=== PATIENT | male | born 1955 | race Caucasian/White ===

== ENCOUNTER 2020-01-08 06:26 | Outpatient (REF) | payer OTHER, SELFPAY ==
[2020-01-08 07:40] LABS: MANUAL DIFF FLAG NO
[2020-01-08 07:46] LABS: Basophils Absolute Auto 0.1 X10*3/uL (0.0-0.2); Basophils Percent Auto 0.5 % (0-2); Eosinophils Absolute Auto 0.3 X10*3/uL (0.0-0.4); Eosinophils Percent Auto 3.1 % (0-4); Hematocrit 43.3 % (42-52); Hemoglobin 14.9 g/dl (14.0-18.0); Imm Gran Abs Auto 0.05 X10*3/uL (0.00-0.03); Imm Gran Pct Auto 0.5 % (0.0-0.4); Lymphocytes Absolute Auto 2.8 X10*3/uL (1.2-4.9); Lymphocytes Percent Auto 30.2 % (20-40); Mean Corpuscular HGB Conc 34.4 g/dl (31.0-36.0); Mean Corpuscular Hemoglobin 32.5 pg (27.0-33.0); Mean Corpuscular Volume 94.5 fL (80-98); Mean Platelet Volume 9.7 fL (9.4-12.4); Monocytes Absolute Auto 0.8 X10*3/uL (0.1-1.2); Monocytes Percent Auto 8.5 % (2-11); Neutrophils Absolute Auto 5.3 X10*3/uL (2.0-8.3); Neutrophils Percent Auto 57.2 % (45-73); Platelet Count 229 X10*3/uL (160-400); Red Blood Count 4.58 X10*6/uL (4.60-5.80); Red Cell Distribution Width 13.1 % (11.0-16.0); White Blood Count 9.3 X10*3/uL (4.8-10.8)
[2020-01-08 08:31] LABS: Albumin Level 4.1 g/dL (3.5-5.0); Anion Gap 14 (12-20); Blood Urea Nitrogen 22 mg/dL (9-16); Carbon Dioxide 27 mmol/L (22-29); Chloride 102 mmol/L (96-108); Creatinine Urine 222.91 mg/dL; Estimated Glomerular Filt Rate > 60; Magnesium 1.7 mg/dL (1.6-2.6); Phosphorus 3.3 mg/dL (2.7-4.5); Potassium 4.4 mmol/l (3.3-5.1); Protein/Creatinine Ratio, Ur 0.26 (<0.2); Sodium 139 mmol/L (135-145); Total Protein Urine Random 58 mg/dL (<12)
[2020-01-09 19:27] LABS: Calcium (PTHI) 9.3 mg/dL (8.6-10.3); PTHI 31 pg/mL (14-64)
== END 2020-01-08 06:27 | disposition home or self-care (01) ==
LOC: HO.LAB 06:26
PROVIDERS: PCP Internal Medicine; Visit Provider Internal Medicine Hypertension Specialist
DX: I12.9 Hypertensive chronic kidney disease with stage 1 through stage 4 chronic kidney disease, or unspecified chronic kidney disease (principal); E11.22 Type 2 diabetes mellitus with diabetic chronic kidney disease; N18.2 Chronic kidney disease, stage 2 (mild); R80.9 Proteinuria, unspecified
CPT/HCPCS: 36415; 80051; 82040; 82310; 82565; 83735; 83970; 84100; 84156; 84520; 85025

== ENCOUNTER → 2020-01-31 12:56 | Outpatient (BNVA) | payer OTHER, SELFPAY | PROVIDERS: PCP Internal Medicine; Visit Provider Orthopaedic Surgery | DX: Z76.89 Persons encountering health services in other specified circumstances (principal) ==

== ENCOUNTER → 2020-02-13 08:07 | Outpatient (BNVA) | payer OTHER, SELFPAY | PROVIDERS: PCP Internal Medicine; Referring Provider Internal Medicine; Visit Provider Nurse Practitioner Gerontology | DX: Z76.89 Persons encountering health services in other specified circumstances (principal) ==

== ENCOUNTER 2020-02-29 07:56 | Outpatient (REF) | payer OTHER, SELFPAY ==
[2020-02-29 10:17] LABS: MANUAL DIFF FLAG NO
[2020-02-29 10:23] LABS: Basophils Absolute Auto 0.1 X10*3/uL (0.0-0.2); Basophils Percent Auto 0.6 % (0-2); Eosinophils Absolute Auto 0.3 X10*3/uL (0.0-0.4); Eosinophils Percent Auto 3.4 % (0-4); Hematocrit 42.5 % (42-52); Hemoglobin 14.5 g/dl (14.0-18.0); Imm Gran Pct Auto 1.1 % (0.0-0.4); Lymphocytes Absolute Auto 3.2 X10*3/uL (1.2-4.9); Lymphocytes Percent Auto 34.4 % (20-40); Mean Corpuscular HGB Conc 34.1 g/dl (31.0-36.0); Mean Corpuscular Hemoglobin 31.9 pg (27.0-33.0); Mean Corpuscular Volume 93.6 fL (80-98); Mean Platelet Volume 9.6 fL (9.4-12.4); Monocytes Absolute Auto 0.8 X10*3/uL (0.1-1.2); Neutrophils Absolute Auto 4.9 X10*3/uL (2.0-8.3); Neutrophils Percent Auto 52.5 % (45-73); Platelet Count 235 X10*3/uL (160-400); Red Blood Count 4.54 X10*6/uL (4.60-5.80); Red Cell Distribution Width 13.1 % (11.0-16.0); White Blood Count 9.4 X10*3/uL (4.8-10.8)
[2020-02-29 10:47] LABS: Estimated Average Glucose 151 mg/dL; Hemoglobin A1c % 6.9 %
[2020-02-29 10:48] LABS: Alanine Aminotransferase 46 U/L (0-40); Albumin Level 4.3 g/dL (3.5-5.0); Alkaline Phosphatase 72 U/L (39-117); Anion Gap 14 (12-20); Aspartate Amino Transferase 35 U/L (5-37); Bilirubin Total 0.5 mg/dL (0.0-1.0); Blood Urea Nitrogen 17 mg/dL (9-16); Calcium 9.3 mg/dL (8.4-10.2); Carbon Dioxide 28 mmol/L (22-29); Chloride 103 mmol/L (96-108); Estimated Glomerular Filt Rate > 60; Glucose Random 64 mg/dL (60-115); Potassium 4.1 mmol/l (3.3-5.1); Sodium 141 mmol/L (135-145)
[2020-02-29 10:51] LABS: Glucose Urine UA 100 MG/DL (NEG); Leukocyte Esterase Urine NEG (NEG); Nitrite Urine NEG (NEG); Specific Gravity - Urine >= 1.030 (1.005-1.025); Urine Blood NEG (NEG); Urine Ketones NEG (NEG); Urine Protein 2+ MG/DL (NEG-TRACE)
[2020-02-29 10:57] LABS: Appearance Urine CLEAR; Color Urine YELLOW
[2020-02-29 11:08] LABS: Creatinine Urine 161.34 mg/dL
[2020-02-29 11:09] LABS: Prostate Specific Antigen Scr 0.25 ng/mL (<0.05-4.0)
[2020-02-29 11:22] LABS: Microalbum/Creatinine Ratio Ur 368.1 ug/mg cr
[2020-02-29 11:33] LABS: Mucus Urine 1+ /LPF; RBC Urine 0 /HPF (0); WBC Urine 0-2 /HPF (0-4)
== END 2020-02-29 07:57 | disposition home or self-care (01) ==
LOC: HO.10HDL 07:56
PROVIDERS: Absent Provider Internal Medicine; Visit Provider Nurse Practitioner Gerontology
DX: I25.10 Atherosclerotic heart disease of native coronary artery without angina pectoris (principal); I10 Essential (primary) hypertension; E11.9 Type 2 diabetes mellitus without complications; R35.1 Nocturia
CPT/HCPCS: 36415; 80053; 81001; 82043; 83036; 84153; 85025

== ENCOUNTER 2020-03-13 07:56 | Outpatient (REF) | payer OTHER, SELFPAY ==
--- NOTE | 2020-03-13 08:01 | EMG_ITS ---
Bilateral median and ulnar motor and sensory studies were performed. Bilateral radial sensory studies were performed and paraspinal muscles were tested. Limb muscles were also tested bilaterally. IMPRESSION: 1. [id number] bilateral median neuropathy across carpal tunnel. 2. Mild right ulnar neuropathy across elbow. 3. No evidence of cervical radiculopathy. MD SCOTT Strickland/STEVIE / [id number]
== END 2020-03-13 07:57 | disposition home or self-care (01) ==
LOC: HO.NEURO 07:56
PROVIDERS: Visit Provider Orthopaedic Surgery
DX: R20.0 Anesthesia of skin (principal); R20.2 Paresthesia of skin
CPT/HCPCS: 95860; 95886; 95911

== ENCOUNTER → 2020-03-27 10:54 | Outpatient (BNVA) | payer OTHER, MEDICARE, SELFPAY | PROVIDERS: PCP Internal Medicine; Visit Provider Orthopaedic Surgery | DX: R20.0 Anesthesia of skin (principal); R20.2 Paresthesia of skin | CPT/HCPCS: 99202 ==

== ENCOUNTER → 2020-05-08 08:50 | Outpatient (BNVA) | payer MEDICARE, OTHER, SELFPAY | PROVIDERS: Visit Provider Orthopaedic Surgery | DX: G56.03 Carpal tunnel syndrome, bilateral upper limbs (principal); G56.22 Lesion of ulnar nerve, left upper limb; G56.21 Lesion of ulnar nerve, right upper limb; M65.332 Trigger finger, left middle finger; Z87.891 Personal history of nicotine dependence | CPT/HCPCS: 99212 ==

== ENCOUNTER → 2020-05-09 07:22 | Outpatient (BNVA) | payer MEDICARE, OTHER, SELFPAY | PROVIDERS: PCP Internal Medicine; Visit Provider Nurse Practitioner Gerontology | DX: E11.65 Type 2 diabetes mellitus with hyperglycemia (principal); E11.42 Type 2 diabetes mellitus with diabetic polyneuropathy; E11.29 Type 2 diabetes mellitus with other diabetic kidney complication; Z79.4 Long term (current) use of insulin; R80.9 Proteinuria, unspecified; I10 Essential (primary) hypertension; E78.5 Hyperlipidemia, unspecified; E66.09 Other obesity due to excess calories | CPT/HCPCS: 82947; 99212 ==

== ENCOUNTER 2020-05-23 12:58 | Outpatient (REF) | payer MEDICARE, OTHER, SELFPAY ==
[2020-05-23 13:33] LABS: MANUAL DIFF FLAG NO
[2020-05-23 13:38] LABS: Basophils Absolute Auto 0.1 X10*3/uL (0.0-0.2); Basophils Percent Auto 0.5 % (0-2); Eosinophils Absolute Auto 0.3 X10*3/uL (0.0-0.4); Eosinophils Percent Auto 2.7 % (0-4); Hematocrit 42.3 % (42-52); Hemoglobin 14.7 g/dl (14.0-18.0); Imm Gran Abs Auto 0.06 X10*3/uL (0.00-0.03); Imm Gran Pct Auto 0.5 % (0.0-0.4); Lymphocytes Percent Auto 34.5 % (20-40); Mean Corpuscular HGB Conc 34.8 g/dl (31.0-36.0); Mean Corpuscular Volume 92.2 fL (80-98); Mean Platelet Volume 9.6 fL (9.4-12.4); Monocytes Absolute Auto 0.9 X10*3/uL (0.1-1.2); Monocytes Percent Auto 7.5 % (2-11); Neutrophils Absolute Auto 6.3 X10*3/uL (2.0-8.3); Neutrophils Percent Auto 54.3 % (45-73); Platelet Count 234 X10*3/uL (160-400); Red Blood Count 4.59 X10*6/uL (4.60-5.80); Red Cell Distribution Width 12.9 % (11.0-16.0); White Blood Count 11.6 X10*3/uL (4.8-10.8)
[2020-05-23 13:46] LABS: Estimated Average Glucose 157 mg/dL; Hemoglobin A1c % 7.1 %
[2020-05-23 14:05] LABS: Alanine Aminotransferase 39 U/L (0-40); Albumin Level 4.4 g/dL (3.5-5.0); Alkaline Phosphatase 68 U/L (39-117); Anion Gap 16 (12-20); Aspartate Amino Transferase 36 U/L (5-37); Bilirubin Total 0.6 mg/dL (0.0-1.0); Blood Urea Nitrogen 19 mg/dL (9-16); Calcium 9.5 mg/dL (8.4-10.2); Carbon Dioxide 26 mmol/L (22-29); Chloride 103 mmol/L (96-108); Estimated Glomerular Filt Rate > 60; Glucose Random 93 mg/dL (60-115); Potassium 4.6 mmol/L (3.3-5.1); Sodium 140 mmol/L (135-145); Total Protein 7.1 g/dL (6.5-8.0)
[2020-05-23 14:28] LABS: Free T4 (Free Thyroxine) 0.89 ng/dL (0.71-1.85); Thyroid Stimulating Hormone 1.66 uIU/mL (0.32-4.0)
== END 2020-05-23 12:59 | disposition home or self-care (01) ==
LOC: HO.10HDL 12:58
PROVIDERS: Visit Provider Internal Medicine
DX: I25.10 Atherosclerotic heart disease of native coronary artery without angina pectoris (principal); E11.9 Type 2 diabetes mellitus without complications; I10 Essential (primary) hypertension; E03.9 Hypothyroidism, unspecified
CPT/HCPCS: 36415; 80053; 83036; 84439; 84443; 85025

== ENCOUNTER → 2020-06-26 13:54 | Outpatient (BNVA) | payer MEDICARE, OTHER, SELFPAY | PROVIDERS: PCP Internal Medicine; Visit Provider Internal Medicine | DX: Z01.810 Encounter for preprocedural cardiovascular examination (principal); I25.10 Atherosclerotic heart disease of native coronary artery without angina pectoris; E11.8 Type 2 diabetes mellitus with unspecified complications; I10 Essential (primary) hypertension; E78.5 Hyperlipidemia, unspecified | CPT/HCPCS: 93005; 99202 ==

== ENCOUNTER → 2020-07-04 07:26 | Outpatient (REF) | payer MEDICARE, OTHER, SELFPAY ==
--- NOTE | 2020-07-04 07:29 | CA_ITS ---
Transthoracic Echocardiogram Patient (Last, First, Middle): Kristopher Adhikari E Gender: Male Date of : 1955 Age: 65 Procedure Date: 07/04/2020 Procedure Type: Transthoracic Echocardiogram Location: OP Height: 182.88 cm Weight: 142.88 kg BSA: 2.58 m2 Heart Rate: bpm BP: 138 / 80 mmHg Division Director: Referring MD: Yovani Louise MD Duty Manager: Adalid Braga MD Symptoms: Z01.810 - Encounter for preprocedural cardiovascular exam... Study Quality: Fair ECG Rhythm: Sinus Conclusions: - 1. Technically limited study 2. Normal LV systolic function with mild LVH with grade 1 diastolic dysfunction 3. Normal cardiac valvular Doppler 4. Normal RV systolic pressure Findings Left Ventricle Normal left ventricular size and systolic function. There is mildly increased left ventricular wall thickness. The visually estimated ejection fraction is between 60-65%. Spectral Doppler is indicative of an impaired relaxation filling pattern. E/E prime ratio is <8, consistent with normal filling pressures. Evidence suggests grade I (mild) diastolic dysfunction. Right Ventricle The right ventricle was not well visualized. Atria The left atrium is likely dilated. Interatrial shunt cannot be excluded. The right atrium was not well visualized. Aortic Valve The aortic valve was not well visualized. There is no aortic valve stenosis. There is no aortic valve regurgitation. Mitral Valve The mitral valve was not well visualized. There is no mitral valve regurgitation. There is no mitral valve stenosis. Pulmonic Valve The pulmonic valve was not well visualized. Tricuspid Valve Likely normal tricuspid valve structure and function. There is trace tricuspid valve regurgitation. The right ventricular systolic pressure is normal. The right ventricular systolic pressure is 13 mmHg. Normal right atrial pressure. There is no evidence of pulmonary hypertension. Great Vessels The aorta was not well visualized. The pulmonary artery was not well visualized. Venous The inferior vena cava is normal in size and collapses greater than 50% with inspiration. Pericardium/Pleural The pericardium was not well visualized. Prior Study Comparison No prior study available for comparison. Measurements 2D Linear Measurements IVSd: 1.20 0.6-0.9/0.6-1.0 cm LVIDd: 3.88 3.9-5.3/4.2-5.9 cm LVIDd Index: 1.50 2.4-3.2/2.2-3.1 cm/m2 LVIDs: 2.69 2.0-3.6 cm LVPWd: 1.20 0.7-1.1 cm Ao Root: 3.20 2.1-3.5 cm LA Diam: 4.10 2.7-3.8/3.0-4.0 cm LAIDs Index: 1.59 1.5-2.3 cm/m2 LV Mass: 261.95 67-162/88-224 g LV Mass Index: 101.53 43-95/49-115 g/m2 LVOT Diam: 2.10 3.0+(-)1.3 cm 2D Systolic Function EF 4C: 68.90 >55% EF 2C: 71.30 >55% EF BiP: 72.10 >55% Mitral Valve MV Pk E: 0.66 MV PK A: 0.89 MV Decel Time: 95.00 E/A: 0.70 E'Lateral: 8.12 E'Medial: 5.80 E/E' Med: 11.40 E/E' Lat: 8.10 PHT: 28.00 MVA PHT: 7.86 Decel [place]: 6.94 Aortic Valve AoV Pk Joseph: 1.24 AoV Mn Joseph: 0.78 AoV VTI: 0.27 AoV Pk Grad: 6.00 Aov Mn Grad: 3.00 JEREL Cont.VTI: 2.47 LVOT LVOT Pk Joseph: 0.87 LVOT Mn Joseph: 0.61 LVOT VTI: 0.20 LVOT Pk Grad: 3.00 LVOT Mn Grad: 2.00 LVOT Diam: 2.10 LVOT Area: 3.46 Diastolic Function MV Pk E: 0.66 MV Pk A: 0.89 E/A: 0.70 E'Medial: 5.80 E/E' Med: 11.40 E' Laterial: 8.12 E/E' Lat: 8.10 Tricuspid Valve TR Pk Joseph: 1.59 TR Pk Grad: 10.00 RA Press: 3.00 RVSP: 13.00 Great Vessels Aorta Ao Root-2D: 3.20 2.0-3.7 cm Pulmonary Valve PV Pk Joseph: 0.92 Peak PV Grad: 3.00 Updated in Other Vendor System with Status of Final Adalid Braga MD electronically signed on 07/05/2020 2:59:11 PM with status of Final
== END ==
LOC: HO.CARD 07:26
PROVIDERS: PCP Internal Medicine; Visit Provider Internal Medicine
DX: Z01.810 Encounter for preprocedural cardiovascular examination (principal)
CPT/HCPCS: 93306; Q9957

== ENCOUNTER → 2020-07-08 08:25 | Outpatient (REF) | payer MEDICARE, OTHER, SELFPAY ==
--- NOTE | ~2020-07-08 | NM_ITS ---
Lexiscan Myocardial perfusion study Indication: Preoperative cardiac evaluation, history of coronary disease Technique: The patient was brought in for a Lexiscan perfusion study on 07/08/2020 and was injected 0.4 mg of Lexiscan intravenously. Within a minute of this injection 45 mCi of sestamibi was given intravenously. Images were obtained using the SPECT gamma camera interlaced with the gating device. Images were obtained in supine position. Resting perfusion study was performed on 07/09/2020. Patient was administered 45 mCi of sestamibi intravenously at rest. Images were then obtained in supine position. Total DLP 156mGy-cm. Images were processed with the software and compared side to side in short axis, horizontal long axis and vertical long axis views. Findings: Raw acquisition was reviewed. The stress perfusion study showed minimally decreased tracer uptake in the basal part of the inferolateral wall. With CT attenuation correction, there seems to be improvement and hence could be from diaphragmatic attenuation artifact. The gated study shows normal LV systolic function with calculated LVEF of 59%. LV cavity is normal in size. The gated study shows normal wall thickening and contraction of segments. Resting study shows no significant perfusion abnormality. Gating at rest reveals normal wall motion with ejection fraction at 70%. The findings are consistent with no definite reversible or fixed perfusion defects. NM/NM gricel perf SPECT rest & str Impression: 1. Myocardial perfusion imaging study shows likely normal myocardial perfusion. No definitive evidence of any ischemia or infarction. 2. Gated LVEF is 59% during stress and 70% during rest. 3. Transient ischemic dilatation not present. EKG component of the test reported separately.
--- NOTE | 2020-07-08 08:27 | CA_ITS ---
Acquisition Time: 2020-07-08 08:34:08 Total Exercise Time: 00:02:00 Test Indications: Z01.810 Preprocedural Cardiovasc Medications: Protocol: LEXISCAN Max HR: 113 BPM 73% of Pred: 154 BPM Max BP: 130/068 mmHG Max Work Load: 1.0 METS Pharmacological stess test using Lexiscan while sitting and kicking his feet. Pt tolerated well, denies any anginal sx. EKG without arrhythmias, non-diagnostic for ischemia. Nuclear images to follow. Normotensive response to test. Test reviewed with Dr. Louise. Referred By: Yovani Louise Overread By: Veronica Estes NP
== END ==
LOC: HO.CARD 08:25
PROVIDERS: PCP Internal Medicine; Visit Provider Internal Medicine
DX: Z01.810 Encounter for preprocedural cardiovascular examination (principal); Z86.79 Personal history of other diseases of the circulatory system
CPT/HCPCS: 78452; 93017; A9500; J0280; J2785

== ENCOUNTER → 2020-07-10 07:31 | Outpatient (BNVA) | payer MEDICARE, OTHER, SELFPAY | PROVIDERS: PCP Internal Medicine; Visit Provider Nurse Practitioner Gerontology | DX: Z01.810 Encounter for preprocedural cardiovascular examination (principal); E11.42 Type 2 diabetes mellitus with diabetic polyneuropathy; E11.21 Type 2 diabetes mellitus with diabetic nephropathy; E11.65 Type 2 diabetes mellitus with hyperglycemia; E11.29 Type 2 diabetes mellitus with other diabetic kidney complication; E66.09 Other obesity due to excess calories; R80.9 Proteinuria, unspecified; I25.10 Atherosclerotic heart disease of native coronary artery without angina pectoris; E78.5 Hyperlipidemia, unspecified; I10 Essential (primary) hypertension; Z79.82 Long term (current) use of aspirin; Z87.891 Personal history of nicotine dependence; Z79.4 Long term (current) use of insulin | CPT/HCPCS: 82947; 99212; Q3014 ==

== ENCOUNTER → 2020-08-12 12:24 | Outpatient (BNVA) | payer MEDICARE, OTHER, SELFPAY | PROVIDERS: PCP Internal Medicine; Visit Provider Orthopaedic Surgery | DX: M65.332 Trigger finger, left middle finger (principal); G56.03 Carpal tunnel syndrome, bilateral upper limbs; G56.23 Lesion of ulnar nerve, bilateral upper limbs | CPT/HCPCS: 99212 ==

== ENCOUNTER 2020-08-14 10:03 | Day surgery (SDC) | payer MEDICARE, OTHER, SELFPAY ==
[2020-08-05 11:26] VITALS: BMI 42.7
--- NOTE | 2020-08-05 12:41 | HO.ANESPROP2 ---
Documented by User: Linda Lee 08/05/20 12:45 HPI - Anesthesia Eval Consult details Narrative: 65yo M for Left Middle Finger Transposition Cubital Tunnel Release, Carpal Tunnel Release and A1- Pully Release Cardiac cleared at low to intermediate risk PMFSH Active Problems Active Problems: All Active Problems (Updated 08/05/20 @ 11:41 by Rebeka Mancera) Numbness and tingling in both hands (Acute) Left hand pain (Acute) Carpal tunnel syndrome of left wrist (Acute) Cubital tunnel syndrome on left (Acute) Cubital tunnel syndrome on right (Acute) Carpal tunnel syndrome of right wrist (Acute) Trigger finger, left middle finger (Acute) Preoperative cardiovascular examination (Acute) Other and unspecified hyperlipidemia (Acute) Type 2 diabetes mellitus with unspecified complications (Acute) Atherosclerotic cardiovascular disease (Acute) Type 2 diabetes mellitus with hyperglycemia, with long-term current use of insulin (Acute) Type 2 diabetes mellitus with diabetic polyneuropathy (Acute) Proteinuria (Acute) Type 2 diabetes mellitus with other diabetic kidney complication (Acute) Essential hypertension (Acute) Hyperlipidemia LDL goal <70 (Acute) Obesity due to excess calories (Acute) Past Medical History Medical History Atherosclerotic cardiovascular disease CAD (coronary artery disease) Chronic kidney disease (CKD), stage II (mild) Diabetes Essential hypertension GERD (gastroesophageal reflux disease) Gout Graves disease History of skin cancer HTN (hypertension) Hyperlipidemia Hyperlipidemia LDL goal <70 Obesity due to excess calories Other and unspecified hyperlipidemia Peripheral neuropathy Proteinuria Renal stones Sleep apnea Tubular adenoma of colon Type 2 diabetes mellitus with diabetic polyneuropathy Type 2 diabetes mellitus with hyperglycemia, with long-term current use of insulin Type 2 diabetes mellitus with other diabetic kidney complication Type 2 diabetes mellitus with unspecified complications Family History Family History Father No problems noted. 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 [employer] Allergies Allergy/AdvReac Type Severity Reaction Status Date / Time No Known Allergies Allergy Verified 08/12/20 12:27 [No Known Allergies*] Home Medications Medication Instructions Recorded Confirmed Last Taken Type metoprolol tartrate 50 mg tablet 50 mg PO BID tab 01/31/20 08/05/20 Unknown History blood sugar diagnostic #10 ea 02/13/20 07/10/20 Unknown History levothyroxine 50 mcg tablet 50 mcg PO DAILY 02/13/20 08/05/20 Unknown History lisinopril 20 mg tablet 20 mg PO DAILY 02/13/20 08/05/20 Unknown History pen needle, diabetic 32 gauge x #50 ea 02/13/20 07/10/20 Unknown History aspirin 325 mg tablet 325 mg PO DAILY 05/09/20 08/05/20 Unknown History insulin glargine 100 unit/mL 50 unit SUBCUT BID ml 07/10/20 08/05/20 Unknown History subcutaneous solution allopurinol 1 tab PO DAILY 08/05/20 08/05/20 Unknown History atorvastatin 1 tab PO DAILY 08/05/20 08/05/20 Unknown History omeprazole 1 cap PO DAILY 08/05/20 08/14/20 08/14/20 06:00 History Exam Exam Date and Time: August 05, 2020 1241 Height,Weight and Vital Signs: Height 6 ft Weight 142.882 kg Pertinent Lab Results Pertinent Lab Results: Laboratory Tests 05/23/20 05/23/20 13:08 13:08 WBC 11.6 H Hgb 14.7 Hct 42.3 Plt Count 234 Sodium 140 Potassium 4.6 Chloride 103 Carbon Dioxide 26 BUN 19 H Creatinine 1.03 Narrative Narrative: EKG 06/2020: sinus rhythm with first-degree AV block, no acute ST or T-wave abnormalities, rate 80. Nuclear stress test done on 07/08/2020 shows normal myocardial perfusion imaging with no infarct or ischemia. Echocardiogram done on 07/04/2020 shows EF 60-65%, grade 1 diastolic dysfunction, no valve abnormalities. Assessment and Plan Assessment Anesthesia Assessment: Chart Reviewed Documented by User: Irma Cates 08/14/20 11:24 [facility] Past Medical History Medical History Atherosclerotic cardiovascular disease CAD (coronary artery disease) Chronic kidney disease (CKD), stage II (mild) Diabetes Essential hypertension GERD (gastroesophageal reflux disease) Gout Graves disease History of skin cancer HTN (hypertension) Hyperlipidemia Hyperlipidemia LDL goal <70 Obesity due to excess calories Other and unspecified hyperlipidemia Peripheral neuropathy Proteinuria Renal stones Sleep apnea Tubular adenoma of colon Type 2 diabetes mellitus with diabetic polyneuropathy Type 2 diabetes mellitus with hyperglycemia, with long-term current use of insulin Type 2 diabetes mellitus with other diabetic kidney complication Type 2 diabetes mellitus with unspecified complications Family History Family History Father No problems noted. 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 [place] Allergies Allergy/AdvReac Type Severity Reaction Status Date / Time No Known Allergies Allergy Verified 08/12/20 12:27 [No Known Allergies*] Home Medications Medication Instructions Recorded Confirmed Last Taken Type metoprolol tartrate 50 mg tablet 50 mg PO BID tab 01/31/20 08/05/20 Unknown History blood sugar diagnostic #10 ea 02/13/20 07/10/20 Unknown History levothyroxine 50 mcg tablet 50 mcg PO DAILY 02/13/20 08/05/20 Unknown History lisinopril 20 mg tablet 20 mg PO DAILY 02/13/20 08/05/20 Unknown History pen needle, diabetic 32 gauge x #50 ea 02/13/20 07/10/20 Unknown History aspirin 325 mg tablet 325 mg PO DAILY 05/09/20 08/05/20 Unknown History insulin glargine 100 unit/mL 50 unit SUBCUT BID ml 07/10/20 08/05/20 Unknown History subcutaneous solution allopurinol 1 tab PO DAILY 08/05/20 08/05/20 Unknown History atorvastatin 1 tab PO DAILY 08/05/20 08/05/20 Unknown History omeprazole 1 cap PO DAILY 08/05/20 08/14/20 08/14/20 06:00 History Exam Airway Mallampati Class: III TM Dist: >3cm Neck ROM: Full Assessment and Plan Assessment Anesthesia Assessment: Anesthesia Plan Discussed and Chart Reviewed Final Anesthetic Review ASA Class: III Final Preanesthetic Review: No Changes in Pt Med Stat, Meds/Allgs Chart Reviewed, Consent Obtained/Reviewed and Anes Risks/Benef Reviewed Patient Risk: Intermediate Procedure Risk: Low Assessment/Block/Sedation in SS: Assess/Block/Sedation-SS Anesthetic Plan Anesthetic Plan: GA Disposition: Standard PACU
[2020-08-14 10:15] VITALS: BP 142/62; PULSE 85; RESP 26; TEMP 36.3; O2SAT 96
[2020-08-14 10:34] LABS: Glucose, Whole Blood 166 mg/dL (60-115)
[2020-08-14] MEDS: Lactated Ringers 1,000 ML 100 ML IVCONT (10:39)
--- NOTE | 2020-08-14 13:22 | MHC.SHP ---
Pre-Procedural Eval Section B Chief Complaint: carpal tunnel syndrome Allergies: Allergies Allergy/AdvReac Type Severity Reaction Status Date / Time No Known Allergies Allergy Verified 08/12/20 12:27 [No Known Allergies*] Plan I have reviewed the history and physical and performed a pertinent physical examination on my patient. No changes have occurred unless specified.
--- NOTE | 2020-08-14 13:23 | P.OP_ITS ---
Operative Note Operative Note Date of Service: 08/14/20 Narrative: Operative Note Narrative: Preop diagnosis: 1. [ ] Cubital tunnel syndrome Postop diagnosis: Same Procedure: 1. [ ] Cubital Tunnel Release Surgeon: Kadi Wren MD Anesthesia: General Findings: [ ] Thickening and fibrosis about the ulnar nerve at the cubital tunnel Implants: none Tourniquet time: [ ] minutes EBL: 5.0 ml Specimen: none Drains: None Complications: None Disposition: Brought to the recovery room in stable condition Plan: Follow-up in 10-14 days for wound check, and suture removal [ ] Indications: The patient is [ ] years old [ ] with [ ] . The risks and benefits of operative treatment, including but not limited to risk of damage to blood vessels, nerves, tendons, infection, recurrence, persistent pain or numbness, incomplete resolution of preoperative symptoms, or need for further surgery were discussed with the patient and they wished to proceed with surgery. Procedure: Once consent was obtained patient was brought back to the operating suite and placed in the operating table in a supine position. Perioperative antibiotics and anesthesia was administered by the anesthesia team. The limb was prepped and draped in a standard surgical fashion, and a sterile tourniquet applied to the proximal aspect of the [ ] upper extremity. The limb was elevated exsanguinated with Esmarch bandage and the tourniquet inflated to 250 mm of mercury for a total tourniquet time of [ ] minutes. A 6 cm gently curved but longitudinally oriented incision was made centered over the cubital tunnel of the [ ] upper extremity. Incision was made through the skin to the subcutaneous tissues using a # 15 Blade. I then dissected down to the level of the medial epicondyle and the cubital tunnel using tenotomy scissors. Care was taken to protect the lateral antebrachial cutaneous nerve. The ulnar nerve was identified just posterior to the medial intermuscular septum. Small vessel loop was passed behind the ulnar nerve and used to apply g entle traction to facilitate our release. The ulnar nerve was released in a proximal to distal direction using tenotomy in iris scissors while directly visualizing and protecting the ulnar nerve. Thickening and fibrosis was appreciated about the ulnar nerve as it passed through the cubital tunnel. The ulnar nerve was assessed as I passed the elbow through full flexion and extension [and was found to remain stable within its groove]. Has the ulnar nerve appear to subluxate over the medial epicondyle, the decision was made to proceed with an anterior ulnar nerve transposition. The subcutane ous tissue was carefully freed from the fascia anterior to the medial epicondyle creating an appropriate bed for the ulnar nerve transposition. The ulnar nerve was then freed and carefully transposed anterior to the medial epicondyle. Some of the subcutaneous fat in the anterior flap of tissues was carefully secured to the fascia about the medial epicondyle using some 3-0 Vicryl suture material. This created a sling to prevent posterior subluxation of the ulnar nerve. The ulnar nerve was evaluated in its transposition site and found to have good ability to glide and to be free from undo pressure from the anterior sling. [ ] At this point the tourniquet was deflated and hemostasis obtained with a brief period of local pressure and bipolar electrocautery. The wound was copiously irrigated with normal saline. The subcutaneous layer was closed with 4-0 Vicryl suture, and the skin edges were reapproximated with 5-0 nylon suture. The wound was infiltrated with some 0.25% plain Marcaine for postop pain control and sterile dressings and a posterior splint was applied. The patient appears to have tolerated the procedure well and with no complications. All digits were well vascularized conclusion of the case.
--- NOTE | 2020-08-14 14:57 | HO.ANESPROP2 ---
FORMERLY [facility], [facility] Active Problems Active Problems: All Active Problems (Updated 08/05/20 @ 12:44 by Linda Lee) Numbness and tingling in both hands (Acute) Left hand pain (Acute) Carpal tunnel syndrome of left wrist (Acute) Cubital tunnel syndrome on left (Acute) Cubital tunnel syndrome on right (Acute) Carpal tunnel syndrome of right wrist (Acute) Trigger finger, left middle finger (Acute) Preoperative cardiovascular examination (Acute) Other and unspecified hyperlipidemia (Acute) Type 2 diabetes mellitus with unspecified complications (Acute) Atherosclerotic cardiovascular disease (Acute) Type 2 diabetes mellitus with hyperglycemia, with long-term current use of insulin (Acute) Type 2 diabetes mellitus with diabetic polyneuropathy (Acute) Proteinuria (Acute) Type 2 diabetes mellitus with other diabetic kidney complication (Acute) Essential hypertension (Acute) Hyperlipidemia LDL goal <70 (Acute) Obesity due to excess calories (Acute) Past Medical History Medical History Atherosclerotic cardiovascular disease CAD (coronary artery disease) Chronic kidney disease (CKD), stage II (mild) Diabetes Essential hypertension GERD (gastroesophageal reflux disease) Gout Graves disease History of skin cancer HTN (hypertension) Hyperlipidemia Hyperlipidemia LDL goal <70 Obesity due to excess calories Other and unspecified hyperlipidemia Peripheral neuropathy Proteinuria Renal stones Sleep apnea Tubular adenoma of colon Type 2 diabetes mellitus with diabetic polyneuropathy Type 2 diabetes mellitus with hyperglycemia, with long-term current use of insulin Type 2 diabetes mellitus with other diabetic kidney complication Type 2 diabetes mellitus with unspecified complications Family History Family History Father No problems noted. 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 Allergies Allergy/AdvReac Type Severity Reaction Status Date / Time No Known Allergies Allergy Verified 08/12/20 12:27 [No Known Allergies*] Active Medications: Current Medications Generic Name Dose Route Start Last Admin Trade Name Cici PRN Reason Stop Dose Admin Acetaminophen 650 mg 08/14/20 11:24 Acetaminophen 325 Mg Tablet PO ONCE PRN Pain, Mild (Pain Scale 1-3) Fentanyl 50 mcg 08/14/20 11:24 Fentanyl Citrate/Pf 100 Mcg/2 Ml Vial IVPUSH Q5M PRN Pain, Severe (Pain Scale 7-10) Lactated Ringer's 1,000 mls @ 100 mls/hr 08/14/20 09:45 08/14/20 10:39 Lr IVCONT 100 mls/hr .Q10H MILLICENT Administration Ondansetron HCl 4 mg 08/14/20 11:24 Ondansetron Hcl 4 Mg/2 Ml Vial IVPUSH ONCE PRN Nausea and Vomiting Oxycodone HCl 5 mg 08/14/20 11:24 Oxycodone Hcl Immed Release 5 Mg Tablet PO ONCE PRN Pain, Severe (Pain Scale 7-10) Home Medications Medication Instructions Recorded Confirmed Last Taken Type metoprolol tartrate 50 mg tablet 50 mg PO BID tab 01/31/20 08/05/20 Unknown History blood sugar diagnostic #10 ea 02/13/20 07/10/20 Unknown History levothyroxine 50 mcg tablet 50 mcg PO DAILY 02/13/20 08/05/20 Unknown History lisinopril 20 mg tablet 20 mg PO DAILY 02/13/20 08/05/20 Unknown History pen needle, diabetic 32 gauge x #50 ea 02/13/20 07/10/20 Unknown History aspirin 325 mg tablet 325 mg PO DAILY 05/09/20 08/05/20 Unknown History insulin glargine 100 unit/mL 50 unit SUBCUT BID ml 07/10/20 08/05/20 Unknown History subcutaneous solution allopurinol 1 tab PO DAILY 08/05/20 08/05/20 Unknown History atorvastatin 1 tab PO DAILY 08/05/20 08/05/20 Unknown History omeprazole 1 cap PO DAILY 08/05/20 08/14/20 08/14/20 06:00 History Exam Exam Date and Time: August 14, 2020 1457 Height,Weight and Vital Signs: Height 6 ft Weight 142.882 kg Last Vital Signs Temp 97.3 F 08/14/20 10:15 Pulse 85 08/14/20 10:15 Resp 26 H 08/14/20 10:15 BP 142/62 H 08/14/20 10:15 Pulse Ox 96 08/14/20 10:15 Pertinent Lab Results Pertinent Lab Results: Laboratory Tests 08/14/20 10:30 POC Glucose 166 H Airway Mallampati Class: II TM Dist: >3cm Neck ROM: Full Assessment and Plan Assessment Anesthesia Assessment: Anesthesia Plan Discussed and Chart Reviewed Final Anesthetic Review NPO: Yes ASA Class: III Final Preanesthetic Review: No Changes in Pt Med Stat, Meds/Allgs Chart Reviewed, Consent Obtained/Reviewed and Anes Risks/Benef Reviewed Patient Risk: Intermediate Procedure Risk: Low Assessment/Block/Sedation in SS: Assess/Block/Sedation-SS Anesthetic Plan Anesthetic Plan: GA Disposition: Standard PACU
--- NOTE | 2020-08-14 16:20 | P.OP_ITS ---
Operative Note Operative Note Date of Service: 08/14/20 Narrative: Operative Note Narrative: Preop diagnosis: 1. Left Cubital tunnel syndrome 2. Left carpal tunnel syndrome 3. Left middle finger trigger finger Postop diagnosis: Same Procedure: 1. Left Cubital Tunnel Release 2. Left carpal tunnel release 3. Left middle finger A1 genna release Surgeon: Kadi Wren MD Anesthesia: General Findings: Thickening and fibrosis about the ulnar nerve at the cubital tunnel. The ulnar nerve was stable in the groove with passive elbow flexion and extension. Implants: none Tourniquet time: 40 minutes EBL: 5.0 ml Specimen: none Drains: None Complications: None Disposition: Brought to the recovery room in stable condition Plan: Follow-up in 10-14 days for wound check, and suture removal Indications: The patient is 65 years old man with left cubital tunnel syndrome, left carpal tunnel syndrome, and a left middle finger trigger finger . The risks and benefits of operative treatment, including but not limited to risk of damage to blood vessels, nerves, tendons, infection, recurrence, persistent pain or numbness, incomplete resolution of preoperative symptoms, or need for further surgery were discussed with the patient and they wished to proceed with surgery. Procedure: Once consent was obtained patient was brought back to the operating suite and placed in the operating table in a supine position. Perioperative antibiotics and anesthesia was administered by the anesthesia team. The limb was prepped and draped in a standard surgical fashion, and a sterile tourniquet applied to the proximal aspect of the left upper extremity. The limb was elevated exsanguinated with Esmarch bandage and the tourniquet inflated to 250 mm of mercury for a total tourniquet time of 40 minutes. Release. Our attention was 1st turned toward the left middle finger trigger finger. A 1.5 cm oblique incision was made centered over the A1 genna of the left middle finger . The incision was made through the skin to the subcutaneous tissues using a #15 blade. Careful dissection was made down to the level of the A1 genna using tenotomy scissors, with care being taken to protect the nearby neurovascular structures. A longitudinal incision was made in the A1 genna 1st using a #15 blade, then using tenotomy scissors under direct visualization. The A1 genna was noted to be thickened. Following our A1 genna release, we pascual dietzger saw any locking or catching of the digit with passive flexion and extension. We then turned our attention to the left carpal tunnel release. A 1.5 cm longitudinal incision was made centered over the left carpal tunnel. The incision was made through the skin to the subcutaneous tissues using a #15 blade. Dissection was made down to the level of the transverse carpal ligament with care being taken to protect the palmar cutaneous nerve. Once the transverse carpal ligament was clearly visualized, a longitudinal incision was made in the transverse carpal ligament 1st using a #15 blade, then using tenotomy scissors under direct visualization. Care was taken to look for and protect the motor branch of the median nerve when seen in this area. Once satisfied with our carpal tunnel release the wound was irrigated with normal saline. This point my attention was turned to the cubital tunnel A 6 cm gently curved but longitudinally oriented incision was made centered over the cubital tunnel of the left upper extremity. Incision was made through the skin to the subcutaneous tissues using a # 15 Blade. I then dissected down to the level of the medial epicondyle and the cubital tunnel using tenotomy scissors. Care was taken to protect the lateral antebrachial cutaneous nerve. The ulnar nerve was identified just posterior to the medial intermuscular septum. Small vessel loop was passed behind the ulnar nerve and used to apply gentle traction to facilitate our release. The ulnar nerve was released in a proximal to distal direction using tenotomy in iris scissors while directly visualizing and protecting the ulnar nerve. Thickening and fibrosis was appreciated about the ulnar nerve as it passed through the cubital tunnel. The ulnar nerve was assessed as I passed the elbow through full flexion and extension [and was found to remain stable within its groove]. At this point the tourniquet was deflated and hemostasis obtained with a brief period of local pressure and bipolar electrocautery. The wounds for copiously irrigated with normal saline. The subcutaneous layer was closed with 4-0 Vicryl suture, and the skin edges were reapproximated with 5-0 nylon and 4-0 nylon suture. The wounds were infiltrated with some 1% lidocaine with epinephrine for postop pain control and sterile dressings and a posterior splint was applied. The patient appears to have tolerated the procedure well and with no complications. All digits were well vascularized conclusion of the case.
[2020-08-14 16:25] VITALS: BP 139/65; PULSE 90; RESP 14; TEMP 36.4; O2SAT 92
[2020-08-14 16:30] VITALS: BP 147/56; PULSE 85; RESP 14; O2SAT 92
[2020-08-14 16:35] VITALS: BP 126/52; PULSE 87; RESP 16; O2SAT 92
[2020-08-14 16:40] VITALS: BP 133/51; PULSE 86; RESP 16; O2SAT 93
[2020-08-14 16:55] VITALS: BP 127/55; PULSE 90; RESP 16; O2SAT 96
== END 2020-08-14 17:17 | disposition home or self-care (01) ==
PROVIDERS: PCP Internal Medicine; Visit Provider Orthopaedic Surgery
PROC: (CPT 64718; principal; 2020-08-14 11:30)
DX: G56.02 Carpal tunnel syndrome, left upper limb (principal); G56.22 Lesion of ulnar nerve, left upper limb; M65.332 Trigger finger, left middle finger; E11.22 Type 2 diabetes mellitus with diabetic chronic kidney disease; I12.9 Hypertensive chronic kidney disease with stage 1 through stage 4 chronic kidney disease, or unspecified chronic kidney disease; N18.2 Chronic kidney disease, stage 2 (mild); E11.65 Type 2 diabetes mellitus with hyperglycemia; E11.42 Type 2 diabetes mellitus with diabetic polyneuropathy; G47.30 Sleep apnea, unspecified; I25.10 Atherosclerotic heart disease of native coronary artery without angina pectoris; Z98.61 Coronary angioplasty status; Z79.4 Long term (current) use of insulin; Z87.891 Personal history of nicotine dependence; Z79.899 Other long term (current) drug therapy; Z79.82 Long term (current) use of aspirin
CPT/HCPCS: 64721; 64718; 26055; 82947; J0690; J1100; J2250; J2405; J3010

== ENCOUNTER → 2020-08-25 08:53 | Outpatient (BNVA) | payer MEDICARE, OTHER, SELFPAY | PROVIDERS: PCP Internal Medicine; Visit Provider Orthopaedic Surgery | DX: G56.23 Lesion of ulnar nerve, bilateral upper limbs (principal); G56.03 Carpal tunnel syndrome, bilateral upper limbs; M65.332 Trigger finger, left middle finger | CPT/HCPCS: 99212 ==

== ENCOUNTER → 2020-10-07 07:50 | Outpatient (BNVA) | payer MEDICARE, OTHER, SELFPAY | PROVIDERS: PCP Internal Medicine; Visit Provider Nurse Practitioner Gerontology | DX: E11.65 Type 2 diabetes mellitus with hyperglycemia (principal); E11.42 Type 2 diabetes mellitus with diabetic polyneuropathy; E11.29 Type 2 diabetes mellitus with other diabetic kidney complication; E78.5 Hyperlipidemia, unspecified; E66.01 Morbid (severe) obesity due to excess calories; R80.9 Proteinuria, unspecified; I10 Essential (primary) hypertension; Z79.4 Long term (current) use of insulin; Z68.42 Body mass index [BMI] 45.0-49.9, adult | CPT/HCPCS: 82947; 99212 ==

== ENCOUNTER 2020-11-20 09:24 | Outpatient (REF) | payer MEDICARE, OTHER, SELFPAY ==
--- NOTE | ~2020-11-20 | CT_ITS ---
EXAMINATION: CT CHEST SCREENING CLINICAL INFORMATION: Personal history of nicotine dependence. COMPARISON: None. TECHNIQUE: Multidetector volumetric CT imaging of the chest is performed without contrast using low dose technique. Additional 2D coronal and sagittal reformatted images and axial 3D maximum intensity projection (MIP) images are generated on the CT workstation. This CT examination was performed using dose optimization techniques as appropriate, variously including the following: *Automated exposure control *Adjustment of mA and/or kV according to patient size (this includes techniques or standardized protocols for targeted exams where dose is matched to indication/reason for exam; i.e. extremities or head) *Use of iterative reconstruction technique DLP: 449 mGy-cm FINDINGS: LUNGS: The lungs are well expanded and clear of acute pneumonic process. There is left basilar atelectasis. There is a 2 mm subpleural-based nodule in the lingula axial image 251/5, 2 mm nodule right middle lobe adjacent to the minor fissure axial image 248/5 and 2 mm nodule right upper lobe axial image 144/5. No additional nodule seen. MEDIASTINUM: The thyroid lobes are symmetrical and normal. The central trachea and the bronchi are widely patent. No abnormal-sized mediastinal or hilar lymph node seen. Heart size and the great vessels are normal caliber. There are coronary artery calcifications present. There is no pericardial effusion. PLEURA: There is no pleural effusion. No pleural mass or thickening. AXILLA: There are small bilateral benign-appearing lymph nodes. UPPER ABDOMEN: Visualized liver, spleen, pancreas and bilateral adrenal glands appear unremarkable. There is punctate nonobstructive radiopaque calculi upper pole left kidney. OSSEOUS STRUCTURES: No lytic or sclerotic process. CT/CT lung screening IMPRESSION: Several 2 mm small pulmonary nodules likely benign. No acute consolidation, mass or abnormal mediastinal adenopathy. Lung RADS: 2, benign. RECOMMENDATION: Low dose annual CT chest.
== END 2020-11-20 09:25 | disposition home or self-care (01) ==
LOC: HO.CT 09:24
PROVIDERS: PCP Internal Medicine; Visit Provider Physician Assistant Medical
DX: Z12.2 Encounter for screening for malignant neoplasm of respiratory organs (principal); Z87.891 Personal history of nicotine dependence
CPT/HCPCS: 71271

== ENCOUNTER → 2021-01-13 08:08 | Outpatient (BNVA) | payer MEDICARE, OTHER, SELFPAY | PROVIDERS: PCP Internal Medicine; Referring Provider Internal Medicine; Visit Provider Internal Medicine ==

== ENCOUNTER → 2021-01-26 08:10 | Outpatient (BNVA) | payer MEDICARE, OTHER, SELFPAY | PROVIDERS: PCP Internal Medicine; Referring Provider Internal Medicine; Visit Provider Internal Medicine | DX: I25.10 Atherosclerotic heart disease of native coronary artery without angina pectoris (principal); I10 Essential (primary) hypertension; E78.5 Hyperlipidemia, unspecified; E11.8 Type 2 diabetes mellitus with unspecified complications | CPT/HCPCS: 99212 ==

== ENCOUNTER 2021-01-29 10:48 | Outpatient (REF) | payer MEDICARE, OTHER, SELFPAY ==
[2021-01-29 13:45] LABS: MANUAL DIFF FLAG NO
[2021-01-29 13:59] LABS: Estimated Average Glucose 157 mg/dL; Hemoglobin A1c % 7.1 %
[2021-01-29 14:03] LABS: Appearance Urine CLEAR; Color Urine YELLOW; Glucose Urine UA NEG (NEG); Leukocyte Esterase Urine NEG (NEG); Nitrite Urine NEG (NEG); Specific Gravity - Urine 1.025 (1.005-1.025); Urine Blood NEG (NEG); Urine Ketones NEG (NEG); Urine Protein 2+ MG/DL (NEG-TRACE)
[2021-01-29 14:04] LABS: Basophils Absolute Auto 0.1 X10*3/uL (0.0-0.2); Basophils Percent Auto 0.9 % (0-2); Eosinophils Absolute Auto 0.4 X10*3/uL (0.0-0.4); Eosinophils Percent Auto 3.9 % (0-4); Hematocrit 43.1 % (42.0-52.0); Hemoglobin 14.7 g/dl (14.0-18.0); Imm Gran Abs Auto 0.06 X10*3/uL (0.00-0.03); Imm Gran Pct Auto 0.7 % (0.0-0.4); Lymphocytes Absolute Auto 3.4 X10*3/uL (1.2-4.9); Lymphocytes Percent Auto 36.9 % (20-40); Mean Corpuscular HGB Conc 34.1 g/dl (31.0-36.0); Mean Corpuscular Volume 93.7 fL (80.0-98.0); Mean Platelet Volume 9.6 fL (9.4-12.4); Monocytes Absolute Auto 0.7 X10*3/uL (0.1-1.2); Monocytes Percent Auto 7.5 % (2-11); Neutrophils Absolute Auto 4.6 x10*3/uL (2.0-8.3); Neutrophils Percent Auto 50.1 % (45-73); Platelet Count 228 X10*3/uL (160-400); Red Cell Distribution Width 13.2 % (11.0-16.0); White Blood Count 9.2 X10*3/uL (4.8-10.8)
[2021-01-29 14:20] LABS: RBC Urine 0 /HPF (0); Squamous Epithelial Cell Urine 1+ /LPF; WBC Urine 0-2 /HPF (0-4)
[2021-01-29 14:31] LABS: Alanine Aminotransferase 41 U/L (0-40); Albumin Level 4.3 g/dL (3.5-5.0); Alkaline Phosphatase 77 U/L (39-117); Anion Gap 14 (12-20); Aspartate Amino Transferase 39 U/L (5-37); Bilirubin Total 0.8 mg/dL (0.0-1.0); Blood Urea Nitrogen 19 mg/dL (9-16); Calcium 9.3 mg/dL (8.4-10.2); Carbon Dioxide 26 mmol/L (22-29); Chloride 102 mmol/L (96-108); Cholesterol 219 mg/dL; Estimated Glomerular Filt Rate > 60; Glucose Fasting 117 mg/dL (60-99); HDL Cholesterol 37 mg/dL; LDL Cholesterol Calculated 121 mg/dl; Potassium 4.4 mmol/L (3.3-5.1); Sodium 138 mmol/L (135-145); Total Protein 7.1 g/dL (6.5-8.0); Triglycerides 307 mg/dL
[2021-01-29 14:37] LABS: Creatinine Urine 136.49 mg/dL; Microalbum/Creatinine Ratio Ur 291.5 ug/mg cr
[2021-01-29 14:52] LABS: Free T4 (Free Thyroxine) 0.96 ng/dL (0.71-1.85); Prostate Specific Antigen Scr 0.23 ng/mL (<0.05-4.0); Thyroid Stimulating Hormone 1.35 uIU/mL (0.32-4.0)
== END 2021-01-29 10:49 | disposition home or self-care (01) ==
LOC: HO.10HDL 10:48
PROVIDERS: Absent Provider Internal Medicine; Visit Provider Nurse Practitioner Gerontology
DX: Z12.5 Encounter for screening for malignant neoplasm of prostate (principal); E03.9 Hypothyroidism, unspecified; N40.0 Benign prostatic hyperplasia without lower urinary tract symptoms; E78.00 Pure hypercholesterolemia, unspecified; E11.9 Type 2 diabetes mellitus without complications; I10 Essential (primary) hypertension; I25.10 Atherosclerotic heart disease of native coronary artery without angina pectoris
CPT/HCPCS: 36415; 80053; 80061; 81001; 81003; 82043; 83036; 84153; 84439; 84443; 85025

== ENCOUNTER → 2021-02-04 07:24 | Outpatient (BNVA) | payer MEDICARE, OTHER, SELFPAY | PROVIDERS: PCP Internal Medicine; Visit Provider Nurse Practitioner Gerontology | DX: E11.65 Type 2 diabetes mellitus with hyperglycemia (principal); E11.42 Type 2 diabetes mellitus with diabetic polyneuropathy; E11.29 Type 2 diabetes mellitus with other diabetic kidney complication; E78.5 Hyperlipidemia, unspecified; E66.01 Morbid (severe) obesity due to excess calories; R80.9 Proteinuria, unspecified; I10 Essential (primary) hypertension; Z79.4 Long term (current) use of insulin; Z68.42 Body mass index [BMI] 45.0-49.9, adult | CPT/HCPCS: 82947; 99212 ==

== ENCOUNTER 2021-05-13 11:01 | Outpatient (REF) | payer MEDICARE, OTHER, SELFPAY ==
[2021-05-13 13:48] LABS: Hematocrit 42.6 % (42.0-52.0); Hemoglobin 14.2 g/dl (14.0-18.0); Mean Corpuscular HGB Conc 33.3 g/dl (31.0-36.0); Mean Corpuscular Hemoglobin 31.3 pg (27.0-33.0); Mean Corpuscular Volume 93.8 fL (80.0-98.0); Mean Platelet Volume 9.8 fL (9.4-12.4); Platelet Count 229 X10*3/uL (160-400); Red Blood Count 4.54 X10*6/uL (4.60-5.80); Red Cell Distribution Width 13.2 % (11.0-16.0); White Blood Count 8.6 X10*3/uL (4.8-10.8)
[2021-05-13 13:59] LABS: Anion Gap 13 (12-20); Blood Urea Nitrogen 17 mg/dL (9-16); Calcium 9.7 mg/dL (8.4-10.2); Carbon Dioxide 28 mmol/L (22-29); Chloride 104 mmol/L (96-108); Estimated Glomerular Filt Rate > 60; Potassium 4.6 mmol/L (3.3-5.1); Sodium 140 mmol/L (135-145)
== END 2021-05-13 11:02 | disposition home or self-care (01) ==
LOC: HO.10HDL 11:01
PROVIDERS: Visit Provider Internal Medicine Hypertension Specialist
DX: R80.8 Other proteinuria (principal); I12.9 Hypertensive chronic kidney disease with stage 1 through stage 4 chronic kidney disease, or unspecified chronic kidney disease; N18.2 Chronic kidney disease, stage 2 (mild); E11.22 Type 2 diabetes mellitus with diabetic chronic kidney disease
CPT/HCPCS: 36415; 80051; 82310; 82565; 84520; 85027

== ENCOUNTER → 2021-07-30 07:49 | Outpatient (BNVA) | payer MEDICARE, OTHER, SELFPAY | PROVIDERS: PCP Internal Medicine; Visit Provider Nurse Practitioner Gerontology | DX: E11.65 Type 2 diabetes mellitus with hyperglycemia (principal); E11.42 Type 2 diabetes mellitus with diabetic polyneuropathy; E11.29 Type 2 diabetes mellitus with other diabetic kidney complication; E78.5 Hyperlipidemia, unspecified; I10 Essential (primary) hypertension; E66.01 Morbid (severe) obesity due to excess calories; R80.9 Proteinuria, unspecified; Z79.4 Long term (current) use of insulin; Z68.41 Body mass index [BMI] 40.0-44.9, adult | CPT/HCPCS: 82947; 83036; 99212 ==

== ENCOUNTER → 2021-08-04 08:13 | Outpatient (BNVA) | payer MEDICARE, OTHER, SELFPAY | PROVIDERS: PCP Internal Medicine; Referring Provider Internal Medicine; Visit Provider Internal Medicine | DX: I25.10 Atherosclerotic heart disease of native coronary artery without angina pectoris (principal); I44.0 Atrioventricular block, first degree; I10 Essential (primary) hypertension; E11.8 Type 2 diabetes mellitus with unspecified complications; G47.33 Obstructive sleep apnea (adult) (pediatric); E78.5 Hyperlipidemia, unspecified; Z79.4 Long term (current) use of insulin; Z79.84 Long term (current) use of oral hypoglycemic drugs | CPT/HCPCS: 93005; 99212 ==

== ENCOUNTER → 2021-11-10 09:03 | Outpatient (BNVA) | payer MEDICARE, OTHER, SELFPAY | PROVIDERS: PCP Internal Medicine; Visit Provider Orthopaedic Surgery | DX: M65.342 Trigger finger, left ring finger (principal); G56.02 Carpal tunnel syndrome, left upper limb; G56.22 Lesion of ulnar nerve, left upper limb; G56.21 Lesion of ulnar nerve, right upper limb; G56.01 Carpal tunnel syndrome, right upper limb | CPT/HCPCS: 99212 ==

== ENCOUNTER 2021-11-18 15:28 | Outpatient (REF) | payer MEDICARE, OTHER, SELFPAY ==
--- NOTE | ~2021-11-18 | XR_ITS ---
EXAMINATION: XR CHEST CLINICAL INFORMATION: Shortness of breath COMPARISON: None TECHNIQUE: 2 views of the chest were obtained. FINDINGS: The lungs are well-expanded and clear. Heart size and pulmonary vascularity is normal. There is moderate spondylosis of dorsal spine. No lytic process seen. XR/XR chest 2V IMPRESSION: Unremarkable chest examination.
[2021-11-18 15:52] LABS: MANUAL DIFF FLAG NO
[2021-11-18 16:48] LABS: Basophils Absolute Auto 0.1 X10*3/uL (0.0-0.2); Basophils Percent Auto 0.5 % (0-2); Eosinophils Absolute Auto 0.3 X10*3/uL (0.0-0.4); Eosinophils Percent Auto 3.5 % (0-4); Hematocrit 43.1 % (42.0-52.0); Hemoglobin 14.8 g/dl (14.0-18.0); Imm Gran Abs Auto 0.05 X10*3/uL (0.00-0.03); Imm Gran Pct Auto 0.5 % (0.0-0.4); Lymphocytes Absolute Auto 2.8 X10*3/uL (1.2-4.9); Lymphocytes Percent Auto 29.5 % (20-40); Mean Corpuscular HGB Conc 34.3 g/dl (31.0-36.0); Mean Corpuscular Volume 93.1 fL (80.0-98.0); Mean Platelet Volume 9.9 fL (9.4-12.4); Monocytes Absolute Auto 0.7 X10*3/uL (0.1-1.2); Monocytes Percent Auto 7.3 % (2-11); Neutrophils Absolute Auto 5.5 x10*3/uL (2.0-8.3); Neutrophils Percent Auto 58.7 % (45-73); Platelet Count 186 X10*3/uL (160-400); Red Blood Count 4.63 X10*6/uL (4.60-5.80); Red Cell Distribution Width 13.9 % (11.0-16.0); White Blood Count 9.4 X10*3/uL (4.8-10.8)
[2021-11-18 16:58] LABS: D Dimer High Sensitivity 1081 NG/ML
[2021-11-18 17:19] LABS: Estimated Average Glucose 160 mg/dL; Hemoglobin A1c % 7.2 %
[2021-11-18 17:22] LABS: Alanine Aminotransferase 17 U/L (0-40); Albumin Level 4.3 g/dL (3.5-5.0); Alkaline Phosphatase 73 U/L (39-117); Anion Gap 19 (12-20); Aspartate Amino Transferase 28 U/L (5-37); Bilirubin Total 0.8 mg/dL (0.0-1.0); Blood Urea Nitrogen 16 mg/dL (9-16); Calcium 9.3 mg/dL (8.4-10.2); Carbon Dioxide 23 mmol/L (22-29); Chloride 103 mmol/L (96-108); Estimated Glomerular Filt Rate > 60; Glucose Random 86 mg/dL (60-115); Potassium 4.5 mmol/L (3.3-5.1); Sodium 140 mmol/L (135-145); Total Protein 7.4 g/dL (6.5-8.0)
[2021-11-18 17:24] LABS: B Type Natriuretic Peptide 21 pg/mL (<100)
[2021-11-18 17:35] LABS: Free T4 (Free Thyroxine) 1.03 ng/dL (0.71-1.85); Thyroid Stimulating Hormone 1.43 uIU/mL (0.32-4.0)
== END 2021-11-18 15:29 | disposition home or self-care (01) ==
LOC: HO.XRAY 15:28
PROVIDERS: PCP Internal Medicine; Visit Provider Internal Medicine
DX: R06.02 Shortness of breath (principal); I10 Essential (primary) hypertension; E03.9 Hypothyroidism, unspecified; E11.9 Type 2 diabetes mellitus without complications; I25.10 Atherosclerotic heart disease of native coronary artery without angina pectoris
CPT/HCPCS: 36415; 71046; 80053; 83036; 83880; 84439; 84443; 85025; 85379

== ENCOUNTER 2021-11-20 09:41 | Inpatient (IN) | payer MEDICARE, OTHER, SELFPAY ==
--- NOTE | ~2021-11-20 | US_ITS ---
EXAMINATION: US VENOUS ULTRASOUND WITH DOPPLER LOWER EXTREMITY, BILATERAL CLINICAL INFORMATION: Positive chest CT for pulmonary embolus. Evaluate for DVT. COMPARISON: None TECHNIQUE: Ultrasound of the deep veins is performed from the hip to the calf with compression sonography and color and pulse Doppler assessment. Spectral analysis with color-flow imaging is performed. FINDINGS: RIGHT: There is normal venous compression and respiratory variation and augmented flow. The visualized common femoral vein, superficial femoral vein, and profunda femoral vein show no evidence of deep venous thrombosis. There is hypoechoic thrombus in the popliteal vein with some peripheral preserved flow. There is no significant popliteal fossa cyst. LEFT: There is normal venous compression and respiratory variation and augmented flow. The visualized common femoral vein, superficial femoral vein, profunda femoral vein, popliteal vein, and the trifurcation region shows no evidence of deep venous thrombosis. There is no significant popliteal fossa cyst. US/US venous duplex LE BI IMPRESSION: 1. Examination positive for deep venous thrombus in the right popliteal vein. 2. No evidence of deep venous thrombosis in the left lower extremity.
--- NOTE | ~2021-11-20 | CT_ITS ---
EXAMINATION: CT ANGIOGRAM OF THE CHEST WITH AND WITHOUT CONTRAST (CT PULMONARY ANGIOGRAM FOR PE) CLINICAL INFORMATION: Reason for Exam elevated d dimer, PAINTING COMPARISON: Chest CTs dating between November 20, 2020 and September 29, 2018. TECHNIQUE: Prior to contrast administration, noncontrast localization images were obtained. Subsequently, multidetector volumetric imaging was performed from the thoracic inlet to below the diaphragms following the administration of 65 mL Omnipaque 350 intravenous contrast. No contrast reaction reported Sagittal, coronal, and MIP oblique sagittal reformatted images were obtained on the CT workstation, uploaded to PACS, and reviewed. This CT examination was performed using dose optimization techniques as appropriate, variously including the following: *Automated exposure control *Adjustment of mA and/or kV according to patient size (this includes techniques or standardized protocols for targeted exams where dose is matched to indication/reason for exam; i.e. extremities or head) *Use of iterative reconstruction technique Total exam dose-length product 650 mGy-cm FINDINGS: QUALITY OF STUDY/CONTRAST BOLUS: Satisfactory. PULMONARY ARTERIES: Significant pulmonary emboli involving all lobes of both lungs. THORACIC AORTA: No aneurysm or dissection. LUNG: Multiple, 0.6 cm or less, bilateral lung nodules, unchanged over more than one year, therefore benign. No further dedicated follow up imaging of these nodules is indicated, per Fleischner Society guidelines. No new or suspicious lung nodule identified. No infiltrate. PLEURA: No pleural effusion or pneumothorax. MEDIASTINUM: Normal heart size. No pericardial effusion. No hilar or mediastinal lymphadenopathy by size criteria. No evidence of septal bowing or right heart strain. CHEST WALL/AXILLA: No axillary or internal mammary lymphadenopathy by size criteria. OSSEOUS STRUCTURES: Degenerative changes of the spine. Severe narrowing of the spinal canal at T9 (image 40, series 6). UPPER ABDOMEN: Unremarkable. No reflux of contrast into the hepatic veins to suggest elevated right heart pressures. CT/CT angio chest PE protocol IMPRESSION: Significant pulmonary emboli involving all lobes of both lungs. Degenerative changes of the spine. Severe narrowing of the spinal canal at T9. ELIS Barrientos was directly informed of the findings by telephone at approximately 2:25 PM on November 20, 2021. VTE: positive
[2021-11-20 09:55] VITALS: BP 134/86; PULSE 71; RESP 20; TEMP 36.5; O2SAT 93; BMI 42.8
--- NOTE | 2021-11-20 09:59 | ECG_ITS ---
Test Reason : sob Blood Pressure : / mmHG Vent. Rate : 069 BPM Atrial Rate : 069 BPM P-R Int : 292 ms QRS Dur : 084 ms QT Int : 404 ms P-R-T Axes : 005 -39 031 degrees QTc Int : 432 ms Sinus rhythm with 1st degree A-V block Left axis deviation Abnormal ECG No previous ECGs available Referred By: Generic ED Physician Electronically Signed By:TERE ROLAND
--- NOTE | 2021-11-20 10:40 | ED_ITS ---
HPI - SOB/Dyspnea General Chief Complaint: Dyspnea Stated Complaint: sent by dr montague/SOB Time Seen by Provider: 11/20/21 10:00 Source: patient Mode of arrival: ambulatory Limitations: no limitations History of Present Illness HPI Narrative: 66-year-old male with a history of coronary artery disease w/ PCI 2000, insulin- dependent diabetes, hyperlipidemia, hypertension, obesity, arthritis, former smoker who presents with 2 months of shortness of breath which is noted with exertion. Patient reports he can walk approximately 10-15 steps and then he starts to feel very short of breath and has to take a break. Has no orthopnea. He has no associated chest pain, fevers, chills, dizziness, palpitations. +dry cough which patient tells me is chronic. Patient does report that for the last few days he has noted that both of his lower legs expectantly and his feet become swollen at night time. No associated pain or calf tenderness or swelling. All the swelling is noted around his feet. Patient denies any recent travel or sick contact. He has no history of DVT or PE or family history of same. He is quite sedentary d/t underlying arthritis and various pain. He was seen by his primary care doctor several days ago and had labs and chest x-ray. He was called because his D-dimer was elevated and so he was referred into the emergency room for further evaluation. Patient tells me he tested positive for COVID 3 months ago. At that time he had several days of sore throat, malaise and body aches which resolved. His shortness of breath did not begin until 1 month later. He has received 2 Pfizer vaccinations as well as a booster. Related Data Home Medications Medication Instructions Recorded Confirmed blood sugar diagnostic #10 ea 02/13/20 08/04/21 levothyroxine 50 mcg tablet 50 mcg PO DAILY 02/13/20 11/20/21 (Synthroid) lisinopril 20 mg tablet 20 mg PO DAILY 02/13/20 11/20/21 pen needle, diabetic 32 gauge x #50 ea 02/13/20 08/04/21 omeprazole 20 mg capsule,delayed 1 cap PO DAILY 08/05/20 11/20/21 release allopurinol 300 mg tablet 300 mg PO DAILY 01/26/21 11/20/21 aspirin 81 mg tablet,delayed 81 mg PO DAILY 01/26/21 11/20/21 release (Adult Low Dose Aspirin) metoprolol tartrate 50 mg tablet 50 mg PO BID 11/10/21 11/20/21 Previous Rx's Medication Instructions Recorded flash glucose scanning reader #1 ea 10/07/20 (FreeStyle Flavio 2 [place]) rosuvastatin 20 mg tablet 20 mg PO DAILY #90 tabs 05/08/21 flash glucose sensor (FreeStyle #6 ea 07/30/21 Flavio 2 Sensor kit) insulin aspart U-100 100 unit/mL 24 - 34 unit (0.24 - 0.34 mL) 07/30/21 (3 mL) subcutaneous pen (Novolog subcut TID 90 days #45 mL Flexpen U-100 Insulin aspart) insulin degludec 200 unit/mL (3 110 unit (0.55 mL) subcut BEDTIME 07/30/21 mL) subcutaneous pen (Tresiba 90 days #54 mL FlexTouch U-200 insulin) pen needle, diabetic 32 gauge x #400 ea 07/30/21 5/32 (BD Ultra-Fine Shobha Pen Needle) pioglitazone 30 mg tablet 30 mg PO DAILY #90 tabs 07/30/21 Allergies Allergy/AdvReac Type Severity Reaction Status Date / Time No Known Allergies Allergy Verified 11/10/21 09:19 [No Known Allergies*] Review of Systems Review of Systems: Yes all other systems are reviewed and are negative Constitutional: Constitutional: Reports no additional constitutional complaints, Denies body ache(s), Denies chills, Denies fever(s), Denies headache(s) and Denies weakness Eyes: Eyes: Reports no additional eye complaints and Denies change in vision ENT: Reports system reviewed and no additional complaints, except as documented, Denies dizziness, Denies headache(s), Denies nasal congestion, Denies nasal discharge and Denies neck pain Cardiovascular: Cardiovascular: Reports no additional cardiovascular complaints, Denies chest pain, Reports leg edema, Denies dyspnea, Reports dyspnea on exertion and Denies orthopnea Respiratory: Respiratory: Reports no additional respiratory complaints, Reports cough, Denies dyspnea and Reports dyspnea on exertion Gastrointestinal: Gastrointestinal: Reports no additional gastrointestinal complaints, Denies abdominal pain, Denies diarrhea, Denies nausea and Denies vomiting Genitourinary: Genitourinary: Denies urinary incontinence Musculoskeletal: Musculoskeletal: Reports no additional musculoskeletal complaints, Denies back pain, Denies arthralgias, Denies joint swelling, Denies neck pain, Denies numbness and Denies tingling Integumentary/Breasts: Skin/Breast: Reports system reviewed and no additional complaints, except as docu and Denies rash Neurologic: Reports system reviewed and no additional complaints, except as documented, Denies Abnormal speech present, Denies dizziness, Denies headache(s), Denies numbness, Denies tingling and Denies weakness [facility] Past Medical History Attestation statement: The following information was validated with the patient. Source: old records reviewed and nursing notes reviewed Medical History Atherosclerotic cardiovascular disease CAD (coronary artery disease) Chronic kidney disease (CKD), stage II (mild) Diabetes Essential hypertension GERD (gastroesophageal reflux disease) Gout Graves disease History of skin cancer HTN (hypertension) Hyperlipidemia Hyperlipidemia LDL goal <70 Obesity due to excess calories SHAWN (obstructive sleep apnea) Other and unspecified hyperlipidemia Peripheral neuropathy Proteinuria Renal stones Sleep apnea Tubular adenoma of colon Type 2 diabetes mellitus with diabetic polyneuropathy Type 2 diabetes mellitus with hyperglycemia, with long-term current use of insulin Type 2 diabetes mellitus with other diabetic kidney complication Type 2 diabetes mellitus with unspecified complications Surgical History H/O cystoscopy History of coronary artery stent placement History of hemorrhoidectomy Hx of carpal tunnel repair Hx of colonoscopy Hx of elbow surgery Hx of hand surgery Family History Family History Father Colon cancer Mother Lung cancer Social History Social History Household Members: Spouse Alcohol intake: current Alcohol intake frequency: holidays/special occasions only Patient Tobacco Use Status: Former Tobacco user Quit Date: 2009 Years Smoked: 35 +/- Advance Directives: No Advance Directives Information Provided: Yes 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 Physical Exam Vital Signs: Vital Signs: Last Vital Signs Temp 97.8 F 11/20/21 11:14 Pulse 72 11/20/21 11:14 Resp 22 H 11/20/21 11:14 BP 147/66 H 11/20/21 11:14 Pulse Ox 92 11/20/21 11:14 O2 Del Method 11/20/21 11:14 BMI result Body Mass Index 44.1 Const: General: cooperative, healthy appearing, comfortable and no acute distress Nutritional Appearance: obese Orientation/consciousness: patient oriented x3 Limitations: no limitations HEENT: Head: Yes normal to inspection Ears: hearing grossly normal bilaterally General nose exam: Normal external nose present Face and sinus: Yes normal facial exam Mouth: Normal oral and palatal mucosa present Throat: Yes posterior oropharynx normal Eyes: General: appearance normal, both eyes and all related structures Pupils: Equal, round and reactive pupils present Neck: Neck: Yes normal visual inspection Chest: Chest palpation & inspection: normal inspection of the chest Resp: Effort & Inspection: normal respiratory effort Auscultation: clear to auscultation bilaterally Cardio: Rate: regular rate Rhythm: regular rhythm Peripheral pulses: Peripheral pulses 2+ throughout GI: Inspection: Yes normal to inspection Palpation (GI): Soft to palpation and nontender Auscultation: normal bowel sounds Back/Spine/Pelvis: Thoracic/Lumbar Spine: thoracic and lumbar spine normal to inspection Skin: General skin exam: no rashes or lesions noted Neuro: General: patient oriented x3, no focal motor deficits and normal sensation to monofilament Cranial nerves: Yes Equal, round and reactive pupils present Cognition (Neuro): normal cognition Speech: No Abnormal speech present Gait exam (Neuro): Normal gait present Motor exam (neuro): 5/5 motor strength present throughout Extrem: General: Yes normal to inspection, Yes no pedal edema and Yes no calf tenderness Course Course Course Narrative: CT a shows bilateral PE. No evidence of saddle or right heart strain seen on EKG. Patient is 143 kg. Spoke to pharmacy. Eliquis is okay to dose. Will check venous ultrasound. Give 1st dose of Eliquis. Call out to medicine to discuss for admission Reevaluation(s) Reevaluation #1: 1500-After discussing with the medicine team they would like me to initiate the patient on heparin today will accept admission. Standard dose heparin ordered in consult with pharmacy MDM - SOB/Dyspnea MDM Narrative Medical decision making narrative: 66 yo male with history of coronary artery disease with PCI in 2000, hypertension, hyperlipidemia, diabetes who presents with 2 months of dyspnea on exertion with some lower extremity edema noted over the last few days. Seen outpatient by his PCP and had labs and a chest x-ray. Sent in for elevated D- dimer for further workup. Patient is quite sedentary but no other risk factors for PE or DVT. Patient denies any fevers, increased cough from baseline. No calf pain or calf swelling. Patient also has several risk factors for acute coronary syndrome. He will need labs, EKG, COVID screen and CTA Consider CHF, PE, ACS Medical Records Attestation: I reviewed the patient's medical records. Lab Data Attestation: I reviewed the patient's lab results. Result diagrams: 11/20/21 10:33 11/20/21 10:33 Labs: Lab Results 11/20/21 11/20/21 11/20/21 Range/Units 10:33 10:33 10:33 WBC 7.5 (4.8-10.8) X10*3/uL RBC 4.71 (4.60-5.80) X10*6/uL Hgb 14.5 (14.0-18.0) g/dl Hct 43.7 (42.0-52.0) % MCV 92.8 (80.0-98.0) fL MCH 30.8 (27.0-33.0) pg MCHC 33.2 (31.0-36.0) g/dl RDW 13.9 (11.0-16.0) % Plt Count 188 (160-400) X10*3/uL MPV 9.2 L (9.4-12.4) fL Immature Gran % (Auto) 0.5 H (0.0-0.4) % Neut % (Auto) 54.4 (45-73) % Lymph % (Auto) 31.2 (20-40) % [place] % (Auto) 9.7 (2-11) % Eos % (Auto) 3.7 (0-4) % Baso % (Auto) 0.5 (0-2) % Lymph # (Auto) 2.3 (1.2-4.9) X10*3/uL [place] # (Auto) 0.7 (0.1-1.2) X10*3/uL Eos # (Auto) 0.3 (0.0-0.4) X10*3/uL Baso # (Auto) 0.0 (0.0-0.2) X10*3/uL Abs Immat Gran (auto) 0.04 H (0.00-0.03) X10*3/uL Absolute Neuts (auto) 4.1 (2.0-8.3) x10*3/uL Absolute Nucleated RBC 0.000 (0.0-0.012) X10*3/uL Nucleated RBC % (auto) 0.0 (0.0-0.2) /100WBC PT (10.0-13.1) SEC INR (0.9-1.1) APTT (26.0-36.4) SEC D-Dimer High Sensitivty NG/ML Sodium 142 (135-145) mmol/L Potassium 4.7 (3.3-5.1) mmol/L Chloride 104 (96-108) mmol/L Carbon Dioxide 25 (22-29) mmol/L Anion Gap 18 (12-20) BUN 18 H (9-16) mg/dL Creatinine 1.02 (0.5-1.4) mg/dL Estim Creat Clear Calc 103.2 Estimated GFR > 60 Random Glucose 135 H D (60-115) mg/dL Calcium 9.6 (8.4-10.2) mg/dL Total Bilirubin 0.7 (0.0-1.0) mg/dL Direct Bilirubin 0.2 (0.0-0.5) mg/dL AST 26 (5-37) U/L ALT 18 (0-40) U/L Alkaline Phosphatase 71 (39-117) U/L Troponin I High Sens < 3.5 (<3.5-35.0) ng/L B-Natriuretic Peptide 36 (<100) pg/mL Total Protein 7.2 (6.5-8.0) g/dL Albumin 4.2 (3.5-5.0) g/dL COVID-19 ([facility]NA) (Negative) COVID-19 Clin Com 11/20/21 11/20/21 11/20/21 Range/Units 10:33 10:33 11:08 WBC (4.8-10.8) X10*3/uL RBC (4.60-5.80) X10*6/uL Hgb (14.0-18.0) g/dl Hct (42.0-52.0) % MCV (80.0-98.0) fL MCH (27.0-33.0) pg MCHC (31.0-36.0) g/dl RDW (11.0-16.0) % Plt Count (160-400) X10*3/uL MPV (9.4-12.4) fL Immature Gran % (Auto) (0.0-0.4) % Neut % (Auto) (45-73) % Lymph % (Auto) (20-40) % [place] % (Auto) (2-11) % Eos % (Auto) (0-4) % Baso % (Auto) (0-2) % Lymph # (Auto) (1.2-4.9) X10*3/uL [place] # (Auto) (0.1-1.2) X10*3/uL Eos # (Auto) (0.0-0.4) X10*3/uL Baso # (Auto) (0.0-0.2) X10*3/uL Abs Immat Gran (auto) (0.00-0.03) X10*3/uL Absolute Neuts (auto) (2.0-8.3) x10*3/uL Absolute Nucleated RBC (0.0-0.012) X10*3/uL Nucleated RBC % (auto) (0.0-0.2) /100WBC PT 10.7 (10.0-13.1) SEC INR 0.9 (0.9-1.1) APTT 30.8 (26.0-36.4) SEC D-Dimer High Sensitivty 675 NG/ML Sodium (135-145) mmol/L Potassium (3.3-5.1) mmol/L Chloride (96-108) mmol/L Carbon Dioxide (22-29) mmol/L Anion Gap (12-20) BUN (9-16) mg/dL Creatinine (0.5-1.4) mg/dL Estim Creat Clear Calc Estimated GFR Random Glucose (60-115) mg/dL Calcium (8.4-10.2) mg/dL Total Bilirubin (0.0-1.0) mg/dL Direct Bilirubin (0.0-0.5) mg/dL AST (5-37) U/L ALT (0-40) U/L Alkaline Phosphatase (39-117) U/L Troponin I High Sens (<3.5-35.0) ng/L B-Natriuretic Peptide (<100) pg/mL Total Protein (6.5-8.0) g/dL Albumin (3.5-5.0) g/dL COVID-19 ([facility]NA) Negative (Negative) COVID-19 Clin Com See Note ECG Data Attestation: I personally reviewed and interpreted this ECG as follows: ECG interpretation date: 11/20/21 ECG interpretation time: 09:58 Interpretation: Sinus rhythm with first-degree AV block which is unchanged from previous EKG July of 2021, normal QRS, normal QT Discharge Plan Discharge Clinical Impression: Pulmonary emboli Patient Disposition: Admitted As Inpatient
[2021-11-20 10:41] LABS: Basophils Percent Auto 0.5 % (0-2); Eosinophils Absolute Auto 0.3 X10*3/uL (0.0-0.4); Eosinophils Percent Auto 3.7 % (0-4); Hematocrit 43.7 % (42.0-52.0); Hemoglobin 14.5 g/dl (14.0-18.0); Imm Gran Abs Auto 0.04 X10*3/uL (0.00-0.03); Imm Gran Pct Auto 0.5 % (0.0-0.4); Lymphocytes Absolute Auto 2.3 X10*3/uL (1.2-4.9); Lymphocytes Percent Auto 31.2 % (20-40); MANUAL DIFF FLAG NO; Mean Corpuscular HGB Conc 33.2 g/dl (31.0-36.0); Mean Corpuscular Hemoglobin 30.8 pg (27.0-33.0); Mean Corpuscular Volume 92.8 fL (80.0-98.0); Mean Platelet Volume 9.2 fL (9.4-12.4); Monocytes Absolute Auto 0.7 X10*3/uL (0.1-1.2); Monocytes Percent Auto 9.7 % (2-11); Neutrophils Absolute Auto 4.1 x10*3/uL (2.0-8.3); Neutrophils Percent Auto 54.4 % (45-73); Platelet Count 188 X10*3/uL (160-400); Red Blood Count 4.71 X10*6/uL (4.60-5.80); Red Cell Distribution Width 13.9 % (11.0-16.0); White Blood Count 7.5 X10*3/uL (4.8-10.8)
[2021-11-20 10:47] LABS: INTERNATIONAL NORM RATIO 0.9 (0.9-1.1); Prothrombin Time 10.7 SEC (10.0-13.1)
[2021-11-20 10:49] LABS: D Dimer High Sensitivity 675 NG/ML
[2021-11-20 10:50] LABS: Partial Thromboplastin Time 30.8 SEC (26.0-36.4)
[2021-11-20 11:10] LABS: Anion Gap 18 (12-20); Blood Urea Nitrogen 18 mg/dL (9-16); Calcium 9.6 mg/dL (8.4-10.2); Carbon Dioxide 25 mmol/L (22-29); Chloride 104 mmol/L (96-108); Creatinine Clr Calc Pharmacy 103.2; Estimated Glomerular Filt Rate > 60; Glucose Random 135 mg/dL (60-115); Potassium 4.7 mmol/L (3.3-5.1); Sodium 142 mmol/L (135-145)
[2021-11-20 11:14] VITALS: BP 147/66; PULSE 72; RESP 22; TEMP 36.6; O2SAT 92
[2021-11-20 11:18] LABS: B Type Natriuretic Peptide 36 pg/mL (<100); Troponin-I High Sensitivity < 3.5 ng/L (<3.5-35.0)
[2021-11-20 11:38] LABS: COVID-19 Test Negative (Negative)
[2021-11-20 12:59] LABS: Alanine Aminotransferase 18 U/L (0-40); Albumin Level 4.2 g/dL (3.5-5.0); Alkaline Phosphatase 71 U/L (39-117); Aspartate Amino Transferase 26 U/L (5-37); Bilirubin Direct 0.2 mg/dL (0.0-0.5); Bilirubin Total 0.7 mg/dL (0.0-1.0); Total Protein 7.2 g/dL (6.5-8.0)
[2021-11-20] MEDS: iohexoL 350 MG/ML 100 ML INFUS..BTL IV (13:15)
--- NOTE | 2021-11-20 14:48 | PHA.MEDREC ---
Pharmacy Consult ? Medication Reconciliation Pharmacy has completed the medication reconciliation. Patient had list with him at bedside. To note: pt did not have metformin on this list, last picked up in july.
[2021-11-20 15:00] VITALS: BMI 44.1
--- NOTE | 2021-11-20 15:50 | PM.IMHP ---
History of Present Illness Date of Service: 11/20/21 Chief Complaint: Shortness of breath A 66 years old male with PMH of CAD post PCI, type 2 diabetes, HLD, HTN, morbid obesity, ex-smoker among others who presents to the hospital complaining of worsening shortness of breath for the last 2 months. The patient reports that he has baseline dyspnea with exertion and he has poor functional status from chronic back pain but he was managing well until almost 2 months ago when he started to notice worsening shortness of breath with ambulation, going up stairs. He denies any chest pain, palpitation, fever, chills, nausea or vomiting or change in bowel habit. He denies having any swelling or pain his lower extremities but reported mild left foot swelling last week. His dyspnea on exertion was associated with dry cough on occasions but not persistent. He denies any history of previous DVT or PE, any history of personal cancer. He is doing screening chest CT for X smokers on yearly basis and the last 1 was negative. He reports having COVID-19 infection almost 3 months ago that he recovered from it as he did not require hospital care for it. He was seen by his primary care who did blood work and chest x-ray and noticed that his D-dimer was elevated so he asked him to come to the emergency for further evaluation. In the emergency a CTA of the chest was consistent with bilateral PE with no heart strain or elevated BNP, troponin. Admitted for further evaluation and treatment. Review of Systems Review of Systems: No fever, chills or weakness No chest pain, palpitation Dyspnea on exertion No abdominal pain, nausea or vomiting No urinary symptoms No any rash or wounds [facility] Medical History Atherosclerotic cardiovascular disease CAD (coronary artery disease) Chronic kidney disease (CKD), stage II (mild) Diabetes Essential hypertension GERD (gastroesophageal reflux disease) Gout Graves disease History of skin cancer HTN (hypertension) Hyperlipidemia Hyperlipidemia LDL goal <70 Obesity due to excess calories SHAWN (obstructive sleep apnea) Other and unspecified hyperlipidemia Peripheral neuropathy Proteinuria Renal stones Sleep apnea Tubular adenoma of colon Type 2 diabetes mellitus with diabetic polyneuropathy Type 2 diabetes mellitus with hyperglycemia, with long-term current use of insulin Type 2 diabetes mellitus with other diabetic kidney complication Type 2 diabetes mellitus with unspecified complications Family History Father Colon cancer Mother Lung cancer Surgical History H/O cystoscopy History of coronary artery stent placement History of hemorrhoidectomy Hx of carpal tunnel repair Hx of colonoscopy Hx of elbow surgery Hx of hand surgery Social History Household Members: Spouse Alcohol intake: current Alcohol intake frequency: holidays/special occasions only Patient Tobacco Use Status: Former Tobacco user Quit Date: 2009 Years Smoked: 35 +/- Advance Directives: No Advance Directives Information Provided: Yes 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 [employer] on the [employer] Allergies Allergy/AdvReac Type Severity Reaction Status Date / Time No Known Allergies Allergy Verified 11/10/21 09:19 [No Known Allergies*] Active Medications: Current Medications Acetaminophen (Acetaminophen 325 Mg Tablet) 650 mg PO Q6H PRN PRN Reason: Pain, Mild (Pain Scale 1-3) Aspirin (Aspirin Enteric Coated 81 Mg Tablet.Dr) 81 mg PO DAILY [facility] Atorvastatin Calcium (Atorvastatin Calcium 80 Mg Tablet) 80 mg PO DAILY [facility] Heparin Sodium (Porcine) (Heparin Sodium,Porcine 5,000 Unit/Ml Vial) 5,900 unit 40 unit/kg (5900 unit) IVPUSH PROTOCOL BOLUS PRN; Protocol PRN Reason: 40 unit/kg - Heparin Protocol Heparin Sodium (Porcine) (Heparin Sodium,Porcine 5,000 Unit/Ml Vial) 10,000 unit IVPUSH PROTOCOL BOLUS PRN; Protocol PRN Reason: 80 unit/kg - Heparin Protocol Heparin Sodium/Sodium Chloride (Heparin Sodium,Porcine/1/2ns) 25,000 unit in 250 mls @ 0 mls/hr IVCONT .Q0M [facility]; Protocol Insulin Glargine (Insulin Glargine,Hum.Rec.Anlog 100 Unit/Ml 10 Ml Vial) 90 unit SUBCUT BEDTIME [facility] Insulin Human Lispro (Insulin Lispro 100 Unit/Ml 3 Ml Vial) 20 unit SUBCUT QIDACHS [facility] Insulin Human Lispro (Insulin Lispro 100 Unit/Ml 3 Ml Vial) 0 unit SUBCUT QIDACHS [facility]; Protocol Levothyroxine Sodium (Levothyroxine Sodium 50 Mcg Tablet) 50 mcg PO DAILY@0600 [facility] Lisinopril (Lisinopril 20 Mg Tablet) 20 mg PO DAILY [facility]; Protocol Metoprolol Tartrate (Metoprolol Tartrate 50 Mg Tablet) 50 mg PO BID [facility]; Protocol Omeprazole (Omeprazole 20 Mg Capsule.Dr) 20 mg PO DAILY@0630 [facility] Ondansetron HCl (Ondansetron Hcl 4 Mg/2 Ml Vial) 4 mg IVPUSH Q8H PRN PRN Reason: Nausea and Vomiting Pharmacy Consult (Consult Rx Perform Med Rec) 1 each MISCELLANE ONCE PRN PRN Reason: Consult order Pioglitazone HCl (Pioglitazone Hcl 30 Mg Tablet) 30 mg PO DAILY [facility] Sodium Chloride (0.9 % Sodium Chloride Flush 3 Ml Syringe) 3 ml IVFLUSH QSHIFT [facility] Home Medications Medication Instructions Recorded Confirmed Last Taken Type blood sugar diagnostic #10 ea 02/13/20 08/04/21 Unknown History levothyroxine 50 mcg tablet 50 mcg PO DAILY 02/13/20 11/20/21 11/20/21 History (Synthroid) lisinopril 20 mg tablet 20 mg PO DAILY 02/13/20 11/20/21 11/20/21 History pen needle, diabetic 32 gauge x #50 ea 02/13/20 08/04/21 Unknown History omeprazole 20 mg capsule,delayed 1 cap PO DAILY 08/05/20 11/20/21 11/20/21 History release allopurinol 300 mg tablet 300 mg PO DAILY 01/26/21 11/20/21 11/20/21 History aspirin 81 mg tablet,delayed 81 mg PO DAILY 01/26/21 11/20/21 11/20/21 History release (Adult Low Dose Aspirin) metoprolol tartrate 50 mg tablet 50 mg PO BID 11/10/21 11/20/21 11/20/21 History Physical Exam Vital Signs and Narrative: Vital Signs: Last Vital Signs Temp 97.8 F 11/20/21 11:14 Pulse 72 11/20/21 11:14 Resp 22 H 11/20/21 11:14 BP 147/66 H 11/20/21 11:14 Pulse Ox 92 11/20/21 11:14 O2 Del Method 11/20/21 11:14 BMI result Body Mass Index 44.1 Const: Other: Constitutional : Alert, oriented, not in distress Neck : Normal inspection, Supple Cardiovascular : RRR, no JVP, no lower extremity edema Respiratory : fair bilateral air entry, no crackles, wheezes or rhonchi Gastrointestinal: soft, lax, Normal bowel sounds, Non tender Skin : Warm, Dry Neurological : Alert & oriented x3, No focal deficit Results Labs CBC and Chem 7: 11/20/21 10:33 11/20/21 10:33 Labs: Laboratory Results - last 24 hr 11/20/21 11/20/21 11/20/21 10:33 10:33 10:33 MCV 92.8 MCH 30.8 MCHC 33.2 RDW 13.9 Plt Count 188 MPV 9.2 L Immature Gran % (Auto) 0.5 H Neut % (Auto) 54.4 Lymph % (Auto) 31.2 [place] % (Auto) 9.7 Eos % (Auto) 3.7 Baso % (Auto) 0.5 Lymph # (Auto) 2.3 [place] # (Auto) 0.7 Eos # (Auto) 0.3 Baso # (Auto) 0.0 Abs Immat Gran (auto) 0.04 H Absolute Neuts (auto) 4.1 Absolute Nucleated RBC 0.000 Nucleated RBC % (auto) 0.0 PT INR APTT D-Dimer High Sensitivty Anion Gap 18 Estim Creat Clear Calc 103.2 Estimated GFR > 60 Random Glucose 135 H D Calcium 9.6 Total Bilirubin 0.7 Direct Bilirubin 0.2 AST 26 ALT 18 Alkaline Phosphatase 71 B-Natriuretic Peptide 36 Total Protein 7.2 Albumin 4.2 COVID-19 ([facility]) COVID-19 Clin Com 11/20/21 11/20/21 11/20/21 10:33 10:33 11:08 MCV MCH MCHC RDW Plt Count MPV Immature Gran % (Auto) Neut % (Auto) Lymph % (Auto) [place] % (Auto) Eos % (Auto) Baso % (Auto) Lymph # (Auto) [place] # (Auto) Eos # (Auto) Baso # (Auto) Abs Immat Gran (auto) Absolute Neuts (auto) Absolute Nucleated RBC Nucleated RBC % (auto) PT 10.7 INR 0.9 APTT 30.8 D-Dimer High Sensitivty 675 Anion Gap Estim Creat Clear Calc Estimated GFR Random Glucose Calcium Total Bilirubin Direct Bilirubin AST ALT Alkaline Phosphatase B-Natriuretic Peptide Total Protein Albumin COVID-19 ([facility]) Negative COVID-19 Clin Com See Note Imaging Radiologist's Impressions: Impressions Chest CTA 11/20/21 13:15 IMPRESSION: Significant pulmonary emboli involving all lobes of both lungs. Degenerative changes of the spine. Severe narrowing of the spinal canal at T9. ELIS Barrientos was directly informed of the findings by telephone at approximately 2:25 PM on November 20, 2021. VTE: positive Assessment and Plan (1) Pulmonary emboli: Status: Acute (2) SHAWN (obstructive sleep apnea): Status: Acute Plan A 66 years old male with PMH of CAD post PCI, type 2 diabetes, HLD, HTN, morbid obesity, ex-smoker among others who presents to the hospital complaining of worsening shortness of breath for the last 2 months. Dyspnea secondary to Bilateral pulmonary emboli with no heart strain CTA showing significant pulmonary emboli involving all moves of both lungs Pending Doppler ultrasound Does not seem acute, more chronic picture could be secondary to sedentary lifestyle, recent COVID Start heparin drip for now consider changing to Eliquis on discharge Type 2 diabetes Lantus 90 units for now Nine Humalog 20 units with meals SSI diabetic diet CAD continue aspirin, metoprolol and statin hypothyroidism continue levothyroxine Gout continue allopurinol DVT PPX Heparin The patient will need 2 overnight hospital stay for treatment of dyspnea secondary to bilateral pulmonary emboli requiring IV heparin drip pending Doppler ultrasound to prevent possible decompensation into respiratory failure Quality Stroke Does the patient have a stroke diagnosis?: No VTE Prior VTE?: No VTE Risk Level:: Medical - moderate - high VTE Device Contraindication: Treatment Not Indicated VTE Drug Contraindication: N/A - Med Ordered
[2021-11-20] MEDS: Heparin Sodium,Porcine/1/2NS 25,000 UNIT/250 ML IV.SOLN 20.66 UNIT IVCONT (15:57)
[2021-11-20] MEDS: Heparin Sodium,Porcine 5,000 UNIT/ML VIAL 10000 UNIT IVPUSH (16:03)
[2021-11-20 16:29] LABS: Hemoglobin 14.9 g/dl (14.0-18.0); Mean Corpuscular HGB Conc 33.1 g/dl (31.0-36.0); Mean Corpuscular Hemoglobin 31.1 pg (27.0-33.0); Mean Corpuscular Volume 93.9 fL (80.0-98.0); Mean Platelet Volume 9.5 fL (9.4-12.4); Platelet Count 199 X10*3/uL (160-400); Red Blood Count 4.79 X10*6/uL (4.60-5.80); Red Cell Distribution Width 13.9 % (11.0-16.0); White Blood Count 8.9 X10*3/uL (4.8-10.8)
[2021-11-20 16:34] LABS: INTERNATIONAL NORM RATIO 1.1 (0.9-1.1); Prothrombin Time 12.3 SEC (10.0-13.1)
[2021-11-20 17:52] LABS: Glucose, Whole Blood 113 mg/dL (60-115)
[2021-11-20] MEDS: Insulin Lispro 100 UNIT/ML 3 ML VIAL 20 UNIT SUBCUT ×2 (18:04→21:48)
--- NOTE | 2021-11-20 18:40 | MHC.CM.PN ---
IMM 11/20. CM met with admitted patient with bed assignment pending. 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 Lives with . Occasional cane use. No services. Vax/boosted x1/[employer]. HCP reviewed, completed and signed. Copies given. Uploaded into [email or web address] and [employer] Expanse. HCP/ Fay Adhikari ([phone]). D/C plan: home without services. Family to transport. CM to follow for d/c needs.
[2021-11-20 20:07] VITALS: BP 133/62; PULSE 72; RESP 19; O2SAT 95
[2021-11-20 20:29] LABS: Glucose, Whole Blood 141 mg/dL (60-115)
[2021-11-20] MEDS: Metoprolol Tartrate 50 MG TABLET PO (20:45)
[2021-11-20] MEDS: Insulin Glargine,Hum.rec.anlog 100 UNIT/ML 10 ML VIAL 90 UNIT SUBCUT (20:46)
[2021-11-20 20:49] VITALS: BP 149/69; PULSE 81
[2021-11-20 22:59] LABS: PTT Heparin Drip > 200.0 SEC (53-77.9)
[2021-11-20 23:09] LABS: Glucose, Whole Blood 71 mg/dL (60-115)
[2021-11-20] MEDS: 0.9 % Sodium Chloride Flush 3 ML SYRINGE IVFLUSH (23:17)
[2021-11-20 23:37] VITALS: BP 140/72; PULSE 74; RESP 16; O2SAT 94
[2021-11-21 00:27] LABS: PTT Heparin Drip 169.4 SEC (53-77.9)
[2021-11-21 01:33] LABS: PTT Heparin Drip 61.5 SEC (53-77.9)
[2021-11-21] MEDS: Heparin Sodium,Porcine/1/2NS 25,000 UNIT/250 ML IV.SOLN 14.76 UNIT IVCONT (01:54)
[2021-11-21 04:00] VITALS: BP 138/70; PULSE 66; RESP 20; O2SAT 95
[2021-11-21] MEDS: Omeprazole 20 MG CAPSULE.DR PO (05:56)
[2021-11-21 06:04] LABS: Glucose, Whole Blood 60 mg/dL (60-115)
[2021-11-21 07:19] LABS: Hematocrit 46.4 % (42.0-52.0); Hemoglobin 15.3 g/dl (14.0-18.0); Mean Corpuscular Hemoglobin 31.2 pg (27.0-33.0); Mean Corpuscular Volume 94.7 fL (80.0-98.0); Mean Platelet Volume 9.7 fL (9.4-12.4); Platelet Count 206 X10*3/uL (160-400); White Blood Count 9.8 X10*3/uL (4.8-10.8)
[2021-11-21 07:21] LABS: Prothrombin Time 11.2 SEC (10.0-13.1)
[2021-11-21 07:27] LABS: Glucose, Whole Blood 109 mg/dL (60-115)
[2021-11-21 07:52] LABS: Anion Gap 17 (12-20); Blood Urea Nitrogen 14 mg/dL (9-16); Calcium 9.3 mg/dL (8.4-10.2); Carbon Dioxide 27 mmol/L (22-29); Chloride 102 mmol/L (96-108); Creatinine Clr Calc Pharmacy 117.6; Estimated Glomerular Filt Rate > 60; Glucose Random 62 mg/dL (60-115); Potassium 4.1 mmol/L (3.3-5.1); Sodium 142 mmol/L (135-145)
[2021-11-21 08:07] VITALS: BP 160/66; PULSE 62; RESP 14; O2SAT 95
[2021-11-21] MEDS: Aspirin Enteric Coated 81 MG TABLET.DR PO (09:20)
[2021-11-21] MEDS: Metoprolol Tartrate 50 MG TABLET PO (09:21)
[2021-11-21] MEDS: lisinopriL 20 MG TABLET PO (09:21)
[2021-11-21] MEDS: Atorvastatin Calcium 80 MG TABLET PO (09:21)
[2021-11-21] MEDS: Levothyroxine Sodium 50 MCG TABLET PO (09:21)
[2021-11-21] MEDS: Pioglitazone HCL 30 MG TABLET PO (09:52)
[2021-11-21] MEDS: Insulin Lispro 100 UNIT/ML 3 ML VIAL 20 UNIT SUBCUT (09:53)
--- NOTE | 2021-11-21 09:56 | PC.NURSE ---
pt refused 20 units of scheduled lispro, requested to be given only 15 units of the ordered dose. MD Jacques King made aware.
--- NOTE | 2021-11-21 09:59 | P.DS_ITS ---
DS: Providers Provider Date of Service: 11/21/21 Date of admission: 11/20/21 15:31 Primary care physician: Moy Coyle MD DS: Diagnosis Discharge Diagnosis (1) Pulmonary emboli: Status: Acute (2) SHAWN (obstructive sleep apnea): Status: Acute (3) Popliteal DVT (deep venous thrombosis): Status: Acute DS: Summary Hospital Course Hospital Course: Admission note HPI A 66 years old male with PMH of CAD post PCI, type 2 diabetes, HLD, HTN, morbid obesity, ex-smoker among others who presents to the hospital complaining of worsening shortness of breath for the last 2 months. The patient reports that he has baseline dyspnea with exertion and he has poor functional status from chronic back pain but he was managing well until almost 2 months ago when he started to notice worsening shortness of breath with ambulation, going up stairs.? He denies any chest pain, palpitation, fever, chills, nausea or vomiting or change in bowel habit.? He denies having any swelling or pain his lower extremities but reported mild left foot swelling last week.? His dyspnea on exertion was associated with dry cough on occasions but not persistent.? He denies any history of previous DVT or PE, any history of personal cancer.? He is doing screening chest CT for X smokers on yearly basis and the last 1 was negative.? He reports having COVID-19 infection almost 3 months ago that he recovered from it as he did not require hospital care for it. He was seen by his primary care who did blood work and chest x-ray and noticed that his D-dimer was elevated so he asked him to come to the emergency for further evaluation. In the emergency a CTA of the chest was consistent with bilateral PE with no heart strain or elevated BNP, troponin.? Admitted for further evaluation and treatment. Hospital course The patient was admitted to the hospital for evaluation of difficulty breathing. CTA in the emergency was consistent with bilateral PE with no heart strain or symptoms of heart failure. He was started on heparin drip as and Doppler ultrasound of lower extremities was positive for right popliteal vein DVT. The patient tolerated heparin drip with no reported episodes of bleeding. The patient reports significant improvement in his shortness of breath and dyspnea after treatment. Will be discharged on Eliquis 10 mg for 1 week twice daily then 5 mg b.i.d. with a plan to follow-up with PCP for refills and length of treatment. Advised to increase physical activity as the likely reason of his DVT is immobility. continue Eliquis as prescribed To follow-up with PCP for length of treatment and refills. Increase your physical activity to prevent similar incidents Time Spent with Patient Time attestation: Total time spent providing and/or coordinating discharge services: Discharge coordination time: Greater than 30 minutes Quality: Safe Use of Opioids Does Pt have an Active Cancer Diagnosis on the Problem List?: No Quality: Stroke Does the patient have a stroke diagnosis?: No Physical Exam Vital Signs: Vital Signs: Last Vital Signs Temp 97.8 F 11/20/21 11:14 Pulse 62 11/21/21 08:07 Resp 14 11/21/21 08:07 BP 160/66 H 11/21/21 08:07 Pulse Ox 95 11/21/21 08:07 O2 Del Method 11/21/21 08:07 BMI result Body Mass Index 44.1 Const: Other: Constitutional : Alert, oriented, not in distress Neck : Normal inspection, Supple Cardiovascular : RRR, no JVP, no lower extremity edema Respiratory : fair bilateral air entry, no crackles, wheezes or rhonchi Gastrointestinal: soft, lax, Normal bowel sounds, Non tender Skin : Warm, Dry Neurological : Alert & oriented x3, No focal deficit DS: Data Data Completed and Pending Labs on day of discharge: Laboratory Results - last 24 hr 11/20/21 11/20/21 11/20/21 10:33 10:33 10:33 WBC 7.5 RBC 4.71 Hgb 14.5 Hct 43.7 MCV 92.8 MCH 30.8 MCHC 33.2 RDW 13.9 Plt Count 188 MPV 9.2 L Immature Gran % (Auto) 0.5 H Neut % (Auto) 54.4 Lymph % (Auto) 31.2 [place] % (Auto) 9.7 Eos % (Auto) 3.7 Baso % (Auto) 0.5 Lymph # (Auto) 2.3 [place] # (Auto) 0.7 Eos # (Auto) 0.3 Baso # (Auto) 0.0 Abs Immat Gran (auto) 0.04 H Absolute Neuts (auto) 4.1 Absolute Nucleated RBC 0.000 Nucleated RBC % (auto) 0.0 PT INR APTT aPTT Heparin Protocol D-Dimer High Sensitivty Sodium 142 Potassium 4.7 Chloride 104 Carbon Dioxide 25 Anion Gap 18 BUN 18 H Creatinine 1.02 Estim Creat Clear Calc 103.2 Estimated GFR > 60 POC Glucose Random Glucose 135 H D Calcium 9.6 Total Bilirubin 0.7 Direct Bilirubin 0.2 AST 26 ALT 18 Alkaline Phosphatase 71 Troponin I High Sens < 3.5 B-Natriuretic Peptide 36 Total Protein 7.2 Albumin 4.2 COVID-19 ([facility]) COVID-19 Clin Com 11/20/21 11/20/21 11/20/21 10:33 10:33 11:08 WBC RBC Hgb Hct MCV MCH MCHC RDW Plt Count MPV Immature Gran % (Auto) Neut % (Auto) Lymph % (Auto) [place] % (Auto) Eos % (Auto) Baso % (Auto) Lymph # (Auto) [place] # (Auto) Eos # (Auto) Baso # (Auto) Abs Immat Gran (auto) Absolute Neuts (auto) Absolute Nucleated RBC Nucleated RBC % (auto) PT 10.7 INR 0.9 APTT 30.8 aPTT Heparin Protocol D-Dimer High Sensitivty 675 Sodium Potassium Chloride Carbon Dioxide Anion Gap BUN Creatinine Estim Creat Clear Calc Estimated GFR POC Glucose Random Glucose Calcium Total Bilirubin Direct Bilirubin AST ALT Alkaline Phosphatase Troponin I High Sens B-Natriuretic Peptide Total Protein Albumin COVID-19 ([facility]) Negative COVID-19 Clin Com See Note 11/20/21 11/20/21 11/20/21 16:19 16:19 17:48 WBC 8.9 RBC 4.79 Hgb 14.9 Hct 45.0 MCV 93.9 MCH 31.1 MCHC 33.1 RDW 13.9 Plt Count 199 MPV 9.5 Immature Gran % (Auto) Neut % (Auto) Lymph % (Auto) [place] % (Auto) Eos % (Auto) Baso % (Auto) Lymph # (Auto) [place] # (Auto) Eos # (Auto) Baso # (Auto) Abs Immat Gran (auto) Absolute Neuts (auto) Absolute Nucleated RBC 0.000 Nucleated RBC % (auto) 0.0 PT 12.3 INR 1.1 APTT aPTT Heparin Protocol D-Dimer High Sensitivty Sodium Potassium Chloride Carbon Dioxide Anion Gap BUN Creatinine Estim Creat Clear Calc Estimated GFR POC Glucose 113 Random Glucose Calcium Total Bilirubin Direct Bilirubin AST ALT Alkaline Phosphatase Troponin I High Sens B-Natriuretic Peptide Total Protein Albumin COVID-19 ([facility]) COVID-19 Clin Com 11/20/21 11/20/21 11/20/21 20:26 21:49 23:04 WBC RBC Hgb Hct MCV MCH MCHC RDW Plt Count MPV Immature Gran % (Auto) Neut % (Auto) Lymph % (Auto) [place] % (Auto) Eos % (Auto) Baso % (Auto) Lymph # (Auto) [place] # (Auto) Eos # (Auto) Baso # (Auto) Abs Immat Gran (auto) Absolute Neuts (auto) Absolute Nucleated RBC Nucleated RBC % (auto) PT INR APTT aPTT Heparin Protocol > 200.0 H* D-Dimer High Sensitivty Sodium Potassium Chloride Carbon Dioxide Anion Gap BUN Creatinine Estim Creat Clear Calc Estimated GFR POC Glucose 141 H 71 Random Glucose Calcium Total Bilirubin Direct Bilirubin AST ALT Alkaline Phosphatase Troponin I High Sens B-Natriuretic Peptide Total Protein Albumin COVID-19 ([facility]) COVID-19 Clin [employer] 11/20/21 11/21/21 11/21/21 23:22 00:52 05:59 WBC RBC Hgb Hct MCV MCH MCHC RDW Plt Count MPV Immature Gran % (Auto) Neut % (Auto) Lymph % (Auto) [place] % (Auto) Eos % (Auto) Baso % (Auto) Lymph # (Auto) [place] # (Auto) Eos # (Auto) Baso # (Auto) Abs Immat Gran (auto) Absolute Neuts (auto) Absolute Nucleated RBC Nucleated RBC % (auto) PT INR APTT aPTT Heparin Protocol 169.4 H* 61.5 D D-Dimer High Sensitivty Sodium Potassium Chloride Carbon Dioxide Anion Gap BUN Creatinine Estim Creat Clear Calc Estimated GFR POC Glucose 60 Random Glucose Calcium Total Bilirubin Direct Bilirubin AST ALT Alkaline Phosphatase Troponin I High Sens B-Natriuretic Peptide Total Protein Albumin COVID-19 ([facility]) COVID-19 Clin [employer] 11/21/21 11/21/21 11/21/21 06:21 06:21 06:21 WBC 9.8 RBC 4.90 Hgb 15.3 Hct 46.4 MCV 94.7 MCH 31.2 MCHC 33.0 RDW 14.0 Plt Count 206 MPV 9.7 Immature Gran % (Auto) Neut % (Auto) Lymph % (Auto) [place] % (Auto) Eos % (Auto) Baso % (Auto) Lymph # (Auto) [place] # (Auto) Eos # (Auto) Baso # (Auto) Abs Immat Gran (auto) Absolute Neuts (auto) Absolute Nucleated RBC 0.000 Nucleated RBC % (auto) 0.0 PT 11.2 INR 1.0 APTT aPTT Heparin Protocol D-Dimer High Sensitivty Sodium 142 Potassium 4.1 Chloride 102 Carbon Dioxide 27 Anion Gap 17 BUN 14 Creatinine 0.91 Estim Creat Clear Calc 117.6 Estimated GFR > 60 POC Glucose Random Glucose 62 D Calcium 9.3 Total Bilirubin Direct Bilirubin AST ALT Alkaline Phosphatase Troponin I High Sens B-Natriuretic Peptide Total Protein Albumin COVID-19 ([facility]) COVID-19 [facility] Com 11/21/21 11/21/21 07:19 07:54 WBC RBC Hgb Hct MCV MCH MCHC RDW Plt Count MPV Immature Gran % (Auto) Neut % (Auto) Lymph % (Auto) [place] % (Auto) Eos % (Auto) Baso % (Auto) Lymph # (Auto) [place] # (Auto) Eos # (Auto) Baso # (Auto) Abs Immat Gran (auto) Absolute Neuts (auto) Absolute Nucleated RBC Nucleated RBC % (auto) PT INR APTT aPTT Heparin Protocol 73.0 D-Dimer High Sensitivty Sodium Potassium Chloride Carbon Dioxide Anion Gap BUN Creatinine Estim Creat Clear Calc Estimated GFR POC Glucose 109 Random Glucose Calcium Total Bilirubin Direct Bilirubin AST ALT Alkaline Phosphatase Troponin I High Sens B-Natriuretic Peptide Total Protein Albumin COVID-19 ([facility]) COVID-[address] scan - chest: Radiologist's impression: ITS Impressions Chest CTA 11/20/21 13:15 IMPRESSION: Significant pulmonary emboli involving all lobes of both lungs. Degenerative changes of the spine. Severe narrowing of the spinal canal at T9. ELIS Barrientos was directly informed of the findings by telephone at approximately 2:25 PM on November 20, 2021. VTE: positive Venous Duplex 11/20/21 17:28 IMPRESSION: 1. Examination positive for deep venous thrombus in the right popliteal vein. 2. No evidence of deep venous thrombosis in the left lower extremity. Discharge Plan Discharge Patient Disposition: Home, Self-Care Discharge Diagnosis: Pulmonary embolism Referrals: Moy Coyle MD [Primary Care Provider] - 1 Week Discharge Medications: New Eliquis DVT-PE Treat 30D Start 5 mg (74 tabs) tablets,dose pack 5 mg PO BID Qty: 74 0RF Rx Instructions: 10 mg bid for first week then 5mg bid afterward. Continued rosuvastatin 20 mg tablet 20 mg PO DAILY Qty: 90 3RF omeprazole 20 mg capsule,delayed release(DR/EC) 1 cap PO DAILY allopurinol 300 mg tablet 300 mg PO DAILY lisinopril 20 mg tablet 20 mg PO DAILY (DME) pen needle, diabetic 32 gauge x 5/32 needle See Rx Instructions subcut BID Qty: 50 Rx Instructions: As directed (DME) blood sugar diagnostic Strip See Rx Instructions .ROUTE .MEDSUPPLY Qty: 10 Rx Instructions: As directed levothyroxine [Synthroid] 50 mcg tablet 50 mcg PO DAILY (DME) FreeStyle Flavio 2 [place] Misc See Rx Instructions .ROUTE .MEDSUPPLY Qty: 1 0RF Rx Instructions: As directed aspirin [Adult Low Dose Aspirin] 81 mg tablet,delayed release (DR/EC) 81 mg PO DAILY pioglitazone 30 mg tablet 30 mg PO DAILY Qty: 90 1RF Tresiba FlexTouch U-200 200 unit/mL (3 mL) insulin pen 110 unit subcut BEDTIME 90 Days Qty: 54 3RF insulin aspart U-100 [Novolog Flexpen U-100 Insulin] 100 unit/mL (3 mL) insulin pen 24 - 34 unit subcut TID 90 Days Qty: 45 1RF (DME) FreeStyle Flavio 2 Sensor Kit See Rx Instructions .ROUTE .MEDSUPPLY Qty: 6 4RF Rx Instructions: As directed every 2 weeks (DME) pen needle, diabetic [BD Ultra-Fine Shobha Pen Needle] 32 gauge x 5/32 needle See Rx Instructions .ROUTE .MEDSUPPLY Qty: 400 3RF Rx Instructions: As directed four times a day metoprolol tartrate 50 mg tablet 50 mg PO BID Discharge Orders: Discharge Order (Routine); Ordered 11/21/21 Ordered By: Jacques King Diet: Advance to usual diet Activity on Discharge: As tolerated Stand Alone Forms: Patient Portal Discharge page Care Plan Goals: Read below Health Concerns: Read below Plan of Treatment: Read below Assessment: You presented to the hospital for worsening shortness of breath. CT angiogram of the chest was consistent with multiple clots to your lungs. An ultrasound of your lower extremities showed an evidence of a clot in your right leg. Treated with IV heparin drip. Plan to go back home on Eliquis 10 mg twice daily for the 1st week then 5 mg daily afterward for total of 6 months. continue Eliquis as prescribed To follow-up with PCP for length of treatment and refills. Increase your physical activity to prevent similar incidents
--- NOTE | 2021-11-21 10:19 | PC.NURSE ---
Pt is alert and oriented to self, time, place, and situation. Denies any pain, +BS x 4, abd soft, round and non-tender to palp. Lungs . +PP, trace edema noted to right justice, slight redness, room temp to touch. Skin appears to be intact otherwise. NSR on tele monitor. Denies CP or SOB at this time. SOB with exertion, resolves quickly. Heparin GTT going at 10u/kg/hr (14.76ml/hr), aPTT ordered for 0800. aPTT resulted as 73.0- no change to GTT per Heparin protocol, new ordered placed for next aPTT lab draw at 1400. Per MD rounds, plan for DC home today with PO antiacoagulation.
--- NOTE | 2021-11-21 10:34 | MHC.CM.PN ---
CM MET WITH PT RE: DC. HE IS AWARE HE WILL BE DISCHARGED ON ELIQUIS ELIQUIS COUPON PROVIDED ALONG WITH INSTRUCTIONS/REASONS FOR USE PT WILL DC WITH NO SERVICES AND WILL ARRANGE HIS OWN TRANSPORT
== END 2021-11-21 11:11 | disposition home or self-care (01) | DRG 299 ==
LOC: HO.ED 14:42 → HO.EDOVER 15:38
PROVIDERS: Nurse Practitioner Family; Physician Assistant; Admitting Provider Student in an Organized Health Care Education/Training Program; Emergency Provider Student in an Organized Health Care Education/Training Program; PCP Internal Medicine; Visit Provider Student in an Organized Health Care Education/Training Program
DX: I82.431 Acute embolism and thrombosis of right popliteal vein (principal); I26.99 Other pulmonary embolism without acute cor pulmonale; Z68.41 Body mass index [BMI] 40.0-44.9, adult; I25.10 Atherosclerotic heart disease of native coronary artery without angina pectoris; I12.9 Hypertensive chronic kidney disease with stage 1 through stage 4 chronic kidney disease, or unspecified chronic kidney disease; N18.2 Chronic kidney disease, stage 2 (mild); E11.22 Type 2 diabetes mellitus with diabetic chronic kidney disease; E11.42 Type 2 diabetes mellitus with diabetic polyneuropathy; K21.9 Gastro-esophageal reflux disease without esophagitis; E78.5 Hyperlipidemia, unspecified; E66.01 Morbid (severe) obesity due to excess calories; G47.33 Obstructive sleep apnea (adult) (pediatric); E03.9 Hypothyroidism, unspecified; Z20.822 Contact with and (suspected) exposure to COVID-19; Z86.16 Personal history of COVID-19; Z85.828 Personal history of other malignant neoplasm of skin; Z87.891 Personal history of nicotine dependence; Z95.5 Presence of coronary angioplasty implant and graft; Z79.4 Long term (current) use of insulin; Z79.82 Long term (current) use of aspirin; Z79.890 Hormone replacement therapy; Z79.899 Other long term (current) drug therapy
CPT/HCPCS: 36415; 71046; 71275; 80048; 80053; 80076; 82947; 83036; 83880; 84439; 84443; 84484; 85025; 85027; 85379; 85610; 85730; 87635; 93005; 93970; 99285; Q9967

== ENCOUNTER → 2021-12-18 09:08 | Outpatient (REF) | payer MEDICARE, OTHER, SELFPAY | LOC: HO.CARD 09:08 | PROVIDERS: Visit Provider Internal Medicine | DX: R06.02 Shortness of breath (principal); I25.10 Atherosclerotic heart disease of native coronary artery without angina pectoris; I10 Essential (primary) hypertension; E11.9 Type 2 diabetes mellitus without complications | CPT/HCPCS: 93306; Q9957 ==

== ENCOUNTER 2021-12-24 12:43 | Day surgery (SDC) | payer MEDICARE, OTHER, SELFPAY ==
[2021-12-24 13:37] VITALS: BMI 43.4
[2021-12-24 13:42] VITALS: BP 147/69; PULSE 79; RESP 18; TEMP 36.6; O2SAT 95
--- NOTE | 2021-12-24 15:57 | MHC.SHP ---
Pre-Procedural Eval Section A Date of Service: 12/24/21 The patient is an INPATIENT: No Changes since office visit: No Cold of Flu in the past 2 weeks, No New Medical Problems, No Changes in Medication and No Patient answered all questions The History & Physical has been completed within 30 days and I have reviewed it.: Yes Section B Chief Complaint: Trigger finger, left ring finger Allergies: Allergies Allergy/AdvReac Type Severity Reaction Status Date / Time No Known Allergies Allergy Verified 12/24/21 13:44 [No Known Allergies*] Plan I have reviewed the history and physical and performed a pertinent physical examination on my patient. No changes have occurred unless specified.
--- NOTE | 2021-12-24 15:58 | P.OP_ITS ---
Operative Note Operative Note Date of Service: 12/24/21 Narrative: Operative Note Preop diagnosis: 1. left ring finger Trigger finger Postop diagnosis: 1. left ring finger Trigger finger Procedure: 1. left ring finger A1 genna release Surgeon: Kadi Wren MD Anesthesia: local block using 1% lidocaine with epinephrine Findings: No locking or catching after A1 genna release EBL: Less than 5 mL Tourniquet time: None Specimens: None Complications: None Disposition: Brought to recovery room in stable condition Plan: Follow-up for 10-14 days for wound check and suture removal Indications: The patient is 66 years old, with a left ring finger trigger finger that has been unresponsive to nonoperative management. The risks and benefits of operative treatment including but not limited to risk of damage to blood vessels, nerves, tendons, infection, persistent pain, persistent symptoms, recurrence or possible need for additional surgery were discussed with the patient and the patient wishes to proceed with surgery. Procedure: Once consent was obtained a local block was performed in the preop area using a combination of 1% lidocaine with epinephrine. The patient was then brought back to the operating suite and placed on the operative table in supine position. A tourniquet was applied to the proximal aspect of the left upper extremity and the limb was prepped and draped in a standard surgical fashion. Once assured that we had a good block, a 1.5 cm oblique incision was made centered over the A1 genna of the left ring finger . The incision was made through the skin to the subcutaneous tissues using a #15 blade. Careful dissection was made down to the level of the A1 genna using tenotomy scissors, with care being taken to protect the nearby neurovascular structures. A longitudinal incision was made in the A1 genna 1st using a #15 blade, then using tenotomy scissors under direct visualization. The A1 genna was noted to be thickened. Following our A1 genna release, we no longer saw any locking or catching of the digit with flexion and extension. Once satisfied with our A1 genna release the wound was copiously irrigated with normal saline and hemostasis was obtained with a brief period of local pressure. The skin edges were reapproximated with some 5.0 nylon suture material and a sterile dressing was applied. The patient appears to have tolerated the procedure well and with no complicati ons. All digits were well vascularized at the conclusion of the case.
[2021-12-24 16:50] VITALS: BP 123/76; PULSE 71; RESP 20; TEMP 36.2; O2SAT 94
== END 2021-12-24 17:05 | disposition home or self-care (01) ==
PROVIDERS: PCP Internal Medicine; Visit Provider Orthopaedic Surgery
PROC: (CPT 26055; principal; 2021-12-24 13:50)
DX: M65.342 Trigger finger, left ring finger (principal); I25.10 Atherosclerotic heart disease of native coronary artery without angina pectoris; Z98.61 Coronary angioplasty status; E78.5 Hyperlipidemia, unspecified; E11.22 Type 2 diabetes mellitus with diabetic chronic kidney disease; I12.9 Hypertensive chronic kidney disease with stage 1 through stage 4 chronic kidney disease, or unspecified chronic kidney disease; N18.2 Chronic kidney disease, stage 2 (mild); E11.42 Type 2 diabetes mellitus with diabetic polyneuropathy; E11.65 Type 2 diabetes mellitus with hyperglycemia; Z79.4 Long term (current) use of insulin; E66.09 Other obesity due to excess calories; Z68.42 Body mass index [BMI] 45.0-49.9, adult; Z79.01 Long term (current) use of anticoagulants; Z79.899 Other long term (current) drug therapy; Z87.891 Personal history of nicotine dependence
CPT/HCPCS: 26055; J0171

== ENCOUNTER → 2022-01-06 09:39 | Outpatient (BNVA) | payer MEDICARE, OTHER, SELFPAY | PROVIDERS: PCP Internal Medicine; Visit Provider Orthopaedic Surgery | DX: Z47.89 Encounter for other orthopedic aftercare (principal); G56.22 Lesion of ulnar nerve, left upper limb; G56.21 Lesion of ulnar nerve, right upper limb | CPT/HCPCS: 99212 ==

== ENCOUNTER 2022-01-07 09:33 | Outpatient (REF) | payer MEDICARE, OTHER, SELFPAY ==
--- NOTE | ~2022-01-07 | US_ITS ---
EXAMINATION: US ABDOMEN COMPLETE CLINICAL INFORMATION: Jaundice. Rule out obstruction. COMPARISON: CT abdomen and pelvis 05/21/2015. TECHNIQUE: Real-time imaging of the abdominal viscera. Technically limited study secondary to body habitus. FINDINGS: PANCREAS: The pancreas is obscured by overlying bowel gas. ABDOMINAL AORTA: The proximal appears unremarkable. Mid and distal aspects not visualized. INFERIOR VENA CAVA: Visualized portions are normal. LIVER: There is diffusely increased echogenicity throughout the liver consistent with fatty infiltration. No focal hepatic masses identified. No intrahepatic bile duct dilatation is seen. GALLBLADDER: There is echogenic bile present within the gallbladder. The gallbladder wall is thickened to approximately 4 mm in diameter without fluid seen within the gallbladder wall and without pericholecystic fluid being present. No definite tenderness to palpation overlying the gallbladder was elicited however it is unknown if the patient has had pain medication. COMMON BILE DUCT: Normal in caliber measuring 0.7 cm in diameter and poorly visualized.. RIGHT KIDNEY: Normal. No hydronephrosis. No renal calculi or focal parenchymal lesions. The kidney measures 14.6 cm in maximum dimension. LEFT KIDNEY: Normal. No hydronephrosis. No renal calculi or focal parenchymal lesions. The kidney measures 14.6 cm in maximum dimension. SPLEEN: Normal. The spleen measures 12.8 cm in maximum dimension. FREE FLUID: None. US/US abdomen complete IMPRESSION: Fatty infiltration of the liver without focal mass or intrahepatic bile duct dilatation. Sludge within the gallbladder which is some mild gallbladder wall thickening but no pericholecystic fluid or fluid within the gallbladder wall. Above findings could be related to chronic cholecystitis however early acute cholecystitis cannot be excluded at this point.
== END 2022-01-07 09:34 | disposition home or self-care (01) ==
LOC: HO.US 09:33
PROVIDERS: PCP Internal Medicine; Visit Provider Internal Medicine
DX: Z13.89 Encounter for screening for other disorder (principal)
CPT/HCPCS: 36415; 76700; 80053; 82550; 85025; 86140

== ENCOUNTER 2022-01-07 13:36 | Outpatient (REF) | payer MEDICARE, OTHER, SELFPAY ==
[2022-01-07 14:08] LABS: MANUAL DIFF FLAG NO
[2022-01-07 14:20] LABS: Basophils Absolute Auto 0.1 X10*3/uL (0.0-0.2); Basophils Percent Auto 0.8 % (0-2); Eosinophils Absolute Auto 0.2 X10*3/uL (0.0-0.4); Eosinophils Percent Auto 3.3 % (0-4); Hematocrit 44.1 % (42.0-52.0); Hemoglobin 14.8 g/dl (14.0-18.0); Imm Gran Abs Auto 0.08 X10*3/uL (0.00-0.03); Imm Gran Pct Auto 1.1 % (0.0-0.4); Lymphocytes Absolute Auto 2.2 X10*3/uL (1.2-4.9); Lymphocytes Percent Auto 30.8 % (20-40); Mean Corpuscular HGB Conc 33.6 g/dl (31.0-36.0); Mean Corpuscular Hemoglobin 31.1 pg (27.0-33.0); Mean Corpuscular Volume 92.6 fL (80.0-98.0); Monocytes Absolute Auto 0.6 X10*3/uL (0.1-1.2); Monocytes Percent Auto 8.9 % (2-11); Neutrophils Percent Auto 55.1 % (45-73); Platelet Count 255 X10*3/uL (160-400); Red Blood Count 4.76 X10*6/uL (4.60-5.80); Red Cell Distribution Width 13.5 % (11.0-16.0); White Blood Count 7.2 X10*3/uL (4.8-10.8)
[2022-01-07 14:51] LABS: Alanine Aminotransferase 172 U/L (0-40); Albumin Level 3.9 g/dL (3.5-5.0); Alkaline Phosphatase 335 U/L (39-117); Anion Gap 20 (12-20); Aspartate Amino Transferase 120 U/L (5-37); Bilirubin Total 5.1 mg/dL (0.0-1.0); Blood Urea Nitrogen 20 mg/dL (9-16); C Reactive Protein 17.91 mg/dL (< or = 0.50); Calcium 9.7 mg/dL (8.4-10.2); Carbon Dioxide 25 mmol/L (22-29); Chloride 98 mmol/L (96-108); Estimated Glomerular Filt Rate 58; Glucose Fasting 282 mg/dL (60-99); Sodium 139 mmol/L (135-145)
== END 2022-01-07 13:37 | disposition home or self-care (01) ==
LOC: HO.10HDL 13:36
PROVIDERS: Visit Provider Internal Medicine
DX: Z13.89 Encounter for screening for other disorder (principal)
CPT/HCPCS: 36415; 80053; 82550; 85025; 86140

== ENCOUNTER 2022-01-08 14:26 | Inpatient (IN) | payer MEDICARE, OTHER, SELFPAY ==
--- NOTE | ~2022-01-08 | CT_ITS ---
EXAMINATION: CT ABDOMEN AND PELVIS WITH CONTRAST CLINICAL INFORMATION: Jaundice COMPARISON: Seen TECHNIQUE: Multidetector volumetric images were obtained from the superior aspect of the liver through the pubic symphysis following administration 85 mL of Omnipaque 350 intravenous contrast. Sagittal and coronal reformatted images were obtained on the technologist's workstation. Oral contrast: No This CT examination was performed using dose optimization techniques as appropriate, variously including the following: *Automated exposure control *Adjustment of mA and/or kV according to patient size (this includes techniques or standardized protocols for targeted exams where dose is matched to indication/reason for exam; i.e. extremities or head) *Use of iterative reconstruction technique DLP: 1149 mGy-cm FINDINGS: LUNG BASES: The visualized lung bases are unremarkable. Coronary calcifications LIVER, GALLBLADDER, AND BILIARY TREE: The liver is normal in size, shape, and attenuation. No focal hepatic lesion or biliary ductal dilatation is present. Gallstones in the gallbladder. Cannot exclude gallbladder wall edema/thickening. PANCREAS: Unremarkable. SPLEEN: Unremarkable. ADRENAL GLANDS: Unremarkable. KIDNEYS AND URETERS: Some small scattered nonobstructing calculi. BLADDER: Unremarkable. GASTROINTESTINAL TRACT: The bowel pattern is felt to be nonobstructing. ABDOMINAL WALL: No significant hernia is appreciated. LYMPH NODES: Normal. VASCULAR: Atherosclerotic changes are noted. PELVIC VISCERA: Unremarkable. OSSEOUS STRUCTURES: Unremarkable. CT/CT abdomen pelvis w IV con IMPRESSION: Gallstones in the gallbladder and ill-definition of the gallbladder wall with possible edema/thickening. Cholecystitis cannot be excluded. Correlation recommended clinically. Other findings as noted above. Nonobstructing renal calculi. Fleischner guidelines were followed.
--- NOTE | ~2022-01-08 | US_ITS ---
EXAMINATION: US ABDOMEN LIMITED CLINICAL INFORMATION: Common bile duct stone.. COMPARISON: CT abdomen pelvis 01/08/2022. TECHNIQUE: Real-time imaging of the right upper quadrant abdominal viscera. FINDINGS: PANCREAS: The pancreas is obscured from visualization by overlying bowel gas. LIVER: The liver demonstrates diffusely increased echogenicity with obscuration of the expected differentiation between periportal fat in liver parenchyma. Normal capsular contour and size. No intrahepatic or ductal dilatation. GALLBLADDER: Punctate dependent layering echogenic gallstones are present within the gallbladder lumen. The gallbladder is physiologically distended. No pericholecystic fluid collections. The gallbladder wall measures 3 mm in width, within normal limits of size. Per the technologist note, a negative sonographic Obrien sign is identified. COMMON BILE DUCT: Normal in caliber measuring 0.6 cm in diameter. RIGHT KIDNEY: Normal. No hydronephrosis. No renal calculi or focal parenchymal lesions. The kidney measures 14.7 cm in maximum dimension. FREE FLUID: None. US/US abdomen limited IMPRESSION: *Cholelithiasis. Multiple punctate dependent layering gallstones within the gallbladder lumen. No specific evidence of acute cholecystitis. No choledocholithiasis identified. The common bile duct measures 6 mm in diameter, at the upper limits of normal size. *Diffuse hepatic steatosis.
[2022-01-08 14:32] VITALS: BP 158/69; PULSE 80; RESP 19; TEMP 36.6; O2SAT 98; BMI 38.0
[2022-01-08 14:47] LABS: MANUAL DIFF FLAG NO
[2022-01-08 14:52] LABS: Basophils Absolute Auto 0.1 X10*3/uL (0.0-0.2); Basophils Percent Auto 0.9 % (0-2); Eosinophils Absolute Auto 0.4 X10*3/uL (0.0-0.4); Eosinophils Percent Auto 3.6 % (0-4); Hematocrit 44.5 % (42.0-52.0); Hemoglobin 15.1 g/dl (14.0-18.0); Imm Gran Abs Auto 0.14 X10*3/uL (0.00-0.03); Imm Gran Pct Auto 1.4 % (0.0-0.4); Lymphocytes Absolute Auto 2.7 X10*3/uL (1.2-4.9); Lymphocytes Percent Auto 26.7 % (20-40); Mean Corpuscular HGB Conc 33.9 g/dl (31.0-36.0); Mean Corpuscular Volume 91.4 fL (80.0-98.0); Mean Platelet Volume 9.5 fL (9.4-12.4); Monocytes Absolute Auto 0.8 X10*3/uL (0.1-1.2); Monocytes Percent Auto 7.8 % (2-11); Neutrophils Absolute Auto 6.1 x10*3/uL (2.0-8.3); Neutrophils Percent Auto 59.6 % (45-73); Platelet Count 264 X10*3/uL (160-400); Red Blood Count 4.87 X10*6/uL (4.60-5.80); Red Cell Distribution Width 13.5 % (11.0-16.0); White Blood Count 10.3 X10*3/uL (4.8-10.8)
[2022-01-08 14:58] LABS: INTERNATIONAL NORM RATIO 1.3 (0.9-1.1); Prothrombin Time 15.6 SEC (10.0-13.1)
--- NOTE | 2022-01-08 15:01 | ED_ITS ---
HPI - Abdominal Pain General Chief Complaint: Abdominal Pain Stated Complaint: sent by dr montague possible kidney stone Time Seen by Provider: 01/08/22 14:50 Source: patient, family and old records reviewed Mode of arrival: ambulatory Limitations: no limitations History of Present Illness HPI narrative: 66 yo male with PMH of DM, HTN, HLD, obesity, recent PE on eliquis noted on Tuesday after eating Thai food he had upper abdominal pain with n/v no diarrhea. His noted jaundice Tuesday. He saw Jonna yesterday US equivocal and bili was 5.1 with elevated LFTs. Sent to ED for further workup. Hasn't eaten much and pain has improved. MD elicited complaint: abdominal pain Pertinent past history: none Onset (ago): day(s) (6) Location: epigastric, LUQ and RUQ Severity: moderate Quality: cramping Radiation: none Exacerbating factors: eating Relieving factors: nothing Context: possible food poisoning Associated symptoms: nausea and vomiting Related Data Home Medications Medication Instructions Recorded Confirmed blood sugar diagnostic #10 ea 02/13/20 08/04/21 levothyroxine 50 mcg tablet 50 mcg PO DAILY 02/13/20 12/24/21 (Synthroid) lisinopril 20 mg tablet 20 mg PO DAILY 02/13/20 12/24/21 pen needle, diabetic 32 gauge x #50 ea 02/13/20 08/04/21 omeprazole 20 mg capsule,delayed 1 cap PO DAILY 08/05/20 12/24/21 release allopurinol 300 mg tablet 300 mg PO DAILY 01/26/21 12/24/21 aspirin 81 mg tablet,delayed 81 mg PO DAILY 01/26/21 12/24/21 release (Adult Low Dose Aspirin) metoprolol tartrate 50 mg tablet 50 mg PO BID 11/10/21 12/24/21 Men's 50 Plus Daily Formula 12/24/21 12/24/21 Previous Rx's Medication Instructions Recorded flash glucose scanning reader #1 ea 10/07/20 (FreeStyle Flavio 2 Daniel) rosuvastatin 20 mg tablet 20 mg PO DAILY #90 tabs 05/08/21 flash glucose sensor (FreeStyle #6 ea 07/30/21 Flavio 2 Sensor kit) insulin aspart U-100 100 unit/mL 24 - 34 unit (0.24 - 0.34 mL) 07/30/21 (3 mL) subcutaneous pen (Novolog subcut TID 90 days #45 mL Flexpen U-100 Insulin aspart) insulin degludec 200 unit/mL (3 110 unit (0.55 mL) subcut BEDTIME 07/30/21 mL) subcutaneous pen (Tresiba 90 days #54 mL FlexTouch U-200 insulin) pen needle, diabetic 32 gauge x #400 ea 07/30/21 (BD Ultra-Fine Shobha Pen Needle) apixaban 5 mg (74 tabs) tablets in 5 mg PO BID #74 ea 11/21/21 a dose pack (EliquSupportLocal DVT-PE Treat 30D Start) pioglitazone 30 mg tablet 30 mg PO DAILY #90 tabs 12/18/21 hydrocodone 5 mg-acetaminophen 325 1 tab PO Q4-6H PRN pain #5 tabs 12/24/21 mg tablet Allergies Allergy/AdvReac Type Severity Reaction Status Date / Time No Known Allergies Allergy Verified 01/06/22 09:43 [No Known Allergies*] Review of Systems Review of Systems Constitutional : No Weight loss, No Fever, No Chills ENT/Mouth : No sore throat, No Rhinorrhea Eyes: No Swelling, No Redness Cardiovascular : No Chest Pain, No SOB, NoEdema Respiratory : No Cough, No Sputum, No Wheezing Gastrointestinal : Positive Nausea, Positive Vomiting, no Diarrhea, positive abdominal Pain, No Hematochezia, No Melena Genitourinary : No Dysuria, No Urinary Frequency, No Hematuria, No Urgency Musculoskeletal : No joint pain, No Myalgias, No Joint Swelling Skin : No Skin Lesions, No rash, pos jaundice Neuro : No Weakness, No Numbness, No Dizziness, No Headache Psych : No Anxiety/Panic, No Depression Heme/Lymph: No Bruising, No Lymphadenopathy Endocrine : No Polyuria, No Polydipsia All other systems reviewed and are negative. [facility] Past Medical History Attestation statement: The following information was validated with the patient. Source: old records reviewed Medical History Atherosclerotic cardiovascular disease CAD (coronary artery disease) Chronic kidney disease (CKD), stage II (mild) Diabetes Essential hypertension GERD (gastroesophageal reflux disease) Gout Graves disease History of skin cancer HTN (hypertension) Hyperlipidemia Hyperlipidemia LDL goal <70 Obesity due to excess calories SHAWN (obstructive sleep apnea) Other and unspecified hyperlipidemia Peripheral neuropathy Popliteal DVT (deep venous thrombosis) Proteinuria Pulmonary embolus Renal stones Sleep apnea Tubular adenoma of colon Type 2 diabetes mellitus with diabetic polyneuropathy Type 2 diabetes mellitus with hyperglycemia, with long-term current use of insulin Type 2 diabetes mellitus with other diabetic kidney complication Type 2 diabetes mellitus with unspecified complications Surgical History H/O cystoscopy History of coronary artery stent placement History of hemorrhoidectomy Hx of carpal tunnel repair Hx of colonoscopy Hx of elbow surgery Hx of hand surgery Family History Family History Father Colon cancer Mother Lung cancer Social History Social History Household Members: Spouse Alcohol intake: current Alcohol intake frequency: holidays/special occasions only Patient Tobacco Use Status: Former Tobacco user Quit Date: 2009 Years Smoked: 35 +/- Advance Directives: No service: No Current occupational status: retired 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 Oriented X3. No acute distress. Eyes: Pupils equal, round and reactive to light. mild scleral icterus ENT: Pharynx normal. Neck: Normal inspection. Neck supple. CVS: Normal heart rate and rhythm. Pulses normal. Respiratory: No respiratory distress. Breath sounds normal. Abdomen: Soft and no tenderness Skin: Skin warm and dry. Normal skin color. Normal skin turgor. Extremities: No lower extremity edema. No calf ttp Neuro: Oriented X 3. No motor deficit. No sensory deficit. Course Course Course Narrative: signed out to Dr. Kimmy VALADEZ - Abdominal Pain [facility] Narrative Medical decision making narrative: 66 yo male with PMH of DM, HTN, HLD, obesity, recent PE on eliquis at this time had pain then had jaundice - US equivocal from 01/07 will repeat labs, obtain CT scan to look for cholecystitis/choledocholithiasis, hepatitis panel, gentle fluids, dispo per results and findings. Lab Data Result diagrams: 01/08/22 14:43 01/08/22 14:43 Labs: Lab Results 01/08/22 01/08/22 01/08/22 Range/Units 14:43 14:43 14:43 WBC 10.3 (4.8-10.8) X10*3/uL RBC 4.87 (4.60-5.80) X10*6/uL Hgb 15.1 (14.0-18.0) g/dl Hct 44.5 (42.0-52.0) % MCV 91.4 (80.0-98.0) fL MCH 31.0 (27.0-33.0) pg MCHC 33.9 (31.0-36.0) g/dl RDW 13.5 (11.0-16.0) % Plt Count 264 (160-400) X10*3/uL MPV 9.5 (9.4-12.4) fL Immature Gran % (Auto) 1.4 H (0.0-0.4) % Neut % (Auto) 59.6 (45-73) % Lymph % (Auto) 26.7 (20-40) % [place] % (Auto) 7.8 (2-11) % Eos % (Auto) 3.6 (0-4) % Baso % (Auto) 0.9 (0-2) % Lymph # (Auto) 2.7 (1.2-4.9) X10*3/uL [place] # (Auto) 0.8 (0.1-1.2) X10*3/uL Eos # (Auto) 0.4 (0.0-0.4) X10*3/uL Baso # (Auto) 0.1 (0.0-0.2) X10*3/uL Abs Immat Gran (auto) 0.14 H (0.00-0.03) X10*3/uL Absolute Neuts (auto) 6.1 (2.0-8.3) x10*3/uL Absolute Nucleated RBC 0.000 (0.0-0.012) X10*3/uL Nucleated RBC % (auto) 0.0 (0.0-0.2) /100WBC PT 15.6 H (10.0-13.1) SEC INR 1.3 H (0.9-1.1) Sodium 139 (135-145) mmol/L Potassium 4.0 (3.3-5.1) mmol/L Chloride 100 (96-108) mmol/L Carbon Dioxide 24 (22-29) mmol/L Anion Gap 19 (12-20) BUN 18 H (9-16) mg/dL Creatinine 1.11 (0.5-1.4) mg/dL Estim Creat Clear Calc 88.9 Estimated GFR > 60 Random Glucose 180 H D (60-115) mg/dL Calcium 9.8 (8.4-10.2) mg/dL Total Bilirubin 2.6 H (0.0-1.0) mg/dL Direct Bilirubin 1.7 H (0.0-0.5) mg/dL AST 114 H (5-37) U/L ALT 167 H (0-40) U/L Alkaline Phosphatase 334 H (39-117) U/L Total Protein 7.2 (6.5-8.0) g/dL Albumin 4.0 (3.5-5.0) g/dL Lipase 17 (8-78) U/L Discharge Plan Discharge Clinical Impression: Elevated bilirubin, Abdominal pain Patient Disposition: Still a Patient Prescriptions: No Action rosuvastatin 20 mg tablet 20 mg PO DAILY Qty: 90 3RF pioglitazone 30 mg tablet 30 mg PO DAILY Qty: 90 0RF omeprazole 20 mg capsule,delayed release(DR/EC) 1 cap PO DAILY allopurinol 300 mg tablet 300 mg PO DAILY Men's 50 Plus Daily Formula hydrocodone-acetaminophen 5-325 mg tablet 1 tab PO Q4-6H PRN (Reason: pain) Qty: 5 0RF Rx Instructions: Partial Fill upon patient request. Eliquis DVT-PE Treat 30D Start 5 mg (74 tabs) tablets,dose pack 5 mg PO BID Qty: 74 0RF Rx Instructions: 10 mg bid for first week then 5mg bid afterward. lisinopril 20 mg tablet 20 mg PO DAILY (DME) pen needle, diabetic 32 gauge x 5/32 needle See Rx Instructions subcut BID Qty: 50 Rx Instructions: As directed (DME) blood sugar diagnostic Strip See Rx Instructions .ROUTE .MEDSUPPLY Qty: 10 Rx Instructions: As directed levothyroxine [Synthroid] 50 mcg tablet 50 mcg PO DAILY (DME) FreeStyle Flavio 2 Daniel Mis See Rx Instructions .ROUTE .MEDSUPPLY Qty: 1 0RF Rx Instructions: As directed aspirin [Adult Low Dose Aspirin] 81 mg tablet,delayed release (DR/EC) 81 mg PO DAILY Tresiba FlexTouch U-200 200 unit/mL (3 mL) insulin pen 110 unit subcut BEDTIME 90 Days Qty: 54 3RF insulin aspart U-100 [Novolog Flexpen U-100 Insulin] 100 unit/mL (3 mL) insulin pen 24 - 34 unit subcut TID 90 Days Qty: 45 1RF Rx Instructions: 8 units at breakfast per patient (DME) FreeStyle Flavio 2 Sensor Kit See Rx Instructions .ROUTE .MEDSUPPLY Qty: 6 4RF Rx Instructions: As directed every 2 weeks (DME) pen needle, diabetic [BD Ultra-Fine Shobha Pen Needle] 32 gauge x 5/32 needle See Rx Instructions .ROUTE .MEDSUPPLY Qty: 400 3RF Rx Instructions: As directed four times a day metoprolol tartrate 50 mg tablet 50 mg PO BID
--- OUTSIDE RECORDS SUMMARY | 2022-01-08 15:07 | XMS_ITS | Continuity of Care Document ---
:1955 Author Organization [facility] Address [address] [place] [address], [address] [place] [address]- Care Team Providers Name Role Phone Moy Coyle MD Primary Care Physician Encounter [facility] Date(s): 05/14/21 - 06/13/[address], [address] [place], [place] [address] Attending Physician: Ken Vyas Admitting Physician: Ken Vyas Referring Physician: trKen Allergies, Adverse Reactions, Alerts No Known Allergies Medications Allopurinol Refills 0, Maintenance, 05/14/21 10:45:00 EST, Partial fill upon patient request if the prescriptionis for a schedule II opioid drug. Start Date: 05/14/21 Status: Orderedaspirin 81 mg oral capsule 4 capsule = 324 mg, By Mouth, Every 4 hours, 0 Refills, Maintenance, 05/14/21 10:45:00 EST, Partial fill upon patient request if the prescription is for a schedule II opioid drug. Start Date: 05/14/21 Status: OrderedLisinopril By Mouth, Daily, 0 Refills, Maintenance, 05/14/21 10:45:00 EST, Partial fill upon patient request ifthe prescription is for a schedule II opioid drug. Start Date: 05/14/21 Status: OrderedLopressor 50 mg oral tablet 50 mg, 1, tablet, By Mouth, 2 times a day, Refills 0, Maintenance, 05/14/21 10:44:00 EST, Partial fill upon patient request if the prescription is for a schedule II opioid drug. Start Date: 05/14/21 Status: OrderedOmeprazole By Mouth, Daily, 0 Refills, Maintenance, 05/14/21 10:45:00 EST, Partial fill upon patient request ifthe prescription is for a schedule II opioid drug. Start Date: 05/14/21 Status: OrderedPioglitazone By Mouth, Daily, 0 Refills, Maintenance, 05/14/21 10:46:00 EST, Partial fill upon patient request ifthe prescription is for a schedule II opioid drug. Start Date: 05/14/21 Status: OrderedRosuvastatin By Mouth, Daily, 0 Refills, Maintenance, 05/14/21 10:45:00 EST, Partial fill upon patient request ifthe prescription is for a schedule II opioid drug. Start Date: 05/14/21 Status: OrderedSynthroid By Mouth, Daily, Refills 0, Maintenance, 05/14/21 10:45:00 EST, Partial fill upon patient request ifthe prescription is for a schedule II opioid drug. Start Date: 05/14/21 Status: OrderedTresiba Subcutaneous Infusion, Daily, 0 Refills, Maintenance, 05/14/21 10:46:00 EST, Partial fill upon patient request if the prescription is for a schedule II opioid drug. Start Date: 05/14/21 Status: Ordered Problem List Condition Effective Dates Status Health Status Informant Severe obesity(Confirmed) Active
--- OUTSIDE RECORDS SUMMARY | 2022-01-08 15:07 | XMS_ITS | Continuity of Care Document ---
:1955 Author Organization [facility] Address Unavailable , Care Team Providers Name Role Phone Moy Coyle MD Primary Care Physician Encounter [facility] Date(s): 04/30/21 - 05/30/21 [facility] Allergies, Adverse Reactions, Alerts No Known Allergies [...]
[2022-01-08 15:11] LABS: Alanine Aminotransferase 167 U/L (0-40); Alkaline Phosphatase 334 U/L (39-117); Anion Gap 19 (12-20); Aspartate Amino Transferase 114 U/L (5-37); Bilirubin Direct 1.7 mg/dL (0.0-0.5); Bilirubin Total 2.6 mg/dL (0.0-1.0); Blood Urea Nitrogen 18 mg/dL (9-16); Calcium 9.8 mg/dL (8.4-10.2); Carbon Dioxide 24 mmol/L (22-29); Chloride 100 mmol/L (96-108); Creatinine Clr Calc Pharmacy 88.9; Estimated Glomerular Filt Rate > 60; Glucose Random 180 mg/dL (60-115); Lipase 17 U/L (8-78); Sodium 139 mmol/L (135-145); Total Protein 7.2 g/dL (6.5-8.0)
[2022-01-08] MEDS: 0.9 % Sodium Chloride 1,000 ML 125 ML IVCONT ×2 (15:47→20:20)
[2022-01-08 16:33] VITALS: BP 123/61; PULSE 69; RESP 16; TEMP 36.7; O2SAT 98
[2022-01-08 16:35] LABS: Partial Thromboplastin Time 40.2 SEC (26.0-36.4)
--- NOTE | 2022-01-08 16:42 | PC.NURSE ---
pt vs done ,lab draw done ,pt at bedside ,pt watching television .
[2022-01-08] MEDS: iohexoL 350 MG/ML 100 ML INFUS..BTL IV (16:43)
[2022-01-08 16:47] LABS: Acetaminophen LAB < 1 mcg/mL (<30)
[2022-01-08 17:04] LABS: Ammonia 30 umol/L (13-55)
[2022-01-08 18:45] VITALS: BP 137/63; PULSE 68; RESP 16; TEMP 36.6; O2SAT 98
[2022-01-08 19:52] VITALS: BP 151/60; PULSE 70; RESP 16; TEMP 36.8; O2SAT 98
--- NOTE | 2022-01-08 20:18 | PC.NURSE ---
This RN attempted to straight stick pt for blood culture twice with no success, Lab called.
--- NOTE | 2022-01-08 20:23 | PC.NURSE ---
this pct ,tried to draw blood cultures twice ,no success ,rn tried twice ,no success ,phlebotomy called.
--- NOTE | 2022-01-08 20:30 | PHA.MEDREC ---
Pharmacy Consult ? Medication Reconciliation Pharmacy has completed the medication reconciliation. sPOKE WITH PATIENT IN THE ED WHO HAD A LIST ON HIS PHONE. PATIENT TOOK ALL AM MEDICATIONS
[2022-01-08] MEDS: Piperacillin Sodium/Tazobactam 4.5 GM in 0.9 % Sodium Chloride 100 ML IV (20:44)
--- NOTE | 2022-01-08 21:43 | P.HPHOSP_ITS ---
History of Present Illness Date of Service: 01/08/22 Chief Complaint: Abdominal pain This is a 66-year-old male with pertinent history of recent bilateral PE (diagnosed 5 weeks ago) on Eliquis, insulin-dependent diabetes mellitus, essential hypertension, mixed hyperlipidemia who presents to the emergency department for evaluation of abdominal discomfort. Patient states he 1st noticed upper right-sided abdominal pain after eating Prydeinig food last Tuesday. This was accompanied by nausea and nonbloody emesis. Since then patient has had right upper abdominal discomfort every time with p.o. intake that has lasted for several hours and associated with nausea. Patient states his also noticed yellowing discoloration of skin yesterday. He saw his PCP and was sent to the ER as his liver enzymes were elevated. Patient states he has had reduced p.o. intake due to abdominal discomfort. Denied fever, chills, chest discomfort, palpitations, shortness of breath, changes in urinary or bowel habits In the emergency department, liver enzymes were found to be elevated. General surgery was consulted who requested admission. Review of Systems Cardiovascular: Cardiovascular: Reports no additional cardiovascular complaints Respiratory: Respiratory: Reports no additional respiratory complaints Gastrointestinal: Gastrointestinal: Reports abdominal pain and Reports vomiting Genitourinary: Genitourinary: Reports no additional male genitourinary complaints Musculoskeletal: Musculoskeletal: Reports no additional musculoskeletal complaints Neurologic: Reports system reviewed and no additional complaints, except as documented Endocrine: Endocrine: Reports no additional endocrine complaints [facility] Medical History Atherosclerotic cardiovascular disease CAD (coronary artery disease) Chronic kidney disease (CKD), stage II (mild) Diabetes Essential hypertension GERD (gastroesophageal reflux disease) Gout Graves disease History of skin cancer HTN (hypertension) Hyperlipidemia Hyperlipidemia LDL goal <70 Obesity due to excess calories SHAWN (obstructive sleep apnea) Other and unspecified hyperlipidemia Peripheral neuropathy Popliteal DVT (deep venous thrombosis) Proteinuria Pulmonary embolus Renal stones Sleep apnea Tubular adenoma of colon Type 2 diabetes mellitus with diabetic polyneuropathy Type 2 diabetes mellitus with hyperglycemia, with long-term current use of insul in Type 2 diabetes mellitus with other diabetic kidney complication Type 2 diabetes mellitus with unspecified complications Family History Father Colon cancer Mother Lung cancer Surgical History H/O cystoscopy History of coronary artery stent placement History of hemorrhoidectomy Hx of carpal tunnel repair Hx of colonoscopy Hx of elbow surgery Hx of hand surgery Social History Household Members: Spouse Alcohol intake: current Alcohol intake frequency: holidays/special occasions only Patient Tobacco Use Status: Former Tobacco user Quit Date: 2009 Years Smoked: 35 +/- Advance Directives: No service: No Current occupational status: retired 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 Glucose (Glucose Gel 15 Gm Gel..Gram.) 15 gm PO Q15M PRN; Protocol PRN Reason: per Hypoglycemia Standing Ord. Sodium Chloride (Ns) 1,000 mls @ 125 mls/hr IVCONT .Q8H [facility] Last Admin: 01/08/22 20:20 Dose: 125 mls/hr Piperacillin Sod/Tazobactam (Sod 4.5 gm/ Sodium Chloride) 100 mls @ 200 mls/hr IV Q6H [facility] Insulin Glargine (Insulin Glargine,Hum.Rec.Anlog 100 Unit/Ml 10 Ml Vial) 50 unit SUBCUT BEDTIME MILLICENT Insulin Human Lispro (Insulin Lispro 100 Unit/Ml 3 Ml Vial) 0 unit SUBCUT Q6H MILLICENT; Protocol Stop: 01/09/22 21:41 Melatonin (Melatonin 3 Mg Tablet) 6 mg PO BEDTIME PRN PRN Reason: Insomnia Morphine Sulfate (Morphine Sulfate 4 Mg/Ml Cartridge) 4 mg IVPUSH Q4H PRN; Protocol PRN Reason: Pain, Severe (Pain Scale 7-10) Ondansetron HCl (Ondansetron Hcl 4 Mg/2 Ml Vial) 4 mg IVPUSH Q8H PRN PRN Reason: Nausea and Vomiting Sodium Chloride (0.9 % Sodium Chloride Flush 3 Ml Syringe) 3 ml IVFLUSH [facility] Home Medications Medication Instructions Recorded Confirmed Last Taken Type blood sugar diagnostic #10 ea 02/13/20 08/04/21 Unknown History levothyroxine 50 mcg tablet 50 mcg PO DAILY@0630 02/13/20 01/08/22 01/08/22 History (Synthroid) lisinopril 20 mg tablet 20 mg PO BEDTIME 02/13/20 01/08/22 01/07/22 History pen needle, diabetic 32 gauge x #50 ea 02/13/20 08/04/21 01/08/22 History omeprazole 20 mg capsule,delayed 1 cap PO DAILY@0630 08/05/20 01/08/22 01/08/22 History release allopurinol 300 mg tablet 300 mg PO DAILY 01/26/21 01/08/22 01/08/22 History aspirin 81 mg tablet,delayed 81 mg PO DAILY 01/26/21 01/08/22 01/08/22 History release (Adult Low Dose Aspirin) apixaban 5 mg tablet (Eliquis) 1 tab PO BID 01/08/22 01/08/22 01/08/22 History cholecalciferol (vitamin D3) 25 50 mcg PO BEDTIME 01/08/22 01/08/22 01/07/22 History mcg (1,000 unit) tablet insulin aspart U-100 100 unit/mL 24 unit subcut BID@0730,1130 01/08/22 01/08/22 01/08/22 History (3 mL) subcutaneous pen (Novolog Flexpen U-100 Insulin aspart) insulin aspart U-100 100 unit/mL 34 unit subcut DAILY@1630 01/08/22 01/08/22 01/08/22 History (3 mL) subcutaneous pen (Novolog Flexpen U-100 Insulin aspart) metoprolol succinate 50 mg 1 tab PO DAILY 01/08/22 01/08/22 01/08/22 History tablet,extended release 24 hr [id number]-[id number] acid-vit 1 tab PO DAILY 01/08/22 01/08/22 Unknown History K-lycop 400 mcg-20 mcg-370 mcg tablet (Men's 50 Plus Multivitamin) pioglitazone 30 mg tablet 30 mg PO BEDTIME 01/08/22 01/08/2222 History Physical Exam Vital Signs and Narrative: Vital Signs: Last Vital Signs Temp 98.2 F 01/08/22 19:52 Pulse 70 01/08/22 19:52 Resp 16 01/08/22 19:52 BP 151/60 H 01/08/22 19:52 Pulse Ox 98 01/08/22 19:52 O2 Del Method 01/08/22 19:52 BMI result Body Mass Index 38.0 Middle-aged male lying in bed in no distress Neck supple, no JVD Regular rate and rhythm, S1-S2 heard Regular breath sounds bilaterally, no wheezing or crackles appreciated Right upper quadrant abdominal tenderness without guarding, without rigidity Patient is awake, alert and oriented to self, place, time and person ; no focal motor deficit Psych: Normal mood No pedal edema Results Labs CBC and Chem 7: 01/08/22 14:43 01/08/22 14:43 Labs: Laboratory Results - last 24 hr 01/08/22 01/08/22 01/08/22 14:43 14:43 14:43 MCV 91.4 MCH 31.0 MCHC 33.9 RDW 13.5 Plt Count 264 MPV 9.5 Immature Gran % (Auto) 1.4 H Neut % (Auto) 59.6 Lymph % (Auto) 26.7 [place] % (Auto) 7.8 Eos % (Auto) 3.6 Baso % (Auto) 0.9 Lymph # (Auto) 2.7 [place] # (Auto) 0.8 Eos # (Auto) 0.4 Baso # (Auto) 0.1 Abs Immat Gran (auto) 0.14 H Absolute Neuts (auto) 6.1 Absolute Nucleated RBC 0.000 Nucleated RBC % (auto) 0.0 PT 15.6 H INR 1.3 H APTT Anion Gap 19 Estim Creat Clear Calc 88.9 Estimated GFR > 60 Random Glucose 180 H D Calcium 9.8 Total Bilirubin 2.6 H Direct Bilirubin 1.7 H AST 114 H ALT 167 H Alkaline Phosphatase 334 H Ammonia Total Protein 7.2 Albumin 4.0 Lipase 17 Acetaminophen < 1 01/08/22 01/08/22 14:43 16:41 MCV MCH MCHC RDW Plt Count MPV Immature Gran % (Auto) Neut % (Auto) Lymph % (Auto) [place] % (Auto) Eos % (Auto) Baso % (Auto) Lymph # (Auto) [place] # (Auto) Eos # (Auto) Baso # (Auto) Abs Immat Gran (auto) Absolute Neuts (auto) Absolute Nucleated RBC Nucleated RBC % (auto) PT INR APTT 40.2 H D Anion Gap Estim Creat Clear Calc Estimated GFR Random Glucose Calcium Total Bilirubin Direct Bilirubin AST ALT Alkaline Phosphatase Ammonia 30 Total Protein Albumin Lipase Acetaminophen Imaging Radiologist's Impressions: Impressions Abdomen/Pelvis CT 01/08/22 16:44 IMPRESSION: Gallstones in the gallbladder and ill-definition of the gallbladder wall with possible edema/thickening. Cholecystitis cannot be excluded. Correlation recommended clinically. Other findings as noted above. Nonobstructing renal calculi. Fleischner guidelines were followed. Assessment and Plan (1) Elevated bilirubin: Status: Acute (2) Abdominal pain: Qualifiers: Abdominal location: epigastric Qualified Code(s): R10.13 - Epigastric pain Status: Acute (3) Other and unspecified hyperlipidemia: Status: Acute (4) Obesity due to excess calories: Qualifiers: Obesity classification: adult class 3 (BMI >= 40) Serious obesity comorbidity presence: with serious comorbidity Body mass index: BMI 45.0-49.9 Qualified Code(s): E66.01 - Morbid (severe) obesity due to excess calories; Z68.42 - Body mass index [BMI] 45.0-49.9, adult Status: Acute (5) Pulmonary emboli: Status: Acute (6) Insulin dependent diabetes: Status: Acute Plan This is a 66-year-old male with pertinent history of recent bilateral PE (diagnosed 5 weeks ago) on Eliquis, insulin-dependent diabetes mellitus, essent ial hypertension, mixed hyperlipidemia who presents to the emergency department for evaluation of abdominal discomfort. #. Biliary colic -CT scan with possible edema/thickening of gallbladder wall with concerns for cholecystitis. Will admit patient and initiate IV Zosyn. Resuscitated with IV crystalloids. Patient does have elevated bilirubin and LFTs. Will obtain MRCP to look at common bile duct. General surgery consulted from the ER, appreciate recommendations. Will keep NPO after midnight #. Pulmonary embolism on Eliquis -recent PE in November, about 5 weeks ago. Patient has completed 4 weeks of Eliquis, will hold until surgical evaluation. Currently hemodynamically stable. Resume as appropriate #. Insulin-dependent type 2 diabetes mellitus with hyperglycemia -initiate Accu-Cheks with sliding scale insulin every 6 hours. Reduce basal insulin as patient will be NPO #. Hypothyroidism -on Synthroid #. Mixed hyperlipidemia -on statin #. Essential hypertension -hold lisinopril prior to surgery to prevent postop hypotension DVT prophylaxis: Mechanical. Holding Eliquis until surgical evaluation Diet: Diabetic diet. NPO after midnight Full code Patient will require two night minimum hospital stay for need for IV antibiotics and surgical evaluation. Quality Stroke Does the patient have a stroke diagnosis?: No VTE Prior VTE?: No VTE Risk Level:: Medical - moderate - high VTE Device Contraindication: N/A - Device Ordered VTE Drug Contraindication: Treatment Not Indicated
--- NOTE | 2022-01-08 21:44 | PC.NURSE ---
This RN called report to Marina [place].
[2022-01-08 21:58] VITALS: BP 146/76; PULSE 64; RESP 17; TEMP 36; O2SAT 97
--- NOTE | 2022-01-08 21:59 | PC.NURSE ---
Care of patient assumed in overflow ED. Patient ambulates steadily to bed. He is alert, oriented x4, and overall well-appearing. Recently seen in the setting of jaundice with elevated bilirubin, presented today with persistent abdominal pain. Found to have cholecystitis, being treated here with zosyn. Patient currently denies abdominal pain, he denies nausea or diarrhea at this time. Vitals are stable. Fluids are infusing through a patent 20G in the left hand. Patient assisted with comfort and call apple is within reach.
[2022-01-08 22:06] LABS: Glucose, Whole Blood 97 mg/dL (60-115)
[2022-01-08] MEDS: Melatonin 3 MG TABLET 6 MG PO (22:10)
[2022-01-08 23:59] VITALS: RESP 20
[2022-01-09] MEDS: 0.9 % Sodium Chloride Flush 3 ML SYRINGE IVFLUSH
[2022-01-09 00:47] LABS: COVID-19 Test Negative (Negative); IDNOW Serial# 16C4AD1C
[2022-01-09] MEDS: Piperacillin Sodium/Tazobactam 4.5 GM in 0.9 % Sodium Chloride 100 ML IV ×4 (03:28→19:40)
[2022-01-09] MEDS: 0.9 % Sodium Chloride 1,000 ML 125 ML IVCONT ×3 (05:03→20:24)
[2022-01-09 05:42] LABS: Estimated Average Glucose 189 mg/dL; Hemoglobin A1c % 8.2 %
[2022-01-09 06:56] LABS: MANUAL DIFF FLAG NO
[2022-01-09 07:03] LABS: Basophils Absolute Auto 0.1 X10*3/uL (0.0-0.2); Basophils Percent Auto 0.8 % (0-2); Eosinophils Absolute Auto 0.4 X10*3/uL (0.0-0.4); Eosinophils Percent Auto 4.1 % (0-4); Hematocrit 39.8 % (42.0-52.0); Hemoglobin 13.2 g/dl (14.0-18.0); Imm Gran Abs Auto 0.11 X10*3/uL (0.00-0.03); Imm Gran Pct Auto 1.3 % (0.0-0.4); Lymphocytes Absolute Auto 2.5 X10*3/uL (1.2-4.9); Lymphocytes Percent Auto 28.7 % (20-40); Mean Corpuscular HGB Conc 33.2 g/dl (31.0-36.0); Mean Corpuscular Hemoglobin 30.7 pg (27.0-33.0); Mean Corpuscular Volume 92.6 fL (80.0-98.0); Mean Platelet Volume 9.4 fL (9.4-12.4); Monocytes Absolute Auto 0.7 X10*3/uL (0.1-1.2); Monocytes Percent Auto 8.3 % (2-11); Neutrophils Percent Auto 56.8 % (45-73); Platelet Count 239 X10*3/uL (160-400); Red Cell Distribution Width 13.8 % (11.0-16.0); White Blood Count 8.8 X10*3/uL (4.8-10.8)
[2022-01-09 07:24] LABS: Alanine Aminotransferase 136 U/L (0-40); Albumin Level 3.4 g/dL (3.5-5.0); Alkaline Phosphatase 258 U/L (39-117); Anion Gap 17 (12-20); Aspartate Amino Transferase 97 U/L (5-37); Bilirubin Total 1.8 mg/dL (0.0-1.0); Blood Urea Nitrogen 15 mg/dL (9-16); Carbon Dioxide 22 mmol/L (22-29); Chloride 105 mmol/L (96-108); Estimated Glomerular Filt Rate > 60; Glucose Random 126 mg/dL (60-115); Sodium 140 mmol/L (135-145)
[2022-01-09 08:26] VITALS: BP 147/64; PULSE 64; TEMP 36.2; O2SAT 95
--- NOTE | 2022-01-09 10:32 | PC.NURSE ---
pt unable to complete MRCP as he attempted last night and did not fit in the MRI scanner
--- NOTE | 2022-01-09 10:51 | MHC.CM.PN ---
CM ATTEMPTED TO MEET W/PT HOWEVER PT NOT IN ROOM AT THIS TIME, CM TO REVISIT.
[2022-01-09 10:55] LABS: Glucose, Whole Blood 111 mg/dL (60-115)
[2022-01-09 11:26] VITALS: BP 132/61; PULSE 63; RESP 17; TEMP 36.3; O2SAT 95
[2022-01-09 11:38] LABS: Glucose, Whole Blood 122 mg/dL (60-115)
--- NOTE | 2022-01-09 13:11 | MHC.CM.PN ---
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 ANTIC D/C HOME NO SERVICES WHEN MEDICALLY CLEARED W/ FOR TRANSPORT
--- NOTE | 2022-01-09 13:20 | P.PNIM_ITS ---
Subjective Subjective Date of Service: 01/09/22 Interval History: Patient seen and examined at bedside. He reports that his pain is significantly improved from admission. Patient present nausea or vomiting, he is hungry and wants to eat, an MRCP was attempted last night but it was not possible for his with. He did not fit in the machine. Patient denies any fever or chills, no overnight events. No chest pain, no nausea vomiting, no diarrhea constipation, no urinary symptoms. Review of Systems Review of Systems: Yes all other systems are reviewed and are negative Physical Exam Vital Signs: Vital Signs: Last Vital Signs Temp 97.3 F 01/09/22 11:26 Pulse 63 01/09/22 11:26 Resp 17 01/09/22 11:26 BP 132/61 01/09/22 11:26 Pulse Ox 95 01/09/22 11:26 O2 Del Method 01/09/22 11:26 BMI result Body Mass Index 38.0 Const: General: cooperative and no acute distress Orientation/consciousness: patient oriented x3 Resp: Other: No respiratory distress, lungs are clear auscultation by lack GI: Other: Abdomen is soft, nontender, no rebound or guarding Neuro: General: patient oriented x3 Extrem: Other: No pedal edema General: Yes normal to inspection Objective Data Active Medications Acetaminophen (Acetaminophen 325 Mg Tablet) 650 mg PO Q6H PRN PRN Reason: Pain, Mild (Pain Scale 1-3) Apixaban (Apixaban 5 Mg Tablet) 5 mg PO BID [facility] Aspirin (Aspirin Enteric Coated 81 Mg Tablet.Dr) 81 mg PO DAILY [facility] Dextrose (Dextrose 50 % 25 Gm/50 Ml Syringe) 25 gm IVPUSH Q15M PRN; Protocol PRN Reason: per Hypoglycemia Standing Ord. Glucose (Glucose Gel 15 Gm Gel..Gram.) 15 gm PO Q15M PRN; Protocol PRN Reason: per Hypoglycemia Standing Ord. Sodium Chloride (Ns) 1,000 mls @ 125 mls/hr IVCONT .Q8H [facility] Last Admin: 01/09/22 12:45 Dose: 125 mls/hr Documented By: MONICA Piperacillin Sod/Tazobactam (Sod 4.5 gm/ Sodium Chloride) 100 mls @ 200 mls/hr IV Q6H [facility] Last Infusion: 01/09/22 11:53 Dose: 0 mls/hr Documented By: MONICA Insulin Glargine (Insulin Glargine,Hum.Rec.Anlog 100 Unit/Ml 10 Ml Vial) 50 unit SUBCUT BEDTIME [facility] Last Admin: 01/08/22 22:12 Dose: Not Given Documented By: IRA Non-Admin Reason: NPO Comments: patient npo and patient bg <100 Insulin Human Lispro (Insulin Lispro 100 Unit/Ml 3 Ml Vial) 0 unit SUBCUT Q6H [facility]; Protocol Stop: 01/09/22 21:41 Last Admin: 01/09/22 10:52 Dose: Not Given Documented By: EMORY Non-Admin Reason: No Insulin Coverage Melatonin (Melatonin 3 Mg Tablet) 6 mg PO BEDTIME PRN PRN Reason: Insomnia Last Admin: 01/08/22 22:10 Dose: 6 mg Documented By: IRA Morphine Sulfate (Morphine Sulfate 4 Mg/Ml Cartridge) 4 mg IVPUSH Q4H PRN; Protocol PRN Reason: Pain, Severe (Pain Scale 7-10) Non-Formulary Medication (Insulin Aspart U-100 [Novolog Flexpen U-100 Insulin]) 24 unit SUBCUT BID@0730,1130 [facility] Non-Formulary Medication (Insulin Aspart U-100 [Novolog Flexpen U-100 Insulin]) 34 unit SUBCUT DAILY@1630 [facility] Non-Formulary Medication (Insulin Degludec [Tresiba Flextouch U-200]) 110 unit SUBCUT BEDTIME [facility] Ondansetron HCl (Ondansetron Hcl 4 Mg/2 Ml Vial) 4 mg IVPUSH Q8H PRN PRN Reason: Nausea and Vomiting Sodium Chloride (0.9 % Sodium Chloride Flush 3 Ml Syringe) 3 ml IVFLUSH QSHIFT [facility] Last Admin: 01/09/22 10:59 Dose: Not Given Documented By: EMORY Non-Admin Reason: IV Running Vitamin D (Cholecalciferol (Vitamin D3) 25 Mcg Tablet) 50 mcg PO BEDTIME [facility] Labs CBC & Chem 7: 01/09/22 06:50 01/09/22 06:50 Labs: Laboratory Results - last 24 hr 01/08/22 01/08/22 01/08/22 14:43 14:43 14:43 MCV 91.4 MCH 31.0 MCHC 33.9 RDW 13.5 Plt Count 264 MPV 9.5 Immature Gran % (Auto) 1.4 H Neut % (Auto) 59.6 Lymph % (Auto) 26.7 Lee % (Auto) 7.8 Eos % (Auto) 3.6 Baso % (Auto) 0.9 Lymph # (Auto) 2.7 Lee # (Auto) 0.8 Eos # (Auto) 0.4 Baso # (Auto) 0.1 Abs Immat Gran (auto) 0.14 H Absolute Neuts (auto) 6.1 Absolute Nucleated RBC 0.000 Nucleated RBC % (auto) 0.0 PT 15.6 H INR 1.3 H APTT Anion Gap 19 Estim Creat Clear Calc 88.9 Estimated GFR > 60 POC Glucose Random Glucose 180 H D Estimat Average Glucose Hemoglobin A1c % Calcium 9.8 Total Bilirubin 2.6 H Direct Bilirubin 1.7 H AST 114 H ALT 167 H Alkaline Phosphatase 334 H Ammonia Total Protein 7.2 Albumin 4.0 Lipase 17 Acetaminophen < 1 COVID-19 ([facility]) [employer] 01/08/22 01/08/22 01/08/22 14:43 14:43 16:41 MCV MCH MCHC RDW Plt Count MPV Immature Gran % (Auto) Neut % (Auto) Lymph % (Auto) Lee % (Auto) Eos % (Auto) Baso % (Auto) Lymph # (Auto) Lee # (Auto) Eos # (Auto) Baso # (Auto) Abs Immat Gran (auto) Absolute Neuts (auto) Absolute Nucleated RBC Nucleated RBC % (auto) PT INR APTT 40.2 H D Anion Gap Estim Creat Clear Calc Estimated GFR POC Glucose Random Glucose Estimat Average Glucose 189 Hemoglobin A1c % 8.2 Calcium Total Bilirubin Direct Bilirubin AST ALT Alkaline Phosphatase Ammonia 30 Total Protein Albumin Lipase Acetaminophen COVID-19 ([facility]) COVID-[employer] 01/08/22 01/09/22 01/09/22 22:01 00:14 06:50 MCV 92.6 MCH 30.7 MCHC 33.2 RDW 13.8 Plt Count 239 MPV 9.4 Immature Gran % (Auto) 1.3 H Neut % (Auto) 56.8 Lymph % (Auto) 28.7 Lee % (Auto) 8.3 Eos % (Auto) 4.1 H Baso % (Auto) 0.8 Lymph # (Auto) 2.5 Lee # (Auto) 0.7 Eos # (Auto) 0.4 Baso # (Auto) 0.1 Abs Immat Gran (auto) 0.11 H Absolute Neuts (auto) 5.0 Absolute Nucleated RBC 0.000 Nucleated RBC % (auto) 0.0 PT INR APTT Anion Gap Estim Creat Clear Calc Estimated GFR POC Glucose 97 Random Glucose Estimat Average Glucose Hemoglobin A1c % Calcium Total Bilirubin Direct Bilirubin AST ALT Alkaline Phosphatase Ammonia Total Protein Albumin Lipase Acetaminophen COVID-19 ([facility]) Negative COVID-19 Clin Com See Note 01/09/22 01/09/22 01/09/22 06:50 08:15 11:34 MCV MCH MCHC RDW Plt Count MPV Immature Gran % (Auto) Neut % (Auto) Lymph % (Auto) Lee % (Auto) Eos % (Auto) Baso % (Auto) Lymph # (Auto) Lee # (Auto) Eos # (Auto) Baso # (Auto) Abs Immat Gran (auto) Absolute Neuts (auto) Absolute Nucleated RBC Nucleated RBC % (auto) PT INR APTT Anion Gap 17 Estim Creat Clear Calc 105.0 Estimated GFR > 60 POC Glucose 111 122 H Random Glucose 126 H Estimat Average Glucose Hemoglobin A1c % Calcium 9.0 D Total Bilirubin 1.8 H Direct Bilirubin AST 97 H ALT 136 H Alkaline Phosphatase 258 H D Ammonia Total Protein 6.0 L Albumin 3.4 L Lipase Acetaminophen COVID-19 ([facility]) COVID-19 Clin Com Assessment and Plan (1) Abdominal pain: Status: Acute (2) Elevated bilirubin: Status: Acute (3) Cholecystitis: Status: Acute (4) Transaminitis: Status: Acute Plan This is a 66-year-old male with pertinent history of recent bilateral PE (diagnosed 5 weeks ago) on Eliquis, insulin-dependent diabetes mellitus, essen tial hypertension, mixed hyperlipidemia who presents to the emergency department for evaluation of abdominal discomfort. #Abd pain - likely 2/2 biliary colic vs cholecystitis - CT scan with possible edema/thickening of gallbladder wall with concerns for cholecystitis.? - Continue IV Zosyn.? - continue IV fluids - Patient does have elevated bilirubin and LFTs.? - patient not a candidate for MRCP due to weight, will consult GI for possible ERCP - general surgery consult, pending evaluation - patient hungry, wants to eat, will start him on clear liquid pending further evaluation by General surgery as well as GI # transaminitis - likely secondary to above - IV fluids, continue IV antibiotics - follow LFTs - hepatitis panel pending # acute cholecystitis - has evidence of cholecystitis on imaging - IV antibiotics - follow cultures # Pulmonary embolism on Eliquis -recent PE in November, about 5 weeks ago.? Patient has completed 4 weeks of Eliquis, will hold until surgical evaluation.? Currently hemodynamically stable.? Resume as appropriate #.? 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 intake - glucose check q.i.d. a.c. HS #.? Hypothyroidism -continue Synthroid #.? Mixed hyperlipidemia -continue statin #.? Essential hypertension - BP stable, continue lisinopril -hold lisinopril prior to surgery to prevent postop hypotension DVT prophylaxis: Mechanical.? Holding Eliquis until surgical evaluation Full code Patient will require two night minimum hospital stay for need for IV antibiotics and surgical evaluation.? Quality Stroke Does the patient have a stroke diagnosis?: No VTE Prior VTE?: No VTE Risk Level:: Medical - moderate - high VTE Device Contraindication: N/A - Device Ordered VTE Drug Contraindication: Treatment Not Indicated
--- NOTE | 2022-01-09 14:04 | P.CONGS_ITS ---
History of Present Illness Consult details Consult date: 01/09/22 Requesting physician: Diana Garrido Narrative: The pt ia a 66 year old male who a few weeks ago had a PE and is on anticoagulation. he ate some cymro food last tuesday and then had abdominal pain and nausea in the right side. he has no known issues with his GB before, he has had issues with kidney stones. he saw his pcp who ordered an u/s and labs because his noticed he was yellow mid week. lfts were elevated so he was sent to the ER. Labs were improved. rest of ROS ok - no chest pain pulmonary issues , other GI complaints. he feels he has lost abotu 20 lbs this week without eating much as eating made the pain worse. [facility] Past Medical History Medical History Atherosclerotic cardiovascular disease CAD (coronary artery disease) Chronic kidney disease (CKD), stage II (mild) Diabetes Essential hypertension GERD (gastroesophageal reflux disease) Gout Graves disease History of skin cancer HTN (hypertension) Hyperlipidemia Hyperlipidemia LDL goal <70 Obesity due to excess calories SHAWN (obstructive sleep apnea) Other and unspecified hyperlipidemia Peripheral neuropathy Popliteal DVT (deep venous thrombosis) Proteinuria Pulmonary embolus Renal stones Sleep apnea Tubular adenoma of colon Type 2 diabetes mellitus with diabetic polyneuropathy Type 2 diabetes mellitus with hyperglycemia, with long-term current use of i nsulin Type 2 diabetes mellitus with other diabetic kidney complication Type 2 diabetes mellitus with unspecified complications Family History Family History Father Colon cancer Mother Lung cancer Surgical History Surgical History H/O cystoscopy History of coronary artery stent placement History of hemorrhoidectomy Hx of carpal tunnel repair Hx of colonoscopy Hx of elbow surgery Hx of hand surgery Social History Social History Household Members: Spouse Housing: House Do you presently have visiting nurse or other home services: No Alcohol intake: current Alcohol intake frequency: holidays/special occasions only Patient Tobacco Use Status: Former Tobacco user Quit Date: 2009 Years Smoked: 35 +/- Substance Use Type: Marijuana service: No Current occupational status: retired 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 Meds Allergies Allergy/AdvReac Type Severity Reaction Status Date / Time No Known Allergies Allergy Verified 01/06/22 09:43 [No Known Allergies*] Active Medications: Current Medications Acetaminophen (Acetaminophen 325 Mg Tablet) 650 mg PO Q6H PRN PRN Reason: Pain, Mild (Pain Scale 1-3) Allopurinol (Allopurinol 300 Mg Tablet) 300 mg PO DAILY [facility] Apixaban (Apixaban 5 Mg Tablet) 5 mg PO BID [facility] Aspirin (Aspirin Enteric Coated 81 Mg Tablet.Dr) 81 mg PO DAILY [facility] Atorvastatin Calcium (Atorvastatin Calcium 80 Mg Tablet) 80 mg PO DAILY [facility] Dextrose (Dextrose 50 % 25 Gm/50 Ml Syringe) 25 gm IVPUSH Q15M PRN; Protocol PRN Reason: per Hypoglycemia Standing Ord. Glucose (Glucose Gel 15 Gm Gel..Gram.) 15 gm PO Q15M PRN; Protocol PRN Reason: per Hypoglycemia Standing Ord. Sodium Chloride (Ns) 1,000 mls @ 125 mls/hr IVCONT .Q8H [facility] Last Admin: 01/09/22 12:45 Dose: 125 mls/hr Piperacillin Sod/Tazobactam (Sod 4.5 gm/ Sodium Chloride) 100 mls @ 200 mls/hr IV Q6H [facility] Last Infusion: 01/09/22 11:53 Dose: Infused Insulin Glargine (Insulin Glargine,Hum.Rec.Anlog 100 Unit/Ml 10 Ml Vial) 50 unit SUBCUT BEDTIME [facility] Last Admin: 01/08/22 22:12 Dose: Not Given Insulin Human Lispro (Insulin Lispro 100 Unit/Ml 3 Ml Vial) 0 unit SUBCUT QIDACHS [facility]; Protocol Stop: 01/09/22 21:41 Levothyroxine Sodium (Levothyroxine Sodium 50 Mcg Tablet) 50 mcg PO DAILY@0600 [facility] Lisinopril (Lisinopril 20 Mg Tablet) 20 mg PO BEDTIME [facility]; Protocol Melatonin (Melatonin 3 Mg Tablet) 6 mg PO BEDTIME PRN PRN Reason: Insomnia Last Admin: 01/08/22 22:10 Dose: 6 mg Metoprolol Succinate (Metoprolol Succinate Er 50 Mg Tab.Er.24h) 50 mg PO DAILY [facility]; Protocol Morphine Sulfate (Morphine Sulfate 4 Mg/Ml Cartridge) 4 mg IVPUSH Q4H PRN; Protocol PRN Reason: Pain, Severe (Pain Scale 7-10) Multivitamins/Vitamin C (Multivitamin Tablet) 1 tab PO DAILY [facility] Omeprazole (Omeprazole 20 Mg Capsule.Dr) 20 mg PO DAILY@0630 [facility] Ondansetron HCl (Ondansetron Hcl 4 Mg/2 Ml Vial) 4 mg IVPUSH Q8H PRN PRN Reason: Nausea and Vomiting Pioglitazone HCl (Pioglitazone Hcl 30 Mg Tablet) 30 mg PO BEDTIME [facility] Sodium Chloride (0.9 % Sodium Chloride Flush 3 Ml Syringe) 3 ml IVFLUSH QSHIFT [facility] Last Admin: 01/09/22 10:59 Dose: Not Given Vitamin D (Cholecalciferol (Vitamin D3) 25 Mcg Tablet) 50 mcg PO BEDTIME [facility] Home Medications Medication Instructions Recorded Confirmed Last Taken Type blood sugar diagnostic #10 ea 02/13/20 08/04/21 Unknown History levothyroxine 50 mcg tablet 50 mcg PO DAILY@0630 02/13/20 01/08/22 01/08/22 History (Synthroid) lisinopril 20 mg tablet 20 mg PO BEDTIME 02/13/20 01/08/22 01/07/22 History pen needle, diabetic 32 gauge x #50 ea 02/13/20 08/04/21 01/08/22 History omeprazole 20 mg capsule,delayed 1 cap PO DAILY@0630 08/05/20 01/08/22 01/08/22 History release allopurinol 300 mg tablet 300 mg PO DAILY 01/26/21 01/08/22 01/08/22 History aspirin 81 mg tablet,delayed 81 mg PO DAILY 01/26/21 01/08/22 01/08/22 History release (Adult Low Dose Aspirin) apixaban 5 mg tablet (Eliquis) 1 tab PO BID 01/08/22 01/08/22 01/08/22 History cholecalciferol (vitamin D3) 25 50 mcg PO BEDTIME 01/08/22 01/08/22 01/07/22 History mcg (1,000 unit) tablet insulin aspart U-100 100 unit/mL 24 unit subcut BID@0730,1130 01/08/22 01/08/22 01/08/22 History (3 mL) subcutaneous pen (Novolog Flexpen U-100 Insulin aspart) insulin aspart U-100 100 unit/mL 34 unit subcut DAILY@1630 01/08/22 01/08/22 01/08/22 History (3 mL) subcutaneous pen (Novolog Flexpen U-100 Insulin aspart) metoprolol succinate 50 mg 1 tab PO DAILY 01/08/22 01/08/22 01/08/22 History tablet,extended release 24 hr rjemilboemxe-hvp-mkufq acid-vit 1 tab PO DAILY 01/08/22 01/08/22 Unknown History K-lycop 400 mcg-20 mcg-370 mcg tablet (Men's 50 Plus Multivitamin) pioglitazone 30 mg tablet 30 mg PO BEDTIME 01/08/22 01/08/22 01/08/22 History Physical Exam Vital Signs: Vital Signs: Last Vital Signs Temp 97.3 F 01/09/22 11:26 Pulse 63 01/09/22 11:26 Resp 17 01/09/22 11:26 BP 132/61 01/09/22 11:26 Pulse Ox 95 01/09/22 11:26 O2 Del Method 01/09/22 11:26 BMI result Body Mass Index 38.0 Const: General: cooperative, healthy appearing and comfortable Nutritional Appearance: obese Orientation/consciousness: patient oriented x3 Eyes: Other: nonicteric Resp: Effort & Inspection: normal respiratory effort Auscultation: clear to auscultation bilaterally Cardio: Rate: regular rate Rhythm: regular rhythm GI: Other: abdo mild tenderness ruq no guarding no rebound no peritoneal signs, normal bowel sounds Skin: General skin exam: no jaundice Neuro: General: patient oriented x3 Extrem: General: Yes normal to inspection and Yes full ROM Psych: Appearance: grossly normal Mental Status: mental status grossly normal Speech and movement: Normal speech and movement present Affect: normal affect Attitude: cooperative Thought process: Normal thought process present Results Labs Result diagrams: 01/09/22 06:50 01/09/22 06:50 Labs: Abnormal lab results 01/08/22 01/08/22 01/08/22 Range/Units 14:43 14:43 14:43 RBC (4.60-5.80) X10*6/uL Hgb (14.0-18.0) g/dl Hct (42.0-52.0) % Immature Gran % (Auto) 1.4 H (0.0-0.4) % Eos % (Auto) (0-4) % Abs Immat Gran (auto) 0.14 H (0.00-0.03) X10*3/uL PT 15.6 H (10.0-13.1) SEC INR 1.3 H (0.9-1.1) APTT (26.0-36.4) SEC BUN 18 H (9-16) mg/dL POC Glucose (60-115) mg/dL Random Glucose 180 H D (60-115) mg/dL Total Bilirubin 2.6 H (0.0-1.0) mg/dL Direct Bilirubin 1.7 H (0.0-0.5) mg/dL AST 114 H (5-37) U/L ALT 167 H (0-40) U/L Alkaline Phosphatase 334 H (39-117) U/L Total Protein (6.5-8.0) g/dL Albumin (3.5-5.0) g/dL 01/08/22 01/09/22 01/09/22 Range/Units 14:43 06:50 06:50 RBC 4.30 L (4.60-5.80) X10*6/uL Hgb 13.2 L (14.0-18.0) g/dl Hct 39.8 L (42.0-52.0) % Immature Gran % (Auto) 1.3 H (0.0-0.4) % Eos % (Auto) 4.1 H (0-4) % Abs Immat Gran (auto) 0.11 H (0.00-0.03) X10*3/uL PT (10.0-13.1) SEC INR (0.9-1.1) APTT 40.2 H D (26.0-36.4) SEC BUN (9-16) mg/dL POC Glucose (60-115) mg/dL Random Glucose 126 H (60-115) mg/dL Total Bilirubin 1.8 H (0.0-1.0) mg/dL Direct Bilirubin (0.0-0.5) mg/dL AST 97 H (5-37) U/L ALT 136 H (0-40) U/L Alkaline Phosphatase 258 H D (39-117) U/L Total Protein 6.0 L (6.5-8.0) g/dL Albumin 3.4 L (3.5-5.0) g/dL 01/09/22 Range/Units 11:34 RBC (4.60-5.80) X10*6/uL Hgb (14.0-18.0) g/dl Hct (42.0-52.0) % Immature Gran % (Auto) (0.0-0.4) % Eos % (Auto) (0-4) % Abs Immat Gran (auto) (0.00-0.03) X10*3/uL PT (10.0-13.1) SEC INR (0.9-1.1) APTT (26.0-36.4) SEC BUN (9-16) mg/dL POC Glucose 122 H (60-115) mg/dL Random Glucose (60-115) mg/dL Total Bilirubin (0.0-1.0) mg/dL Direct Bilirubin (0.0-0.5) mg/dL AST (5-37) U/L ALT (0-40) U/L Alkaline Phosphatase (39-117) U/L Total Protein (6.5-8.0) g/dL Albumin (3.5-5.0) g/dL Short CBC 01/08/22 01/09/22 Range/Units 14:43 06:50 WBC 10.3 8.8 (4.8-10.8) X10*3/uL Hgb 15.1 13.2 L (14.0-18.0) g/dl Hct 44.5 39.8 L (42.0-52.0) % Plt Count 264 239 (160-400) X10*3/uL BMP 01/08/22 01/09/22 14:43 06:50 Sodium 139 140 Potassium 4.0 4.0 Chloride 100 105 Carbon Dioxide 24 22 BUN 18 H 15 Creatinine 1.11 0.94 Calcium 9.8 9.0 D Liver Function 01/08/22 01/09/22 Range/Units 14:43 06:50 Total Bilirubin 2.6 H 1.8 H (0.0-1.0) mg/dL Direct Bilirubin 1.7 H (0.0-0.5) mg/dL AST 114 H 97 H (5-37) U/L ALT 167 H 136 H (0-40) U/L Alkaline Phosphatase 334 H 258 H D (39-117) U/L Albumin 4.0 3.4 L (3.5-5.0) g/dL All other labs normal. Assessment and Plan (1) Cholecystitis: Status: Acute (2) Pulmonary emboli: Status: Acute Plan 66 year old male with recent history of significant PE anticoagulated with probable biliary colic ,? mild cholecystitis who probably has some sludge or stone stuck in duct causing increased lfts. improved today and symptoms better. Pt is high risk for surgery due to recent PE and so plan would be to get better conservatively, week of iv to po antibiotics in case of cholecystitis and fu outpt in the office. would advance to low fat diet and pt to go home on low fat diet - for GB and weight loss. If manages diet hopefully no further outpt episodes. If he does have more episodes would try to plan elective cholecystectomy once he can get off his anticoagulation for PE. Pt understands and agrees with the plan Procedures Date of Service Date of Service: 01/09/22
[2022-01-09] MEDS: Apixaban 5 MG TABLET PO ×2 (14:28→20:22)
[2022-01-09 15:32] VITALS: BP 139/63; PULSE 63; RESP 16; TEMP 36.5; O2SAT 94
[2022-01-09 16:36] LABS: Glucose, Whole Blood 181 mg/dL (60-115)
[2022-01-09] MEDS: Insulin Lispro 100 UNIT/ML 3 ML VIAL SUBCUT ×2 (17:04→21:43)
[2022-01-09 19:54] VITALS: BP 150/65; PULSE 69; RESP 16; TEMP 36.2; O2SAT 95
[2022-01-09] MEDS: Cholecalciferol (Vitamin D3) 25 MCG TABLET 50 MCG PO (20:22)
[2022-01-09] MEDS: Pioglitazone HCL 30 MG TABLET PO (20:22)
[2022-01-09] MEDS: lisinopriL 20 MG TABLET PO (20:22)
[2022-01-09] MEDS: Insulin Glargine,Hum.rec.anlog 100 UNIT/ML 10 ML VIAL 50 UNIT SUBCUT (20:23)
[2022-01-09 21:16] LABS: Glucose, Whole Blood 199 mg/dL (60-115)
[2022-01-09] MEDS: Loperamide HCl 2 MG CAPSULE PO (22:51)
[2022-01-10] VITALS: BP 134/86; PULSE 68; RESP 16; TEMP 36.5; O2SAT 95
[2022-01-10] MEDS: Piperacillin Sodium/Tazobactam 4.5 GM in 0.9 % Sodium Chloride 100 ML IV ×2 (01:58→08:20)
[2022-01-10 03:46] VITALS: BP 157/69; PULSE 70; RESP 18; TEMP 36.2; O2SAT 96
[2022-01-10] MEDS: 0.9 % Sodium Chloride 1,000 ML 125 ML IVCONT (04:49)
[2022-01-10] MEDS: Levothyroxine Sodium 50 MCG TABLET PO (05:30)
[2022-01-10] MEDS: Omeprazole 20 MG CAPSULE.DR PO (05:30)
[2022-01-10 06:28] LABS: Basophils Percent Auto 0.6 % (0-2); Eosinophils Absolute Auto 0.3 X10*3/uL (0.0-0.4); Eosinophils Percent Auto 4.9 % (0-4); Hematocrit 40.2 % (42.0-52.0); Hemoglobin 13.3 g/dl (14.0-18.0); Imm Gran Abs Auto 0.08 X10*3/uL (0.00-0.03); Imm Gran Pct Auto 1.2 % (0.0-0.4); Lymphocytes Absolute Auto 2.3 X10*3/uL (1.2-4.9); Lymphocytes Percent Auto 34.4 % (20-40); MANUAL DIFF FLAG NO; Mean Corpuscular HGB Conc 33.1 g/dl (31.0-36.0); Mean Corpuscular Hemoglobin 30.9 pg (27.0-33.0); Mean Corpuscular Volume 93.3 fL (80.0-98.0); Mean Platelet Volume 9.6 fL (9.4-12.4); Monocytes Absolute Auto 0.6 X10*3/uL (0.1-1.2); Monocytes Percent Auto 8.6 % (2-11); Neutrophils Absolute Auto 3.4 x10*3/uL (2.0-8.3); Neutrophils Percent Auto 50.3 % (45-73); Platelet Count 246 X10*3/uL (160-400); Red Blood Count 4.31 X10*6/uL (4.60-5.80); Red Cell Distribution Width 13.7 % (11.0-16.0); White Blood Count 6.8 X10*3/uL (4.8-10.8)
[2022-01-10 07:18] LABS: Alanine Aminotransferase 121 U/L (0-40); Albumin Level 3.4 g/dL (3.5-5.0); Alkaline Phosphatase 226 U/L (39-117); Anion Gap 16 (12-20); Aspartate Amino Transferase 75 U/L (5-37); Bilirubin Total 1.5 mg/dL (0.0-1.0); Blood Urea Nitrogen 12 mg/dL (9-16); Calcium 9.1 mg/dL (8.4-10.2); Carbon Dioxide 25 mmol/L (22-29); Chloride 102 mmol/L (96-108); Creatinine Clr Calc Pharmacy 95.8; Estimated Glomerular Filt Rate > 60; Glucose Random 167 mg/dL (60-115); Potassium 3.8 mmol/L (3.3-5.1); Sodium 139 mmol/L (135-145); Total Protein 5.9 g/dL (6.5-8.0)
[2022-01-10 08:00] VITALS: BP 154/69; PULSE 63; RESP 19; TEMP 36.3; O2SAT 92
[2022-01-10 08:06] LABS: Glucose, Whole Blood 156 mg/dL (60-115)
[2022-01-10] MEDS: Atorvastatin Calcium 80 MG TABLET PO (08:18)
[2022-01-10] MEDS: Aspirin Enteric Coated 81 MG TABLET.DR PO (08:18)
[2022-01-10] MEDS: Multivitamin TABLET 1 TAB PO (08:18)
[2022-01-10] MEDS: allopurinoL 300 MG TABLET PO (08:18)
[2022-01-10] MEDS: Apixaban 5 MG TABLET PO (08:19)
[2022-01-10] MEDS: Metoprolol Succinate ER 50 MG TAB.ER.24H PO (08:19)
[2022-01-10] MEDS: Insulin Lispro 100 UNIT/ML 3 ML VIAL SUBCUT (08:19)
--- NOTE | 2022-01-10 08:20 | P.DS_ITS ---
DS: Providers Provider Date of Service: 01/10/22 Date of admission: 01/08/22 19:34 Primary care physician: Moy Coyle MD Consults: 01/08/22 19:26 Consult to General Surgery Stat Consulting Provider: Nadia Lomas Reason for consultation: RUQ pain Gallbladder stones, dilated bile duct, elevated LFTs and bilirubin Has provider been notified: Yes DS: Diagnosis Discharge Diagnosis (1) Cholecystitis: Status: Acute (2) Pulmonary emboli: Status: Acute DS: Summary Hospital Course Hospital Course: 66-year-old male with past medical history of bilateral PE on Eliquis, insulin- dependent diabetes, HTN, HLD, presented to the hospital with complaints of abdominal pain. Imaging including CT scan of the abdomen showed possible edema/thickening of the gallbladder wall with concern for cholecystitis. Patient was started on IV antibiotics, and plan for MRCP given elevated transaminases. Patient was not a candidate for MRCP due to his weight. Therefore he was evaluated by General surgery, no indication for MRCP or ERCP was found as patient's symptoms significantly improved with IV antibiotics and IV fluids. At this time there is no indication for surgery. General surgery recommended outpatient follow-up. Patient's diet was advanced, he tolerated low-fat diet very well with no recurrence of pain, nausea or vomiting. Patient having regular bowel movements. Patient will be discharged on 5 more days of p.o. antibiotics and follow up with General surgery for outpatient elective cholecystectomy Time Spent with Patient Time attestation: Total time spent providing and/or coordinating discharge services: Discharge coordination time: Greater than 30 minutes Quality: Safe Use of Opioids Does Pt have an Active Cancer Diagnosis on the Problem List?: No Quality: Stroke Does the patient have a stroke diagnosis?: No Physical Exam Vital Signs: Vital Signs: Last Vital Signs Temp 97.1 F 01/10/22 03:46 Pulse 70 01/10/22 03:46 Resp 18 01/10/22 03:46 BP 157/69 H 01/10/22 03:46 Pulse Ox 96 01/10/22 03:46 O2 Del Method 01/10/22 03:46 BMI result Body Mass Index 38.0 DS: Data Data Completed and Pending Labs on day of discharge: Laboratory Results - last 24 hr 01/09/22 01/09/22 01/09/22 08:15 11:34 15:35 WBC RBC Hgb Hct MCV MCH MCHC RDW Plt Count MPV Immature Gran % (Auto) Neut % (Auto) Lymph % (Auto) [place] % (Auto) Eos % (Auto) Baso % (Auto) Lymph # (Auto) [place] # (Auto) Eos # (Auto) Baso # (Auto) Abs Immat Gran (auto) Absolute Neuts (auto) Absolute Nucleated RBC Nucleated RBC % (auto) Sodium Potassium Chloride Carbon Dioxide Anion Gap BUN Creatinine Estim Creat Clear Calc Estimated GFR POC Glucose 111 122 H 181 H Random Glucose Calcium Total Bilirubin AST ALT Alkaline Phosphatase Total Protein Albumin 01/09/22 01/10/22 01/10/22 20:50 05:53 05:53 WBC 6.8 RBC 4.31 L Hgb 13.3 L Hct 40.2 L MCV 93.3 MCH 30.9 MCHC 33.1 RDW 13.7 Plt Count 246 MPV 9.6 Immature Gran % (Auto) 1.2 H Neut % (Auto) 50.3 Lymph % (Auto) 34.4 [place] % (Auto) 8.6 Eos % (Auto) 4.9 H Baso % (Auto) 0.6 Lymph # (Auto) 2.3 [place] # (Auto) 0.6 Eos # (Auto) 0.3 Baso # (Auto) 0.0 Abs Immat Gran (auto) 0.08 H Absolute Neuts (auto) 3.4 Absolute Nucleated RBC 0.000 Nucleated RBC % (auto) 0.0 Sodium 139 Potassium 3.8 Chloride 102 Carbon Dioxide 25 Anion Gap 16 BUN 12 Creatinine 1.03 Estim Creat Clear Calc 95.8 Estimated GFR > 60 POC Glucose 199 H Random Glucose 167 H Calcium 9.1 Total Bilirubin 1.5 H AST 75 H ALT 121 H Alkaline Phosphatase 226 H Total Protein 5.9 L Albumin 3.4 L 01/10/22 07:28 WBC RBC Hgb Hct MCV MCH MCHC RDW Plt Count MPV Immature Gran % (Auto) Neut % (Auto) Lymph % (Auto) [place] % (Auto) Eos % (Auto) Baso % (Auto) Lymph # (Auto) [place] # (Auto) Eos # (Auto) Baso # (Auto) Abs Immat Gran (auto) Absolute Neuts (auto) Absolute Nucleated RBC Nucleated RBC % (auto) Sodium Potassium Chloride Carbon Dioxide Anion Gap BUN Creatinine Estim Creat Clear Calc Estimated GFR POC Glucose 156 H Random Glucose Calcium Total Bilirubin AST ALT Alkaline Phosphatase Total Protein Albumin Preliminary micro results at discharge 01/08/22 20:45 Blood Culture - Preliminary Blood - Venous No growth after 24 hours. 01/08/22 20:45 Blood Culture - Preliminary Blood - Venous No growth after 24 hours. Discharge Plan Discharge Anticipated Discharge Date/Time: 01/10/22 08:12 Patient Disposition: Home, Self-Care Discharge Diagnosis: Acute cholecystitis, Referrals: Moy Coyle MD [Primary Care Provider] - 1 Week Nadia Lomas MD [Physician] - 1 Week Discharge Medications: New levofloxacin 750 mg tablet 750 mg PO Q24H 5 Days Qty: 5 0RF metronidazole 500 mg tablet 500 mg PO Q8H 5 Days Qty: 15 0RF Continued rosuvastatin 20 mg tablet 20 mg PO DAILY Qty: 90 3RF omeprazole 20 mg capsule,delayed release(DR/EC) 1 cap PO DAILY@0630 allopurinol 300 mg tablet 300 mg PO DAILY metoprolol succinate 50 mg tablet extended release 24 hr 1 tab PO DAILY insulin aspart U-100 [Novolog Flexpen U-100 Insulin] 100 unit/mL (3 mL) insulin pen 34 unit subcut DAILY@1630 Rx Instructions: 24 UNITS AT BREAKFAST AND LUNCH, 34 UNITS AT DINNER cholecalciferol (vitamin D3) 25 mcg (1,000 unit) Tablet 50 mcg PO BEDTIME Men's 50 Plus Multivitamin 400-20-370 mcg Tablet 1 tab PO DAILY Eliquis 5 mg tablet 1 tab PO BID pioglitazone 30 mg tablet 30 mg PO BEDTIME insulin aspart U-100 [Novolog Flexpen U-100 Insulin] 100 unit/mL (3 mL) insulin pen 24 unit subcut BID@0730,1130 Rx Instructions: 24 UNITS AT BREAKFAST AND LUNCH, 34 UNITS AT DINNER lisinopril 20 mg tablet 20 mg PO BEDTIME (DME) pen needle, diabetic 32 gauge x 5/32 needle See Rx Instructions subcut BID Qty: 50 Rx Instructions: As directed (DME) blood sugar diagnostic Strip See Rx Instructions .ROUTE .MEDSUPPLY Qty: 10 Rx Instructions: As directed levothyroxine [Synthroid] 50 mcg tablet 50 mcg PO DAILY@0630 (DME) FreeStyle Flavio 2 [place] Misc See Rx Instructions .ROUTE .MEDSUPPLY Qty: 1 0RF Rx Instructions: As directed aspirin [Adult Low Dose Aspirin] 81 mg tablet,delayed release (DR/EC) 81 mg PO DAILY Tresiba FlexTouch U-200 200 unit/mL (3 mL) insulin pen 110 unit subcut BEDTIME 90 Days Qty: 54 3RF (DME) FreeStyle Flavio 2 Sensor Kit See Rx Instructions .ROUTE .MEDSUPPLY Qty: 6 4RF Rx Instructions: As directed every 2 weeks (DME) pen needle, diabetic [BD Ultra-Fine Shobha Pen Needle] 32 gauge x 5/32 needle See Rx Instructions .ROUTE .MEDSUPPLY Qty: 400 3RF Rx Instructions: As directed four times a day Discharge Orders: Discharge Order (Routine); Ordered 01/10/22 Ordered By: Irvin Dinero Diet: Low fat, low cholesterol Activity on Discharge: As tolerated Stand Alone Forms: Patient Portal Discharge page Other Ambulatory Orders: Comprehensive Met. Panel (Routine) Timeframe: 3 Days Facility: [facility] - Location: Laboratory Ordered By: Irvin Dinero Care Plan Goals: You were admitted for management of abdominal pain likely due to biliary stone- the abdominal pain has resolved. You were also managed for acute cholecystitis. You were treated with antibiotics and evaluated by general surgery Health Concerns: recurrent biliary stone recurrent acute cholecystitis Plan of Treatment: please follow up with general surgery and PCP within 1-2 wks. please repeat labs within a week continue antibiotics continueto hydrate well avoid fatty good Assessment: acute cholecysistis and biliary colic
--- NOTE | 2022-01-10 08:33 | MHC.CM.PN ---
PT TO DC HOME TODAY WITH NO SERVICES TO TRANSPORT
--- NOTE | 2022-01-10 11:24 | PM.PNGS ---
Subjective Subjective Date of Service: 01/10/22 Interval history: doing well no pain and tolerating diet. labs improved Physical Exam Vital Signs: Vital Signs: Last Vital Signs Temp 97.3 F 01/10/22 08:00 Pulse 63 01/10/22 08:00 Resp 19 01/10/22 08:00 BP 154/69 H 01/10/22 08:00 Pulse Ox 92 01/10/22 08:00 O2 Del Method 01/10/22 08:00 BMI result Body Mass Index 38.0 GI: Other: abdo - soft nondistended and nontender Objective Data Active Medications Acetaminophen (Acetaminophen 325 Mg Tablet) 650 mg PO Q6H PRN PRN Reason: Pain, Mild (Pain Scale 1-3) Allopurinol (Allopurinol 300 Mg Tablet) 300 mg PO DAILY [facility] Last Admin: 01/10/22 08:18 Dose: 300 mg Documented By: MONICA Apixaban (Apixaban 5 Mg Tablet) 5 mg PO BID [facility] Last Admin: 01/10/22 08:19 Dose: 5 mg Documented By: MONICA Aspirin (Aspirin Enteric Coated 81 Mg Tablet.) 81 mg PO DAILY [facility] Last Admin: 01/10/22 08:18 Dose: 81 mg Documented By: MONICA Atorvastatin Calcium (Atorvastatin Calcium 80 Mg Tablet) 80 mg PO DAILY [facility] Last Admin: 01/10/22 08:18 Dose: 80 mg Documented By: MONICA Dextrose (Dextrose 50 % 25 Gm/50 Ml Syringe) 25 gm IVPUSH Q15M PRN; Protocol PRN Reason: per Hypoglycemia Standing Ord. Dextrose (Dextrose 50 % 25 Gm/50 Ml Syringe) 25 gm IVPUSH Q15M PRN; Protocol PRN Reason: per Hypoglycemia Standing Ord. Glucose (Glucose Gel 15 Gm Gel..Gram.) 15 gm PO Q15M PRN; Protocol PRN Reason: per Hypoglycemia Standing Ord. Glucose (Glucose Gel 15 Gm Gel..Gram.) 15 gm PO Q15M PRN; Protocol PRN Reason: per Hypoglycemia Standing Ord. Sodium Chloride (Ns) 1,000 mls @ 125 mls/hr IVCONT .Q8H [facility] Last Admin: 01/10/22 04:49 Dose: 125 mls/hr Documented By: SARA Piperacillin Sod/Tazobactam (Sod 4.5 gm/ Sodium Chloride) 100 mls @ 200 mls/hr IV Q6H [facility] Last Infusion: 01/10/22 09:40 Dose: 0 mls/hr Documented By: MONICA Insulin Glargine (Insulin Glargine,Hum.Rec.Anlog 100 Unit/Ml 10 Ml Vial) 50 unit SUBCUT BEDTIME [facility] Last Admin: 01/09/22 20:23 Dose: 50 unit Documented By: SARA Insulin Human Lispro (Insulin Lispro 100 Unit/Ml 3 Ml Vial) 0 unit SUBCUT QIDACHS [facility]; Protocol Last Admin: 01/10/22 08:19 Dose: 2 unit Documented By: MONICA Comments: upper r arm Levothyroxine Sodium (Levothyroxine Sodium 50 Mcg Tablet) 50 mcg PO DAILY@0600 [facility] Last Admin: 01/10/22 05:30 Dose: 50 mcg Documented By: SARA Lisinopril (Lisinopril 20 Mg Tablet) 20 mg PO BEDTIME [facility]; Protocol Last Admin: 01/09/22 20:22 Dose: 20 mg Documented By: SARA Loperamide HCl (Loperamide Hcl 2 Mg Capsule) 2 mg PO Q6H PRN PRN Reason: Diarrhea Last Admin: 01/09/22 22:51 Dose: 2 mg Documented By: SARA Melatonin (Melatonin 3 Mg Tablet) 6 mg PO BEDTIME PRN PRN Reason: Insomnia Last Admin: 01/08/22 22:10 Dose: 6 mg Documented By: IRA Metoprolol Succinate (Metoprolol Succinate Er 50 Mg Tab.Er.24h) 50 mg PO DAILY [facility]; Protocol Last Admin: 01/10/22 08:19 Dose: 50 mg Documented By: MONICA Morphine Sulfate (Morphine Sulfate 4 Mg/Ml Cartridge) 4 mg IVPUSH Q4H PRN; Protocol PRN Reason: Pain, Severe (Pain Scale 7-10) Multivitamins/Vitamin C (Multivitamin Tablet) 1 tab PO DAILY [facility] Last Admin: 01/10/22 08:18 Dose: 1 tab Documented By: MONICA Omeprazole (Omeprazole 20 Mg Capsule.) 20 mg PO DAILY@0630 [facility] Last Admin: 01/10/22 05:30 Dose: 20 mg Documented By: SARA Ondansetron HCl (Ondansetron Hcl 4 Mg/2 Ml Vial) 4 mg IVPUSH Q8H PRN PRN Reason: Nausea and Vomiting Pioglitazone HCl (Pioglitazone Hcl 30 Mg Tablet) 30 mg PO BEDTIME [facility] Last Admin: 01/09/22 20:22 Dose: 30 mg Documented By: SARA Sodium Chloride (0.9 % Sodium Chloride Flush 3 Ml Syringe) 3 ml IVFLUSH QSHIFT [facility] Last Admin: 01/10/22 08:20 Dose: Not Given Documented By: MONICA Non-Admin Reason: IV Running Vitamin D (Cholecalciferol (Vitamin D3) 25 Mcg Tablet) 50 mcg PO BEDTIME [facility] Last Admin: 01/09/22 20:22 Dose: 50 mcg Documented By: SARA Labs CBC & Chem 7: 01/10/22 05:53 01/10/22 05:53 Labs: Laboratory Results - last 24 hr 01/09/22 01/09/22 01/09/22 11:34 15:35 20:50 MCV MCH MCHC RDW Plt Count MPV Immature Gran % (Auto) Neut % (Auto) Lymph % (Auto) Cedar % (Auto) Eos % (Auto) Baso % (Auto) Lymph # (Auto) Cedar # (Auto) Eos # (Auto) Baso # (Auto) Abs Immat Gran (auto) Absolute Neuts (auto) Absolute Nucleated RBC Nucleated RBC % (auto) Anion Gap Estim Creat Clear Calc Estimated GFR POC Glucose 122 H 181 H 199 H Random Glucose Calcium Total Bilirubin AST ALT Alkaline Phosphatase Total Protein Albumin 01/10/22 01/10/22 01/10/22 05:53 05:53 07:28 MCV 93.3 MCH 30.9 MCHC 33.1 RDW 13.7 Plt Count 246 MPV 9.6 Immature Gran % (Auto) 1.2 H Neut % (Auto) 50.3 Lymph % (Auto) 34.4 Cedar % (Auto) 8.6 Eos % (Auto) 4.9 H Baso % (Auto) 0.6 Lymph # (Auto) 2.3 Cedar # (Auto) 0.6 Eos # (Auto) 0.3 Baso # (Auto) 0.0 Abs Immat Gran (auto) 0.08 H Absolute Neuts (auto) 3.4 Absolute Nucleated RBC 0.000 Nucleated RBC % (auto) 0.0 Anion Gap 16 Estim Creat Clear Calc 95.8 Estimated GFR > 60 POC Glucose 156 H Random Glucose 167 H Calcium 9.1 Total Bilirubin 1.5 H AST 75 H ALT 121 H Alkaline Phosphatase 226 H Total Protein 5.9 L Albumin 3.4 L Microbiology Microbiology Results: Microbiology 01/08/22 20:45 Blood Culture - Preliminary Blood - Venous No growth after 24 hours. 01/08/22 20:45 Blood Culture - Preliminary Blood - Venous No growth after 24 hours. Procedures Date of Service Date of Service: 01/10/22 Progress Note: A&P Assessment and plan (1) Transaminitis: Status: Acute Assessment and Plan: 66 year old male with recent PE and on antiocagulation with abdo pain and elevated lfts - thinking cbd stone passed or sludge as labs imprved and feeling better. high risk for surgery with recent PE - recommend - conservative low fat diet, cont on PE treatment and when can get off antiocagulation consider lap edgar. fu outpt with gen surg team - he understands and agrees with the plan (2) Cholecystitis: Status: Acute Time Spent With Patient Time: Total time spent is greater than 50% in coordination of care (as documented) at patient's floor/unit and/or counseling patient: Quality Stroke Does the patient have a stroke diagnosis?: No VTE Prior VTE?: No VTE Risk Level:: Medical - moderate - high VTE Device Contraindication: N/A - Device Ordered VTE Drug Contraindication: Treatment Not Indicated
[2022-01-11 09:48] LABS: HBS Num1 1.27 mIU/mL (0-7.99); HBc Num1 0.13 S/CO (0.00-0.79); HBsAGNum1 0.16 S/CO (0.00-0.99); Hepatitis B Core Antibody Nonreactive (Nonreactive); Hepatitis B Surface Antigen Negative (Negative); ~HepC Num1 0.16 S/CO (0.00-0.79); ~Hepatitis B Surface Antibody NONREACTIVE (Nonreactive); ~Hepatitis C Antibody Nonreactive (Nonreactive)
[2022-01-13 08:03] LABS: Hepatitis A Antibody IgM 0.14 Index (0-0.79); ~Hepatitis A Antibody IgM Nonreactive (Nonreactive)
== END 2022-01-10 12:31 | disposition home or self-care (01) | DRG 446 ==
LOC: HO.ED 16:57 → HO.EDOVER 20:10 → HO.S3 01-09 07:51
PROVIDERS: Emergency Medicine; Admitting Provider Student in an Organized Health Care Education/Training Program; Emergency Provider Emergency Medicine Emergency Medical Services; PCP Internal Medicine; Visit Provider Internal Medicine
DX: K81.0 Acute cholecystitis (principal); I25.10 Atherosclerotic heart disease of native coronary artery without angina pectoris; E11.42 Type 2 diabetes mellitus with diabetic polyneuropathy; E78.2 Mixed hyperlipidemia; I12.9 Hypertensive chronic kidney disease with stage 1 through stage 4 chronic kidney disease, or unspecified chronic kidney disease; N18.2 Chronic kidney disease, stage 2 (mild); E11.22 Type 2 diabetes mellitus with diabetic chronic kidney disease; Z95.1 Presence of aortocoronary bypass graft; E11.65 Type 2 diabetes mellitus with hyperglycemia; E66.01 Morbid (severe) obesity due to excess calories; Z68.38 Body mass index [BMI] 38.0-38.9, adult; Z20.822 Contact with and (suspected) exposure to COVID-19; Z86.711 Personal history of pulmonary embolism; Z87.891 Personal history of nicotine dependence; Z79.4 Long term (current) use of insulin; Z79.82 Long term (current) use of aspirin; Z79.890 Hormone replacement therapy; Z79.899 Other long term (current) drug therapy
CPT/HCPCS: 36415; 74177; 76700; 76705; 80048; 80053; 80076; 80143; 82140; 82550; 82947; 83036; 83690; 85025; 85610; 85730; 86140; 86704; 86706; 86709; 86803; 87040; 87340; 87635; 99285; J2543; Q9967

== ENCOUNTER 2022-03-11 08:52 | Outpatient (REF) | payer MEDICARE, OTHER, SELFPAY ==
[2022-03-11 10:21] LABS: MANUAL DIFF FLAG NO
[2022-03-11 10:31] LABS: Basophils Absolute Auto 0.1 X10*3/uL (0.0-0.2); Basophils Percent Auto 0.7 % (0-2); Eosinophils Absolute Auto 0.2 X10*3/uL (0.0-0.4); Eosinophils Percent Auto 2.6 % (0-4); Hemoglobin 15.7 g/dl (14.0-18.0); Imm Gran Abs Auto 0.04 X10*3/uL (0.00-0.03); Imm Gran Pct Auto 0.4 % (0.0-0.4); Lymphocytes Absolute Auto 2.9 X10*3/uL (1.2-4.9); Lymphocytes Percent Auto 32.6 % (20-40); Mean Corpuscular HGB Conc 34.1 g/dl (31.0-36.0); Mean Corpuscular Hemoglobin 31.3 pg (27.0-33.0); Mean Corpuscular Volume 91.8 fL (80.0-98.0); Mean Platelet Volume 9.5 fL (9.4-12.4); Monocytes Absolute Auto 0.8 X10*3/uL (0.1-1.2); Monocytes Percent Auto 9.2 % (2-11); Neutrophils Absolute Auto 4.9 x10*3/uL (2.0-8.3); Neutrophils Percent Auto 54.5 % (45-73); Platelet Count 263 X10*3/uL (160-400); Red Blood Count 5.01 X10*6/uL (4.60-5.80); Red Cell Distribution Width 13.7 % (11.0-16.0)
[2022-03-11 10:41] LABS: Alanine Aminotransferase 280 U/L (0-40); Albumin Level 4.3 g/dL (3.5-5.0); Alkaline Phosphatase 273 U/L (39-117); Anion Gap 14 (12-20); Aspartate Amino Transferase 210 U/L (5-37); Bilirubin Total 4.3 mg/dL (0.0-1.0); Blood Urea Nitrogen 16 mg/dL (9-16); C Reactive Protein 1.44 mg/dL (< or = 0.50); Calcium 9.8 mg/dL (8.4-10.2); Carbon Dioxide 29 mmol/L (22-29); Chloride 99 mmol/L (96-108); Estimated Glomerular Filt Rate > 60; Glucose Random 144 mg/dL (60-115); Sodium 138 mmol/L (135-145); Total Protein 7.3 g/dL (6.5-8.0)
== END 2022-03-11 08:53 | disposition home or self-care (01) ==
LOC: HO.10HDL 08:52
PROVIDERS: Visit Provider Internal Medicine
DX: R10.9 Unspecified abdominal pain (principal); K21.9 Gastro-esophageal reflux disease without esophagitis; E11.9 Type 2 diabetes mellitus without complications
CPT/HCPCS: 36415; 80053; 85025; 86140

== ENCOUNTER → 2022-03-17 12:51 | Outpatient (BNVA) | payer MEDICARE, OTHER, SELFPAY | PROVIDERS: PCP Internal Medicine; Visit Provider Surgery | DX: R17 Unspecified jaundice (principal) | CPT/HCPCS: 99202 ==

== ENCOUNTER 2022-04-28 12:13 | Outpatient (REF) | payer MEDICARE, OTHER, SELFPAY ==
[2022-04-28 14:18] LABS: Anion Gap 17 (12-20); Blood Urea Nitrogen 16 mg/dL (9-16); Calcium 9.1 mg/dL (8.4-10.2); Carbon Dioxide 24 mmol/L (22-29); Chloride 104 mmol/L (96-108); Estimated Glomerular Filt Rate > 60; Glucose Random 156 mg/dL (60-115); Potassium 4.3 mmol/L (3.3-5.1); Sodium 141 mmol/L (135-145)
== END 2022-04-28 12:14 | disposition home or self-care (01) ==
LOC: HO.10HDL 12:13
PROVIDERS: Visit Provider Internal Medicine Hypertension Specialist
DX: E11.9 Type 2 diabetes mellitus without complications (principal)
CPT/HCPCS: 36415; 80048

== ENCOUNTER 2022-06-17 07:50 | Outpatient (REF) | payer MEDICARE, OTHER, SELFPAY ==
[2022-06-17 10:24] LABS: MANUAL DIFF FLAG NO
[2022-06-17 10:40] LABS: Basophils Absolute Auto 0.1 X10*3/uL (0.0-0.2); Basophils Percent Auto 0.5 % (0-2); Eosinophils Absolute Auto 0.3 X10*3/uL (0.0-0.4); Eosinophils Percent Auto 2.7 % (0-4); Hematocrit 44.3 % (42.0-52.0); Hemoglobin 14.9 g/dl (14.0-18.0); Imm Gran Abs Auto 0.06 X10*3/uL (0.00-0.03); Imm Gran Pct Auto 0.6 % (0.0-0.4); Lymphocytes Absolute Auto 3.7 X10*3/uL (1.2-4.9); Mean Corpuscular HGB Conc 33.6 g/dl (31.0-36.0); Mean Corpuscular Hemoglobin 30.9 pg (27.0-33.0); Mean Corpuscular Volume 91.9 fL (80.0-98.0); Mean Platelet Volume 9.4 fL (9.4-12.4); Monocytes Absolute Auto 0.8 X10*3/uL (0.1-1.2); Monocytes Percent Auto 7.3 % (2-11); Neutrophils Absolute Auto 5.5 x10*3/uL (2.0-8.3); Neutrophils Percent Auto 52.9 % (45-73); Platelet Count 238 X10*3/uL (160-400); Red Blood Count 4.82 X10*6/uL (4.60-5.80); Red Cell Distribution Width 13.8 % (11.0-16.0); White Blood Count 10.3 X10*3/uL (4.8-10.8)
[2022-06-17 11:02] LABS: Alanine Aminotransferase 24 U/L (0-40); Albumin Level 4.2 g/dL (3.5-5.0); Alkaline Phosphatase 75 U/L (39-117); Anion Gap 15 (12-20); Aspartate Amino Transferase 28 U/L (5-37); Bilirubin Total 0.7 mg/dL (0.0-1.0); Blood Urea Nitrogen 15 mg/dL (9-16); Calcium 9.3 mg/dL (8.4-10.2); Carbon Dioxide 26 mmol/L (22-29); Chloride 105 mmol/L (96-108); Cholesterol 169 mg/dL; Estimated Glomerular Filt Rate > 60; Glucose Fasting 104 mg/dL (60-99); HDL Cholesterol 37 mg/dL; LDL Cholesterol Calculated 68 mg/dl; Potassium 4.3 mmol/L (3.3-5.1); Sodium 142 mmol/L (135-145); Total Protein 6.9 g/dL (6.5-8.0); Triglycerides 322 mg/dL
[2022-06-17 11:19] LABS: Vitamin D 25-OH Total 35.6 ng/mL (>30)
== END 2022-06-17 07:51 | disposition home or self-care (01) ==
LOC: HO.10HDL 07:50
PROVIDERS: Visit Provider Internal Medicine
DX: E78.00 Pure hypercholesterolemia, unspecified (principal); R79.89 Other specified abnormal findings of blood chemistry; E55.9 Vitamin D deficiency, unspecified
CPT/HCPCS: 36415; 80053; 80061; 82306; 85025

== ENCOUNTER 2022-07-28 08:56 | Outpatient (REF) | payer MEDICARE, OTHER, SELFPAY ==
--- NOTE | ~2022-07-28 | XR_ITS ---
EXAMINATION: XR LUMBOSACRAL SPINE WITH OBLIQUES CLINICAL INFORMATION: Spinal stenosis, lumbar region with neurogenic claudication. COMPARISON: CT scan of 01/08/2022 and lumbar spine study of 06/13/2017. TECHNIQUE: AP, both oblique, and lateral views of the lumbar spine. Lateral view of the lumbosacral junction. FINDINGS: There are 5 [id number] lumbar vertebrae. No acute fracture is identified. No definite spondylolysis is seen. There are mild grade 1 spondylolistheses seen at the L4-L5 and L2-L3 disc space levels. No instability on flexion-extension views identified. There appears be facet arthropathy seen L4-S1 bilaterally. No significant sacroiliac joint abnormality is identified. Pedicles appear intact. There is calcification of the anterior longitudinal ligament about the lower thoracic spine and upper lumbar spine down to L2. There is prominent anterior spurring seen without bony bridging L3-L5. There appears be some mild narrowing of the L4-L5 and L5-S1 disc spaces. XR/XR lumbar spine 4V min IMPRESSION: No acute lumbar spine fracture identified. No instability on flexion-extension views. Grade 1 spondylolistheses L4-L5 and L2-L3 disc space levels. Spondylosis as described above.
== END 2022-07-28 08:57 | disposition home or self-care (01) ==
LOC: HO.HOSX 08:56
PROVIDERS: PCP Internal Medicine; Visit Provider Neurological Surgery
DX: M48.062 Spinal stenosis, lumbar region with neurogenic claudication (principal)
CPT/HCPCS: 72110; 99202

== ENCOUNTER → 2022-08-03 14:55 | Outpatient (BNVA) | payer MEDICARE, OTHER, SELFPAY | PROVIDERS: PCP Internal Medicine; Visit Provider Internal Medicine | DX: Z01.810 Encounter for preprocedural cardiovascular examination (principal); I25.10 Atherosclerotic heart disease of native coronary artery without angina pectoris; I10 Essential (primary) hypertension; I44.0 Atrioventricular block, first degree; E11.8 Type 2 diabetes mellitus with unspecified complications; E78.5 Hyperlipidemia, unspecified | CPT/HCPCS: 93005; 99212 ==

== ENCOUNTER 2022-09-01 08:29 | Outpatient (REF) | payer MEDICARE, OTHER, SELFPAY ==
[2022-09-01 10:52] LABS: MANUAL DIFF FLAG NO
[2022-09-01 10:56] LABS: Appearance Urine Clear; Color Urine Yellow; Glucose Urine UA Negative (Negative); Leukocyte Esterase Urine Negative (Negative); Nitrite Urine Negative (Negative); PH 5.5 (5.0-9.0); Specific Gravity - Urine 1.015 (1.005-1.025); UMIC TRIGGER UA YES; Urine Blood Negative (Negative); Urine Ketones Negative (Negative); Urine Protein 100 (2+) mg/dL (Neg-Trace)
[2022-09-01 10:59] LABS: Basophils Absolute Auto 0.1 X10*3/uL (0.0-0.2); Basophils Percent Auto 0.7 % (0-2); Eosinophils Absolute Auto 0.3 X10*3/uL (0.0-0.4); Eosinophils Percent Auto 3.2 % (0-4); Hematocrit 45.4 % (42.0-52.0); Hemoglobin 15.2 g/dl (14.0-18.0); Imm Gran Abs Auto 0.03 X10*3/uL (0.00-0.03); Imm Gran Pct Auto 0.3 % (0.0-0.4); Lymphocytes Absolute Auto 3.3 X10*3/uL (1.2-4.9); Lymphocytes Percent Auto 34.3 % (20-40); Mean Corpuscular HGB Conc 33.5 g/dl (31.0-36.0); Mean Corpuscular Hemoglobin 31.1 pg (27.0-33.0); Mean Corpuscular Volume 92.8 fL (80.0-98.0); Mean Platelet Volume 9.7 fL (9.4-12.4); Monocytes Absolute Auto 0.7 X10*3/uL (0.1-1.2); Monocytes Percent Auto 6.8 % (2-11); Neutrophils Absolute Auto 5.2 x10*3/uL (2.0-8.3); Neutrophils Percent Auto 54.7 % (45-73); Platelet Count 227 X10*3/uL (160-400); Red Blood Count 4.89 X10*6/uL (4.60-5.80); Red Cell Distribution Width 13.9 % (11.0-16.0); White Blood Count 9.6 X10*3/uL (4.8-10.8)
[2022-09-01 11:01] LABS: Bacteria Urine None Seen (None Seen); Hyaline Casts Urine 0-2 /LPF (0-2); RBC Urine 0-2 /HPF (0-2); Squamous Epithelial Cell Urine 0-2 /HPF (0-2); WBC Urine 0-5 /HPF (0-5)
[2022-09-01 11:26] LABS: Estimated Average Glucose 154 mg/dL
[2022-09-01 11:27] LABS: Alanine Aminotransferase 22 U/L (0-40); Albumin Level 3.9 g/dL (3.5-5.0); Alkaline Phosphatase 66 U/L (39-117); Anion Gap 15 (12-20); Aspartate Amino Transferase 29 U/L (5-37); Blood Urea Nitrogen 19 mg/dL (9-16); Calcium 9.7 mg/dL (8.4-10.2); Carbon Dioxide 27 mmol/L (22-29); Chloride 103 mmol/L (96-108); Estimated Glomerular Filt Rate > 60; Glucose Random 101 mg/dL (60-115); Potassium 4.2 mmol/L (3.3-5.1); Sodium 141 mmol/L (135-145); Total Protein 7.1 g/dL (6.5-8.0)
[2022-09-01 12:40] LABS: Creatinine Urine 114.55 mg/dL
[2022-09-01 12:57] LABS: Microalbum/Creatinine Ratio Ur 580.5 ug/mg cr
== END 2022-09-01 08:30 | disposition home or self-care (01) ==
LOC: HO.10HDL 08:29
PROVIDERS: Visit Provider Internal Medicine
DX: E78.00 Pure hypercholesterolemia, unspecified (principal); I10 Essential (primary) hypertension; E11.9 Type 2 diabetes mellitus without complications; I25.10 Atherosclerotic heart disease of native coronary artery without angina pectoris; Z79.4 Long term (current) use of insulin
CPT/HCPCS: 36415; 80053; 81001; 82043; 83036; 85025

== ENCOUNTER 2022-10-07 05:58 | Day surgery (SDC) | payer MEDICARE, OTHER, SELFPAY ==
[2022-09-01 11:38] VITALS: BMI 40.8
--- NOTE | 2022-09-07 15:52 | HP_ITS ---
DATE OF SERVICE: 10/07/2022 Patient is a 67-year-old male who was seen in the office for preop evaluation on 08/31/2022. Patient is scheduled for back surgery with Dr. Martinez on 09/16/2022. The patient has already been evaluated and medically cleared by Cardiology by his report. PAST MEDICAL HISTORY: Significant for morbid obesity, hvn-[id number]-jgaphtjql diabetes, long-term use of insulin, coronary artery disease, elevated cholesterol, hypertension, gastroesophageal reflux disease, hypothyroidism, history of right popliteal vein DVT, history of pulmonary embolus, status post gallbladder surgery in March of 2022, elevated liver enzymes. Long-term use of anticoagulation, gout, chronic back pain, history of kidney stones, history of tonsils and adenoids in the past, history of myringotomy tubes, history of tobacco use. FAMILY HISTORY: Parents are . Two siblings, 1 has renal insufficiency. SOCIAL HISTORY: He is , retired, has 2 children. REVIEW OF SYSTEMS: No chest pains or palpitations. Occasional cough. No headaches. No fevers or sweats. Occasional diarrhea. No complaints of heartburn. No constipation. No abdominal pain. Frequent urination. Can happen at night 1 to 2 times. Arthritis by his description all over. Chronic back pain. No speech changes. No complaints of confusion. Sleep and appetite are unchanged. No complaints of hay fever. No skin complaints. ALLERGIES: NO REPORTED ALLERGIES TO MEDICINES. PRESENT MEDICATIONS: 1. Eliquis 5 mg p.o. b.i.d. 2. Rosuvastatin 20 mg a day. 3. Levothyroxine 0.05 mg a day. 4. Pioglitazone 30 mg a day. 5. NovoLog insulin 24 units before breakfast, 24 units before noon time meal and 32 units before supper. 6. Tresiba 110 units once a day. 7. Allopurinol 300 mg a day. 8. Metoprolol-XL 50 mg once a day. 9. Lisinopril 20 mg a day. 10. Prilosec 20 mg a day. 11. Baby aspirin 81 mg a day. PHYSICAL EXAMINATION: GENERAL: He is awake and alert, in no distress. VITAL SIGNS: Temperature 98.7, pulse 72, respirations 12, blood pressure 132/70. Weight is 309, height is 6 feet. HEENT: Pupils equal. TMs clear. Pharynx clear. NECK: Supple. No lymph nodes, bruits or masses. HEART: Sounds S1 and S2. Regular rate. LUNGS: Clear. ABDOMEN: Obese, soft. Positive bowel sounds. EXTREMITIES: No clubbing, cyanosis, or edema. NEUROLOGIC: Cranial nerves II through XII are intact. LABORATORY DATA: Have been completed through the hospital lab. ASSESSMENT AND PLAN: He is medically stable for the proposed procedure. He was asked to stop the Eliquis 3 days before surgery. He should hold his morning insulin until after the procedure and use a sliding scale based on his morning glucose level, he should take his metoprolol, lisinopril the morning of surgery. He can take the other medications postoperatively. MD YING Tovar/MODL / [id number]
--- NOTE | 2022-10-06 08:16 | HO.ANESPROP2 ---
HPI - Anesthesia Eval Consult details Narrative: 67yo M for L2-3,L3-4,L4-5 MicroLumbar Lami/Disc/decom Multi Cardiac optimized. (CAD with remote hx of PCI) Medically optimized Eliquis for hx DVT/PE PMFSH Active Problems Active Problems: All Active Problems (Updated 09/01/22 @ 11:50 by Fay Carson, RN) Numbness and tingling in both hands (Acute) Left hand pain (Acute) Carpal tunnel syndrome of left wrist (Acute) Cubital tunnel syndrome on left (Acute) Cubital tunnel syndrome on right (Acute) Carpal tunnel syndrome of right wrist (Acute) Trigger finger, left middle finger (Acute) Preoperative cardiovascular examination (Acute) First degree heart block by electrocardiogram (Acute) Trigger finger, left ring finger (Acute) Elevated bilirubin (Acute) Transaminitis (Acute) Cholecystitis (Acute) Lumbar stenosis with neurogenic claudication (Acute) Type 2 diabetes mellitus with unspecified complications (Acute) Atherosclerotic cardiovascular disease (Acute) Type 2 diabetes mellitus with hyperglycemia, with long-term current use of insulin (Acute) Type 2 diabetes mellitus with diabetic polyneuropathy (Acute) Proteinuria (Acute) Type 2 diabetes mellitus with other diabetic kidney complication (Acute) Essential hypertension (Acute) Hyperlipidemia LDL goal <70 (Acute) Past Medical History Medical History (Updated 09/01/22 @ 11:50 by Fay Carson, RN) Atherosclerotic cardiovascular disease CAD (coronary artery disease) Chronic kidney disease (CKD), stage II (mild) Diabetes Essential hypertension GERD (gastroesophageal reflux disease) Gout Graves disease History of skin cancer HTN (hypertension) Hyperlipidemia Hyperlipidemia LDL goal <70 Insulin dependent diabetes Obesity due to excess calories On anticoagulant therapy On beta truman at home SHAWN (obstructive sleep apnea) Other and unspecified hyperlipidemia Peripheral neuropathy Popliteal DVT (deep venous thrombosis) Proteinuria Pulmonary emboli Pulmonary embolus Renal stones Sleep apnea Tubular adenoma of colon Type 2 diabetes mellitus with diabetic polyneuropathy Type 2 diabetes mellitus with hyperglycemia, with long-term current use of insulin Type 2 diabetes mellitus with other diabetic kidney complication Type 2 diabetes mellitus with unspecified complications Family History Family History Father Colon cancer Mother Lung cancer Surgical History Surgical History (Updated 09/01/22 @ 11:50 by Fay Carson, RN) H/O cystoscopy History of coronary artery stent placement History of hemorrhoidectomy Hx laparoscopic cholecystectomy Hx of carpal tunnel repair Hx of colonoscopy Hx of elbow surgery Hx of hand surgery Social History Social History Household Members: Spouse Housing: House Are you a primary lawn care professional to a significant other at home: No Do you presently have visiting nurse or other home services: No Alcohol intake: current Alcohol intake frequency: a few times a month Patient Tobacco Use Status: Former Tobacco user Quit Date: 2009 Tobacco use type: Cigarette Years Smoked: 35 +/- Second Hand Smoke Exposure: No Substance Use Type: Marijuana service: No Current occupational status: retired 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 [employer] on the [employer] Allergies Allergy/AdvReac Type Severity Reaction Status Date / Time No Known Allergies Allergy Verified 09/01/22 10:34 [No Known Allergies*] Home Medications Medication Instructions Recorded Confirmed Last Taken Type blood sugar diagnostic #10 ea 02/13/20 08/03/22 Unknown History levothyroxine 50 mcg tablet 50 mcg PO DAILY@0630 02/13/20 09/01/22 10/07/22 History (Synthroid) lisinopril 20 mg tablet 20 mg PO BEDTIME 02/13/20 09/01/22 01/07/22 History pen needle, diabetic 32 gauge x #50 ea 02/13/20 08/03/22 01/08/22 History omeprazole 20 mg capsule,delayed 1 cap PO DAILY@0630 08/05/20 09/01/22 10/07/22 History release allopurinol 300 mg tablet 300 mg PO DAILY 01/26/21 09/01/22 01/08/22 History aspirin 81 mg tablet,delayed 81 mg PO DAILY 01/26/21 09/01/22 10/03/22 History release (Adult Low Dose Aspirin) cholecalciferol (vitamin D3) 25 50 mcg PO BEDTIME 01/08/22 09/01/22 01/07/22 History mcg (1,000 unit) tablet insulin aspart U-100 100 unit/mL 24 unit subcut BID@0730,1130 01/08/22 09/01/22 01/08/22 History (3 mL) subcutaneous pen (Novolog FlexPen U-100 Insulin aspart) insulin aspart U-100 100 unit/mL 34 unit subcut DAILY@1630 01/08/22 09/01/22 01/08/22 History (3 mL) subcutaneous pen (Novolog FlexPen U-100 Insulin aspart) gayuynnnvtzg-wcr-pzbnh acid-vit 1 tab PO DAILY 01/08/22 09/01/22 Unknown History K-lycop 400 mcg-20 mcg-370 mcg tablet (Men's 50 Plus Multivitamin) pioglitazone 30 mg tablet 30 mg PO BEDTIME 01/08/22 09/01/22 01/08/22 History apixaban 5 mg tablet (Eliquis) 5 mg PO BID 08/03/22 09/01/22 10/04/22 History metoprolol succinate 50 mg 50 mg PO DAILY 08/03/22 09/01/22 10/07/22 History tablet,extended release 24 hr metronidazole 500 mg tablet 500 mg PO Q8H 08/03/22 09/01/22 Unknown History Exam Exam Date and Time: October 06, 2022 0816 Height,Weight and Vital Signs: Height 6 ft 1 in Weight 140.16 kg Pertinent Lab Results Pertinent Lab Results: Laboratory Tests 09/01/22 09/01/22 08:34 08:34 WBC 9.6 Hgb 15.2 Hct 45.4 Plt Count 227 Sodium 141 Potassium 4.2 Chloride 103 Carbon Dioxide 27 BUN 19 H Creatinine 0.99 Narrative Narrative: EKG 07/2022 sinus rhythm at 68/Min; HI prolongation to 286 millisecond; normal corrected QT. ECHO 12/2021 Conclusions: - 1. Technically limited study despite use of contrast agent ? ? 2. Normal LV systolic function with normal filling pattern ? ? ? 3. Poor visualization cardiac valves with normal cardiac valvular Doppler? NM gricel perf SPECT rest & str 2020 Impression: ? 1.? Myocardial perfusion imaging study shows likely normal myocardial perfusion. No definitive evidence of any ischemia or infarction. 2.? Gated LVEF is 59% during stress and 70% during rest. 3. Transient ischemic dilatation not present. ? EKG component of the test reported separately.
[2022-10-07] VITALS (12 sets, daily range): BP systolic 141–162; BP diastolic 54–82; PULSE 77–87; RESP 18–20; TEMP 36.1–36.4; O2SAT 94–100; BMI 43.4
--- NOTE | ~2022-10-07 | FL_ITS ---
EXAMINATION: XR FLUOROSCOPY WITH IMAGES CLINICAL INFORMATION: L2-L3, L3-L4, L4-L5 decompression. COMPARISON: None available. TECHNIQUE: Fluoroscopy Supervised By: Dr. William Martinez. Fluoroscopy Time: 0.1 minute. Cumulative Dose: 8.04 mGy. DAP: 1.33 Gycm2. Images: 1. FINDINGS: Single lateral interoperative view of the lumbar spine demonstrates posterior surgical instruments projecting over the posterior elements at the L2-L3 level. FL/FL guidance in OR IMPRESSION: Fluoroscopic guidance for lumbar surgery.
[2022-10-07 06:21] LABS: Glucose, Whole Blood 146 mg/dL (60-115)
[2022-10-07] MEDS: Lactated Ringers 1,000 ML 100 ML IVCONT (06:46)
[2022-10-07] MEDS: methocarbamoL 750 MG TABLET PO (06:55)
[2022-10-07] MEDS: Gabapentin 300 MG CAPSULE PO (06:55)
--- NOTE | 2022-10-07 07:06 | MHC.SHP ---
Pre-Procedural Eval Section A Date of Service: 10/07/22 The patient is an INPATIENT: No Changes since office visit: No Cold of Flu in the past 2 weeks, No New Medical Problems, No Changes in Medication and No Patient answered all questions The History & Physical has been completed within 30 days and I have reviewed it.: No Section B Chief Complaint: Spinal stenosis, lumbar region with neurogenic cla Allergies: Allergies Allergy/AdvReac Type Severity Reaction Status Date / Time No Known Allergies Allergy Verified 09/01/22 10:34 [No Known Allergies*] Review of Systems Sugical H&P ROS: Negative: Constitution, Cardiovascular, Respiratory, Neurological, Psychiatric, Hem-Onc, Allergic/Immunologic, Gastrointestinal, Genitourinary, Musculoskeletal, Integumentary, Endocrine and Eyes/Ears/Nose/Throat Exam Surgical H&P Exam: Not Evaluated: HEENT, Not Evaluated: Heart, Not Evaluated: Lungs, Not Evaluated: Extremities, Not Evaluated: Abdomen, Not Evaluated: Skin and Not Evaluated: Neurological Plan I have reviewed the history and physical and performed a pertinent physical examination on my patient. No changes have occurred unless specified. L2-5 laminectomy Time Spent With Patient Time: Total time managing care of this patient today __10_ minutes.
--- NOTE | 2022-10-07 09:28 | PM.DS ---
DS: Providers Provider Date of Service: 10/07/22 Date of discharge: 10/07/22 Primary care physician: Moy Coyle MD Admitting clinician: William Martinez DS: Diagnosis Discharge Diagnosis (1) Lumbar stenosis with neurogenic claudication: Status: Acute DS: Summary Time Spent with Patient Time attestation: Total time managing care of this patient today ____ minutes. Discharge coordination time: Less than 30 minutes Quality: Safe Use of Opioids Does Pt have an Active Cancer Diagnosis on the Problem List?: No Quality: Stroke Does the patient have a stroke diagnosis?: No Physical Exam Vital Signs: Vital Signs: Last Vital Signs Temp 97.0 F 10/07/22 06:24 Pulse 77 10/07/22 06:24 Resp 18 10/07/22 06:24 BP 152/76 H 10/07/22 06:24 Pulse Ox 97 10/07/22 06:24 O2 Del Method Room Air 10/07/22 06:24 BMI result Body Mass Index 43.4 DS: Data Data Completed and Pending Labs on day of discharge: Laboratory Results - last 24 hr 10/07/22 06:17 POC Glucose 146 H Discharge Plan Discharge Patient Disposition: Home, Self-Care Referrals: Moy Coyle MD [Primary Care Provider] - 1 Week Discharge Medications: New docusate sodium [Colace] 100 mg capsule 100 mg PO BID Qty: 20 0RF oxycodone 5 mg tablet See Rx Instructions .ROUTE .COMPLEX PRN (Reason: pain) Qty: 40 0RF Rx Instructions: 1-2 tabs po q4 hours prn pain Partial Fill upon patient request. Continued rosuvastatin 20 mg tablet 20 mg PO DAILY Qty: 90 3RF omeprazole 20 mg capsule,delayed release(DR/EC) 1 cap PO DAILY@0630 allopurinol 300 mg tablet 300 mg PO DAILY insulin aspart U-100 [Novolog FlexPen U-100 Insulin] 100 unit/mL (3 mL) insulin pen 34 unit subcut DAILY@1630 Rx Instructions: 24 UNITS AT BREAKFAST AND LUNCH, 34 UNITS AT DINNER cholecalciferol (vitamin D3) 25 mcg (1,000 unit) Tablet 50 mcg PO BEDTIME Men's 50 Plus Multivitamin 400-20-370 mcg Tablet 1 tab PO DAILY pioglitazone 30 mg tablet 30 mg PO BEDTIME insulin aspart U-100 [Novolog FlexPen U-100 Insulin] 100 unit/mL (3 mL) insulin pen 24 unit subcut BID@0730,1130 Rx Instructions: 24 UNITS AT BREAKFAST AND LUNCH, 34 UNITS AT DINNER metoprolol succinate 50 mg tablet extended release 24 hr 50 mg PO DAILY lisinopril 20 mg tablet 20 mg PO BEDTIME (DME) pen needle, diabetic 32 gauge x 5/32 needle See Rx Instructions subcut BID Qty: 50 Rx Instructions: As directed (DME) blood sugar diagnostic Strip See Rx Instructions .ROUTE .MEDSUPPLY Qty: 10 Rx Instructions: As directed levothyroxine [Synthroid] 50 mcg tablet 50 mcg PO DAILY@0630 (DME) FreeStyle Flavio 2 [place] Misc See Rx Instructions .ROUTE .MEDSUPPLY Qty: 1 0RF Rx Instructions: As directed Tresiba FlexTouch U-200 200 unit/mL (3 mL) insulin pen 110 unit subcut BEDTIME 90 Days Qty: 54 3RF (DME) FreeStyle Flavio 2 Sensor Kit See Rx Instructions .ROUTE .MEDSUPPLY Qty: 6 4RF Rx Instructions: As directed every 2 weeks (DME) pen needle, diabetic [BD Ultra-Fine Shobha Pen Needle] 32 gauge x 5/32 needle See Rx Instructions .ROUTE .MEDSUPPLY Qty: 400 3RF Rx Instructions: As directed four times a day metronidazole 500 mg tablet 500 mg PO Q8H Held Eliquis 5 mg tablet 5 mg PO BID Hold Instructions: Resume on 10/12/22. aspirin [Adult Low Dose Aspirin] 81 mg tablet,delayed release (DR/EC) 81 mg PO DAILY Hold Instructions: Resume on 10/14/22. Discharge Orders: Discharge Order (Routine); Ordered 10/07/22 Ordered By: Nick Jacobson Diet: Diabetic diet Activity on Discharge: As tolerated Activity Restrictions/Additional Instructions: After your spinal surgery we ask you to observe the following restrictions/guidelines: Activity: It is normal to feel some discomfort as you increase your activity, but that will improve with time. We ask you avoid heavy lifting or acitivities that cause pain. As a general rule, 8lbs is a safe limit for lifting right after surgery. Walk as much as you feel comfortable but not to exhaustion. You will feel extra tired the first few days after surgery. Stay well hydrated. It is OK to walk up and down stairs You may return to driving when you are off narcotics (such as vicodin, oxycodone, dilaudid, etc), and you are back to normal functional capacity. If you have any concerns please check with office before driving. Return to work is specific to each patient and each surgery, so please speak with your doctor/PA at first follow up. Please bring paperwork such as FMLA at that time if you need it filled out. Medications: YOU MAY RESUME ELIQUIS ON 10/12/22 AND BABY ASPRIN ON 10/14/22. We will give you a short supply of narcotics after surgery (usually one weeks worth). If you need more please call the office but do not use more than prescribed. You will need to give our office 48 hours notice if you need narcotics refilled and we do not fill narcotics on weekends or evenings. If you are on a narcotic, it is a good idea to take a stool softener such as colace or senna to avoid constipation If you take blood thinner such as aspirin, Plavix, Coumadin, Effient, Eliquis etc for conditions such as Afib, DVT, Pulmonary embolus, coronary disease, stents etc please speak with your surgeon about specific details as to when you can resume these medications. You can resume NSAIDs on post op day 1 (eg: Motrin, Naproxen, etc). We encourage you to use these. Follow up: Please call the office, , after surgery to arrange a 3 week follow up for wound check. Wound Care: You may remove your dressing on the first day after surgery. You may leave open to air. Please do not remove the steri strips underneath. they will fall off on their own in one week. IT IS NORMAL FOR THE WOUND TO OOZE OR BE BLOODY FOR A FEW DAYS AFTER SURGERY. IF THIS HAPPENS JUST PLACE NEW DRESSING OVER IT TO AVOID STAINING CLOTHES. You may shower on post op day # 1 We ask that you do not let the water soak the wound. If it does get wet, just towel dry lightly. Please do not scrub your incision or place any type of chemical/ointment on the wound. No tub baths, pools or jacuzzis for one month. If you have any leaking or redness from your wound, or fevers, please call office
--- NOTE | 2022-10-07 13:08 | W.PM.OPN ---
Operative Note Operative Note Date of Service: 10/07/22 Narrative: Preoperative Diagnosis: L2-3, L3-4 and L4-5 spinal stenosis with back pain Operation: L2-3, L3-4 and L4-5 Laminotomy, Partial facetectomy and foraminotomy with use of microscope Consent Informed Consent was obtained for this operation. I have explained the nature, purpose and benefits of the operation. I have discussed the risks and benefit of the operation including possible complications or adverse events with patient/family. Alternative(s) were discussed with the patient with their relative benefits and risks as well as the consequences of not accepting the operation were included in obtaining consent. Surgeon: ZEINAB FALLON MD, PHD Procedure Assisted By: Nick Jacobson Pac] Description of Procedure This 67 morbidly obese male who is suffering from back pain with walking and standing without neurogenic claudication. An MRI shows multilevel stenosis from L2-L5. He was offered a lumbar decompression with the knowledge that results of a lumbar decompression for back pain without neurogenic claudication all are less favorable.. The patient was offered a decompression. The procedure complications were explained. The patient was consented. The patient was brought to the operating room and endotracheally intubated. The patient was turned in prone position on the Lino table. Prep and drape was done followed by timeout. The Physician chemistry research assistant provided access. A mid lumbar incision was made followed by release of the paravertebral muscle bilaterally to expose the L2-L5 lamina and facet joints. An intraoperative x-ray was obtained to confirm the correct level. The microscope was brought in. I took over the procedure. I started at the L4-5 level. The interspinous ligament was resected between L4-5 and a part of the spinous process C. The high-speed drill was used to do a L4-5 laminotomy until flavum ligament was reached. a 2. Kerrison was used to expand the laminotomy near flush to the pedicles and to include a partial facetectomy. The flavum and was opened and resected with a 3. Kerrison to decompress the underlying thecal sac. Severe compression was present on the left side. The flavum ligament was removed from the lateral recess to decompress the exiting L5 nerve roots bilaterally. A long nerve hook could be easily passed along the medial side of the pedicles as a sign of adequate decompression. Then attention was turned to the L3-4 level. A left L3 hemilaminotomy was done, including a partial facetectomy. Flavum ligament was opened and resected to decompress the L4 nerve root in the lateral recess. The patient was turned contralaterally. The spinous process was undercut after which I decompressed the thecal sac and exiting nerve root contralaterally by removing more flavum ligament. Finally the L2-3 level was done bilaterally, again from a left-sided approach to decompress the thecal sac and bilateral exiting nerve root. The microscope was removed. Hemostasis was done. The physician chemistry research assistant close the incision in 2 layers. Steri-Strips were used to approximate incision. An OpSite with Tegaderm was used to cover the incision. All sponge needle counts were correct. Patient was extubated and transported in stable is to recovery room. Anesthesia: General Estimated Blood Loss (ml): 60 Complications: None Duration of Surgery: Under 120 Minutes Postoperative Plan: Discharge to home
== END 2022-10-07 13:28 | disposition home or self-care (01) ==
PROVIDERS: PCP Internal Medicine; Visit Provider Neurological Surgery
PROC: (CPT 63047; principal; 2022-10-07 07:30)
DX: M48.062 Spinal stenosis, lumbar region with neurogenic claudication (principal); M54.50 Low back pain, unspecified; G89.29 Other chronic pain; E11.9 Type 2 diabetes mellitus without complications; I25.10 Atherosclerotic heart disease of native coronary artery without angina pectoris; Z79.82 Long term (current) use of aspirin; E66.01 Morbid (severe) obesity due to excess calories; G47.33 Obstructive sleep apnea (adult) (pediatric); E78.00 Pure hypercholesterolemia, unspecified; Z79.4 Long term (current) use of insulin; Z79.01 Long term (current) use of anticoagulants; Z79.899 Other long term (current) drug therapy
CPT/HCPCS: 63047; 63048 ×2; 82947; J0131; J0690; J1100; J1170; J1885; J2250; J2370; J2371; J2405; J3010

== ENCOUNTER → 2022-10-07 05:58 | Outpatient (BNV) | payer MEDICARE, OTHER, SELFPAY | PROVIDERS: PCP Internal Medicine; Visit Provider Physician Assistant | DX: M48.061 Spinal stenosis, lumbar region without neurogenic claudication (principal) | CPT/HCPCS: 63030; 63035; 63047; 63048; 99499 ==

== ENCOUNTER 2022-10-29 13:26 | Outpatient (AMB) | payer MEDICARE, OTHER, SELFPAY ==
--- NOTE | 2022-10-29 13:40 | A.SPINEOV_ITS ---
Intake Intake Visit Reasons: 1st post op Allergies No Known Allergies [No Known Allergies*] Allergy (Verified 09/01/22 10:34) Assessment & Plan Assessment & Plan (1) Lumbar stenosis with neurogenic claudication: Code(s): M48.062 - Spinal stenosis, lumbar region with neurogenic claudication Plan Kristopher is a pleasant 67-year-old male who comes in today for his 1st postoperative visit. He is s/p lumbar decompression L2-L5 on 10/29/2022. He reports that he feels his low back pain is minimally decreased, he is now able to walk farther although only modestly farther. He did endorse being able to go to the grocery store and finish grocery shopping which he was unable to do prior to surgery.He states that he has had good relief of his pain with sgvd-[id number]-[id number] er pain medications. Unfortunately Kristopher does report that he began having a recurrence of his left-sided posterior leg pain which originates in the low back and runs down his hamstring to the knee. He feels that he may have somehow injured this area but is unsure how that may have happen. He stated he did not have this pain postoperatively and is unsure how it came about. On physical exam he has 5/5 strength in his bilateral lower extremities, which is a notable improvement from pre-operatively where he had 4/5 (pain limiting) strength in his bilateral lower extremities. His sensation remains grossly intact, with continued low-grade numbness in his feet which he attributes to his peripheral neuropathy. Reflexes are 1+ at best, nearly absent which is also likely correlated to his peripheral neuropathy. Overall Kristopher feels that he has had some noted benefit from his surgery, and will be seen again in 6 weeks to further discuss his symptoms and to get follow-up x-rays. Total amount of time spent in this visit was 25 minutes in discussion of symptoms, post-operative care and subsequent plans of care. Mike Martinez MD,PhD [facility] Coding Level of Care Code Est Pt Level 3 (83802) Diagnoses Lumbar stenosis with neurogenic claudication M48.062
== END 2022-10-29 13:51 | disposition home or self-care (01) ==
PROVIDERS: PCP Internal Medicine; Visit Provider Physician Assistant
DX: M48.062 Spinal stenosis, lumbar region with neurogenic claudication (principal)
CPT/HCPCS: 99024

== ENCOUNTER → 2022-10-29 13:26 | Outpatient (BNVA) | payer MEDICARE, OTHER, SELFPAY | PROVIDERS: PCP Internal Medicine; Visit Provider Physician Assistant | DX: Z09 Encounter for follow-up examination after completed treatment for conditions other than malignant neoplasm (principal); M48.062 Spinal stenosis, lumbar region with neurogenic claudication | CPT/HCPCS: 99212 ==

== ENCOUNTER 2022-12-14 16:22 | Outpatient (REF) | payer MEDICARE, OTHER, SELFPAY | END 2022-12-14 16:23 | disposition home or self-care (01) | LOC: HO.HOSX 16:22 | PROVIDERS: Visit Provider Physician Assistant | DX: Z13.89 Encounter for screening for other disorder (principal) ==

== ENCOUNTER 2022-12-17 13:22 | Outpatient (AMB) | payer MEDICARE, OTHER, SELFPAY ==
--- NOTE | 2022-12-17 13:43 | HO.SPINEOV ---
Intake Intake Visit Reasons: 2nd post op with xrays Intake Note: Mr. Murrieta is here today for his 2nd post-op visit. w/x-rays. Map Drafter Required: No Allergies No Known Allergies [No Known Allergies*] Allergy (Verified 09/01/22 10:34) Assessment & Plan Assessment & Plan (1) Status post lumbar spine surgery for decompression of spinal cord: Code(s): Z98.890 - Other specified postprocedural states Plan Mr Adhikari is returning for 2nd postoperative visit. He underwent an L2-5 lumbar decompression without any successful improvement in his back pain. He is still unable to walk more than short distances before he has to sit down. I sent him for flexion-extension x-rays today in a vertical position and there is no signs of significant spondylolisthesis or shifting with dynamic movement. I am going to send him for a lumbar MRI with without robbin 0 to double check to see if there is any residual stenosis. I think it unlikely, however I feel due diligence dictates we should check. I suspect that may be a combination of other factors causing his back pain. It could possibly be his body habitus and size, currently weighing 320 lb but that is also not 100% guarantee the source of his back pain. He has considered bariatric surgery in the past and is thinking about it again. I told him that I could refer him to 1 of our colleagues here at [facility] but would not recommend he do it strictly to improve the back pain. I will call him with the results of the MRI. Nick Martinez MD, PhD [facility] Orders: Orders XR lumbar spine 4V min Today Z98.890 - Other specified postprocedural states CAMERON Hernandez MR lumbar spine wo/w con Today M48.062 - Spinal stenosis, lumbar region with neurogenic claudication CAMERON Whitman Coding Level of Care Code Global (39770) Diagnoses Status post lumbar spine surgery for decompression of spinal cord Z98.890
== END 2022-12-17 14:23 | disposition home or self-care (01) ==
PROVIDERS: PCP Internal Medicine; Visit Provider Physician Assistant
DX: Z98.890 Other specified postprocedural states (principal)
CPT/HCPCS: 99024

== ENCOUNTER → 2022-12-17 13:22 | Outpatient (BNVA) | payer MEDICARE, OTHER, SELFPAY | PROVIDERS: PCP Internal Medicine; Visit Provider Physician Assistant | DX: Z98.890 Other specified postprocedural states (principal) ==

== ENCOUNTER 2022-12-17 13:30 | Outpatient (REF) | payer MEDICARE, OTHER, SELFPAY ==
--- NOTE | ~2022-12-17 | XR_ITS ---
EXAMINATION: XR LUMBOSACRAL SPINE CLINICAL INFORMATION: Reason for Exam Z98.890 - Other specified postprocedural states COMPARISON: Lumbar spine radiographs 07/28/2022 TECHNIQUE: 4 views of the lumbar spine FINDINGS: 5 nonrib-bearing lumbar-type vertebral bodies. Vertebral body heights are maintained. Grade 1 anterolisthesis of L4 on L5 and grade 1 retrolisthesis of L2 on L3 and L3 on L4 not convincingly changed on flexion extension views. Moderate multilevel degenerative disc disease with loss of disc space height, anterior disc osteophyte complexes and facet arthropathy. Paravertebral soft tissues are unremarkable. XR/XR lumbar spine 4V min IMPRESSION: * Moderate spondylosis of the lumbar spine, as above detailed. * Spondylolisthesis, as above detailed, not convincingly changed on flexion and extension views.
== END 2022-12-17 13:31 | disposition home or self-care (01) ==
LOC: HO.HOSX 13:30
PROVIDERS: PCP Physician Assistant; Visit Provider Physician Assistant
DX: M48.062 Spinal stenosis, lumbar region with neurogenic claudication (principal); Z48.811 Encounter for surgical aftercare following surgery on the nervous system; Z98.890 Other specified postprocedural states
CPT/HCPCS: 72110

== ENCOUNTER 2023-01-31 09:23 | Outpatient (REF) | payer MEDICARE, OTHER, SELFPAY ==
--- NOTE | ~2023-01-31 | CT_ITS ---
EXAMINATION: CT CHEST SCREENING CLINICAL INFORMATION: Former smoker, quit 13 years ago, 2 pack per day, 37 year smoking history. COMPARISON: Previous CTs, most recent, 11/20/2021. TECHNIQUE: Multidetector volumetric CT imaging of the chest is performed without contrast using low dose technique. Additional 2D coronal and sagittal reformatted images and axial 3D maximum intensity projection (MIP) images are generated on the CT workstation. This CT examination was performed using dose optimization techniques as appropriate, variously including the following: *Automated exposure control *Adjustment of mA and/or kV according to patient size (this includes techniques or standardized protocols for targeted exams where dose is matched to indication/reason for exam; i.e. extremities or head) *Use of iterative reconstruction technique DLP: 145.15 mGy-cm FINDINGS: ALEMITE OPERATOR: Aortic calcifications. Degenerative changes. LUNGS: Trachea and bronchi are patent. Centrilobular emphysema. Scattered atelectasis. Unchanged 3 mm subpleural left upper lobe nodule, 6:305. MEDIASTINUM: Unremarkable thyroid. No pathologic lymphadenopathy. Nonenlarged heart. No pericardial effusion. Nonaneurysmal aorta with atherosclerotic calcifications. Ectatic pulmonary arteries. CORONARY ARTERY CALCIFICATION: Moderately severe. PLEURA: There is no pleural effusion. No pleural mass or thickening. No change 3 mm right horizontal fissural lymph node, 6:275. AXILLA: No lymphadenopathy. UPPER ABDOMEN: Diffuse hypodensity to the liver parenchyma again noted. Stable appearance of the spleen. OSSEOUS STRUCTURES: Degenerative changes. No suspicious osseous lesions. CT/CT lung screening IMPRESSION: No change 3 mm JAVIER subpleural nodule. No enlarging or new nodules. ASSESSMENT: Lung-RADS category 2: Benign RECOMMENDATION: Routine annual low-dose CT screening in 12 months.
== END 2023-01-31 09:24 | disposition home or self-care (01) ==
LOC: HO.CT 09:23
PROVIDERS: Visit Provider Physician Assistant Medical
DX: Z12.2 Encounter for screening for malignant neoplasm of respiratory organs (principal); Z87.891 Personal history of nicotine dependence
CPT/HCPCS: 71271

== ENCOUNTER 2023-03-10 08:57 | Outpatient (REF) | payer MEDICARE, OTHER, SELFPAY ==
[2023-03-10 10:33] LABS: MANUAL DIFF FLAG NO
[2023-03-10 10:35] LABS: Basophils Absolute Auto 0.1 X10*3/uL (0.0-0.2); Basophils Percent Auto 0.8 % (0-2); Eosinophils Absolute Auto 0.3 X10*3/uL (0.0-0.4); Eosinophils Percent Auto 3.7 % (0-4); Hemoglobin 12.9 g/dl (14.0-18.0); Imm Gran Abs Auto 0.03 X10*3/uL (0.00-0.03); Imm Gran Pct Auto 0.3 % (0.0-0.4); Lymphocytes Absolute Auto 2.8 X10*3/uL (1.2-4.9); Lymphocytes Percent Auto 30.8 % (20-40); Mean Corpuscular HGB Conc 33.1 g/dl (31.0-36.0); Mean Corpuscular Hemoglobin 28.3 pg (27.0-33.0); Mean Corpuscular Volume 85.5 fL (80.0-98.0); Mean Platelet Volume 9.7 fL (9.4-12.4); Monocytes Absolute Auto 0.7 X10*3/uL (0.1-1.2); Monocytes Percent Auto 8.1 % (2-11); Neutrophils Percent Auto 56.3 % (45-73); Platelet Count 253 X10*3/uL (160-400); Red Blood Count 4.56 X10*6/uL (4.60-5.80); Red Cell Distribution Width 14.1 % (11.0-16.0); White Blood Count 8.9 X10*3/uL (4.8-10.8)
[2023-03-10 11:15] LABS: Alanine Aminotransferase 24 U/L (0-40); Albumin Level 4.1 g/dL (3.5-5.0); Alkaline Phosphatase 79 U/L (39-117); Anion Gap 17 (12-20); Aspartate Amino Transferase 35 U/L (5-37); Bilirubin Total 0.6 mg/dL (0.0-1.0); Blood Urea Nitrogen 16 mg/dL (9-16); Calcium 9.7 mg/dL (8.4-10.2); Carbon Dioxide 26 mmol/L (22-29); Chloride 103 mmol/L (96-108); Cholesterol 155 mg/dL (<200); Estimated Glomerular Filt Rate > 60; Glucose Fasting 102 mg/dL (60-99); HDL Cholesterol 36 mg/dL (>40); LDL Cholesterol Calculated 62 mg/dL (<100); Sodium 142 mmol/L (135-145); Total Protein 7.3 g/dL (6.5-8.0); Triglycerides 287 mg/dL (<150)
[2023-03-10 11:17] LABS: Prostate Specific Antigen Scr 0.26 ng/mL (<0.05-4.0)
[2023-03-10 11:22] LABS: Creatinine Urine 186.52 mg/dL
[2023-03-10 11:23] LABS: Free T4 (Free Thyroxine) 0.93 ng/dL (0.71-1.85); Thyroid Stimulating Hormone 1.41 uIU/mL (0.32-4.0)
[2023-03-10 11:38] LABS: Microalbum/Creatinine Ratio Ur 510.9 ug/mg cr (<30)
[2023-03-10 13:06] LABS: Estimated Average Glucose 169 mg/dL; Hemoglobin A1c % 7.5 % (<6.0)
== END 2023-03-10 08:58 | disposition home or self-care (01) ==
LOC: HO.10HDL 08:57
PROVIDERS: Visit Provider Internal Medicine
DX: I25.10 Atherosclerotic heart disease of native coronary artery without angina pectoris (principal); I73.9 Peripheral vascular disease, unspecified; E11.9 Type 2 diabetes mellitus without complications; E78.00 Pure hypercholesterolemia, unspecified; E03.9 Hypothyroidism, unspecified; N40.0 Benign prostatic hyperplasia without lower urinary tract symptoms; Z12.5 Encounter for screening for malignant neoplasm of prostate
CPT/HCPCS: 36415; 80053; 80061; 82043; 82570; 83036; 84153; 84439; 84443; 85025

== ENCOUNTER 2023-04-25 10:49 | Outpatient (REF) | payer MEDICARE, OTHER, SELFPAY ==
[2023-04-26 02:45] LABS: Vitamin B12 638 pg/mL (200-900)
== END 2023-04-25 10:50 | disposition home or self-care (01) ==
LOC: HO.10HDL 10:49
PROVIDERS: Visit Provider Psychiatry & Neurology Neurology
DX: G31.84 Mild cognitive impairment of uncertain or unknown etiology (principal)
CPT/HCPCS: 36415; 82607

== ENCOUNTER → 2023-07-06 09:43 | Outpatient (REF) | payer MEDICARE, OTHER, SELFPAY | LOC: HO.SL 09:43 | PROVIDERS: PCP Internal Medicine; Visit Provider Psychiatry & Neurology Neurology | DX: G47.33 Obstructive sleep apnea (adult) (pediatric) (principal) | CPT/HCPCS: 95806 ==

== ENCOUNTER → 2023-07-06 19:00 | Outpatient (BNV) | payer MEDICARE, OTHER, SELFPAY | PROVIDERS: PCP Internal Medicine; Visit Provider Internal Medicine | DX: G47.33 Obstructive sleep apnea (adult) (pediatric) (principal) | CPT/HCPCS: 95806 ==

== ENCOUNTER 2023-08-09 13:27 | Outpatient (AMB) | payer MEDICARE, OTHER, SELFPAY ==
--- NOTE | 2023-08-09 13:37 | A.OFFVIS_ITS ---
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: No Allergies No Known Allergies [No Known Allergies*] Allergy (Verified 09/01/22 10:34) Medication List - Last Reconciled 08/09/23 by Yovani Louise MD allopurinol 300 mg PO DAILY apixaban (Eliquis) 5 mg PO BID aspirin (Adult Low Dose Aspirin) 81 mg PO DAILY blood sugar diagnostic As directed cholecalciferol (vitamin D3) 50 mcg PO BEDTIME docusate sodium (Colace) 100 mg PO BID PRN flash glucose scanning reader (EG TechnologyStyle Flavio 2 Leckrone) As directed flash glucose sensor (FreeStyle Flavio 2 Sensor kit) As directed every 2 weeks insulin aspart U-100 (Novolog FlexPen U-100 Insulin aspart) 24 units subcut BID@0730,1130 insulin aspart U-100 (Novolog FlexPen U-100 Insulin aspart) 34 units subcut DAILY@1630 insulin degludec (Tresiba FlexTouch U-200 insulin) 110 units (0.55 mL) subcut BEDTIME 90 days levothyroxine (Synthroid) 50 mcg PO DAILY@0630 lisinopril 20 mg PO BEDTIME metoprolol succinate ER 50 mg PO DAILY metronidazole 500 mg PO Q8H rdzlnfio-lcc-bbffv-vit K-lycop 400-20-370 mcg (Men's 50 Plus Multivitamin) 1 tab PO DAILY omeprazole 1 cap PO DAILY@0630 pen needle, diabetic As directed pen needle, diabetic (BD Ultra-Fine Shobha Pen Needle) As directed four times a day pioglitazone 30 mg PO BEDTIME rosuvastatin 20 mg PO DAILY semaglutide (Ozempic) mg subcut HPI Comments Details: Kristopher returns for follow-up. In the past, he was seen regarding preoperative risk stratification for back surgery. Reported history of cardiac catheterization/PCI almost 2 decades ago but unknown findings. Multiple cardiovascular risk factors including obesity, diabetes, hypertension, dyslipidemia, SHAWN. He states he is modified his diet and has lost almost 50 lb in weight recently. Otherwise, no cardiac symptoms like angina or shortness of breath. He states he is doing fine. [facility] Medical History (Updated 10/29/22 @ 13:49 by CAMERON Hernandez) Lumbago On anticoagulant therapy On beta truman at home Insulin dependent diabetes Pulmonary emboli Pulmonary embolus Popliteal DVT (deep venous thrombosis) SHAWN (obstructive sleep apnea) Chronic kidney disease (CKD), stage II (mild) Sleep apnea Peripheral neuropathy History of skin cancer Other and unspecified hyperlipidemia Type 2 diabetes mellitus with unspecified complications Atherosclerotic cardiovascular disease Obesity due to excess calories Tubular adenoma of colon Graves disease CAD (coronary artery disease) Type 2 diabetes mellitus with hyperglycemia, with long-term current use of insulin Type 2 diabetes mellitus with diabetic polyneuropathy Proteinuria Type 2 diabetes mellitus with other diabetic kidney complication Essential hypertension Hyperlipidemia LDL goal <70 Renal stones GERD (gastroesophageal reflux disease) HTN (hypertension) Hyperlipidemia Diabetes Gout Surgical History (Updated 10/29/22 @ 13:48 by CAMERON Hernandez) Hx laparoscopic cholecystectomy Hx of elbow surgery Hx of hand surgery Hx of carpal tunnel repair Hx of colonoscopy H/O cystoscopy History of coronary artery stent placement History of hemorrhoidectomy Family History Father Colon cancer Mother Lung cancer Social History Household Members: Spouse Housing: House Are you a primary home care assistant to a significant other at home: No Do you presently have visiting nurse or other home services: No Alcohol intake: current Alcohol intake frequency: a few times a month Patient Tobacco Use Status: Former Tobacco user Quit Date: 2009 Tobacco use type: Cigarette Years Smoked: 35 +/- Second Hand Smoke Exposure: No Substance Use Type: Marijuana service: No Current occupational status: retired 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 Review of Systems Const Denies chills, Denies fatigue, Denies fever(s), Denies frequent falls, Denies weakness, Denies weight gain and Denies weight loss ENT Denies dizziness Card Denies chest pain, Denies leg edema, Denies lightheadedness, Denies palpitations, Denies dyspnea, Denies dyspnea on exertion, Denies orthopnea and Denies other (loss of consciousness) Resp Denies cough, Denies dyspnea and Denies dyspnea on exertion GI Denies hematochezia and Denies change in stool character Musc Denies abnormal gait, Denies muscle weakness, Denies numbness, Denies radiating pain into limb and Denies tingling Neuro Denies abnormal gait, Denies dizziness, Denies frequent falls, Denies numbness, Denies tingling and Denies weakness Endo Denies fatigue and Denies palpitations Physical Exam Vital Signs: Last Vital Signs Pulse 78 08/09/23 13:40 BP 120/80 08/09/23 13:40 BMI result Body Mass Index 37.4 Const General: comfortable and no acute distress Orientation/consciousness: patient oriented x3 HEENT Other: Unremarkable Head: Yes normal to inspection Neck Neck: Yes normal visual inspection Chest Chest palpation & inspection: normal inspection of the chest Resp Auscultation: clear to auscultation bilaterally Cardio Palpation: normal PMI Heart sounds: S1 normal heart sound present, S2 normal heart sound present, no gallops, no murmurs and no rubs GI Palpation (GI): Soft to palpation Back/Spine/Pelvis Other: unremarkable Skin General skin exam: no rashes or lesions noted Neuro General: patient oriented x3 Extrem General: Yes normal to inspection Psych Mental Status: mental status grossly normal Office Procedures EKG Details: EKG with sinus rhythm at 78/Min; NE prolongation to 280 millisecond; no significant ST-T [place]; [place] [id number], Complete Assessment & Plan Assessment & Plan (1) Atherosclerotic cardiovascular disease: Code(s): I25.10 - Atherosclerotic heart disease of [place] coronary artery without angina pectoris Category: Medical (2) Type 2 diabetes mellitus with unspecified complications: Code(s): E11.8 - Type 2 diabetes mellitus with unspecified complications Category: Medical (3) Essential hypertension: Code(s): I10 - Essential (primary) hypertension Category: Medical (4) Other and unspecified hyperlipidemia: Code(s): E78.5 - Hyperlipidemia, unspecified Category: Medical (5) First degree heart block by electrocardiogram: Code(s): I44.0 - Atrioventricular block, first degree Category: Medical (6) Preoperative cardiovascular examination: Code(s): Z01.810 - Encounter for preprocedural cardiovascular examination Category: Medical Plan Cardiac studies reviewed. EKG shows NE prolongation but otherwise unremarkable. [id number] quality suboptimal. LVEF 65-70%. Normal diastolic function. No significant valvular issues. Myocardial perfusion imaging -2020- likely normal perfusion without any definitive evidence of ischemia or infarction. On gated chest CT scan shows coronary and aortic calcification. Overall, he has got a lot of cardiovascular risk factors and remote history of PCI, but no new cardiovascular symptoms or other concerns. Mainly aggressive risk factor modification. Advised him to continue losing weight and he has already lost about 50 lb or so. Otherwise, management of diabetes, hypertension and dyslipidemia. With regard to the prolonged NE interval, he used to be on twice a day beta- truman and he is now on today. EKG will need to be monitored periodically. He states that he is due to go for colonoscopy. Intermediate risk. Follow-up in 1 year. Interim, he will call with concerns. Medications: Changed From docusate sodium (Colace) 100 mg PO BID 20 caps 0RF To docusate sodium (Colace) 100 mg PO BID PRN Coding Level of Care Code Est Pt Level 4 (05633) Diagnoses Atherosclerotic cardiovascular disease I25.10 Type 2 diabetes mellitus with unspecified complications E11.8 Essential hypertension I10 Other and unspecified hyperlipidemia E78.5 First degree heart block by electrocardiogram I44.0 Preoperative cardiovascular examination Z01.810 CPT Codes EKG - CPT: 09474-[id number], Complete ([id number])
[2023-08-09 13:40] VITALS: BP 120/80; PULSE 78; BMI 37.4
== END 2023-08-09 14:28 | disposition home or self-care (01) ==
PROVIDERS: PCP Internal Medicine; Visit Provider Internal Medicine
DX: I25.10 Atherosclerotic heart disease of native coronary artery without angina pectoris (principal); E11.8 Type 2 diabetes mellitus with unspecified complications; I10 Essential (primary) hypertension; E78.5 Hyperlipidemia, unspecified; I44.0 Atrioventricular block, first degree; Z01.810 Encounter for preprocedural cardiovascular examination
CPT/HCPCS: 93010; 99214

== ENCOUNTER → 2023-08-09 13:27 | Outpatient (BNVA) | payer MEDICARE, OTHER, SELFPAY | PROVIDERS: PCP Internal Medicine; Visit Provider Internal Medicine | DX: Z01.810 Encounter for preprocedural cardiovascular examination (principal); I25.10 Atherosclerotic heart disease of native coronary artery without angina pectoris; I10 Essential (primary) hypertension; I44.0 Atrioventricular block, first degree; E11.8 Type 2 diabetes mellitus with unspecified complications; E78.5 Hyperlipidemia, unspecified | CPT/HCPCS: 93005; 99212 ==

== ENCOUNTER 2023-09-26 06:31 | Day surgery (SDC) | payer MEDICARE, OTHER, SELFPAY ==
[2023-09-23 07:38] VITALS: BMI 38.2
--- NOTE | 2023-09-23 12:29 | P.CONAN_ITS ---
Documented by User: Linda Lee NP 09/23/23 12:33 HPI - Anesthesia Eval Consult details Narrative: 68yo M for Colonoscopy Follows [facility]. Last office visit 07/2023. Optimized for colo. Eliquis for hx PE/DVT Anesthesia Pre-Procedure Meds Is the patient on any of the following meds?: GLP1/DPP4 PMFSH Active Problems Active Problems: All Active Problems Status post lumbar spine surgery for decompression of spinal cord (Acute) Lumbar stenosis with neurogenic claudication (Acute) Cholecystitis (Acute) Transaminitis (Acute) Elevated bilirubin (Acute) Trigger finger, left ring finger (Acute) First degree heart block by electrocardiogram (Acute) Preoperative cardiovascular examination (Acute) Trigger finger, left middle finger (Acute) Carpal tunnel syndrome of right wrist (Acute) Cubital tunnel syndrome on right (Acute) Cubital tunnel syndrome on left (Acute) Carpal tunnel syndrome of left wrist (Acute) Left hand pain (Acute) Numbness and tingling in both hands (Acute) Type 2 diabetes mellitus with unspecified complications (Acute) Atherosclerotic cardiovascular disease (Acute) Type 2 diabetes mellitus with hyperglycemia, with long-term current use of insulin (Acute) Type 2 diabetes mellitus with diabetic polyneuropathy (Acute) Proteinuria (Acute) Type 2 diabetes mellitus with other diabetic kidney complication (Acute) Essential hypertension (Acute) Hyperlipidemia LDL goal <70 (Acute) Past Medical History Medical History (Updated 09/26/23 @ 08:55 by Aminta Paz MD) Back pain Hx of radiation therapy Lumbago On anticoagulant therapy On beta truman at home Insulin dependent diabetes Pulmonary embolus Popliteal DVT (deep venous thrombosis) Chronic kidney disease (CKD), stage II (mild) Sleep apnea Peripheral neuropathy History of skin cancer Other and unspecified hyperlipidemia Type 2 diabetes mellitus with unspecified complications Atherosclerotic cardiovascular disease Obesity due to excess calories Tubular adenoma of colon Graves disease CAD (coronary artery disease) Type 2 diabetes mellitus with hyperglycemia, with long-term current use of insulin Type 2 diabetes mellitus with diabetic polyneuropathy Proteinuria Type 2 diabetes mellitus with other diabetic kidney complication Essential hypertension Hyperlipidemia LDL goal <70 Renal stones GERD (gastroesophageal reflux disease) Diabetes Gout Family History Family History Father Colon cancer Mother Lung cancer Surgical History Surgical History History of ERCP History of back surgery History of esophagogastroduodenoscopy (EGD) Hx laparoscopic cholecystectomy Hx of elbow surgery Hx of hand surgery Hx of carpal tunnel repair Hx of colonoscopy H/O cystoscopy History of coronary artery stent placement History of hemorrhoidectomy Social History Social History Household Members: Spouse Housing: House Are you a primary medical care administrator to a significant other at home: No Do you presently have visiting nurse or other home services: No Alcohol intake: current Alcohol intake frequency: a few times a month Patient Tobacco Use Status: Former Tobacco user Tobacco use type: Cigarette Years Smoked: 35 +/- Second Hand Smoke Exposure: No Substance Use Type: Marijuana service: No Current occupational status: retired 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 [employer] [facility] [employer] Review Source on the [employer] Allergies Allergy/AdvReac Type Severity Reaction Status Date / Time No Known Allergies Allergy Verified 09/01/22 10:34 [No Known Allergies*] Home Medications ?Medication ?Instructions ?Recorded ?Confirmed ?Last Taken ?Type blood sugar diagnostic #10 ea 02/13/20 08/03/22 Unknown History levothyroxine 50 mcg tablet 50 mcg PO DAILY@0630 02/13/20 09/26/23 09/26/23 05:30 History (Synthroid) lisinopril 20 mg tablet 20 mg PO BEDTIME 02/13/20 09/23/23 01/07/22 History pen needle, diabetic 32 gauge x #50 ea 02/13/20 08/03/22 01/08/22 History omeprazole 20 mg capsule,delayed 1 cap PO DAILY@0630 08/05/20 09/23/23 10/07/22 History release allopurinol 300 mg tablet 300 mg PO DAILY 01/26/21 09/23/23 01/08/22 History aspirin 81 mg tablet,delayed 81 mg PO DAILY 01/26/21 09/26/23 09/25/23 History release (Adult Low Dose Aspirin) cholecalciferol (vitamin D3) 25 50 mcg PO BEDTIME 01/08/22 09/23/23 01/07/22 History mcg (1,000 unit) tablet insulin aspart U-100 100 unit/mL 24 unit subcut BID@0730,1130 01/08/22 08/09/23 01/08/22 History (3 mL) subcutaneous pen (Novolog FlexPen U-100 Insulin aspart) insulin aspart U-100 100 unit/mL 34 unit subcut DAILY@1630 01/08/22 08/09/23 01/08/22 History (3 mL) subcutaneous pen (Novolog FlexPen U-100 Insulin aspart) oglogyjzvqdv-tgp-uwqpm acid-vit 1 tab PO DAILY 01/08/22 09/23/23 Unknown History K-lycop 400 mcg-20 mcg-370 mcg tablet (Men's 50 Plus Multivitamin) pioglitazone 30 mg tablet 30 mg PO BEDTIME 01/08/22 09/23/23 01/08/22 History apixaban 5 mg tablet (Eliquis) 5 mg PO BID 08/03/22 09/26/23 09/22/23 History metoprolol succinate 50 mg 50 mg PO DAILY 08/03/22 09/23/23 10/07/22 History tablet,extended release 24 hr semaglutide 1 mg/dose (4 mg/3 mL) 1 mg subcut QWEEK 08/09/23 09/26/23 09/18/23 History subcutaneous pen injector (Ozempic) Exam Height,Weight and Vital Signs: Height 6 ft Weight 127.913 kg Pertinent Lab Results Pertinent Lab Results: Laboratory Tests 03/10/23 09:05 WBC 8.9 Hgb 12.9 L Hct 39.0 L Plt Count 253 Sodium 142 Potassium 4.0 Chloride 103 Carbon Dioxide 26 BUN 16 Creatinine 0.95 Narrative Narrative: Per 07/2023 office visit: EKG with sinus rhythm at 78/Min; WA prolongation to 280 millisecond; no significant ST-T changes; normal corrected QT. Cardiac studies reviewed. EKG shows WA prolongation but otherwise unremarkable. [id number] quality suboptimal. LVEF 65-70%. Normal diastolic function. No significant valvular issues. Myocardial perfusion imaging -2020- likely normal perfusion without any definitive evidence of ischemia or infarction. On gated chest CT scan shows coronary and aortic calcification. Documented by User: Aminta Paz MD 09/26/23 09:11 HPI - Anesthesia Eval Anesthesia Pre-Procedure Meds Is the patient on any of the following meds?: GLP1/DPP4 (Last dose of semaglutide 09/18/23) PMFSH Active Problems Active Problems: All Active Problems Status post lumbar spine surgery for decompression of spinal cord (Acute) Lumbar stenosis with neurogenic claudication (Acute) Cholecystitis (Acute) Transaminitis (Acute) Elevated bilirubin (Acute) Trigger finger, left ring finger (Acute) First degree heart block by electrocardiogram (Acute) Preoperative cardiovascular examination (Acute) Trigger finger, left middle finger (Acute) Carpal tunnel syndrome of right wrist (Acute) Cubital tunnel syndrome on right (Acute) Cubital tunnel syndrome on left (Acute) Carpal tunnel syndrome of left wrist (Acute) Left hand pain (Acute) Numbness and tingling in both hands (Acute) Type 2 diabetes mellitus with unspecified complications (Acute) Atherosclerotic cardiovascular disease (Acute) Type 2 diabetes mellitus with hyperglycemia, with long-term current use of insulin (Acute) Type 2 diabetes mellitus with diabetic polyneuropathy (Acute) Proteinuria (Acute) Type 2 diabetes mellitus with other diabetic kidney complication (Acute) Essential hypertension (Acute) Hyperlipidemia LDL goal <70 (Acute) [facility]AW[place]. Claustrophobic with CPAP machine. Not using H/o DVT/PE. Last dose of eliquis 09/22/23 Coronary artery stents ? about 20 years ago. Denies chest pain or any cardiac symptoms Increased BMI 38.7 Past Medical History Medical History (Updated 09/26/23 @ 08:55 by Aminta Paz MD) Back pain Hx of radiation therapy Lumbago On anticoagulant therapy On beta truman at home Insulin dependent diabetes Pulmonary embolus Popliteal DVT (deep venous thrombosis) Chronic kidney disease (CKD), stage II (mild) Sleep apnea Peripheral neuropathy History of skin cancer Other and unspecified hyperlipidemia Type 2 diabetes mellitus with unspecified complications Atherosclerotic cardiovascular disease Obesity due to excess calories Tubular adenoma of colon Graves disease CAD (coronary artery disease) Type 2 diabetes mellitus with hyperglycemia, with long-term current use of insulin Type 2 diabetes mellitus with diabetic polyneuropathy Proteinuria Type 2 diabetes mellitus with other diabetic kidney complication Essential hypertension Hyperlipidemia LDL goal <70 Renal stones GERD (gastroesophageal reflux disease) Diabetes Gout Family History Family History Father Colon cancer Mother Lung cancer Family history of problems with anesthesia: No Surgical History Surgical History History of ERCP History of back surgery History of esophagogastroduodenoscopy (EGD) Hx laparoscopic cholecystectomy Hx of elbow surgery Hx of hand surgery Hx of carpal tunnel repair Hx of colonoscopy H/O cystoscopy History of coronary artery stent placement History of hemorrhoidectomy History of Problems with Anesthesia: No Social History Social History Household Members: Spouse Housing: House Are you a primary medical care administrator to a significant other at home: No Do you presently have visiting nurse or other home services: No Alcohol intake: current Alcohol intake frequency: a few times a month Patient Tobacco Use Status: Former Tobacco user Tobacco use type: Cigarette Years Smoked: 35 +/- Second Hand Smoke Exposure: No Substance Use Type: Marijuana service: No Current occupational status: retired 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 [employer] [facility] [employer] Review Source on the computer [employer] Allergies Allergy/AdvReac Type Severity Reaction Status Date / Time No Known Allergies Allergy Verified 09/01/22 10:34 [No Known Allergies*] Home Medications ?Medication ?Instructions ?Recorded ?Confirmed ?Last Taken ?Type blood sugar diagnostic #10 ea 02/13/20 08/03/22 Unknown History levothyroxine 50 mcg tablet 50 mcg PO DAILY@0630 02/13/20 09/26/23 09/26/23 05:30 History (Synthroid) lisinopril 20 mg tablet 20 mg PO BEDTIME 02/13/20 09/23/23 01/07/22 History pen needle, diabetic 32 gauge x #50 ea 02/13/20 08/03/22 01/08/22 History omeprazole 20 mg capsule,delayed 1 cap PO DAILY@0630 08/05/20 09/23/23 10/07/22 History release allopurinol 300 mg tablet 300 mg PO DAILY 01/26/21 09/23/23 01/08/22 History aspirin 81 mg tablet,delayed 81 mg PO DAILY 01/26/21 09/26/23 09/25/23 History release (Adult Low Dose Aspirin) cholecalciferol (vitamin D3) 25 50 mcg PO BEDTIME 01/08/22 09/23/23 01/07/22 History mcg (1,000 unit) tablet insulin aspart U-100 100 unit/mL 24 unit subcut BID@0730,1130 01/08/22 08/09/23 01/08/22 History (3 mL) subcutaneous pen (Novolog FlexPen U-100 Insulin aspart) insulin aspart U-100 100 unit/mL 34 unit subcut DAILY@1630 01/08/22 08/09/23 01/08/22 History (3 mL) subcutaneous pen (Novolog FlexPen U-100 Insulin aspart) budpaicwhksq-tbq-mrsuv acid-vit 1 tab PO DAILY 01/08/22 09/23/23 Unknown History K-lycop 400 mcg-20 mcg-370 mcg tablet (Men's 50 Plus Multivitamin) pioglitazone 30 mg tablet 30 mg PO BEDTIME 01/08/22 09/23/23 01/08/22 History apixaban 5 mg tablet (Eliquis) 5 mg PO BID 08/03/22 09/26/23 09/22/23 History metoprolol succinate 50 mg 50 mg PO DAILY 08/03/22 09/23/23 10/07/22 History tablet,extended release 24 hr semaglutide 1 mg/dose (4 mg/3 mL) 1 mg subcut QWEEK 08/09/23 09/26/23 09/18/23 History subcutaneous pen injector (Ozempic) Exam Height,Weight and Vital Signs: Height 6 ft Weight 127.913 kg Vital Signs Temp Pulse Resp BP Pulse Ox O2 Del Method 96.3 F L 82 20 147/79 H 96 Room Air 09/26/23 06:55 09/26/23 06:55 09/26/23 06:55 09/26/23 06:55 09/26/23 06:55 09/26/23 06:55 Airway Mallampati Class: II TM Dist: >3cm Neck ROM: Full Loose/Missing/Broken Teeth: Yes (Bfoken tooth top right back. Missing 1 molar bottom Right and left. Denies loose teeth) Heart: RRR Lungs: CTAB Assessment and Plan Assessment Anesthesia Assessment: Anesthesia Plan Discussed and Chart Reviewed Final Anesthetic Review Family History of Problems with Anesthesia: No History of Problems with Anesthesia: No NPO: Yes ASA Class: III Final Preanesthetic Review: No Changes in Pt Med Stat, Meds/Allgs Chart Reviewed, Consent Obtained/Reviewed and Anes Risks/Benef Reviewed Patient Risk: Intermediate Procedure Risk: Low Assessment/Block/Sedation in SS: Assess/Block/Sedation-SS Anesthetic Plan Anesthetic Plan: TIVA Disposition: Standard PACU
--- OUTSIDE RECORDS SUMMARY | 2023-09-26 06:33 | XMS_ITS | Continuity of Care Document ---
Author Organization [facility] Address [address] [place] [address] [address] [place] [address]- Care Team Providers Care Chief Nurse Anesthetist Name Role Phone Moy Coyle MD Primary Care Physician [phone] Encounter [facility] Date(s): 04/06/22 - 04/13/[address] [place] [address]- Attending Physician: Mary Mendoza MD Referring Physician: Tasneem Liao MD Allergies, Adverse Reactions, Alerts No Known Allergies Immunizations Given and Recorded Vaccine Date Status Refusal Reason [id number] 12y+ bivalent booster vax 01/15/22 Recorded SARS-CoV-2 mRNA ([id number]-[id number]) vax 06/11/21 Recorded SARS-CoV-2 (COVID-19) mRNA BNT-162b2 vac 12/06/20 Recorded SARS-CoV-2 (COVID-19) mRNA BNT-162b2 vac 03/26/20 Recorded SARS-CoV-2 (COVID-19) mRNA BNT-162b2 vac 03/05/20 Recorded Medications Allopurinol Refills 0, Maintenance, 05/14/21 10:45:00 EST, Partial fill upon patient request if the prescription is for a schedule II opioid drug. Start Date: 05/14/21 Status: Ordered allopurinol 300 mg oral tablet 300 mg, 1, tablet, By Mouth, Daily, # 30 tablet, Refills 0, Maintenance, 03/19/22 1:21:00 EST, Partial fill upon patient request if the prescription is for a schedule II opioid drug. Start Date: 03/19/22 Status: Ordered apixaban 5 mg oral tablet 1 tablet = 5 mg, By Mouth, 2 times a day, # 60 tablet, 0 Refills, Maintenance, 03/19/22 1:32:00 EST, Tablet, Partial fill upon patient request if the prescription is for a schedule II opioid drug. Start Date: 03/19/22 Status: Ordered aspirin 81 mg oral capsule 4 capsule = 324 mg, By Mouth, Every 4 hours, 0 Refills, Maintenance, 05/14/21 10:45:00 EST, Partialfill upon patient request if the prescription is for a schedule II opioid drug. Start Date: 05/14/21 Status: Ordered aspirin 81 mg oral tablet, chewable 81 mg, 1, tablet, By Mouth, Daily, # 30 tablet, Refills 0, Maintenance, 03/19/22 1:21:00 EST, Partial fill upon patient request if the prescription is for a schedule II opioid drug. Start Date: 03/19/22 Status: Ordered levothyroxine 50 mcg (0.05 mg) oral capsule 1 capsule = 50 mcg, By Mouth, Daily, # 30 capsule, 0 Refills, Maintenance, 03/19/22 1:23:00 EST, Capsule, Partial fill upon patient request if the prescription is for a schedule II opioid drug. Start Date: 03/19/22 Status: Ordered Lisinopril By Mouth, Daily, 0 Refills, Maintenance, 05/14/21 10:45:00 EST, Partial fill upon patient request if the prescription is for a schedule II opioid drug. Start Date: 05/14/21 Status: Ordered Lopressor 50 mg oral tablet 50 mg, 1, tablet, By Mouth, 2 times a day, Refills 0, Maintenance, 05/14/21 10:44:00 EST, Partial fill upon patient request if the prescription is for a schedule II opioid drug. Start Date: 05/14/21 Status: Ordered metoprolol 50 mg oral tablet, extended release 50 mg, 1, tablet, By Mouth, Daily, # 30 tablet, Refills 0, Maintenance, 03/19/22 1:30:00 EST, Partial fill upon patient request if the prescription is for a schedule II opioid drug. Start Date: 03/19/22 Status: Ordered NovoLOG FlexPen 100 units/mL subcutaneous solution See Instructions, Subcutaneous Injection, PRN Blood Glucose, Use as directed for Diabetes mellitus type 1. (Max Dose = 50 units/day), # 3 each, 5 Refills, Maintenance, 03/19/22 1:33:00 EST, Partial fill upon patient request if the prescription is for... Start Date: 03/19/22 Stop Date: 04/18/22 Status: Ordered Omeprazole By Mouth, Daily, 0 Refills, Maintenance, 05/14/21 10:45:00 EST, Partial fill upon patient request if the prescription is for a schedule II opioid drug. Start Date: 05/14/21 Status: Ordered omeprazole 20 mg oral delayed release tablet 1 tablet = 20 mg, By Mouth, Daily, # 30 tablet, 0 Refills, Maintenance, 03/19/22 1:21:00 EST, CR Tablet, Partial fill upon patient request if the prescription is for a schedule II opioid drug. Start Date: 03/19/22 Status: Ordered Pioglitazone By Mouth, Daily, 0 Refills, Maintenance, 05/14/21 10:46:00 EST, Partial fill upon patient request if the prescription is for a schedule II opioid drug. Start Date: 05/14/21 Status: Ordered pioglitazone 30 mg oral tablet 1 tablet = 30 mg, By Mouth, Daily, # 30 tablet, 0 Refills, Maintenance, 03/19/22 1:32:00 EST, Tablet, Partial fill upon patient request if the prescription is for a schedule II opioid drug. Start Date: 03/19/22 Status: Ordered Rosuvastatin By Mouth, Daily, 0 Refills, Maintenance, 05/14/21 10:45:00 EST, Partial fill upon patient request if the prescription is for a schedule II opioid drug. Start Date: 05/14/21 Status: Ordered rosuvastatin 20 mg oral capsule 1 capsule = 20 mg, By Mouth, Daily, # 90 capsule, 0 Refills, Maintenance, 03/19/22 1:20:00 EST, Capsule, Partial fill upon patient request if the prescription is for a schedule II opioid drug. Start Date: 03/19/22 Status: Ordered Synthroid By Mouth, Daily, Refills 0, Maintenance, 05/14/21 10:45:00 EST, Partial fill upon patient request if the prescription is for a schedule II opioid drug. Start Date: 05/14/21 Status: Ordered Tresiba Subcutaneous Infusion, Daily, 0 Refills, Maintenance, 05/14/21 10:46:00 EST, Partial fill upon patient request if the prescription is for a schedule II opioid drug. Start Date: 05/14/21 Status: Ordered Tresiba FlexTouch 200 units/mL subcutaneous solution = 110 units, Subcutaneous Injection, Daily, rotate injection sites, # 9 mL, 0 Refills, Maintenance,03/19/22 1:31:00 EST, Solution, Partial fill upon patient request if the prescription is for a schedule II opioid drug. Start Date: 03/19/22 Status: Ordered Problem List Condition Confirmation Course Effective Dates Status Health St atus Informant Severe obesity Confirmed Active Vital Signs Most recent to oldest [Reference Range]: 1 Height 184 cm (04/06/22 9:28 AM) Weight 139.2 kg (04/06/22 9:28 AM) Pulse Rate [55-90 bpm] 77 bpm (04/06/22 9:28 AM) Body Mass Index [18.5-24.99 kg/m2] 41.12 kg/m2 *>HHI* (04/06/22 9:28 AM) Blood Pressure [90-138/55-84 mm Hg] 133/ 70mm Hg (04/06/22 9:28 AM) Temperature [96.8-100.4 DegF] 97.3 DegF (04/06/22 9:28 AM) Blood pressure sites Arm, left (04/06/22 9:28 AM) Temperature Route Temporal (04/06/22 9:28 AM) Weight Obtained Via Standing scale (04/06/22 9:28 AM) Social History Social History Type Response Smoking Status Former smoker, quit more than 30 days ago entered on: 03/18/22 Sex Patient Care team information Care Team Personnel Name: Moy Coyle MD Position: [facility] Outreach Member Role: PCP Address: Address: [address] [place] [address] Moy Coyle MD [place], [place] - Name: Marian Meraz RN Position: [facility] RN Member Role: Primary Care Nurse Care Team Related Persons Name: JS LITTLEJOHN Address: [address] Name: WALTER LITTLEJOHN Address: [place], [place] Name: BENJAMIN LITTLEJOHN Address: [place], [place]
--- OUTSIDE RECORDS SUMMARY | 2023-09-26 06:33 | XMS_ITS | Continuity of Care Document ---
Author Organization [facility] Address [address] [place] [address] ve [address] [place] [address]- Care Team Providers Care Inner Diameter Grinder Tool Name Role Phone Moy Coyle MD Primary Care Physician [phone] Encounter [facility] Date(s): 04/06/22 - 05/20/[address] [place] [address]- Attending Physician: Ely Cazares MD Allergies, Adverse Reactions, Alerts No Known Allergies Immunizations Given and Recorded Vaccine Date Status Refusal Reason [id number] 12y+ bivalent booster vax 01/15/22 Recorded SARS-CoV-2 mRNA (ydmrscj-ndsi-phpuc) vax 06/11/21 Recorded SARS-CoV-2 (COVID-19) mRNA BNT-162b2 [...] St atus Informant Severe obesity Confirmed Active Social History Social History Type Response Smoking Status Former smoker, quit more than 30 days ago entered on: 03/18/22 Sex Patient Care team information Care Team Personnel Name: Moy Coyle MD Position: [facility] Outreach Member Role: PCP Address: Address: [address] [place] [address] [place] [address]- Name: Marian Meraz RN Position: [facility] RN Member Role: Primary Care Nurse Care Team Related Persons Name: JS LITTLEJOHN Address: [address] [address] Name: WALTER LITTLEJOHN Address: [place], [place] Name: BENJAMIN LITTLEJOHN Address: [place], [place]
--- OUTSIDE RECORDS SUMMARY | 2023-09-26 06:33 | XMS_ITS | Continuity of Care Document ---
Author Organization [facility] Address [address] [place] [address] [address] [place] [address]- Care Team Providers Care Upper Shaper Name Role Phone Moy Coyle MD Primary Care Physician Encounter [facility] [place] Date(s): 04/20/22 - 05/20/[address] [place] [address]- Attending Physician: AdmCatracho grewal8 Admitting Physician: AdmtrKen Referring Physician: Admtr, Ar8 Allergies, Adverse Reactions, Alerts No Known Allergies Immunizations Given and Recorded Vaccine Date Status Refusal Reason [id number] 12y+ bivalent booster vax 01/15/22 Recorded SARS-CoV-2 mRNA (nektjjv-qcky-pwstc) vax 06/11/21 Recorded SARS-CoV-2 (COVID-19) mRNA BNT-162b2 [...] Team Personnel Name: Moy Coyle MD Position: [facility] Outreach Member Role: PCP Address: Address: [address] [place] [address] [place] [address]- Name: Marain Meraz RN Position: [facility] RN Member Role: Primary Care Nurse Care Team Related Persons Name: JS LITTLEJOHN Address: [address] [address] Name: WALTER LITTLEJOHN Address: [place], [place] Name: BENJAMIN LITTLEJOHN Address: [place], [place]
--- OUTSIDE RECORDS SUMMARY | 2023-09-26 06:33 | XMS_ITS | Continuity of Care Document ---
Author Organization [facility] Address [address] [place] [address] Dr [address] [place] [address]- Care Team Providers Care Client Operations Manager Name Role Phone Moy Coyle MD Primary Care Physician Encounter [facility] Date(s): 02/02/23 - 03/04/[address] [place] [address]- Attending Physician: AdmKen grewal Admitting Physician: AdmKen grewal Referring Physician: Admtr, Ar8 Allergies, Adverse Reactions, Alerts No Known Allergies Immunizations Given and Recorded Vaccine Date Status Refusal Reason [id number] 12y+ bivalent booster vax 01/15/22 Recorded SARS-CoV-2 mRNA (aldqjpr-kmqi-upagy) vax 06/11/21 Recorded SARS-CoV-2 (COVID-19) mRNA BNT-162b2 [...] Team Personnel Name: Moy Coyle MD Position: [facility] Outreach Member Role: PCP Address: Address: [address] [place] [address] [place] [address]- Name: Marian Meraz RN Position: [facility] RN Member Role: Primary Care Nurse Care Team Related Persons Name: JS LITTLEJOHN Address: [address] [address] Name: WALTER LITTLEJOHN Address: [place], [place] Name: BENJAMIN LITTLEJOHN Address: [place], [place]
--- OUTSIDE RECORDS SUMMARY | 2023-09-26 06:33 | XMS_ITS | Continuity of Care Document ---
Author Organization [facility] Address [address] [place] [address] [address] [place] [address]- Care Team Providers Care Heel Lining Paster Name Role Phone Moy Coyle MD Primary Care Physician Encounter [facility] Date(s): 12/22/22 - 12/29/[address] [place] [address]- Attending Physician: Yaniv Nolan Referring Physician: Moy Coyle MD Allergies, Adverse Reactions, Alerts No Known Allergies Immunizations Given and Recorded Vaccine Date Status Refusal Reason [id number] 12y+ bivalent booster vax 01/15/22 Recorded SARS-CoV-2 mRNA ([id number]) vax 06/11/21 Recorded SARS-CoV-2 (COVID-19) mRNA BNT-[id number] [...] opioid drug. Start Date: 03/19/22 Status: Ordered hydrocortisone topical 25 mg suppository 1 supp = 25 mg, Rectally, 2 times a day, for 14 days, # 28 supp, 1 Refills, Acute 01/25/23 10:37:00EST, 12/28/22 10:37:00 EDT, Suppository, [facility], Partial fill upon patient request if the prescription is for a schedule II opio... Start Date: 12/28/22 Stop Date: 01/25/23 Status: Ordered hydrocortisone topical 25 mg suppository 1 supp = 25 mg, Rectally, 2 times a day, for 14 days, # 28 supp, 1 Refills, Acute 01/19/23 9:28:00 EST, 12/22/22 9:28:00 EDT, Suppository, [facility]/pharm[facility] #[id number], Partial fill upon patient request if theprescription is for a schedule II opioid drug., 184... Start Date: 12/22/22 Stop Date: 01/19/23 Status: Ordered levothyroxine 50 mcg (0.05 mg) [...] oldest [Reference Range]: 1 Height 184 cm (12/22/22 8:59 AM) Weight 149.1 kg (12/22/22 8:59 AM) Pulse Rate [55-90 bpm] 91 bpm *H* (12/22/22 8:59 AM) Body Mass Index [18.5-24.99 kg/m2] 44.04 kg/m2 *>HHI* (12/22/22 8:59 AM) Blood Pressure [90-138/55-84 mm Hg] 150/ 73mm Hg *H* (12/22/22 8:59 AM) Respiratory Rate [16-30 br/min] 20 br/mi n (12/22/22 8:59 AM) Temperature [96.8-100.4 DegF] 98.2 DegF (12/22/22 8:59 AM) Blood pressure sites Arm, right (12/22/22 8:59 AM) Temperature Route Temporal (12/22/22 8:59 AM) Weight Obtained Via Standing scale (12/22/22 8:59 AM) Social History Social History Type Response Smoking Status Former smoker, quit more than 30 days ago entered on: 03/18/22 Sex Patient Care team information Care Team Personnel Name: Moy Coyle MD Position: [facility] Outreach Member Role: PCP Address: Address: [address] [place] [address] [place] [address]- Name: Marian Meraz RN Position: [facility] RN Member Role: Primary Care Nurse Care Team Related Persons Name: JS LITTLEJHON Address: [address] [address] Name: WALTER LITTLEJOHN Address: [place], [place] Name: BENJAMIN LITTLEJOHN Address: [place], [place]
--- OUTSIDE RECORDS SUMMARY | 2023-09-26 06:33 | XMS_ITS | Continuity of Care Document ---
Author Organization [facility] ter Address [address] [place] [id number]- Care Team Providers Care Marketer Name Role Phone Moy Coyle MD Primary Care Physician Encounter [facility] Date(s): 03/18/22 - 03/21/[address] [id number] Encounter Diagnosis Biliary colic(Final) - 03/18/22 Discharge Disposition: A-D/C Home Attending Physician: Evy Mojica MD Admitting Physician: Evy Mojica MD Referring Physician: Not on Staff, Referring MD Allergies, Adverse Reactions, Alerts No Known Allergies Immunizations Given and Recorded Vaccine Date Status Refusal Reason [id number] 12y+ bivalent booster vax 01/15/22 Recorded SARS-CoV-2 mRNA ([id number]) vax 06/11/21 Recorded SARS-CoV-2 (COVID-19) mRNA BNT-162b2 [...] opioid drug. Start Date: 03/19/22 Status: Ordered oxyCODONE 5 mg oral tablet 5 mg, 1, tablet, By Mouth, Every 4 hours, PRN, Do not drive or drink alcohol while taking this medication., # 10 tablet, Refills 0, Tot. Refills 0, Acute 03/28/22 8:00:00 EST, Pain , Severe, :10:00 EST, Route to Pharmacy Electronically, [facility] Start Date: 03/21/22 Stop Date: 03/28/22 Status: Ordered Pioglitazone By Mouth, Daily, 0 [...] opioid drug. Start Date: 03/19/22 Status: Ordered Tylenol 325 mg oral tablet 975 mg, 3, tablet, By Mouth, Every 6 hours, for 5 days, not to exceed 4000 mg/day, # 60 tablet, Refills 0, Tot. Refills 0, Acute 03/26/22 9:10:00 EST, 03/21/22 9:10:00 EST, Route to Pharmacy Electronically, [facility], Partial fill upon... Start Date: 03/21/22 Stop Date: 03/26/22 Status: Ordered Problem List Condition Confirmation Course Effective Dates Status Health St atus Informant Obese class II Confirmed Active Procedures Procedure Date Related Diagnosis Body Site Status Repair umbilical hernia, age 5 years or older; reducible 03/19/22 Completed Laparoscopy, surgical; jana cystectomy with cholangiography Completed Results Radiology Reports * Exam Date Time Procedure Performing Provider Status 03/20/22 3:27 PM ERCP Both Ducts Kendra Mcmillan; Ernst (Verified) Notes: (ERCP Both Ducts) Reason For Exam: CBD stone, stone extracted RESULT: ERCP Both Ducts FINDINGS/IMPRESSION 10 fluoroscopic spot images during ERCP with cannulation and opacification of the biliary tree. Fluoroscopy time: 27 seconds Technologist: 35 minutes WSN: [id number] Ordering Physician: Kev Marin Dictated By: Francine TORRES, Benjamin Goncalves Dictated Date/Time: 03/20/22 4:51 pm Reviewed By: Benjamin Escamilla MD Signed By: Benjamin Escamilla MD Signed Date/Time: 03/20/22 4:51 pm Transcribed By: VIC Transcribed Date/Time: 03/20/22 4:50 pm * Exam Date Time Procedure Performing Provider Status 03/19/22 4:35 PM C-Arm < 1 Hour Nyla Vieira ( Verified) Notes: (C-Arm < 1 Hour) Reason For Exam: LAP JANA RESULT: C-Arm < 1 Hour 8 intraprocedural fluoroscopic images from an intraoperative cholangiogram dated March 19, 2022. No prior studies are available. A right upper quadrant ultrasound from March 18, 2022 is available for comparison. Intraprocedural fluoroscopy was utilized. The technologist time was 10 minutes. The fluoroscopic time was 10 seconds. The dose area product was 2.2 kapil per centimeters squared. This examination shows contrast opacification of the biliary tree via the cystic duct. There is a filling defect initially noted in the proximal common bile duct at the origin of the cystic duct. Smaller filling defects are present within the cystic duct. A filling defect appears to pass inferiorlyand on the last 2 images there is a filling defect at the sphincter of bony. IMPRESSION: Filling defects suspicious for retained stones versus less likely air bubbles. Thank you for allowing me to participate in the care of this patient. WSN: [id number] Ordering Physician: Tasneem Liao Dictated By: Te Nieves MD Dictated Date/Time: 03/19/22 5:12 pm Reviewed By: Te Nieves MD Signed By: Te Nieves MD Signed Date/Time: 03/19/22 5:12 pm Transcribed By: VIC Transcribed Date/Time: 03/19/22 5:09 pm * Exam Date Time Procedure Performing Provider Status 03/19/22 4:35 PM Cholangiogram Intraoperative Nyla Vieira (Verified) Notes: (Cholangiogram Intraoperative) Reason For Exam: LAP JANA RESULT: Cholangiogram Intraoperative 8 intraprocedural fluoroscopic images from an intraoperative cholangiogram dated March 19, 2022. No prior studies are available. A right upper quadrant ultrasound from March 18, 2022 is available for comparison. Intraprocedural fluoroscopy was utilized. The technologist time was 10 minutes. The fluoroscopic time was 10 seconds. The dose area product was 2.2 kapil per centimeters squared. This examination shows contrast opacification of the biliary tree via the cystic duct. There is a filling defect initially noted in the proximal common bile duct at the origin of the cystic duct. Smaller filling defects are present within the cystic duct. A filling defect appears to pass inferiorlyand on the last 2 images there is a filling defect at the sphincter of bony. IMPRESSION: Filling defects suspicious for retained stones versus less likely air bubbles. Thank you for allowing me to participate in the care of this patient. WSN: [id number] Ordering Physician: Tasneem Liao Dictated By: Te Nieves MD Dictated Date/Time: 03/19/22 5:12 pm Reviewed By: Te Nieves MD Signed By: Te Nieves MD Signed Date/Time: 03/19/22 5:12 pm Transcribed By: VIC Transcribed Date/Time: 03/19/22 5:09 pm * Exam Date Time Procedure Performing Provider Status 03/18/22 2:09 PM US RUQ Danielle Varela; Ernst (Ve rified) Notes: (US RUQ) Reason For Exam: Abdominal Pain;Other: RESULT: US RUQ US RUQ Hx of Present Illness: Pt ambulated to chair. Pt reports that he was told to come by MD for gallbladder labs being way out of wack. Pt reports not eating x 1 week but if he did the pain would be terrible.; Reason: Other:; Abdominal Pain; Clinical Question(s): Cholecystitis COMPARISON: No pertinent prior exams available for comparison. FINDINGS: Liver: Diffusely echogenic parenchyma with focal sparing around the gallbladder. Significant acoustic attenuation from the steatotic liver with poor penetration of the deep hepatic structures. No suspicious lesion. Smooth hepatic contour. Gallbladder: Multiple mobile gallstones. Normal wall thickness. No pericholecystic fluid. Negative Obrien sign. Biliary Tree: No intrahepatic or extrahepatic bile duct dilation is identified. Common duct measures: 0.4 cm. Pancreas: Obscured by overlying bowel gas. Right kidney: 13.3 cm in length. Normal parenchymal echotexture and thickness. No hydronephrosis, stone or mass. IMPRESSION: 1. Echogenic liver likely representing hepatic steatosis. 2. Cholelithiasis without evidence of acute cholecystitis. WSN: [id number] Ordering Physician: Ana Marquis Dictated By: Alexander Steel MD Dictated Date/Time: 03/18/22 2:47 pm Reviewed By: Alexander Steel MD Signed By: Alexander Steel MD Signed Date/Time: 03/18/22 2:47 pm Transcribed By: VIC Transcribed Date/Time: 03/18/22 2:43 pm Vital Signs Most recent to oldest [Reference Range]: 1 2 3 Height 184 cm (03/21/22 5:38 AM) 184 cm (03/20/22 11:36 PM) 184 cm (03/20/22 8:50 PM) Weight 134.7 kg (03/20/22 1:57 PM) 134.7 kg (03/19/22 2:36 PM) 134.7 kg (03/19/22 12:00 PM) Oxygen Saturation [94-100 %] 95 % (03/21/22 8:00 AM) 93 % *L* (03/21/22 5:38 AM) 94 % (03/20/22 11:36 PM) Pulse Rate [55-90 bpm] 87 bpm (03/21/22 8:00 AM) 79 bpm (03/21/22 5:38 AM) 85 bpm (03/20/22 11:36 PM) Body Mass Index [18.5-24.99 kg/m2] 39.79 kg/m2 *>HHI* (03/20/22 1:57 PM) 39.79 kg/m2 *>HHI* (03/19/22 2:36 PM) 39.36 kg/m2 *>HHI* (03/18/22 9:32 PM) Blood Pressure [90-138/55-84 mm Hg] 136/62mm Hg (03/21/22 8:00 AM) 129/58mm Hg (03/21/22 5:38 AM) 133/58mm Hg (03/20/22 11:36 PM) Respiratory Rate [16-30 br/min] 18 br/min (03/21/22 8:00 AM) 18 br/min (03/21/22 5:38 AM) 17 br/min (03/20/22 11:36 PM) Temperature [96.8-100.4 DegF] 97.9 DegF (03/21/22 8:00 AM) 97.3 DegF (03/21/22 5:38 AM) 98.2 DegF (03/20/22 11:36 PM) Liters per Minute 6 L/min (03/20/22 3:15 PM) 3 L/min (03/20/22 11:00 AM) 3 L/min (03/20/22 8:00 AM) Mode of Delivery (Oxygen) Room air (03/21/22 8:00 AM) Room air (03/21/22 5:38 AM) Room air (03/20/22 11:36 PM) Blood pressure sites Arm, right (03/21/22 8:00 AM) Arm, right (03/21/22 5:38 AM) Arm, right (03/20/22 11:36 PM) Temperature Route Oral (03/21/22 8:00 AM) Oral (03/21/22 5:38 AM) Oral (03/20/22 11:36 PM) Dry Weight 134.7 kg (03/19/22 2:36 PM) 134.7 kg (03/18/22 9:32 PM) Weight Obtained Via Bed scale (03/18/22 9:32 PM) Social History Social History Type Response Smoking Status Former smoker, quit more than 30 days ago entered on: 03/18/22 Sex History and physical note * Deborah Fuentes MD: MODIFY, SIGN, VERIFY, MODIFY, SIGN, MODIFY, MODIFY, MODIFY, MODIFY, MODIFY, MODIFY, MODIFY, MODIFY, MODIFY, MODIFY, PERFORM, MODIFY Event Display: History and Physical Hospital Authored Date: Patient: YANELIS LITTLEJOHN Age: 67 years Sex: Male : 1955 Associated Diagnoses: None Author: Deborah Fuentes MD Visit Information Consulting Physician: Dr. Rubio Consulted Resident Physician: Dr. Fuentes Consulted Attending Physician: Dr. Harkins Reason for Consult: Acute Cholecystitis Admission Information Attending Physician Certification of Inpatient Medical Necessity Estimated Duration of Hospitalization: 2 days. Plans for Posthospital Care: Home. History of Present Illness 67M w/ PMH of biliary colic who presented for worsening RUQ pain. In December her was seen at an OSHwhere he was told he had biliary colic, an elevated bilirubin, but was not offered surgery at that time. Over the last 10 days, he has had worsening RUQ pain, has been unable to tolerate anything PO due fear of eating secondary to pain. He has been barley been able to tolerate fluids, has had decreased UOP and states its a dark orange color. Any kind of food worsens the pain, not just fatty food.He was having nausea and vomiting, but has not had any since 3 days ago. He saw a surgeon at [facility] a couple days ago who told him that his bilirubin was 4.1 and that he needed to go to [facility] because he was unable to help him. He also saw his primary care doctor who started him on ciprofloxacinand metronidazole for what he believes was an infection of his gallbladder but he was not sure. He is actually improved over the last 3 days however he has been to take anything n.p.o. as every time he eats he gets pain about 2 hours later that last 4 to 8 hours. Complaining of a sharp back pain marquise t is in the middle of his back that has also been occurring over the last 10 days that is differentfrom his baseline back pain. He denies any chest pain, breath, pain radiating aiding down his arm, diaphoresis, any other concerning cardiac symptoms. Denies any fevers, chills, chest pain, SOB, or diarrhea. Of note this is the first time that he has had the symptoms since December. Past Medical History Diabetes CAD Osteoarthritis Pulmonary Embolism DVT Back pain Kidney stones Graves disease- post iodine radiation Gout GERD SHAWN Problem list All Problems Severe obesity / SNOMED CT [id number] / Confirmed Allergies Allergic Reactions (Selected) NKA Current medications (Selected) Documented Medications Documented Allopurinol: Refills 0, Maintenance, 05/14/21 10:45:00 EST, Partial fill upon patient request if the prescription is for a schedule II opioid drug. Lisinopril: By Mouth, Daily, 0 Refills, Maintenance, 05/14/21 10:45:00 EST, Partial fill upon patient request if the prescription is for a schedule II opioid drug. Lopressor 50 mg oral tablet: 50 mg, 1, tablet, By Mouth, 2 times a day, Refills 0, Maintenance, 05/14/21 10:44:00 EST, Partial fill upon patient request if the prescription is for a schedule II opioid drug. Omeprazole: By Mouth, Daily, 0 Refills, Maintenance, 05/14/21 10:45:00 EST, Partial fill upon patient request if the prescription is for a schedule II opioid drug. Pioglitazone: By Mouth, Daily, 0 Refills, Maintenance, 05/14/21 10:46:00 EST, Partial fill upon patient request if the prescription is for a schedule II opioid drug. Rosuvastatin: By Mouth, Daily, 0 Refills, Maintenance, 05/14/21 10:45:00 EST, Partial fill upon patient request if the prescription is for a schedule II opioid drug. Synthroid: By Mouth, Daily, Refills 0, Maintenance, 05/14/21 10:45:00 EST, Partial fill upon patient request if the prescription is for a schedule II opioid drug. Tresiba: Subcutaneous Infusion, Daily, 0 Refills, Maintenance, 05/14/21 10:46:00 EST, Partial fill upon patient request if the prescription is for a schedule II opioid drug. aspirin 81 mg oral capsule: 4 capsule = 324 mg, By Mouth, Every 4 hours, 0 Refills, Maintenance, 05/14/21 10:45:00 EST, Partial fill upon patient request if the prescription is for a schedule II opioid drug. Ciprofloxacin Flagyl Eliquis Surgical History Cardiac Stent Trigger finger Carpal tunnel Elbow Tonsillectomy Hemorrhoidectomy Social History Former smoker- quit 10 years ago Patient lives at home with family Family History Patient denies any past family history Review of Systems Constitutional: No fevers, chills, or fatigue Eyes: No changes in vision ENT: No difficulty swallowing or hemoptysis Cardiovascular: No chest pain or palpitations Respiratory: no SOB, cough or wheezes Gastrointestinal: Abdominal pain, nausea, vomiting, No diarrhea, or constipation Genitourinary: No dysuria Musculoskeletal: No stiffness or swelling Integumentary: no rashes Neurological: no headaches or numbness Endocrine: no excessive thirst or sweating All others negative as per HPI Physical Examination Vitals: Temperature 97.6 (12:20) Systolic Blood Pressure 117 (12:20) Diastolic Blood Pressure 56 (12:20) Pulse 74 (12:20) SpO2 99 (12:20) Respiratory Rate 16 (12:20) Physical Exam: Constitutional: No acute distress, awake, alert and oriented x3 Cardiovascular: Regular rate and rhythm, +S1/S2, no murmurs, rubs, or gallops, no edema, 2+ dorsalis pedia bilaterally Respiratory: Clear to auscultation bilaterally, no wheezes, rales, rhonchi, or crackles Abdomen: soft, band of pain in mid abdomen, non-distended, -Obrien, bowel sounds present Genitourinary: no CVA tenderness Musculoskeletal: no calf tenderness Skin: no skin changes or scars Neurological: no loss of sensation bilaterally Lymphatic: no lymphedema or hepatosplenomegaly Results Review BLOOD COUNT & DIFF WBC 9.1 k/mm3 () 03/18/2022 05:56 RBC 5.12 m/mm3 () 03/18/2022 05:56 Hgb 15.7 Gm/dL () 03/18/2022 05:56 Hct 48.5 % () 03/18/2022 05:56 MCV 94.7 femtoliters (High) 03/18/2022 05:56 MCH 30.7 pg () 03/18/2022 05:56 MCHC 32.4 g/dL (Low) 03/18/2022 05:56 Platelet Count 305 k/mm3 () 03/18/2022 05:56 RDW-SD 49.6 femtoliters (High) 03/18/2022 05:56 MPV 9.4 femtoliters () 03/18/2022 05:56 Nucleated RBC (Automated) 0.0 #/100 WBC'S () 03/18/2022 05:56 Abs. NRBC 0.0 k/mm3 () 03/18/2022 05:56 Abs. Neut 4.7 k/mm3 () 03/18/2022 05:56 Abs. Lymph 3.2 k/mm3 (High) 03/18/2022 05:56 Abs. [place] 0.8 k/mm3 () 03/18/2022 05:56 Abs. Eo 0.3 k/mm3 () 03/18/2022 05:56 Abs. Baso 0.1 k/mm3 () 03/18/2022 05:56 Neut % 50.9 % () 03/18/2022 05:56 Lymph % 35.4 % () 03/18/2022 05:56 [place] % 8.8 % () 03/18/2022 05:56 Eos % 3.4 % () 03/18/2022 05:56 Baso % 0.8 % () 03/18/2022 05:56 Imm Gran 0.7 % () 03/18/2022 05:56 Abs. Imm Gran 0.1 k/mm3 () 03/18/2022 05:56 CHEM GENERAL Sodium 138 mmol/L () 03/18/2022 05:56 Potassium 4.2 mmol/L () 03/18/2022 05:56 Chloride 98 mmol/L () 03/18/2022 05:56 Bicarbonate Level 26 mmol/L () 03/18/2022 05:56 Anion Gap 14 () 03/18/2022 05:56 Glucose Level 118 mg/dL (High) 03/18/2022 05:56 BUN 14 mg/dL () 03/18/2022 05:56 Creatinine-Blood 1.0 mg/dL () 03/18/2022 05:56 Estimated GFR Creatinine 80 ML/MIN/1.73 M2 () 03/18/2022 05:56 Calcium 9.8 mg/dL () 03/18/2022 05:56 Protein, Total 7.1 Gm/dL () 03/18/2022 05:56 Albumin 4.6 Gm/dL () 03/18/2022 05:56 AG Ratio 1.8 () 03/18/2022 05:56 Alkaline Phosphatase 294 units/L (High) 03/18/2022 05:56 Lipase 26 units/L () 03/18/2022 05:56 AST (SGOT) 92 units/L (High) 03/18/2022 05:56 ALT (SGPT) 150 units/L (High) 03/18/2022 05:56 Bilirubin, Total 1.6 mg/dL (High) 03/18/2022 05:56 Lactate 1.4 mmol/L () 03/18/2022 05:57 HEME OTHER Hold Blue Top SPECIMEN DISCARDED AFTER 4 HOURS. () 03/18/2022 05:56 UA/URINALYSIS Appear/Color, Urine DARK YELLOW () 03/18/2022 09:50 Specific [place], Urine 1.028 () 03/18/2022 09:50 pH, Urine 5.5 () 03/18/2022 09:50 Albumin, Urine 3+ (Abnormal) 03/18/2022 09:50 Glucose, Urine NEGATIVE () 03/18/2022 09:50 Ketones, Urine NEGATIVE () 03/18/2022 09:50 Bilirubin, Urine 1+ (Abnormal) 03/18/2022 09:50 Hemoglobin, Urine NEGATIVE () 03/18/2022 09:50 Nitrite, Urine NEGATIVE () 03/18/2022 09:50 Leukocyte, Urine TRACE (Abnormal) 03/18/2022 09:50 Urobilinogen NORMAL mg/dL () 03/18/2022 09:50 WBC's, Urine 14 /HPF (High) 03/18/2022 09:50 RBC's, Urine 2 /HPF () 03/18/2022 09:50 Bacteria SLIGHT HPF (Abnormal) 03/18/2022 09:50 Squamous Epith 1 /HPF () 03/18/2022 09:50 Hyaline Cast 43 LPF (High) 03/18/2022 09:50 Mucus HEAVY /LPF () 03/18/2022 09:50 Hold Urine Culture Testing available 48 hours from time of collection. () 03/18/2022 09:50 VIROLOGY COVID-19 POC Result NEGATIVE () 03/18/2022 05:49 Impression and Plan Yanelis is a 67-year-old male with complex past medical history including biliary colic diagnosed in December who is presenting to the emergency department after experiencing 10 days of right upper quadrant abdominal pain nausea, vomiting, and decreased p.o. intake secondary to pain and fear of food. Recently seen by a surgeon at [facility] who told him that his case was too complicated and he [facility]go to [facility] to be further evaluated. At that time he was told his bilirubin was quite high. On evaluation today, he denies any nausea, vomiting, or abdominal pain at rest however he is tender in the epigastric/right upper quadrant area. He is hemodynamically stable, although he does endorse decreased urine output secondary to decreased p.o. intake. His labs are significant for increased LFTs as well as a T bili of 1.6, D bili 0.7, I bili 0.9. He is got no leukocytosis, no left shift, and hasbeen afebrile. Right upper quadrant ultrasound significant for cholelithiasis but no signs of acutecholecystitis. Based off his story it is likely that he had choledocholithiasis and passed the stone, accounting for the resolution of his pain and improvement in his bilirubin. Will admit to EGS andplan for OR tomorrow for cholecystectomy. Plan: - Admit general surgery - Cardiology consult - Continue resuscitation - Hold Eliquis - Diet: NPO + IVF - CTX/Flagyl - Pain control - OR tomorrow with EGS for cholecystectomy [place] [phone] with any questions This patient was discussed with ??[facility] Progress note * Erika Modi LPN: VERIFY, PERFORM, SIGN Event Display: Progress Note Hospital Authored Date: [id number] Patient: YANELIS LITTLEJOHN Age: 67 years Sex: Male : 1955 Associated Diagnoses: None Author: Erika Modi LPN Findings Problem Related to Alteration in Gastrointestinal : Alteration in Gastrointestinal Func/new 03/21/2022 10:00 EST Alteration in GI status Related to Abdominal Surgery, Other: biliary colic Goals & Outcomes, Gastrointestinal Establish a regular pattern of elimination for pt, Nutritional intake is adequate for metabolic needs, Pt will achieve normal/improved fluid balance, Pt will have a bowel movement prior to discharge, Pt will maintain adequate GI function appropriate for pt, Ptwill maintain normal elimination patterns, Pt will resume/maintain adequate hemodynamic status, Pt w ill tolerate age appropriate diet prior to discharge Interventions, Gastrointestinal Assess/monitor abdomen for distention, tenderness, Assess/monitor abdominal girth & bowel function, Assess/monitor bowel pattern, bowel sounds, flatus, Assess/monitor number of bowel movements, Assess/monitor color, quantity, quality, consistency of stoo, Assess/monitor pt for nausea, vomiting, Assess/monitor effects of re-hydration, Assess if pt tolerating diet, DVT prophylaxis as ordered, Elevate HOB to facilitate lung expansion, prevent aspiration, Teach Pt/caregiver on bowel elimination interventions, Teach Pt/caregiver re: importance of bowel regime, Teach Pt/caregiver re: nutritional intake & dietary restrict, Teach/encourage deep breath & cough exercises, Teach/encourage use of incentive spirometer Goals/Interventions, Gastrointestinal Yes Gastrointestinal, Problem Start 03/18/2022 21:15 Reviewed plan with, Gastrointestinal Patient Patient Progression, Gastrointestinal Pt progressing according to plan . Nursing Data Gastrointestinal Data. : Gastrointestinal Data. 03/21/2022 10:20 EST Gastrointestinal Symptoms Flatulence Abdomen Soft, Tender, Round RUQ Tenderness To palpation Bowel Sounds LUQ Present Bowel Sounds RUQ Present Bowel Sounds LLQ Present Bowel Sounds RLQ Present Last Bowel Movement 03/19/2022 Ostomy present No Gastric tube present No GI WNL except . Genitourinary Data. : Genitourinary Data. 03/21/2022 10:20 EST Urine Color Yellow Urine Description Concentrated WNL except . Integumentary Data. : Integumentary Data. 03/21/2022 10:20 EST Skin Integrity Not intact Integumentary WNL except . Neurological Data. : Neurological Data. 03/21/2022 10:20 EST Neurological Symptoms Altered sensation or tingling Orientated to person, place, time Person, Place, Time, Event 1 - 10 Pain Scale Score 5 Pain Interventions Pharmacological, Repositioning, Rest Pain relief acceptable Yes Neuro WNL except . Narrative/Incidental Patient is alert/ oriented x4. Reports pain 5/10, medicated with scheduled Meds, see MAR. Lungs areclear on room air. Encouraged to cough/ deep breathe and use incentive spirometer. Has +pedal pulses, +color/ motion/ diminished sensation to feet at baseline, no edema. Patient has + bowel sounds [id number], abdomen is soft/ round/ mildly tender to RUQ on palpation. Diet is low fat, denies nausea/ vomiting. Voiding concentrated yellow urine. Skin is not intact, 4 laps to abdomen with Band-Aids, clean/ dry/ intact. Ambulating standby assist. Call apple within reach, able to use appropriately.. * Yulia TORRES, Edgar De Souza: MODIFY, PERFORM, MODIFY Event Display: Progress Note Hospital Authored Date: [id number] Patient: ??YANELIS LITTLEJHON ? Age:??67 Years?Sex:??Male?:??1955?? Subjective doing well, denies any new complaint Review of Systems Allergies Allergies ?(Active and Proposed Allergies Only) NKA? (Severity: Unknown severity, Onset: Unknown) ? Objective Vital Signs?? Temperature: 97.9 DegF (03/21/22 08:00:00) Temperature Route: Oral (03/21/22 08:00:00) Pulse Rate: 87 bpm (03/21/22 08:00:00) Heart Rate Monitored: 85 bpm (03/20/22 16:00:00) Respiratory Rate: 18 br/min (03/21/22 08:00:00) Systolic Blood Pressure: 136 mm Hg (03/21/22 08:00:00) Diastolic Blood Pressure: 62 mm Hg (03/21/22 08:00:00) Blood pressure sites: Arm, right (03/21/22 08:00:00) Mean Arterial Pressure: 82 mm Hg (03/21/22 05:38:00) Pulse Pressure: 74 mm Hg (03/21/22 08:00:00) Oxygen Saturation: 95 % (03/21/22 08:00:00) Liters per Minute: 6 L/min (03/20/22 15:15:00) Mode of Delivery (Oxygen): Room air (03/21/22 08:00:00) Early Warning Score: 4 (03/21/22 08:51:08) ? Intake/Output? 03/18 05:27 03/21 07:00 03/20 07:00 03/19 07:00 03/18 07:00 ?? 03/21 09:06 08 09:06 03/21 06:59 03/20 06:59 03/19 06:59 Intake ? 6310 ?0 ? 3055 ? 2305 ?950 Output ? 3725 ?0 ? 1900 ? 1500 ?325 Net Total ? 2585 ?0 ? 1155 ?805 ?625 ? Urine Count ?1 ?0 ?1 ?0 ?0 ? Physical Exam Constitutional: Alert, in no distress. Mental Status: Oriented to person, place and time. Head: Normocephalic. Eyes: Pupils are equal, round and reactive to light. Ear, Nose and Throat: Oropharynx clear, mucous membranes moist. Neck: Supple, Full range of motion. Respiratory: Clear to auscultation. No wheezing, rales or rhonchi. Cardiovascular: S1 S2 regular. No murmurs, rubs or gallops. Gastrointestinal: Abdomen soft, non-tender. ??Laparoscopic access sites noted.?? No erythema aroundthese. Genitourinary: No costovertebral angle tenderness. Neurologic: Cranial nerves II-XII grossly intact. No focal neurological deficits. Psychiatric: Normal mood and affect _ Home Medications Allopurinol (allopurinol 300 mg oral tablet)?300?Milligram?1?tablet?By Mouth?Daily apixaban (apixaban 5 mg oral tablet)?1?tab(s)?5?Milligram?By Mouth?2 times a day Aspirin (aspirin 81 mg oral capsule)?4?capsule?324?Milligram?By Mouth?Every 4 hours Aspirin (aspirin 81 mg oral tablet, chewable)?81?Milligram?1?tablet?By Mouth?Daily Insulin Aspart (NovoLOG FlexPen 100 units/mL subcutaneous solution)?See Instructions?Subcutaneous Injection?as needed?Blood Glucose?for 30?Days?Use as directed for Diabetes mellitus type 1. (Max Dose = 50 units/day) insulin degludec (Tresiba)?Subcutaneous Infusion?Daily insulin degludec (Tresiba FlexTouch 200 units/mL subcutaneous solution)?110?unit(s)?Subcutaneous Injection?Daily?rotate injection sites Levothyroxine (Synthroid)?By Mouth?Daily Levothyroxine (levothyroxine 50 mcg (0.05 mg) oral capsule)?1?capsule?50?Microgram?By Mouth?Daily Lisinopril?By Mouth?Daily Metoprolol (Lopressor 50 mg oral tablet)?50?Milligram?1?tablet?By Mouth?2 times aday Metoprolol (metoprolol 50 mg oral tablet, extended release)?50?Milligram?1?tablet?ByMouth?Daily Omeprazole?By Mouth?Daily Omeprazole (omeprazole 20 mg oral delayed release tablet)?1?tab(s)?20?Milligram?By Mouth?Daily Pioglitazone?By Mouth?Daily Pioglitazone (pioglitazone 30 mg oral tablet)?1?tab(s)?30?Milligram?By Mouth?Daily Rosuvastatin?By Mouth?Daily Rosuvastatin (rosuvastatin 20 mg oral capsule)?1?capsule?20?Milligram?By Mouth?Daily ? Inpatient Medications Medications (14) Active SCHEDULED: (6) Acetaminophen 325 mg Tablet (Tylenol 325 mg oral tablet) ??975 mg, By Mouth, Every 6 hours Docusate Sodium 100 mg Capsule (Docusate Sodium Capsule) ??100 mg 1 capsule, By Mouth, 2 times a day Insulin Lispro 100 units/mL Inj (3mL) (Insulin LISPRO Sliding Scale) ??2-10 units, Subcutaneous Injection, 3 times a day before meals Levothyroxine 25 mcg Tablet (Synthroid 0.1 mg oral tablet) ??50 mcg, By Mouth, Daily NaCl 0.9% Flush 3ml (NaCL 0.9% Flush) ??3 mL, IV Push, Every 8 hours Rosuvastatin 20 mg Tablet (rosuvastatin 5 mg oral tablet) ??20 mg, By Mouth, Daily CONTINUOUS: (1) Lactated Ringers (1000 mL) Cont IV 1,000 mL (LR 1,000 mL) ??1,000 mL, IV Infusion, 125 mL/hr PRN: (7) Bisacodyl 10 mg Suppository (Bisacodyl Supp) ??10 mg 1 supp, Rectally, Daily Dextrose Inj Syringe (Dextrose 50% Inj Syringe (25Gm)) ??25 Gm, IV Push Slowly, Every hour Melatonin 3 mg Tablet (Melatonin Tablet) ??3 mg, By Mouth, Daily at bedtime NaCl 0.9% Flush 3ml (NaCL 0.9% Flush) ??3 mL, IV Push, Every 8 hours Ondansetron 2mg/mL Inj (2mL Vial) (Zofran Inj) ??4 mg, IV Push, Every 6 hours Ondansetron 2mg/mL Inj (2mL Vial) (Zofran Inj) ??4 mg, IV Push, Every hour OxyCODONE 5 mg IR Tablet (oxyCODONE 5 mg oral tablet) ??5 mg, By Mouth, Every 4 hours ? Results Recent Labs BLOOD COUNT & DIFF WBC 10.9 k/mm3 ()?? 03/21/2022 07:08 RBC 3.95 m/mm3 (Low)?? 03/21/2022 07:08 Hgb 12.7 Gm/dL (Low)?? 03/21/2022 07:08 Hct 37.9 % (Low)?? 03/21/2022 07:08 MCV 95.9 femtoliters (High)?? 03/21/2022 07:08 MCH 32.2 pg ()?? 03/21/2022 07:08 MCHC 33.5 g/dL ()?? 03/21/2022 07:08 Platelet Count 236 k/mm3 ()?? 03/21/2022 07:08 RDW-SD 48.5 femtoliters (High)?? 03/21/2022 07:08 MPV 9.7 femtoliters ()?? 03/21/2022 07:08 Nucleated RBC (Automated) 0.0 #/100 WBC'S ()?? 03/21/2022 07:08 Abs. NRBC 0.0 k/mm3 ()?? 03/21/2022 07:08 Abs. Neut 7.7 k/mm3 (High)?? 03/21/2022 07:08 Abs. Lymph 2.0 k/mm3 ()?? 03/21/2022 07:08 Abs. Cambria 1.0 k/mm3 ()?? 03/21/2022 07:08 Abs. Eo 0.1 k/mm3 ()?? 03/21/2022 07:08 Abs. Baso 0.0 k/mm3 ()?? 03/21/2022 07:08 Neut % 70.2 % ()?? 03/21/2022 07:08 Lymph % 18.5 % ()?? 03/21/2022 07:08 Cambria % 9.2 % ()?? 03/21/2022 07:08 Eos % 1.3 % ()?? 03/21/2022 07:08 Baso % 0.3 % ()?? 03/21/2022 07:08 Imm Gran 0.5 % ()?? 03/21/2022 07:08 Abs. Imm Gran 0.1 k/mm3 ()?? 03/21/2022 07:08 ?? CHEM GENERAL Sodium 137 mmol/L ()?? 03/20/2022 00:17 Potassium 4.9 mmol/L ()?? 03/20/2022 00:17 Chloride 100 mmol/L ()?? 03/20/2022 00:17 Bicarbonate Level 24 mmol/L ()?? 03/20/2022 00:17 Anion Gap 13 ()?? 03/20/2022 00:17 Glucose, POC 199 mg/dL (High)?? 03/21/2022 08:03 BUN 17 mg/dL ()?? 03/20/2022 00:17 Creatinine-Blood 1.0 mg/dL ()?? 03/20/2022 00:17 Estimated GFR Creatinine 87 ML/MIN/1.73 M2 ()?? 03/20/2022 00:17 Calcium, Ionized pH Corrected 1.18 mmol/L ()?? 03/21/2022 07:08 Phosphorus 4.4 mg/dL ()?? 03/20/2022 00:17 Magnesium 1.5 mg/dL (Low)?? 03/20/2022 00:17 Protein, Total 6.1 Gm/dL (Low)?? 03/20/2022 00:17 Albumin 3.9 Gm/dL ()?? 03/20/2022 00:17 Alkaline Phosphatase 204 units/L (High)?? 03/20/2022 00:17 AST (SGOT) 93 units/L (High)?? 03/20/2022 00:17 ALT (SGPT) 102 units/L (High)?? 03/20/2022 00:17 Bilirubin, Total 1.2 mg/dL ()?? 03/20/2022 00:17 Bilirubin, Direct 0.6 mg/dL (High)?? 03/20/2022 00:17 Bilirubin, Indirect 0.6 mg/dL ()?? 03/20/2022 00:17 ?? COAG INR 1.1 ()?? 03/20/2022 00:17 Protime (PT) 11.6 seconds (High)?? 03/20/2022 00:17 APTT 27.4 seconds ()?? 03/20/2022 00:17 ? Assessment/Plan Diagnoses 67-year-old man with a past medical history of DM2, CAD status post stent 2002, SHAWN, PE on Eliquis,HTN, HLD, with a history of chronic tobacco use which he quit approximately 13 years ago. ??He presented to the emergency department with RUQ pain and was found to have biliary colic.?Patient underwent??laparoscopic cholecystectomy on 03/19 was found to have??choledocholithiasis during intraoperative cholangiogram.?? Patient likely going for ERCP today. ??Medicine consulted for preop optimization as well as comanagement. ?? 1.?? Acute cholecystitis??with choledocholithiasis;??patient underwent cholecystectomy on 03/19.?continue Management per primary??surgical team. ?? 2.?? Coronary artery disease; patient underwent??cardiac catheterization in 2002 with a stent placement. ??At home patient takes metoprolol XL 50 mg p.o. daily??as well as lisinopril 20mg PO daily.?Would recommend starting patient back on metoprolol??50 mg XL daily starting today.?? Can resume li sinopril??today ?? 3.?? Type 2 diabetes;??patient takes??Tresiba??injections at home along with oral metformin. resumemetformin. at discharge?? Will use lispro sliding scale.??His sugars have been consistently less than 150. ?? 4.?? History of pulmonary embolism; patient was on Eliquis before??admission. ??Would recommend restarting??the home dose??as soon as surgeon feels??feasible. ?? 5.?? Hyperlipidemia;??patient being continued on home dose of rosuvastatin 20 mg at bedtime. ?? 6.?? Hypothyroidism; patient was resumed on his home dose of levothyroxine??50 mcg p.o. daily. ?? Thank you for your consultation. ??Our medical consultation team will??sign off, care dw covering surgery resident ?? * Latonya Castle MD: MODIFY, SIGN, MODIFY, PERFORM, SIGN, VERIFY, SIGN Event Display: Progress Note Hospital Authored Date: Patient: YANELIS LITTLEJOHN [facility]: [id number] Age: 67 years Sex: Male : 1955 Associated Diagnoses: None Author: Latonya Castle MD Subjective No acute events overnight. Patient reports that he is feeling good. Tolerating his low fat diet without nausea or vomiting. Denies any fevers, chills, chest pain or shortness of breath. Objective Vitals: Temperature 97.9 (08:06) Systolic Blood Pressure 136 (08:06) Diastolic Blood Pressure 62 (08:06) Pulse 87 (08:06) SpO2 95 (08:06) Respiratory Rate 18 (08:06) Physical Exam: Constitutional: No acute distress, awake, alert and oriented x3 Cardiovascular: Regular rate and rhythm, +S1/S2, no murmurs, rubs, or gallops, no edema, 2+ dorsalis pedis bilaterally Respiratory: Clear to auscultation bilaterally, no wheezes, rales, rhonchi, or crackles Abdomen/GI: soft, nondistended, nontender to palpation Extremities: No clubbing or cyanosis, calf SCDs in place Results Review AM lab pending Impression and Plan Yanelis is a 67-year-old male with complex past medical history including biliary colic diagnosed in December who is presenting to the emergency department after experiencing 10 days of right upper quadrant abdominal pain nausea, vomiting, and decreased p.o. intake secondary to pain and fear of food. He was diagnosed with acute cholecystitis and choledocholithiasis. Now s/p lap jana with IOC (W) and ERCP with sphincterotomy/stone extraction (03/20 GI). Patient tolerated the procedures well. He is hemodynamically normal and tolerating a low fat diet. No further surgical intervention indicated at this time. Per GI ERCP procedure note, hold anticoagulation for 7d post-ERCP. Plan: - Low fat diet - F/U GI final recs - Will plan to discharge home Please page [facility] surgery with any questions or concerns #[id number] Case discussed with attending surgeon: Dr. Rico Note * Erika Modi LPN: PERFORM Event Display: Discharge/Transfer Note Hospital Authored Date: [id number] Nursing Discharge Note Entered On: 03/21/2022 11:52 EST Performed On: 03/21/2022 11:52 EST by Erika Modi LPN Nursing Discharge Note 2 Discharge Time : 03/21/2022 11:50 EST Discharge Level of Care at Discharge : Home/Skilled Nursing/Foster Care Patient Left Unit Via : Wheelchair Patient Accompanied Off Unit with : Responsible adult DC Instructions Provided & Signed by Pt : Yes Patient Understands D/C Instructions : Yes Patient Instructions Discharge Signed : Yes Did Pt have Specialty Bed or Wound Vac : No Erika Modi LPN - 03/21/2022 11:52 EST * Latonya Castle MD: PERFORM Event Display: Discharge/Transfer Note Hospital Authored Date: [id number] Patient: ??YANELIS LITTLEJOHN ? Age:??67 Years?Sex:??Male?:??1955?? Admit Date Admission Date: 03/18/2022 Discharge Date 03/21/22 Discharge Diagnoses Abdominal pain, 03/18/2022 Biliary colic, 03/18/2022 Choledocholithiasis with acute cholecystitis with obstruction, 03/19/2022 Hospital Course Yanelis is a 67-year-old male with complex past medical history including biliary colic diagnosed in December who is presenting to the emergency department after experiencing 10 days of right upper quadrant abdominal pain nausea, vomiting, and decreased p.o. intake secondary to pain and fear of food. He was diagnosed with acute cholecystitis and choledocholithiasis. Now s/p lap jana with IOC (W) and ERCP with sphincterotomy/stone extraction (03/20 GI). Patient tolerated the procedures well. He is hemodynamically normal and tolerating a low fat diet. Has been ambulating.? The patient was cleared for discharge on 03/21/22. At that time??he was tolerating a??low fat??diet without nausea or vomiting,??his pain was well controlled on oral pain medications,??he was ambulating, voiding spontaneously, and was passing flatus/bowel movements. The patient was instructed to followup with??Dr. Liao and the surgical office in 1-2 weeks. ?? Objective/Physical Exam on Day of Discharge Vitals & Measurements T:??97.9?F ?? HR:??85(Monitored)?? IL:??87?? RR:??18?? BP:??136/62?? SpO2:??95%?? HT:??184??cm?? WT:??134.7??kg?? BMI:??39.79?? Physical Exam: General: no acute distress, alert, awake HEENT: normocephalic, atraumatic Cardiac: RRR, no murmurs Respiratory: CTAB Abdomen: soft, nondistended, appropriate pallavi-incisional tenderness to palpation, port site incisions with steri strips in place c/d/i Extremities: no peripheral edema Skin: no rashes, warm and well perfused Procedures Performed This Visit ERCP with Biopsy Inpatient Medications Medications (14) Active SCHEDULED: (6) Acetaminophen 325 mg Tablet (Tylenol 325 mg oral tablet) ??975 mg, By Mouth, Every 6 hours Docusate Sodium 100 mg Capsule (Docusate Sodium Capsule) ??100 mg 1 capsule, By Mouth, 2 times a day Insulin Lispro 100 units/mL Inj (3mL) (Insulin LISPRO Sliding Scale) ??2-10 units, Subcutaneous Injection, 3 times a day before meals Levothyroxine 25 mcg Tablet (Synthroid 0.1 mg oral tablet) ??50 mcg, By Mouth, Daily NaCl 0.9% Flush 3ml (NaCL 0.9% Flush) ??3 mL, IV Push, Every 8 hours Rosuvastatin 20 mg Tablet (rosuvastatin 5 mg oral tablet) ??20 mg, By Mouth, Daily CONTINUOUS: (1) Lactated Ringers (1000 mL) Cont IV 1,000 mL (LR 1,000 mL) ??1,000 mL, IV Infusion, 125 mL/hr PRN: (7) Bisacodyl 10 mg Suppository (Bisacodyl Supp) ??10 mg 1 supp, Rectally, Daily Dextrose Inj Syringe (Dextrose 50% Inj Syringe (25Gm)) ??25 Gm, IV Push Slowly, Every hour Melatonin 3 mg Tablet (Melatonin Tablet) ??3 mg, By Mouth, Daily at bedtime NaCl 0.9% Flush 3ml (NaCL 0.9% Flush) ??3 mL, IV Push, Every 8 hours Ondansetron 2mg/mL Inj (2mL Vial) (Zofran Inj) ??4 mg, IV Push, Every 6 hours Ondansetron 2mg/mL Inj (2mL Vial) (Zofran Inj) ??4 mg, IV Push, Every hour OxyCODONE 5 mg IR Tablet (oxyCODONE 5 mg oral tablet) ??5 mg, By Mouth, Every 4 hours Discharge Medications Acetaminophen (Tylenol 325 mg oral tablet)?975?Milligram?3?tablet?By Mouth?Every 6 hours?for 5?Days?not to exceed 4000 mg/day Allopurinol (allopurinol 300 mg oral tablet)?300?Milligram?1?tablet?By Mouth?Daily apixaban (apixaban 5 mg oral tablet)?1?tab(s)?5?Milligram?By Mouth?2 times a day Aspirin (aspirin 81 mg oral capsule)?4?capsule?324?Milligram?By Mouth?Every 4 hours Aspirin (aspirin 81 mg oral tablet, chewable)?81?Milligram?1?tablet?By Mouth?Daily Insulin Aspart (NovoLOG FlexPen 100 units/mL subcutaneous solution)?See Instructions?Subcutaneous Injection?as needed?Blood Glucose?for 30?Days?Use as directed for Diabetes mellitus type 1. (Max Dose = 50 units/day) insulin degludec (Tresiba)?Subcutaneous Infusion?Daily insulin degludec (Tresiba FlexTouch 200 units/mL subcutaneous solution)?110?unit(s)?Subcutaneous Injection?Daily?rotate injection sites Levothyroxine (Synthroid)?By Mouth?Daily Levothyroxine (levothyroxine 50 mcg (0.05 mg) oral capsule)?1?capsule?50?Microgram?By Mouth?Daily Lisinopril?By Mouth?Daily Metoprolol (Lopressor 50 mg oral tablet)?50?Milligram?1?tablet?By Mouth?2 times aday Metoprolol (metoprolol 50 mg oral tablet, extended release)?50?Milligram?1?tablet?ByMouth?Daily Omeprazole?By Mouth?Daily Omeprazole (omeprazole 20 mg oral delayed release tablet)?1?tab(s)?20?Milligram?By Mouth?Daily Oxycodone (oxyCODONE 5 mg oral tablet)?5?Milligram?1?tablet?By Mouth?Every 4 hours?as needed?Do not drive or drink alcohol while taking this medication.?Pain , Severe Pioglitazone?By Mouth?Daily Pioglitazone (pioglitazone 30 mg oral tablet)?1?tab(s)?30?Milligram?By Mouth?Daily Rosuvastatin?By Mouth?Daily Rosuvastatin (rosuvastatin 20 mg oral capsule)?1?capsule?20?Milligram?By Mouth?Daily Labs Last 24 Hours BLOOD COUNT & DIFF ? Event Name?? Event Result?? Date/Time?? WBC 10.9 k/mm3 03/21/22 07:08:00 RBC 3.95 m/mm3??Low 03/21/22 07:08:00 Hgb 12.7 Gm/dL??Low 03/21/22 07:08:00 Hct 37.9 %??Low 03/21/22 07:08:00 MCV 95.9 femtoliters??High 03/21/22 07:08:00 MCH 32.2 pg 03/21/22 07:08:00 MCHC 33.5 g/dL 03/21/22 07:08:00 Platelet Count 236 k/mm3 03/21/22 07:08:00 MPV 9.7 femtoliters 03/21/22 07:08:00 Nucleated RBC (Automated) 0 #/100 WBC'S 03/21/22 07:08:00 ? CHEM GENERAL ? Event Name?? Event Result?? Date/Time?? Calcium, Ionized pH Corrected 1.18 mmol/L 03/21/22 07:08:00 ? Follow-Up Appointments Added Follow Up ?Time Frame ?Comments Tasneem Liao MD?1 to 2 weeks?Please call the office to schedule a follow up appointment in 1-2 weeks. Thanks Patient Instructions Please do not take your eliquis for 7d postop from your ERCP. You may resume your eliquis on 03/27/22. Thank you. * Erika Modi LPN: PERFORM Event Display: Patient Education/Instruction Authored Date: [id number] Inpatient Adult Discharge Instructions [address] [address] Name: YANELIS LITTLEJOHN : 1955 Visit: 03/18/2022 05:27:00 Current Date: 03/21/2022 10:34 Account: [id number] Inpatient Adult Discharge Instructions We would like to thank you for allowing us to assist you with your healthcare needs. The following includes patient education materials and information regarding your injury/illness. Our entire staffstrives to provide an excellent experience for our patients and their families. PLEASE ENSURE YOU FOLLOW-UP PER THE INSTRUCTIONS BELOW! ?? YOUR OPINION IS IMPORTANT TO US! Please complete the survey you may receive by mail or email. Your feedback will be used to make improvements to the healthcare experiences of our patients and their families. Surveys are administered by [email or web address] ?? If further treatment with your primary care physician or another doctor is recommended, it is important for you to keep the appointment. Call your primary care physician or return to the Emergency Department immediately if your condition worsens, fails to improve, or new symptoms develop. If you need to find a doctor, you can call [facility] [email or web address] for a referral at [phone] or toll free at [phone] or log in to [email or web address].. ?? You can view and manage your care through the patient portal or by using a health care anthony of your choosing. [email or web address] is a website that allows you to securely view your medical information including your hospital discharge summary, office visit summaries, medications and follow-up visits. You can also request appointments, renew medications, and request access to your medical information using a health care anthony of your choosing, or just ask a question. You can enroll at [email or web address] or register during your next office visit. You have been discharged from [facility], Patient Care Unit: SW6. If you have any questions regarding these instructions after you leave, please call us and we will be happy to assist you. [facility] Your Care Team Attending Physician Galina TORRES, Evy Consulting Providers Yulia TORRES, Edgar Liao MD, Emilia Flores MD, Too Discharging Providers Corrine TORRES, Latonya Reason for Admission Retained stone s/p lap jana Your Diagnosis Biliary colic Choledocholithiasis with acute cholecystitis with obstruction Tests Performed Below is a partial list of the tests performed during your hospitalization. You may have had other tests and procedures not included in this list. Please discuss all test results with your provider. BUN CBC w/ Differential Comprehensive Metabolic Panel COVID-19 RNA POC Creatinine GLUCOSE POC Hold Blue Top Tube Ionized Calcium Lactic Acid Level LFT's Lipase Lytes Magnesium Level Phosphorus Level PT (INR) PTT TOTAL AND DIRECT BILIRUBIN Urinalysis w/hold for Urine Culture US RUQ XR C-Arm < 1 Hour XR Cholangiogram Intraoperative XR ERCP Both Ducts Primary Care Provider Jonna TORRES, Moy Advance Directive Health Care Proxy on File Yes - Health Care Proxy No qualifying data available. Discharge Vitals Temperature: 97.9 DegF Height: 184 cm Pulse Rate: 87 bpm Weight: 134.7 kg Respiratory Rate: 18 br/min Body Mass Index:??39.79 kg/m2??Critical Systolic Blood Pressure: 136 mm Hg Body surface area: 2.62 Diastolic Blood Pressure: 62 mm Hg ?? Oxygen Saturation: 95 % ?? Studies Pending All tests and labs ordered during this hospital stay have been completed unless listed below. Please discuss all pending results with your provider listed above in these instructions. ?? Add On Lab Order BUN CBC CBC w/ Differential Creatinine Electrolytes (Lytes) Hepatic Function Panel (LFT's) INR (PT (INR)) Ionized Calcium Magnesium Level PTT Pathology Tissue Request () Phosphorus Level What to do next Instructions From Your Doctor Please do not take your eliquis for 7d postop from your ERCP. You may resume your eliquis on 03/27/22. Thank you. Discharge Orders You Need to Schedule the Following Appointments Follow Up with??Tasneem Liao MD When??Within 1 to 2 weeks Why: Please call the office to schedule a follow up appointment in 1-2 weeks. Thanks Where: [address] [place] [address] Drive [address] [facility] [place] [address]- Discharge Medications YANELIS LITTLEJOHN :1955 Visit Date:03/18/2022 Medications: Please continue your medications until treatment is completed or stopped by your provider. Medications not listed below should be discontinued. Discuss any questions related to medications with your provider. What How Much When Instructions Next Dose New Acetaminophen (Tylenol 325 mg oral tablet) 3 tab(s) Oral Every 6 hours Duration: 5 Days not to exceed 4000 mg/ day ?? Pickup at [facility] 3 8 4pm New Oxycodone (oxyCODONE 5 mg oral tablet) 1 tab(s) Oral Every 4 hours as needed for Pain , Severe Do not drive or drink alcohol while taking this medication. ?? Pickup at [facility] 3 as needed Unchanged Allopurinol (allopurinol 300 mg oral tablet) 1 tab(s) Oral Daily 03/22 9am Unchanged apixaban (apixaban 5 mg oral tablet) 1 tab(s) Oral Twice a day 03/27 9am Unchanged Aspirin (aspirin 81 mg oral capsule) 4 capsule Oral Every 4 hours Unchanged Aspirin (aspirin 81 mg oral tablet, chewable) 1 tab(s) Oral Daily 03/22 9am Unchanged Insulin Aspart (NovoLOG FlexPen 100 units/ mL subcutaneous solution) See Instructions Subcutaneous Injection As needed for Blood Glucose Duration: 30 Days Use as directed for Diabetes mellitus type 1. (Max Dose = 50 units/ day) ?? as needed Unchanged insulin degludec (Tresiba FlexTouch 200 units/ mL subcutaneous solution) 110 unit(s) Subcutaneous Injection Daily rotate injection sites ?? as directed Unchanged insulin degludec (Tresiba) Subcutaneous Infusion Daily as directed Unchanged Levothyroxine (levothyroxine 50 mcg (0.05 mg) oral capsule) 1 capsule Oral Daily 03/22 8am Unchanged Lisinopril Oral Daily 03/22 9am Unchanged Metoprolol (Lopressor 50 mg oral tablet) 1 tab(s) Oral Twice a day Unchanged Metoprolol (metoprolol 50 mg oral tablet, extended release) 1 tab(s) Oral Daily 03/22 9am Unchanged Omeprazole (omeprazole 20 mg oral delayed release tablet) 1 tab(s) Oral Daily 03/22 9am Unchanged Pioglitazone (pioglitazone 30 mg oral tablet) 1 tab(s) Oral Daily 03/22 9am Unchanged Rosuvastatin (rosuvastatin 20 mg oral capsule) 1 capsule Oral Daily 03/22 9am Pharmacy Information [facility]: [address] [place], [place] [id number] [phone] Test Results Below is a partial list of the most recent Laboratory test results done prior to this discharge. You may have had other tests and procedures not included in this list. Please discuss all test resultswith your provider. BUN (03/21/2022) ???BUN - 15 mg/dL CBC w/ Differential (03/21/2022) ???WBC - 10.9 k/mm3???RBC - 3.95 m/mm3???Hgb - 12.7 Gm/dL???Hct - 37.9 %???MCV - 95.9 femtoliters???MCH - 32.2 pg???MCHC - 33.5 g/dL???Platelet Count - 236 k/mm3???RDW-SD - 48.5 femtoliters???MPV - 9.7 femtoliters???Nucleated RBC (Automated) - 0.0 #/100 WBC'S???Abs. NRBC - 0.0 k/mm3???Abs. Neut - 7.7 k/mm3???Abs. Lymph - 2.0 k/mm3???Abs. Cambria - 1.0 k/mm3???Abs. Eo - 0.1 k/mm3???Abs. Baso - 0.0 k/mm3???Neut % - 70.2 %???Lymph % - 18.5 %???Cambria % - 9.2 %???Eos % - 1.3 %???Baso % - 0.3 %???Imm Gran - 0.5 %???Abs. Imm Gran - 0.1 k/mm3 Comprehensive Metabolic Panel (03/18/2022) ???Sodium - 138 mmol/L???Potassium - 4.2 mmol/L???Chloride - 98 mmol/L???Bicarbonate Level - 26 mmol/L???Anion Gap - 14???Glucose Level - 118 mg/dL???BUN - 14 mg/dL???Creatinine-Blood - 1.0 mg/dL???Estimated GFR Creatinine - 80 ML/MIN/1.73 M2???Calcium - 9.8 mg/dL???Protein, Total - 7.1 Gm/dL???Albumin - 4.6 Gm/dL???AG Ratio - 1.8???Alkaline Phosphatase - 294 units/L???AST (SGOT) - 92 units/L???ALT (SGPT) - 150 units/L???Bilirubin, Total - 1.6 mg/dL COVID-19 RNA POC (03/18/2022) ???COVID-19 POC Result - NEGATIVE Creatinine (03/21/2022) ???Creatinine-Blood - 0.9 mg/dL???Estimated GFR Creatinine - 93 ML/MIN/1.73 M2 GLUCOSE POC (03/21/2022) ???Glucose, POC - 199 mg/dL Hold Blue Top Tube (03/18/2022) ???Hold Blue Top - SPECIMEN DISCARDED AFTER 4 HOURS. Ionized Calcium (03/21/2022) ???Calcium, Ionized pH Corrected - 1.18 mmol/L Lactic Acid Level (03/18/2022) ???Lactate - 1.4 mmol/L LFT's (03/21/2022) ???Protein, Total - 5.6 Gm/dL???Albumin - 3.5 Gm/dL???Alkaline Phosphatase - 219 units/L???AST (SGOT) - 41 units/L???ALT (SGPT) - 64 units/L???Bilirubin, Total - 1.0 mg/dL???Bilirubin, Direct - 0.5 mg/dL???Bilirubin, Indirect - 0.5 mg/dL Lipase (03/21/2022) ???Lipase - 31 units/L Lytes (03/21/2022) ???Sodium - 136 mmol/L???Potassium - 4.4 mmol/L???Chloride - 98 mmol/L???Bicarbonate Level - 27 mmol/L???Anion Gap - 11 Magnesium Level (03/21/2022) ???Magnesium - 1.6 mg/dL Phosphorus Level (03/21/2022) ???Phosphorus - 2.5 mg/dL PT (INR) (03/21/2022) ???INR - 1.1???Protime (PT) - 11.8 seconds PTT (03/21/2022) ???APTT - 29.3 seconds TOTAL AND DIRECT BILIRUBIN (03/18/2022) ???Bilirubin, Total - 1.6 mg/dL???Bilirubin, Direct - 0.7 mg/dL???Bilirubin, Indirect - 0.9 mg/dL Urinalysis w/hold for Urine Culture (03/18/2022) ???Appear/Color, Urine - DARK YELLOW???Specific [place], Urine - 1.028???pH, Urine - 5.5???Albumin,Urine - 3+???Glucose, Urine - NEGATIVE???Ketones, Urine - NEGATIVE???Bilirubin, Urine - 1+???Hemoglobin, Urine - NEGATIVE???Nitrite, Urine - NEGATIVE???Leukocyte, Urine - TRACE???Urobilinogen - NORMAL???WBC's, Urine - 14 /HPF???RBC's, Urine - 2 /HPF???Bacteria - SLIGHT???Squamous Epith - 1 /HPF???Hyaline Cast - 43 LPF???Mucus - HEAVY???Hold Urine Culture - Testing available 48 hours from time of collection. Allergies (NKA means No Known Allergies) NKA Problems Active Problems??(1) Obese class II?? Education Materials Below is the list of Educational Leaflet Providered with your Discharge Instructions. Discharge Instructions: Caring for Your Wound?? Discharge Instructions for Laparoscopic Gallbladder Removal Surgery (Cholecystectomy)?? Valuables and Belongings I fully understand and agree that [facility] accepts no responsibility for all my personal property including clothing, toilet articles, radios, jewelry, dentures, hearing aids, rings, money, or any other property that is in my possession or is brought to me after admission. I understand certain valuables may be placed in a hospital safe for a short period of time. I understand that the hospital is not liable for loss or damage due to accident, fire, or other natural occurrence while said property is in the safe. I accept full responsibility for any personal property that I keep with me, and will not hold the hospital responsible in case of loss or disappearance. I acknowledge that i have been encouraged to send valuables and belongings home. ?? No Valuables/Belongings: No valuables/belongings present Review of Valuable and Belonging List: With patient Possessions released to: none to preop Date for Pt to Sign Valuables/Belongings: 03/19/22 14:36:00 ?? Valuables & Belongings ?? Clothes Electronic devices Jewelry Monetary Items Personal devices Miscellaneous Medications (Valuables) Valuables at Bedside Jacket, Pants, Shirt, Shoes, Undergarments, Other: socks Cell phone, Other: saddle tree stitcher for phone ?? Credit cards, Money, Wallet, Other: ID, insurance card, laguerre counted w/ PCT LS $31 Glasses ? Valuables Sent Home ? Valuables Sent to Security ? Other Discharge Information ? Pulmonary Rehab Status?? Pulmonary Rehab Discharge Status?? Respiratory Rate: 18 br/min ? Common Emergency Awareness Tips IS IT A STROKE? Act FAST and Check for these signs: FACE Does the face look uneven? ARM Does one arm drift down? SPEECH Does their speech sound strange? TIME Call at any sign of stroke ?? Heart Attack Signs Chest discomfort: Most heart attacks involve discomfort in the center of the chest and lasts more than a few minutes, or goes away and comes back. It can feel like uncomfortable pressure, squeezing, fullness or pain. Discomfort in upper body: Symptoms can include pain or discomfort in one or both arms, back, neck, jaw or stomach. Shortness of breath: With or without discomfort. Other signs: Breaking out in a cold sweat, nausea, or lightheaded. Remember, MINUTES DO MATTER. If you experience any of these heart attack warning signs, call to get immediate medical attention! ?? Smoking can increase your chances of developing chronic health problems and can cause harmful effects to other family members in your house. If you smoke, you are strongly encouraged to quit. Please call [facility] [employer] Link at [phone] or [phone] ([phone]) or log in to [email or web address] for referrals to smoking cessation programs. ?? The National Suicide Prevention Hotline is available 04/10 if you or someone you know needs to find a reason to keep living. By calling 7-121-167-[employer] (8137) you'll be connected to a skilled, trained counselor at a crisis center in your area. INPATIENT DISCHARGE INSTRUCTIONS SIGNATURE PAGE ANNETTA YANELIS Location:[facility] Registration Date and Time:03/18/2022 05:27 EST Primary Care Physician: Jonna TORRES, Moy, I YANELIS LITTLEJOHN, have received the above patient education materials/instructions and have verbalized understanding. If ambulance or transport services are being used I further acknowledge being given a choice of service. ?? If you need to contact me, please call me at this number: . Patient/Department Specialist Name: Patient/Department Specialist Signature: Relationship to Patient: Witness Name/Signature: Date: * Latonya Castle MD: PERFORM Event Display: Patient Education Leaflets Authored Date: Discharge Instructions: Caring for Your Wound ?? 16072 Discharge Instructions: Caring for Your Wound Taking proper care of your wound will help it heal. Your healthcare provider or nurse may show you specifically how to clean and dress the wound and how to tell if the wound is healing normally. Thissheet will help you remember those guidelines when you are at home. Getting ready ??? Put pets and children in another room, away from your work area. ??? Wash your hands before touching any of your supplies: o Turn on the water. o Wet your hands and wrists. o Use liquid soap from a pump dispenser. Work up a lather. o Scrub your hands thoroughly. o Rinse your handswith your fingers pointing toward the drain. o Dry your hands with a clean cloth or paper towel. Use this towel to turn off the faucet. o Remember, once you have washed your hands, don???t touch anything other than your supplies. Wash your hands again if you touch anything, like furniture or your clothes. ??? Clean your work area: o Clean washable surfaces with soap and water, and dry with a clean cloth or paper towel. o Wipe surfaces that are not washable (like fabric or wood) so that they arefree of dust.??Spread a clean cloth or paper towel over your work surface. o Move away from the clean surface, if you need to cough or sneeze. ??? Gather your bandage supplies: o Gauze dressing or other bandage material o Medical tape o Disposable gloves ??? Wash your hands again. ?? Dressing the wound ??? Remove the old dressing: o Put on disposable gloves if you???re dressing a wound for someone else or if your wound is infected. o Pull gently toward the wound to loosen the tape. o One layer at a time, gently remove the dressing. o If you have a drain or tube, be careful not to pull on it. o Look at the dressing. Make sure that you are seeing a decreasing amount of blood, and that the blood is turning into a clear, chary fluid. o If your wound has stitches, look for loose??ones. o Put the dressing in a plastic bag. Then remove your gloves. ??? Inspect the wound. Look for signs that it isn't healing normally. A wound that isn???t healing properly may be dark in color or have white streaks. ??? Dress the wound: o Wash your hands again. o Clean and dress the wound as you were shown by your healthcare provider or nurse. o If??you???re dressing a wound for someone elseor if your wound is infected, put on a new pair of disposable gloves. o If you have a drain or tube, be careful not to pull on it. ??? Discard any used materials or trash in a sealed plastic bag before placing in a trash can. ?? Follow-up Make a follow-up appointment, or as directed by your healthcare provider. ?? When to call your healthcare provider Call your healthcare provider right away if you have any of the following: ??? Shaking chills or fever above 100.4??F ( 38??C) ??? Bleeding that soaks the dressing ??? Stitches that are pulling away from the wound or pulling apart ??? Irving fluid weeping from the wound ??? Increased drainage from the wound or drainage that is yellow, yellow-green, or smelly ??? Increased swelling, pain, or rednessin the skin around the wound ??? A change in the color or size??of the wound ??? Increased fatigue ??? Loss of appetite ?? Last Reviewed Date: 2019 ?? [id number] [employer]. All rights reserved. This information is not intended as a substitute for professional medical care. Always follow your healthcare professional's instructions. ?? * aLtonya Castle MD: PERFORM Event Display: Patient Education Leaflets Authored Date: [id number] Discharge Instructions for Laparoscopic Gallbladder Removal Surgery (Cholecystectomy) ?? 47770 Discharge Instructions for Laparoscopic Gallbladder Removal Surgery (Cholecystectomy) You had surgery to remove your gallbladder. This is called a cholecystectomy. You had the surgery done with laparoscopy. This means it was done with several small incisions. People who have the surgery done this way often recover more quickly. They may have less pain than with open gallbladder surgery.?? You can live a full and healthy life without your gallbladder. This includes eating the foods and doing the things you enjoyed before. Below are guidelines for home care after surgery. Home care To care for yourself at home:? Get plenty of rest. Don???t worry if you feel tired for the first couple of weeks after your surgery. Fatigue is common. Nap when you feel tired.? Wash the skin around your cut (incision) daily with mild soap and water. It's??OK to shower the day after your surgery unless your healthcare provider says not to. ??? Eat your normal diet. But don't eat rich, greasy, or spicy food for a few days. Many surgeons advise a low-fat diet for the first month after surgery. Don???t eat fried food during this time. ??? You can walk around the house, do office work, climb stairs, or ride in a car if you feel able to do so. ??? Ask someone to drive you to your appointments for the next 3 days. [address]???[address] until you have stopped taking pain medicine. Make sure you can step on the brake pedal with no delay. ??? Eat more fiber and use a stool softener if you are constipated. Pain medicine can cause constipation. Talk with your provider if you need more help. ??? Don???t sit in a bathtub, swimming pool, or hot tub until your healthcare provider says it???s safe. Wait until the incision is closed. Wait until any surgical tubes (drains) are removed. ?? Follow-up care Make a follow-up appointment with your surgeon as advised. Call your healthcare provider if these symptoms don???t go away within 1 week after your surgery: ??? Extreme tiredness (fatigue) ??? Pain around the incision ??? Diarrhea or constipation ??? Loss of appetite ?? When to call your healthcare provider Call your healthcare provider right away if you have any of these: ??? Yellowing of your eyes or skin (jaundice) ??? Chills ??? Fever of 100.4??F (38.0??C) or higher, or as directed by your provider? Redness or swelling of the incision ??? Fluid leaking or a bad smell from the incision ??? Incision pain that gets worse ??? Dark or rust-colored urine ??? Stool that is light in color instead of brown ??? Increasing belly pain ??? Rectal bleeding ??? Trouble breathing or shortness of breath ??? Leg swelling ?? Last Reviewed Date: 2021 ?? [id number] [employer]. All rights reserved. This information is not intended as a substitute for professional medical care. Always follow your healthcare professional's instructions. ?? * YONI Hall S: Benjamin Zamorano MD: VERIFY Event Display: Result: Authored Date: [id number] FINDINGS/IMPRESSION 10 fluoroscopic spot images during ERCP with cannulation and opacification of the biliary tree. Fluoroscopy time: 27 seconds Technologist: 35 minutes WSN: [id number] Ordering Physician: Kev Marin Dictated By: Benjamin Escamilla MD Dictated Date/Time: 03/20/22 4:51 pm Reviewed By: Benjamin Escamilla MD Signed By: Benjamin Escamilla MD Signed Date/Time: 03/20/22 4:51 pm Transcribed By: CSBrian Transcribed Date/Time: 03/20/22 4:50 pm * YONI Hall S: Te Charlton MD: VERIFY Event Display: Result: Authored Date: [id number] 8 intraprocedural fluoroscopic images from an intraoperative cholangiogram dated March 19, 2022. No prior studies are available. A right upper quadrant ultrasound from March 18, 2022 is available for comparison. Intraprocedural fluoroscopy was utilized. The technologist time was 10 minutes. The fluoroscopic time was 10 seconds. The dose area product was 2.2 kapil per centimeters squared. This examination shows contrast opacification of the biliary tree via the cystic duct. There is a filling defect initially noted in the proximal common bile duct at the origin of the cystic duct. Smaller filling defects are present within the cystic duct. A filling defect appears to pass inferiorlyand on the last 2 images there is a filling defect at the sphincter of bony. IMPRESSION: Filling defects suspicious for retained stones versus less likely air bubbles. Thank you for allowing me to participate in the care of this patient. WSN: [id number] Ordering Physician: Tasneem Liao Dictated By: Te Nieves MD Dictated Date/Time: 03/19/22 5:12 pm Reviewed By: Te Nieves MD Signed By: Te Nieves MD Signed Date/Time: 03/19/22 5:12 pm Transcribed By: VIC Transcribed Date/Time: 03/19/22 5:09 pm * BHSPowerscribe , CIS S: TRANSCRIBE Alexander Steel MD: VERIFY Event Display: Result: Authored Date: [id number] US RUQ Hx of Present Illness: Pt ambulated to chair. Pt reports that he was told to come by for gallbl[place] labs [place]. Pt reports not eating x 1 week but if he did the pain would be terrible.; Reason: Other:; Abdominal Pain; Clinical Question(s): Cholecystitis COMPARISON: No pertinent prior exams available for comparison. FINDINGS: Liver: Diffusely echogenic parenchyma with focal sparing around the gallbladder. Significant acoustic attenuation from the steatotic liver with poor penetration of the deep hepatic structures. No suspicious lesion. Smooth hepatic contour. Gallbladder: Multiple mobile gallstones. Normal wall thickness. No pericholecystic fluid. Negative Obrien sign. Biliary Tree: No intrahepatic or extrahepatic bile duct dilation is identified. Common duct measures: 0.4 cm. Pancreas: Obscured by overlying bowel gas. Right kidney: 13.3 cm in length. Normal parenchymal echotexture and thickness. No hydronephrosis, stone or mass. IMPRESSION: 1. Echogenic liver likely representing hepatic steatosis. 2. Cholelithiasis without evidence of acute cholecystitis. WSN: [id number] Ordering Physician: Benitez Ana Dax Dictated By: Alexander Steel MD Dictated Date/Time: 03/18/22 2:47 pm Reviewed By: Alexander Steel MD Signed By: Alexander Steel MD Signed Date/Time: 03/18/22 2:47 pm Transcribed By: VIC Transcribed Date/Time: 03/18/22 2:43 pm RF Biliary ducts and Gallbladder Views during surgery W contrast biliary duct * [facility] , CIS S: TRANSCRIBE Te Nievse MD: VERIFY Event Display: Result: Authored Date: [id number] 8 intraprocedural fluoroscopic images from an intraoperative cholangiogram dated March 19, 2022. No prior studies are available. A right upper quadrant ultrasound from March 18, 2022 is available for comparison. Intraprocedural fluoroscopy was utilized. The technologist time was 10 minutes. The fluoroscopic time was 10 seconds. The dose area product was 2.2 kapil per centimeters squared. This examination shows contrast opacification of the biliary tree via the cystic duct. There is a filling defect initially noted in the proximal common bile duct at the origin of the cystic duct. Smaller filling defects are present within the cystic duct. A filling defect appears to pass inferiorlyand on the last 2 images there is a filling defect at the sphincter of bony. IMPRESSION: Filling defects suspicious for retained stones versus less likely air bubbles. Thank you for allowing me to participate in the care of this patient. WSN: [id number] Ordering Physician: Tasneem Liao Dictated By: Te Nieves MD Dictated Date/Time: 03/19/22 5:12 pm Reviewed By: Te Nieves MD Signed By: Te Nieves MD Signed Date/Time: 03/19/22 5:12 pm Transcribed By: VIC Transcribed Date/Time: 03/19/22 5:09 pm Patient Care team information Care Team Personnel Name: Moy Coyle MD Position: [facility] Outreach Member Role: PCP Address: Address: [address] [place] [address] [place] [address]- [place] Name: Marian Meraz RN Position: S RN Member Role: Primary Care Nurse Name: *S, ED Attending Position: [facility] ED Attendings Patient Name: *Ermias CORDERO Attending Position: [facility] ED Medicine MD Name: Augusta Antonio Position: [facility] ED RN W/OE and Tasks Member Role: Patient Care Provider Name: Tristan Mckinnon Position: [facility] ED TA [facility] Member Role: Patient Care Provider Care Team Related Persons Name: JS LITTLEJOHN Address: [address] [address] Name: BENJAMIN LITTLEJOHN Address: [place], [place]
--- OUTSIDE RECORDS SUMMARY | 2023-09-26 06:33 | XMS_ITS | Continuity of Care Document ---
Author Organization [facility] Address [address] [place] [address] ve [address] [place] [address]- Care Team Providers Care Drywall Stripper Name Role Phone Moy Coyle MD Primary Care Physician [place] [facility] [place] - 03/04/[address] [place] [address]- Attending Physician: Yaniv Nolan Referring Physician: Moy Coyle MD Allergies, Adverse Reactions, Alerts No Known Allergies Immunizations Given and Recorded Vaccine Date Status Refusal Reason [id number] 12y+ bivalent booster vax 01/15/22 Recorded SARS-CoV-2 mRNA ([id number]) vax 06/11/21 Recorded SARS-CoV-2 (COVID-19) mRNA BNT-[id number] [...] Team Personnel Name: Moy Coyle MD Position: [facility] Outreach Member Role: PCP Address: Address: [address] [place] [address] [place] [address]- Name: Marian Meraz RN Position: [facility] RN Member Role: Primary Care Nurse Care Team Related Persons Name: JS LITTLEJOHN Address: [address] [address] Name: WALTER LITTLEJOHN Address: [place], [place] Name: BENJAMIN LITTLEJOHN Address: [place], [place]
[2023-09-26 06:40] VITALS: BMI 38.7
[2023-09-26 06:55] VITALS: BP 147/79; PULSE 82; RESP 20; TEMP 35.7; O2SAT 96
[2023-09-26] MEDS: Lactated Ringers 1,000 ML 50 ML IVCONT (07:07)
[2023-09-26 07:18] LABS: Glucose, Whole Blood 130 mg/dL (60-115)
[2023-09-26 08:30] VITALS: BP 112/69; PULSE 73; RESP 16; TEMP 36.7; O2SAT 97
[2023-09-26 08:35] VITALS: BP 113/80; PULSE 79; RESP 16; O2SAT 96
--- NOTE | 2023-09-26 08:39 | P.BOP_ITS ---
Brief Operative Note Date of Service: 09/26/23 Pre-op diagnosis: Screening Post-op diagnosis: other (Diverticulosis) Procedure: Colonoscopy to the cecum Surgeon: Scottie Kinney MD Anesthesia: MAC Was an [facility] used for this Procedure?: No Estimated blood loss (mL): 0 Pathology: none sent Condition: stable Disposition: PACU
[2023-09-26 08:40] VITALS: BP 112/78; PULSE 66; RESP 16; O2SAT 98
[2023-09-26 08:45] VITALS: BP 122/86; PULSE 68; RESP 16; TEMP 36.2; O2SAT 98
--- NOTE | 2023-09-26 09:12 | OP_ITS ---
DATE OF SERVICE: 09/26/2023 SURGEON: Scottie Kinney MD INDICATIONS: The patient presents for evaluation of colorectal cancer screening, personal history of tubular adenomas, and family history of colon cancer. Full consent has been obtained from him for this, including risks of bleeding and perforation. PREOPERATIVE DIAGNOSIS: POSTOPERATIVE DIAGNOSIS: PROCEDURE PERFORMED: Colonoscopy to the cecum. ESTIMATED BLOOD LOSS: COMPLICATIONS: ANESTHESIA: Medication used, monitored anesthesia care. ASSISTANTS: SPECIMENS: PREOPERATIVE DIAGNOSES: Colorectal cancer screening, family history of colon cancer, personal history of tubular adenomas. POSTOPERATIVE DIAGNOSES: Colorectal cancer screening, family history of colon cancer, personal history of tubular adenomas, diverticulosis, and internal hemorrhoids. DESCRIPTION OF PROCEDURE: The patient was placed in the left lateral decubitus position. The digital rectal exam revealed no abnormalities other than external hemorrhoids. The Olympus video pediatric colonoscope was entered into the rectum and advanced to the cecum. Once in the cecum, there was a considerable amount of liquid and some residual stool, which was irrigated and suctioned away almost completely. The great majority of the cecum was visualized well and appeared normal. The ileocecal valve appeared normal. The appendiceal orifice was visualized and appeared normal as well. The scope was then slowly withdrawn assessing all mucosal surfaces carefully. Preparation was very good throughout the colon, although there were some small areas of residual liquid and/or solid debris that had to be irrigated and suctioned away as best as possible. I did not visualize any sign of polyps, colitis, nor angiodysplasias. There was a mild amount of sigmoid diverticulosis. In the rectum, scope was retroflexed visualizing internal hemorrhoids, but no other pathology. The rectal mucosa appeared normal. The scope was straightened and withdrawn from the patient. He tolerated the procedure well and was returned to recovery area in stable condition. IMPRESSION: 1. Diverticulosis. 2. Internal and external hemorrhoids. PLAN: I would recommend a repeat colonoscopy in 5 years for further screening. He was advised to resume his Eliquis and aspirin today. He will continue his usual diabetic regimen as well. MD LOI Love/STEVIE / [phone]
--- NOTE | 2023-09-26 10:18 | PC.NURSE ---
24hr update documented on paper
== END 2023-09-26 09:06 | disposition home or self-care (01) ==
PROVIDERS: PCP Internal Medicine; Visit Provider Internal Medicine
PROC: 0DJD8ZZ Inspection of Lower Intestinal Tract, Via Natural or Artificial Opening Endoscopic (ICD-10-PCS; CPT 45378; principal; 2023-09-26 07:30)
DX: Z12.11 Encounter for screening for malignant neoplasm of colon (principal); Z86.010 Personal history of colon polyps; Z80.0 Family history of malignant neoplasm of digestive organs; K57.30 Diverticulosis of large intestine without perforation or abscess without bleeding; K64.8 Other hemorrhoids; K64.4 Residual hemorrhoidal skin tags; G47.33 Obstructive sleep apnea (adult) (pediatric); I10 Essential (primary) hypertension; I25.10 Atherosclerotic heart disease of native coronary artery without angina pectoris; Z95.5 Presence of coronary angioplasty implant and graft; E11.9 Type 2 diabetes mellitus without complications; Z79.01 Long term (current) use of anticoagulants; Z79.82 Long term (current) use of aspirin; Z79.85 Long-term (current) use of injectable non-insulin antidiabetic drugs; Z79.899 Other long term (current) drug therapy; Z87.891 Personal history of nicotine dependence
CPT/HCPCS: G0105; 82947; J2405; J2704; J2765

== ENCOUNTER 2023-10-03 08:52 | Outpatient (REF) | payer MEDICARE, OTHER, SELFPAY ==
[2023-10-03 09:02] LABS: MANUAL DIFF FLAG NO
[2023-10-03 09:17] LABS: Basophils Absolute Auto 0.1 X10*3/uL (0.0-0.2); Basophils Percent Auto 0.6 % (0-2); Eosinophils Absolute Auto 0.3 X10*3/uL (0.0-0.4); Eosinophils Percent Auto 2.8 % (0-4); Hematocrit 42.4 % (42.0-52.0); Hemoglobin 13.8 g/dl (14.0-18.0); Imm Gran Abs Auto 0.04 X10*3/uL (0.00-0.03); Imm Gran Pct Auto 0.4 % (0.0-0.4); Lymphocytes Absolute Auto 3.7 X10*3/uL (1.2-4.9); Lymphocytes Percent Auto 34.7 % (20-40); Mean Corpuscular HGB Conc 32.5 g/dl (31.0-36.0); Mean Corpuscular Hemoglobin 29.2 pg (27.0-33.0); Mean Corpuscular Volume 89.6 fL (80.0-98.0); Mean Platelet Volume 9.5 fL (9.4-12.4); Monocytes Absolute Auto 0.7 X10*3/uL (0.1-1.2); Monocytes Percent Auto 6.6 % (2-11); Neutrophils Absolute Auto 5.8 x10*3/uL (2.0-8.3); Neutrophils Percent Auto 54.9 % (45-73); Platelet Count 270 X10*3/uL (160-400); Red Blood Count 4.73 X10*6/uL (4.60-5.80); Red Cell Distribution Width 15.7 % (11.0-16.0); White Blood Count 10.6 X10*3/uL (4.8-10.8)
[2023-10-03 09:26] LABS: Estimated Average Glucose 134 mg/dL; Hemoglobin A1c % 6.3 % (<6.0)
[2023-10-03 10:01] LABS: Alanine Aminotransferase 15 U/L (0-40); Albumin Level 4.2 g/dL (3.5-5.0); Alkaline Phosphatase 80 U/L (39-117); Anion Gap 14 (12-20); Aspartate Amino Transferase 17 U/L (5-37); Bilirubin Total 0.5 mg/dL (0.0-1.0); Blood Urea Nitrogen 21 mg/dL (9-16); Calcium 9.9 mg/dL (8.4-10.2); Carbon Dioxide 26 mmol/L (22-29); Chloride 104 mmol/L (96-108); Estimated Glomerular Filt Rate > 60; Glucose Random 111 mg/dL (60-115); Potassium 4.3 mmol/L (3.3-5.1); Sodium 140 mmol/L (135-145); Total Protein 7.2 g/dL (6.5-8.0)
[2023-10-03 10:17] LABS: Free T4 (Free Thyroxine) 1.05 ng/dL (0.71-1.85); Thyroid Stimulating Hormone 1.16 uIU/mL (0.32-4.0)
== END 2023-10-03 08:53 | disposition home or self-care (01) ==
LOC: HO.LAB 08:52
PROVIDERS: PCP Internal Medicine; Visit Provider Internal Medicine
DX: M16.0 Bilateral primary osteoarthritis of hip (principal); E11.9 Type 2 diabetes mellitus without complications; I10 Essential (primary) hypertension; I25.10 Atherosclerotic heart disease of native coronary artery without angina pectoris; E03.9 Hypothyroidism, unspecified
CPT/HCPCS: 36415; 80053; 83036; 84439; 84443; 85025

== ENCOUNTER 2024-01-25 10:07 | Outpatient (REF) | payer MEDICARE, OTHER, SELFPAY | END 2024-01-25 10:08 | disposition home or self-care (01) | LOC: HO.CT 10:07 | PROVIDERS: PCP Internal Medicine; Visit Provider Physician Assistant Medical | DX: Z12.2 Encounter for screening for malignant neoplasm of respiratory organs (principal); Z87.891 Personal history of nicotine dependence | CPT/HCPCS: 71271 ==

== ENCOUNTER 2024-02-01 08:10 | Outpatient (REF) | payer MEDICARE, OTHER, SELFPAY ==
[2024-02-01 08:36] LABS: MANUAL DIFF FLAG NO
[2024-02-01 08:54] LABS: Basophils Absolute Auto 0.1 X10*3/uL (0.0-0.2); Basophils Percent Auto 0.6 % (0-2); Eosinophils Absolute Auto 0.3 X10*3/uL (0.0-0.4); Eosinophils Percent Auto 2.7 % (0-4); Hematocrit 41.2 % (42.0-52.0); Hemoglobin 13.4 g/dl (14.0-18.0); Imm Gran Abs Auto 0.06 X10*3/uL (0.00-0.03); Imm Gran Pct Auto 0.6 % (0.0-0.4); Lymphocytes Absolute Auto 3.5 X10*3/uL (1.2-4.9); Lymphocytes Percent Auto 33.6 % (20-40); Mean Corpuscular HGB Conc 32.5 g/dl (31.0-36.0); Mean Corpuscular Hemoglobin 28.6 pg (27.0-33.0); Mean Platelet Volume 9.1 fL (9.4-12.4); Monocytes Absolute Auto 0.8 X10*3/uL (0.1-1.2); Monocytes Percent Auto 7.8 % (2-11); Neutrophils Absolute Auto 5.8 x10*3/uL (2.0-8.3); Neutrophils Percent Auto 54.7 % (45-73); Platelet Count 266 X10*3/uL (160-400); Red Blood Count 4.68 X10*6/uL (4.60-5.80); Red Cell Distribution Width 13.8 % (11.0-16.0); White Blood Count 10.5 X10*3/uL (4.8-10.8)
[2024-02-01 09:02] LABS: Estimated Average Glucose 143 mg/dL; Hemoglobin A1C 173.2734 umol/L; Hemoglobin A1c % 6.6 % (<6.0); Total Hemoglobin (HGBA1C) 3544.6926 umol/L
[2024-02-01 09:34] LABS: Alanine Aminotransferase 14 U/L (0-40); Albumin Level 3.9 g/dL (3.5-5.0); Alkaline Phosphatase 93 U/L (39-117); Anion Gap 14 (12-20); Aspartate Amino Transferase 17 U/L (5-37); Bilirubin Total 0.5 mg/dL (0.0-1.0); Blood Urea Nitrogen 17 mg/dL (9-16); Calcium 9.5 mg/dL (8.4-10.2); Carbon Dioxide 28 mmol/L (22-29); Chloride 101 mmol/L (96-108); Estimated Glomerular Filt Rate > 60; Glucose Random 148 mg/dL (60-115); Potassium 4.3 mmol/L (3.3-5.1); Sodium 139 mmol/L (135-145); Total Protein 6.9 g/dL (6.5-8.0)
== END 2024-02-01 08:11 | disposition home or self-care (01) ==
LOC: HO.LAB 08:10
PROVIDERS: PCP Internal Medicine; Visit Provider Internal Medicine
DX: E11.9 Type 2 diabetes mellitus without complications (principal); Z79.4 Long term (current) use of insulin; I25.10 Atherosclerotic heart disease of native coronary artery without angina pectoris; I10 Essential (primary) hypertension; K21.9 Gastro-esophageal reflux disease without esophagitis
CPT/HCPCS: 36415; 80053; 83036; 85025

== ENCOUNTER 2024-06-07 13:24 | Outpatient (AMB) | payer MEDICARE, OTHER, SELFPAY ==
--- NOTE | 2024-06-07 13:27 | A.OFFPC_ITS ---
Vital Signs 06/07/24 13:29 Height 6 ft Weight 285 lb BMI 38.6 BP 120/76 Blood Pressure Location Lt brachial Position Sitting Pulse 75 Pulse Source Pulse Oximeter Temp 97.8 F Temp Source Temporal Artery Scan Pulse Oximetry (%) 98 Oxygen Delivery Method Room Air Intake Visit Reasons: Routine Ultrasound Coordinator Required: No Accompanied by: Self / Same As Patient Allergies No Known Allergies [No Known Allergies*] Allergy (Verified 06/07/24 13:29) Tobacco use date assessed: 06/07/24 Fall risk assessment: No Falls in past year Last assessed Fall Risk: 06/07/24 Dental Screening Dental Screen Date: 06/07/24 Did you have a dental visit in the last 12 months?: Yes Did you have a dental problem in the last 6 months where you did not have access to dental care?: No HPI HPI Comments History of Present Illness Details Kristopher is a 69 year old male with past medical history of CAD s/p cardiac catheterization/PCI, obesity, diabetes, hypertension, dyslipidemia, SHAWN presenting for follow up. CV: Follows with cardiology at [facility]. On eliquis, lisionpril, toprol, crestor. Denies chest pain, shortnesss of breath Diabetes: on ozempic 1mg weekly, actos 30mg daily, tresiba 60 units daily, novolog. Last A1C 6.6% Hypothyroid-On levothyroxine MSK: history of lumbar decompression [facility] 2022 Obesity He states he is modified his diet and has lost almost 50 lb in weight recently. Otherwise, no cardiac symptoms like angina or shortness of breath. He states he is doing fine. Reports worsening memory loss over the past year. Has seen neurology in the past. Requests consultation for memory/dementia Colonoscopy 09/2023-repeat 5 yr ROS CONSTITUTIONAL: Denies weight loss, fever and chills. HEENT: Denies changes in vision and hearing. RESPIRATORY: Denies SOB and cough. CV: Denies palpitations and CP GI: Denies abdominal pain, nausea, vomiting and diarrhea. : Denies dysuria and urinary frequency. MSK: Denies new myalgia and joint pain. SKIN: Denies rash and pruritus. NEUROLOGICAL: Denies headache PSYCHIATRIC: Denies recent changes in mood. PHYSICAL EXAM: GENERAL: Alert and oriented x 3. NAD EYES: EOMI. Anicteric. HENT: Moist mucous membranes. No scleral icterus. No cervical lymphadenopathy. LUNGS: Clear to auscultation bilaterally. CARDIOVASCULAR: Regular rate and rhythm. No murmur. No JVD. ABDOMEN: Soft, non-tender +bs EXTREMITIES: No edema. Non-tender. SKIN: No rashes or lesions. Warm. NEUROLOGIC: No focal neurological deficits. CN II-XII grossly intact PSYCHIATRIC: Cooperative. Appropriate mood and affect [facility] Medical History Personal history of nicotine dependence Back pain Hx of radiation therapy Lumbago On anticoagulant therapy On beta truman at home Insulin dependent diabetes Pulmonary embolus Popliteal DVT (deep venous thrombosis) Chronic kidney disease (CKD), stage II (mild) Sleep apnea Peripheral neuropathy History of skin cancer Type 2 diabetes mellitus with unspecified complications Atherosclerotic cardiovascular disease Obesity due to excess calories Tubular adenoma of colon Graves disease CAD (coronary artery disease) Proteinuria Essential hypertension Hyperlipidemia LDL goal <70 Renal stones GERD (gastroesophageal reflux disease) Gout Surgical History History of ERCP History of back surgery History of esophagogastroduodenoscopy (EGD) Hx laparoscopic cholecystectomy Hx of elbow surgery Hx of hand surgery Hx of carpal tunnel repair Hx of colonoscopy H/O cystoscopy History of coronary artery stent placement History of hemorrhoidectomy Family History Father Colon cancer Mother Lung cancer Social History Household Members: Spouse Housing: House Are you a primary home care consultant to a significant other at home: No Do you presently have visiting nurse or other home services: No Alcohol intake: current Alcohol intake frequency: a few times a month Patient Tobacco Use Status: Former Tobacco user Tobacco use type: Cigarette Years Smoked: 35 +/- Second Hand Smoke Exposure: No Substance Use Type: Marijuana service: No Current occupational status: retired 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 [employer] [employer] [place] [employer] on the [employer] Cognitive needs: No Hearing needs: No Vision needs: Yes (rx glasses) Questionnaire PHQ-9 Over the last 2 weeks, how often have you been bothered by any of the following problems? 1. Little interest or pleasure in doing things: not at all 2. Feeling down, depressed, or hopeless: not at all 3. Trouble falling or staying asleep, or sleeping too much: not at all 4. Feeling tired or having little energy: not at all 5. Poor appetite or overeating: not at all 6. Feeling bad about yourself - or that you are a failure or have let yourself or your family down: not at all 7. Trouble concentrating on things, such as reading the newspaper or watching television: not at all 8. Moving or speaking so slowly that other people could have noticed. Or the opposite - being so fidgety or restless that you have been moving around a lot more than usual: not at all 9. Thoughts that you would be better off or of hurting yourself in some way: not at all Total score: 0 Depression Screening Interpretation: Negative Depression Screening Done: Yes 22593 - PHQ-9 Billing: Yes Source: Developed by Drs. Scottie Vallejo, Evelyne Zhou, Mani Michael and colleagues, with an educational madison from [employer]. Thrive Questionnaire Date Thrive assessed: 06/07/24 I am a: Patient Within the past 12 months, did the food you bought not last and you didn't have the money to get more?: Never true Within the past 12 months, did you worry whether your food would run out before you got money to buy more?: Never true Do you have trouble paying for medicines?: No Do you have trouble getting transportation to medical appointments?: No Do you have trouble paying your heating and electricity bill?: No Do you have trouble taking care of your child, family member or friend?: No Do you have trouble with day-to-day activities such as bathing, preparing meals, shopping, managing finances, etc.?: No Are you currently unemployed and looking for a job?: No Are you interested in more education?: No THRIVE Score: 0 AUDIT C Alcohol Use Questionnaire (AUDIT-C) 1. How often do you have a drink containing alcohol?: Monthly or less 2. How many drinks containing alcohol do you have on a typical day when you are drinking?: 1 or 2 3. How often do you have six or more drinks on one occasion?: Less than monthly Total Score: 2 RAYSA-7 AMB Questionnaire RAYSA-7 Date RAYSA - 7 assessed: 06/07/24 Feeling nervous, anxious, or on edge: 0 = Not at all Not being able to stop or control worryin = Not at all Worrying too much about different things: 0 = Not at all Trouble relaxin = Not at all Being so restless that it is hard to sit still: 0 = Not at all Becoming easily annoyed or irritable: 0 = Not at all Feeling afraid as if something awful might happen: 0 = Not at all Total RAYSA-7 score (0-4 normal; 5-9 mild; 10-14 moderate; 15-21 severe): 0 Source: Developed by Drs. Scottie Vallejo, Evelyne Zhou, Mani Michael and colleagues, with an educational madison from [employer]. Physical exam (Primary Care) Vital Signs: Last Vital Signs Temp 97.8 F 06/07/24 13:29 Pulse 75 06/07/24 13:29 BP 120/76 06/07/24 13:29 Pulse Ox 98 06/07/24 13:29 Oxygen Delivery Method Room Air 06/07/24 13:29 BMI result Body Mass Index 38.6 Tobacco/Smoking Status: Tobacco use Status Tobacco use date assessed 06/07/24 06/07/24 13:31 Patient Tobacco Use Status Former Tobacco user 06/07/24 13:28 Tobacco use type Cigarette 06/07/24 13:28 PHQ-9: PHQ-9 Score PHQ-9: Total score 0 06/07/24 13:43 Depression Screening Interpretation: Negative Thrive Assessment: Date of Thrive Assessment Date Thrive assessed 06/07/24 06/07/24 13:31 Coding Level of Care Code New Pt Level 4 (49572) Complex EM visit Add On G2211 Diagnoses Type 2 diabetes mellitus with unspecified complications E11.8 Essential hypertension I10 Memory loss R41.3 Additional Codes PHQ-9 - 99598 - PHQ-9 Billing: Yes ([id number]) Assessment & Plan Assessment & Plan (1) Type 2 diabetes mellitus with unspecified complications: Comment: (IDDM2, with kidney disease, polyneuropathy) Code(s): E11.8 - Type 2 diabetes mellitus with unspecified complications Category: Medical (2) Essential hypertension: Code(s): I10 - Essential (primary) hypertension Category: Medical (3) Memory loss: Code(s): R41.3 - Other amnesia Category: Medical Plan 69 yo to establish care past medical, surgical, social, family history reviewed diabetes controlled Memory loss-referral to neuropsychiatry. MRI ordered Orders: Orders TSH reflex Free T4 06/07/24 E11.8 - Type 2 diabetes mellitus with unspecified complications, I10 - Essential (primary) hypertension, R74.01 - Elevation of levels of liver transaminase levels Complete Blood Count Auto Diff 06/07/24 E11.8 - Type 2 diabetes mellitus with unspecified complications, I10 - Essential (primary) hypertension, R74.01 - Elevation of levels of liver transaminase levels Comprehensive Met. Panel 06/07/24 E11.8 - Type 2 diabetes mellitus with unspecified complications, I10 - Essential (primary) hypertension, R74.01 - Elevation of levels of liver transaminase levels Hemoglobin A1c 06/07/24 E11.8 - Type 2 diabetes mellitus with unspecified complications, I10 - Essential (primary) hypertension, R74.01 - Elevation of levels of liver transaminase levels Lipid Panel 06/07/24 E11.8 - Type 2 diabetes mellitus with unspecified complications, I10 - Essential (primary) hypertension, R74.01 - Elevation of levels of liver transaminase levels MR head/brain wo con 06/07/24 R41.3 - Other amnesia Microalbumin, Random (w Creat) 06/07/24 E11.8 - Type 2 diabetes mellitus with u nspecified complications, I10 - Essential (primary) hypertension, R74.01 - Elevation of levels of liver transaminase levels Referrals Neuropsychiatry Referral R41.3 - Other amnesia Medications: New Ozempic (semaglutide) 2 mg (0.75 mL) subcut QWEEK 9 mL 3RF NS E11.8 - Type 2 diabetes mellitus with unspecified complications FreeStyle Flavio 2 Plus Sensor (blood-glucose sensor) every 15 days 6 ea 3RF NS E11.8 - Type 2 diabetes mellitus with unspecified complications allopurinol 300 mg PO DAILY 90 tabs 3RF lisinopril 20 mg PO BEDTIME 90 tabs 3RF pioglitazone 30 mg PO BEDTIME 90 tabs 3RF pregabalin (Lyrica) 100 mg PO BID 180 caps 3RF apixaban (Eliquis) 5 mg PO BID 180 tabs 3RF levothyroxine (Synthroid) 50 mcg PO DAILY@0630 90 tabs 3RF E11.42 - Type 2 diabetes mellitus with diabetic polyneuropathy metoprolol succinate ER 50 mg PO DAILY 90 tabs 3RF Changed From omeprazole 1 cap PO DAILY@0630 To omeprazole 20 mg PO DAILY@0630 90 caps 3RF From insulin degludec (Tresiba FlexTouch U-200 insulin) 110 units (0.55 mL) subcut BEDTIME 90 days 54 mL 3RF To insulin degludec (Tresiba FlexTouch U-200 insulin) 70 units (0.35 mL) subcut BEDTIME 31.5 mL 3RF 90 days From insulin aspart U-100 (Novolog FlexPen U-100 Insulin aspart) 24 UNITS AT BREAKFAST AND LUNCH, 34 UNITS AT DINNER 24 units subcut BID@0730,1130 To insulin aspart U-100 (Novolog FlexPen U-100 Insulin aspart) 10 units (0.1 mL) subcut TID 30 mL 3RF Refilled rosuvastatin 20 mg PO DAILY 90 tabs 3RF
[2024-06-07 13:29] VITALS: BP 120/76; PULSE 75; TEMP 36.6; O2SAT 98; BMI 38.6
== END 2024-06-07 14:02 | disposition home or self-care (01) ==
PROVIDERS: PCP Internal Medicine; Visit Provider Internal Medicine
DX: E11.8 Type 2 diabetes mellitus with unspecified complications (principal); I10 Essential (primary) hypertension; R41.3 Other amnesia

== ENCOUNTER → 2024-06-07 13:24 | Outpatient (BNVA) | payer MEDICARE, OTHER, SELFPAY | PROVIDERS: PCP Internal Medicine; Visit Provider Internal Medicine | DX: E11.8 Type 2 diabetes mellitus with unspecified complications (principal); E11.42 Type 2 diabetes mellitus with diabetic polyneuropathy; I10 Essential (primary) hypertension; R41.3 Other amnesia; I25.10 Atherosclerotic heart disease of native coronary artery without angina pectoris; E78.5 Hyperlipidemia, unspecified; G47.33 Obstructive sleep apnea (adult) (pediatric); E03.9 Hypothyroidism, unspecified; Z79.4 Long term (current) use of insulin; Z79.899 Other long term (current) drug therapy | CPT/HCPCS: 96127; 99202 ==

== ENCOUNTER 2024-06-24 11:32 | Outpatient (REF) | payer MEDICARE, OTHER, SELFPAY ==
--- NOTE | ~2024-06-24 | MR_ITS ---
EXAMINATION: MR BRAIN WITHOUT CONTRAST CLINICAL INFORMATION: Amnesia. Weakness and numbness in all extremities COMPARISON: None available. TECHNIQUE: MRI of the brain was obtained using routine sequences without contrast. FINDINGS: There is no restricted diffusion seen to suspect any acute ischemic changes. No susceptibility artifact seen to suspect any acute or chronic hemorrhagic products. There are punctate T2 foci in the deep white matter of both frontal lobes without mass effect or edema. The lateral ventricles are symmetrical in size but enlarged. Normal flow-void signal seen in major cerebral vasculature. No abnormality seen in the posterior fossa. Visualized scalp soft tissues are normal. The paranasal sinuses are well-aerated. There is diffuse mucoperiosteal thickening bilateral mastoid sinuses. MR/MR head/brain wo con IMPRESSION: No acute intracranial process seen. Scattered T2 FLAIR foci in deep white matter of both cerebral hemispheres, nonspecific and may represent chronic small vessel changes. Mild cerebral volume loss. Bilateral chronic mastoid sinus inflammatory changes. Electronically signed by: Vargas Montiel MD 06/25/2024 07:31 AM EDT
== END 2024-06-24 11:33 | disposition home or self-care (01) ==
LOC: HO.MRI 11:32
PROVIDERS: PCP Internal Medicine; Visit Provider Internal Medicine
DX: R41.3 Other amnesia (principal)
CPT/HCPCS: 70551

== ENCOUNTER → 2024-06-24 11:38 | Outpatient (BNV) | payer MEDICARE, OTHER, SELFPAY | PROVIDERS: PCP Internal Medicine; Visit Provider Radiology Diagnostic Radiology | DX: R41.3 Other amnesia (principal) | CPT/HCPCS: 70551 ==

== ENCOUNTER 2024-06-25 08:50 | Outpatient (REF) | payer MEDICARE, OTHER, SELFPAY ==
--- OUTSIDE RECORDS SUMMARY | 2024-06-25 09:35 | XMS_ITS | Data Portability ---
Author Organization [facility], [facility] Address [address] [place] [address] Care Team Providers Care Mine Deputy Name Role Phone GRZEGORZ DORSEY Referring Provider [phone] GRZEGORZ DORSEY Primary Care Provider Assessment Encounter Date Assessment Date Assessment LastModified by Organization Details LastModified Time 11/15/2023 11/15/2023 XR Hip Left Hip: Two views of the hip were obtained including AP pelvis and groin lateral views. Severe DJD present. Changes consistent with osteoarthritis including joint space narrowing, subchondral sclerosis, and osteophyte formation. Arthrosis primarily affects the [superior] compartment. [email or web address] Not available 04/13/2024 12:22:13 12/08/2023 12/08/2023 Assessment: Patient presents with symptoms that are consistent with MELODY including antalgic gait mechanics, decreased ROM, strength limitations, and difficulty navigating stairs. Plan: Continue with PT at 2x/week for 4 weeks focusing on decreasing pain, improving ROM, strength, optimizing gait and stair mechanics, and mobility for functional ADL's. [email or web address] Not available 12/08/2023 08:35:37 12/15/2023 12/15/2023 Assessment: Good miguelito to all therex, slight antalgia without AD. GOod initiial step mechanics. Plan: Continue with PT at 2x/week focusing on decreasing pain, improving ROM, strength, optimizing gait and stair mechanics, and mobility for functional ADL's. [email or web address] Not available 12/15/2023 12:57:43 01/10/2024 01/10/2024 Imaging: Imaging ordered, independently reviewed and interpreted by Gregorio Ya MD reveals the following findings: XR Hip Left hip: Two views of the hip were obtained including AP pelvis and groin lateral views. Status post hip surgery: Status post MELODY with no evidence of complication, well fixed, well aligned, and located. There is good yazdanism of leg length and offset without loosening or migration. Impression: Status post left anterior total hip arthroplasty, 6 weeks out Plan: The patient is doing well, continue activities as tolerated. 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 Elsewise he will follow up with me in April to evaluate his right hip for a possible hip replacement in May [email or web address] Not available 01/10/2024 15:43:36 Plan of Treatment Reminders Order Date Submit Date Provider Last Modified By Organization Details Last Modified Time Details Appointments None recorded . Lab None recorded . Referral None recorded . Procedures None recorded . Surgeries None recorded . Imaging XR, hip + pelvis, unilater al, 2 or 3 view - 202 2v 2nd po LTHR 2023 024 [email or web address], [address], [place], [address], 4 10:44:34 XR, hip + pelvis, unilater al, 2 or 3 view - room 202 1 p/o alth (ab) pelvis only 2023 024 [facility], [address], [place], [address], 4 12:19:42 XR, hip + pelvis, unilater al, 2 or 3 view - ROOM 223 LEFT HIP 2V WITH MARKER AB 2023 024 [email or web address] [facility], [address], [place], [address], 4 09:11:44 Medication Orders None recorded . Patient Targets Encounter Date Encounter Id Patient Goals Patient Target Last Modified By Organization Details Last Modified Time 12/08/2023 [id number] 3 weeks of Left Hip AROM (normal) motion: abduction: active motion, left (40 deg.) Not available Not available Not available 3 weeks of Left Hip AROM (normal) motion: flexion: active motion, left (100 deg.) Not available Not available Not available 3 weeks of Left Hip AROM (normal) motion: external rotation: active motion, left (25 deg.) Not available Not available Not available residential goal of Left Hip AROM (normal) motion: abduction: active motion, left (45 deg.) Not available Not available Not available middle or intermediate 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 principal goal of Left Hip AROM (normal) motion: flexion: active motion, left (110 deg.) Not available Not available Not available middle or intermediate school principal goal of Left Hip AROM (normal) motion: external rotation: active motion, left (25 deg.) Not available Not available Not available 3 weeks of Left Hip Strength (normal) strength: hips: flexion: left 4 (0-5) Not available Not available Not available 3 weeks of Left Hip Strength (normal) strength: hips: abduction: left 4 (0-5) Not available Not available Not available 3 weeks of Left Hip Strength (normal) strength: hips: external rotation: left 4 (0-5) Not available Not available Not available residential goal of Left Hip Strength (normal) strength: hips: external rotation: left 5 (0-5) Not available Not available Not available residential goal of Left Hip Strength (normal) strength: hips: abduction: left 5 (0-5) Not available Not available Not available middle or intermediate school principal goal of Left Hip Strength (normal) strength: hips: flexion: left 5 (0-5) Not available Not available Not available middle or intermediate school principal goal of Squatting performs without symptoms Not available Not available Not available 3 weeks of Gait and Stance: equal base of support Not available Not available Not available residential goal of Gait and Stance: gait WNL Not available Not available Not available 3 weeks of Sitting to standing transfers (ability to move from sitting to a standing position without symptoms) Mild difficulty: mild symptoms reported with moving from a sitting to a standing position Not available Not available Not available residential goal of Sitting to standing transfers (ability to move from sitting to a standing position without symptoms) No difficulty: able to move from sitting to a standing position without symptoms Not available Not available Not available Patient InstructionsNo instructions recorded. Reason for Referral None Reported. Results Created Date Observation Date Name Description Value Unit Range Abnormal Flag Note LastModifiedBy Organization Detail LastModifiedTime 11/15/19 24 11/15/2023 XR, hip + pelvi s, unila teral , 2 or 3 view http:/ [email or web address] ?Encry pted=s hAaTro YD8dLq bEUv6g %2BXZw aYqtaq 0bqfl% 2Fg9IQ a4ajBk vP9nXo QUaueC m3YtLR FvZlgJ JJ8mAn HZtai3 1r7974 AC0KrY 3SGUKK jKiQtr Mw INTERFACE [facility] [address], [place], [address], 11/15/2023 13:25:56 11/15/19 24 11/15/2023 XR, hip + pelvi s, unila teral , 2 or 3 view http:/ [email or web address] ?Encry pted=s hAaTro YD8dLq bEUv6g %2BXZw aYqtaq 0bqfl% 2Fg9IQ a4ajBk vP9nXo QUaueC m3YtLR FvZlJ JJ8mAn HZtai3 4e7172 AC0KrY 3SGUKK jKiQtr F INTERFACE [facility] [address], [place], [address], 11/15/2023 13:25:58 11/25/19 24 11/15/2023 XR, hip + pelvi s, unila teral , 2 or 3 view http:/ [email or web address] ?Encry pted=s hAaTro YD8dLq bEUv6g %2BXZw aYqtaq 0bqfl% 2Fg9IQ a4ajBk vP9nXo QUaueC m3YtLR FvZlgJ JJ8mAn HZtai3 0m3286 AC0KrY 3SGUKK jKiQtr Mw INTERFACE [facility] [address], [place], [address], 11/25/2023 12:03:06 11/25/19 24 11/15/2023 XR, hip + pelvi s, unila teral , 2 or 3 view http:/ [email or web address] ?Encry pted=s hAaTro YD8dLq bEUv6g %2BXZw aYqtaq 0bqfl% 2Fg9IQ a4ajBk vP9nXo QUaueC m3YtLR FvZlgJ [place] HZtai3 3m9405 AC0KrY 3SGUKK jKiQtr [facility] INTERFACE [facility] [address] [address], [place], [address], 11/25/2023 12:03:08 11/28/19 24 11/28/2023 XR, hip + pelvi s, unila teral , 2 or 3 view No observ ation record ed. [address], [address], 11/28/2023 14:26:11 11/28/19 24 11/28/2023 XR, hip + pelvi s, unila teral , 2 or 3 view No observ ation record ed. [address], [address], 12/02/2023 14:44:16 11/28/19 24 11/28/2023 XR, hip + pelvi s, unila teral , 2 or 3 view No observ ation record ed. [address], [address], 12/01/2023 17:52:43 12/12/19 24 12/12/2023 XR, hip + pelvi s, unila teral , 2 or 3 view http:/ [email or web address] ?Encry pted=s hAaTro YD8dLq bEUv6g %2BXZw aYqtaq 0bqfl% 2Fg9IQ a4ajBk vP9nXo QUaueC m3YtLR FvZlgJ JJ8mAn HZtai3 7e1397 AC0Kqa 32EVqW vKiQtr MwF INTERFACE [facility] [address] [facility] [address], [place], [address], 12/12/2023 08:54:19 12/12/19 24 12/12/2023 XR, hip + pelvi s, unila teral , 2 or 3 view http:/ [email or web address] ?Encry pted=s hAaTro YD8dLq bEUv6g %2BXZw aYqtaq 0bqfl% 2Fg9IQ a4ajBk vP9nXo QUaueC m3YtLR FvZlgJ JJ8mAn HZtai3 0z9193 AC0Kqa 32EVqW vKiQtr MwF INTERFACE [facility] [address] [facility] [address], [place], [address], 12/12/2023 08:54:21 01/10/20 24 01/10/2024 XR, hip + pelvi s, unila teral , 2 or 3 view http:/ [email or web address] ?Encry pted=s hAaTro YD8dLq bEUv6g %2BXZw aYqtaq 0bqfl% 2Fg9IQ a4ajBk vP9nXo QUaueC m3YtLR FvZlgJ JJ8mAn HZtai3 1r1939 AC0Kqa H%2BMU qCiKiQ trMwF INTERFACE [facility] [address] [facility] [address], [place], [address], 01/10/2024 15:09:24 01/10/20 24 01/10/2024 XR, hip + pelvi s, unila teral , 2 or 3 view http:/ [email or web address] ?Encry pted=s hAaTro YD8dLq bEUv6g %2BXZw aYqtaq 0bqfl% 2Fg9IQ a4ajBk vP9nXo QUaueC m3YtLR FvZlgJ JJ8mAn HZtai3 5u2708 AC0Kqa H%2BMU qCiKiQ trMwF INTERFACE [facility] [address], [place], [address], 01/10/2024 15:09:26 Result Notes None recorded. Problems Name Problem SNOMED Code Status Onset Date Resolution Date Notes Provider Name and Address Organization Details Recorded Time History of total replacemen t of left hip joint 3839680068475 105 Active 2023 Gregorio Ya MD [address], [place], [address] , [facility] 4 15:42:30 Osteoarthr itis of left hip joint 2709032584889 08 Active 2023 Gregorio Ya MD [address], [place], [address] , [facility] 4 10:33:36 Problem Notes None recorded. Procedures Surgical History Date Name Laterality Status Provider Name and Address Organization Details Recorded Time 4 78789 Therapeutic Exercise (1:1) cancelled Sade Tsai PTA [address], [place], [address], [facility] 12/29/2023 11:23:26 4 04227: Manual therapy cancelled Sade Tsai PTA [address], [place], [address], [facility] 12/29/2023 11:23:26 4 01647 Therapeutic Exercise (1:1) completed Sade Tsai PTA [address], [place], [address], [facility] 12/15/2023 12:44:45 4 57565: Manual therapy completed Sade Tsai PTA [address], [place], [address], [facility] 12/15/2023 12:44:47 4 97626 Therapeutic Exercise (1:1) completed Larry Hicks, PT [address], [place], [address], [facility] 12/08/2023 06:40:39 4 59623: Low complexity PT Eval completed Larry Hicks, PT [address], [place], [address], [place] [facility] 12/08/2023 06:40:42 4 G8417 BMI Above Upper Parameters, F/U Documented completed Larry Hicks, PT [address], [place], [address], [facility] 12/08/2023 08:40:23 4 G8427 Current Medication Documented completed Larry Hicks, PT [address], [place], [address], [facility] 12/08/2023 08:40:16 4 Hip Kenalog Injection, Bilateral w/US completed Freddy Galindo PA-C [address], [place], [address], [facility] 08/01/2023 08:29:32 Imaging Results Imaging Date Name Status LastModified by Organiz ation Details LastModified Time 11/15/2023 XR, hip + pelvis, unilateral , 2 or 3 view completed INTERFACE [facility] [address], [place], [address], 11/15/2023 13:25:56 11/15/2023 XR, hip + pelvis, unilateral , 2 or 3 view completed INTERFACE [facility] [address], [place], [address], 11/15/2023 13:25:58 11/15/2023 XR, hip + pelvis, unilateral , 2 or 3 view completed INTERFACE [facility] [address], [place], [address], 11/25/2023 12:03:06 11/15/2023 XR, hip + pelvis, unilateral , 2 or 3 view completed INTERFACE [facility] [address], [place], [address], 11/25/2023 12:03:08 11/28/2023 XR, hip + pelvis, unilateral , 2 or 3 view completed [address], [address], 11/28/2023 14:26:11 11/28/2023 XR, hip + pelvis, unilateral , 2 or 3 view completed [facility] [address] [place] [address], [address], 12/02/2023 14:44:16 11/28/2023 XR, hip + pelvis, unilateral , 2 or 3 view completed [address], [address], 12/01/2023 17:52:43 12/12/2023 XR, hip + pelvis, unilateral , 2 or 3 view completed INTERFACE [facility] [address], [place], [address], 12/12/2023 08:54:19 12/12/2023 XR, hip + pelvis, unilateral , 2 or 3 view completed INTERFACE [facility] [address], [place], [address], 12/12/2023 08:54:21 01/10/2024 XR, hip + pelvis, unilateral , 2 or 3 view completed INTERFACE [facility] [address], [place], [address], 01/10/2024 15:09:24 01/10/2024 XR, hip + pelvis, unilateral , 2 or 3 view completed INTERFACE [facility] [address], [place], [address], 01/10/2024 15:09:26 Procedure Notes None recorded. Medical Equipment None Reported. Allergies No known drug allergies Medications Name Sig Start Date Stop Date Status Note LastModified by Organization Details LastModified Time celecoxib 200 mg capsule TAKE 1 CAPSULE EVERY DAY BY MOUTH FOR 33 DAYS. 2023 active Not Available Not Available Not Avai lable metoprolol succinate ER 50 mg tablet,exte nded release 24 hr active Not Available Not Available Not Available lisinopril 20 mg tablet active Not Available Not Available Not Available ondansetron HCl 4 mg tablet TAKE 1 TABLET BY MOUTH EVERY 8 HOURS FOR 7 DAYS active Not Available Not Available No t Available tramadol 50 mg tablet TAKE 1 TO 2 TABLETS BY MOUTH EVERY 6 HOURS NEEDED FOR MILD PAIN. DO NOT EXCEED 8 TABLETS (400MG) PER DAY. active Not Available Not Available No t Available acetaminoph en ER 650 mg tablet,exte nded release TAKE 1 TABLET 3 TIMES A DAY BY ORAL ROUTE FOR 33 DAYS. active Not Available Not Available No t Available hydromorpho ne 2 mg tablet TAKE 1 TO 2 TABLETS BY MOUTH EVERY 4 HOURS NEEDED FOR SEVERE PAIN active Not Available Not Available No t Available Synthroid 50 mcg tablet active Not Available Not Available Not Available docusate sodium 100 mg capsule TAKE 1 CAPSULE BY MOUTH EVERY DAY active Not Available Not Available No t Available gabapentin 300 mg capsule TAKE 1 CAPSULE BY MOUTH THREE TIMES A DAY 12/11 completed Not Available Not Available Not Available omeprazole 20 mg capsule,del ayed release active Not Available Not Available Not Available allopurinol 300 mg tablet active Not Available Not Available Not Available pioglitazon e 30 mg tablet active Not Available Not Available Not Available ketoconazol e 2 % topical cream APPLY IN MORNING AND EVENING TO DRYNESS AND FLAKING ON FOREHEAD BETWEEN EYEBROWS 12/11 completed Not Available Not Available Not Available oxycodone 5 mg tablet TAKE 1-2 TABS BY MOUTH EVERY 4 HOURS NEEDED FOR PAIN (MAX 6/DAY PER INS) 12/11 completed Not Available Not Available Not Available rosuvastati n 20 mg tablet active Not Available Not Available Not Available Eliquis 5 mg tablet TAKE 1 TABLET BY MOUTH TWICE A DAY active Not Available Not Available No t Available Eliquis 2.5 mg tablet TAKE 1 TABLET BY MOUTH TWO TIMES A DAY FOR THE FIRST 7 DAYS POST-OP, THEN RESUME HOME DOSE active Not Available Not Available No t Available Tresiba FlexTouch U-100 insulin 100 unit/mL (3 mL) subcutaneou s pen INJECT 60 UNITS TO SKIN DAILY active Not Available Not Available No t Available Ozempic 1 mg/dose (4 mg/3 mL) subcutaneou s pen injector INJECT 1MG UNDER THE SKIN EVERY WEEK active Not Available Not Available No t Available Vitals Date Recorded Body height Body mass index (BMI) Body weight Provider Name and Address Organization Details Last Updated DateTime 11/15/2023 181.61 cm 37 kg/m2 717445.35 g DENIZ LABOY [facility] 11/15/2023 12:58:31 Date Recorded Body height Body mass index (BMI) Body weight Provider Name and Address Organization Details Last Updated DateTime 12/12/2023 181.61 cm 37.8 kg/m2 346951.9 g yelitza orona [facility] 12/12/2023 08:43:12 Date Recorded Body height Provider Name an d Address Organization Details Last Updated DateTime 01/10/2024 181.61 cm Danuta Garnett [facility] 01/10/2024 14:33:43 Social History None recorded. Functional Status None recorded. Mental Status None recorded. Family History Nothing Reported. Medical History No medical history recorded. Past Encounters Encounter ID Performer Location Encounter Start Date Encounter Closed Date Diagnosis/Indication Diagnosis SNOMED-CT Code Diagnosis ICD10 Code Diagnosis Note [id number] MD [facility] [address] [place] [address] 07/26/2023 14:18:49 08/19/2023 12:04:05 Bilateral hip joint pain 8789687926 0039911 M25.551 M25.609 [id number] RENEE Holliday [address] [place] [address] 08/01/2023 08:50:44 08/23/2023 11:54:45 Osteoarthritis of bilateral hip joints 7964242630 92877 M16.0 [id number] MD [facility] [address] [place] [address] 09/02/2023 09:19:46 09/29/2023 14:15:41 Osteoarthritis of left hip joint 7459337279 40290 M16.12 [id number] Marilou García APRN [facility] [address] [place] [address] 11/15/2023 12:54:36 11/29/2023 14:47:07 Osteoarthritis of left hip joint 8683396966 [facility] M16.12 [id number] MD Juanis [facility] [address] [place] [address] 11/15/2023 13:16:12 11/29/2023 14:46:58 Osteoarthritis of left hip joint 0929317381 99858 M16.12 [id number] MD [facility] [address] [place] [address] 12/08/2023 07:47:51 12/08/2023 09:48:53 Aftercare [id number] Z47.1 Z96.692 [id number] Jania Gasca PA-C [facility] [address] [place] [address] 12/12/2023 08:39:16 01/04/2024 12:19:42 History of total replacement of left hip joint 8608787721 393953 Z96.642 Postoperative visit 1836 91477 Z48.89 [id number] SARAY Manzoe PT [address] [place] [address] 12/15/2023 11:20:20 12/15/2023 12:06:34 Aftercare [id number] Z47.1 Z96.540 [id number] MD [facility] [address] [place] [address] 01/10/2024 14:30:37 01/30/2024 10:44:33 History of total replacement of left hip joint 0824738532 275851 Z96.642 Health Concerns Section Related Observation LastModified by Organization Detai ls LastModified Time None Recorded Concern Status LastModified by Organization Details LastModified Time None Recorded Advance Directives Directive None Recorded Payers Encounter Date Sequence Insurance Name Policy Number Policy Meade Covered Member ID Meade Member ID Guarantor Name 11/15/2023 2 [facility] (MEDICARE SUPPLEMENT) Kristopher Adhikari [id number] Kristopher Adhikari 11/15/2023 1 [place] [employer] [place] Kristopher Adhikari [id number] Kristopher Adhikari 12/08/2023 2 [facility] (MEDICARE SUPPLEMENT) Kristopher Garciarebekah Wall [id number] Kristopher Adhikari 12/08/2023 1 [place] Kristopher Adhikari [id number] Kristopher Adhikari 12/12/2023 2 [facility] (MEDICARE SUPPLEMENT) Kristopher Garciarebekah Wall [id number] Kristopher Adhikari 12/12/2023 1 [place] [facility] Kristopher Garciarebekah Wall [id number] Kristopher Adhikari 12/15/2023 2 [facility] (MEDICARE SUPPLEMENT) Kristopher Savage Zeynep Wall [id number] Kristopher Adhikari 12/15/2023 1 [place] Kristopher Adhikari [id number] Kristopher Adhikari 01/10/2024 2 [facility] (MEDICARE SUPPLEMENT) Kristopher Garciarebekah Wall [id number] Kristopher Adhikari 01/10/2024 1 [place] [facility] Kristopher Garciarebekah Wall [id number] 2 Kristopher Garciarebekah Wall Notes Date Note Type Note Provider Name and Address Organization Details Recorded Time 12/08/2023 text/html Patient is 68 ye ar old male, with chronic history of hip pain and OA. Presents s/p MELODY, reporting mild pain and swelling in hip. Arrives today ambulating with rolling walker, demonstrating antalgic gait mechanics. Received home care physical therapy and has 2 steps at home. Has been compliant with post-operative hip precautions. 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 Patient goal is to walk without pain. Larry Hicks, PT [address] [facility] [address], [place], [address], [facility] 12/08/2023 08:42:25 12/12/2023 text/html I am seeing the patient today under the supervision of Dr. Wheeler who was available but who did not see the patient. HPI: Patient presents for first orthopedic follow-up status post left anterior total hip arthroplasty. Happy with results. No significant complaints of pain. No neurovascular changes. Past family, medical, social history and review of systems has been reviewed, updated, and is located in the patient? s chart. Examination: The patient is well appearing and in no apparent distress. Alert and oriented x3. Gait is antalgic on operative side. Examination of the left hip reveals a healing surgical incision. Appropriate postoperative edema. No erythema or drainage. Supple pain-free range of motion. Calf is soft and nontender bilaterally. 4+/5 strength of hip flexion and extension. [facility] performed today at [facility] have been reviewed. Images include an AP pelvis view. Radiographs demonstrate a total joint arthroplasty with good interfaces and alignment. No evidence of any lysis or loosening. No acute fractures appreciated. Impression: Two weeks status post left anterior total hip arthroplasty Plan: Nature of the diagnosis was discussed with the patient today. At this point the patient is doing well. Recommended continued physical therapy to focus on stretching and strengthening exercises. Patient is on {{ASA Xarelto Eliqu is* Plavix Coumadin Lovenox}} for DVT prophylaxis. Pain is controlled. We reviewed the signs/symptoms of infection. Follow up as scheduled, sooner if there are any complications. All questions have been answered. [employer] speech recognition cook's assistant software was used to create portions of this document. An attempt at proofreading has been made to minimize errors. Please call for corrections. Jania Gasca PA-C [address], [place], [address], [facility] 12/12/2023 09:17:29 12/15/2023 text/html Pt reports naggi ng aching pain in hip. Amb with SC with some discomfort at nighttime. Sade Tsai PTA [address], [place], [address], [facility] 12/15/2023 12:58:44 01/10/2024 text/html History of prese nt illness: This patient follows up today and is now 6 weeks out from left anterior total hip arthroplasty. Their pain is well controlled and they are progressing as expected with physical therapy. Able to do current activities without significant difficulty. They have no major complaints at this time and are satisfied with their current state of recovery. Past family, medical, social history and review of systems has been reviewed and updated, and is located in the patient? s chart. Gregorio Ya MD [address] [place], [place] [address] [address], [place], [address], [facility] 01/10/2024 15:43:46
--- OUTSIDE RECORDS SUMMARY | 2024-06-25 09:35 | XMS_ITS | Clinical Summary ---
Author Organization [facility] Address [address] [place] [address] Phone Care Team Providers Care Glass Block Installer Name Role Phone Unavailable Primary Care Provider Unavailabl e Allergies No known active allergies Medications allopurinol (ZYLOPRIM) 300 MG tablet Take 1 tablet by mouth 1 (one) time each day Active Aspirin 81 MG capsule Take 81 mg by mouth 1 (one) time each day Active levothyroxine (SYNTHROID, LEVOTHROID) 50 MCG tablet Take 1 tablet by mouth 1 (one) time each day Active lisinopril 20 MG tablet Take 1 tablet by mouth 1 (one) time each day Active metoprolol tartrate (LOPRESSOR) 100 MG tablet Take 0.5 tablets by mouth 2 (two) times a day Active omeprazole OTC (PriLOSEC OTC) 20 MG EC tablet Take 1 tablet by mouth 1 (one) time each day Active NovoLOG FLEXPEN 100 UNIT/ML injection 24 morning 32 evening meal 04/27/2021 Active Tresiba FlexTouch 200 UNIT/ML injection 05/10/2021 Active pioglitazone (ACTOS) 30 MG tablet Take 30 mg by mouth 1 (one) time each day 04/10/2021 Active rosuvastatin (CRESTOR) 20 MG tablet Take 20 mg by mouth 1 (one) time each day 04/19/2021 Active apixaban (Eliquis) 5 MG tablet Take 5 mg by mouth in the morning and 5 mg in the evening. Active Active Problems Problem Noted Date Diagnosed Date Chronic kidney disease stage 2 02/10/2021 Diabetes mellitus 02/10/2021 Essential hypertension 02/10/2021 Proteinuria 02/10/2021 Family History Medical History Relation Comments Cancer Father Cancer Mother Relation Status Comments Father Mother Social History Tobacco Use Types Packs/Day Years Used Date Smoking Tobacco: Former Smokeless Tobacco: Never Tobacco Cessation:Counseling Given: Not Answered Alcohol Use Standard Drinks/Week Comments Yes 0 (1 standard drink = 0.6 oz pure alcohol) Alcoholic Drinks/day: Occasional social drink Sex and Gender Information Value Date Recorded Sex Assigned at Not on file Legal Sex Male 4:59 PM EST Gender Identity Not on file Sexual Orientation Not on file Last Filed Vital Signs Vital Sign Reading Time Taken Comments Blood Pressure 138/56 05/03/2022 1:02 PM EST Pulse 71 05/03/2022 1:02 PM EST Temperature - - Respiratory Rate - - Oxygen Saturation 97% 05/03/2022 1:02 PM EST Inhaled Oxygen Concentration - - Weight 136 kg (300 lb) 05/03/2022 1:02 PM EST Height 182.9 cm (6') 05/03/2022 1:02 PM EST Body Mass Index 40.69 05/03/2022 1:02 PM EST Plan of Treatment Health Maintenance Due Date Last Done Comments Pneumococcal Vaccine: 50+ Ye ars (1 of 2 - PCV) 1973 Colorectal Cancer Screening: Annual FOBT 2003 Colorectal Cancer Screening: Colonoscopy 2003 Colorectal Cancer Screening: Sigmoidoscopy 2003 Diabetes: Hemoglobin A1C 04/14/2020 Diabetes: Ophthalmology Exam 04/14/2020 Diabetes: Pedal Pulse Checked 04/14/2020 Diabetes: Sensory Foot Exam 04/14/2020 Diabetes: Visual Foot Exam 04/14/2020 Influenza Vaccine (Season Ended) 2024 Hepatitis B Vaccine Aged Out No longe r eligible based on patient's age to complete this topic Insurance Medicare [facility] [place] [address] Medicare [facility] [place] [address]
[2024-06-25 09:55] LABS: MANUAL DIFF FLAG NO
[2024-06-25 10:02] LABS: Basophils Absolute Auto 0.1 X10*3/uL (0.0-0.2); Basophils Percent Auto 0.7 % (0-2); Eosinophils Absolute Auto 0.3 X10*3/uL (0.0-0.4); Eosinophils Percent Auto 2.8 % (0-4); Hematocrit 43.4 % (42.0-52.0); Hemoglobin 14.3 g/dl (14.0-18.0); Imm Gran Abs Auto 0.07 X10*3/uL (0.00-0.03); Imm Gran Pct Auto 0.7 % (0.0-0.4); Lymphocytes Absolute Auto 3.6 X10*3/uL (1.2-4.9); Lymphocytes Percent Auto 33.8 % (20-40); Mean Corpuscular HGB Conc 32.9 g/dl (31.0-36.0); Mean Corpuscular Hemoglobin 29.2 pg (27.0-33.0); Mean Corpuscular Volume 88.8 fL (80.0-98.0); Mean Platelet Volume 9.1 fL (9.4-12.4); Monocytes Absolute Auto 0.7 X10*3/uL (0.1-1.2); Monocytes Percent Auto 6.3 % (2-11); Neutrophils Absolute Auto 5.9 x10*3/uL (2.0-8.3); Neutrophils Percent Auto 55.7 % (45-73); Platelet Count 304 X10*3/uL (160-400); Red Blood Count 4.89 X10*6/uL (4.60-5.80); Red Cell Distribution Width 14.9 % (11.0-16.0); White Blood Count 10.6 X10*3/uL (4.8-10.8)
[2024-06-25 10:34] LABS: Estimated Average Glucose 163 mg/dL; Hemoglobin A1c % 7.3 % (<6.0); Total Hemoglobin (HGBA1C) 3615.2732 umol/L
[2024-06-25 10:41] LABS: Alanine Aminotransferase 19 U/L (0-40); Albumin Level 4.2 g/dL (3.5-5.0); Alkaline Phosphatase 89 U/L (39-117); Anion Gap 13 (12-20); Aspartate Amino Transferase 36 U/L (5-37); Bilirubin Total 0.5 mg/dL (0.0-1.0); Blood Urea Nitrogen 13 mg/dL (9-16); Calcium 9.6 mg/dL (8.4-10.2); Carbon Dioxide 25 mmol/L (22-29); Chloride 106 mmol/L (96-108); Cholesterol 149 mg/dL (<200); Estimated Glomerular Filt Rate > 60; Glucose Random 101 mg/dL (60-115); HDL Cholesterol 36 mg/dL (>40); LDL Cholesterol Calculated 75 mg/dL (<100); Potassium 4.4 mmol/L (3.3-5.1); Sodium 140 mmol/L (135-145); Total Protein 7.5 g/dL (6.5-8.0); Triglycerides 191 mg/dL (<150)
[2024-06-25 10:56] LABS: TSH reflex Free T4 1.12 uIU/mL (0.32-4.0)
[2024-06-25 11:46] LABS: Creatinine Urine 204.09 mg/dL
== END 2024-06-25 08:51 | disposition home or self-care (01) ==
LOC: HO.10HDL 08:50
PROVIDERS: Visit Provider Internal Medicine
DX: E11.8 Type 2 diabetes mellitus with unspecified complications (principal); I10 Essential (primary) hypertension; R74.01 Elevation of levels of liver transaminase levels
CPT/HCPCS: 36415; 80053; 80061; 82043; 82570; 83036; 84443; 85025

== ENCOUNTER 2024-07-02 14:26 | Outpatient (REF) | payer MEDICARE, OTHER, SELFPAY ==
--- OUTSIDE RECORDS SUMMARY | 2024-07-02 14:28 | XMS_ITS | Clinical Summary ---
Author Organization [facility] Address [address] [place] [address] Phone Care Team Providers Care Technical Expert Name Role Phone Unavailable Primary Care Provider [...] age to complete this topic Insurance Medicare [facility] [phone] Medicare [facility] [place] [address]
[2024-07-03 18:08] LABS: Homocysteine 14.8 umol/L (<11.4)
[2024-07-05 02:28] LABS: Methylmalonic Acid 193 nmol/L (69-390)
== END 2024-07-02 14:27 | disposition home or self-care (01) ==
LOC: HO.LAB 14:26
PROVIDERS: PCP Internal Medicine; Visit Provider Internal Medicine
DX: R41.3 Other amnesia (principal); Z13.6 Encounter for screening for cardiovascular disorders
CPT/HCPCS: 36415; 83090; 83921

== ENCOUNTER 2024-08-07 09:49 | Outpatient (AMB) | payer MEDICARE, OTHER, SELFPAY ==
[2024-08-07 09:57] VITALS: BP 116/70; PULSE 86; BMI 38.6
--- NOTE | 2024-08-07 09:57 | MHC.OFFVIS ---
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1 mL) subcut TID insulin degludec (Tresiba FlexTouch U-200 insulin) 70 units (0.35 mL) subcut BEDTIME 90 days levothyroxine (Synthroid) 50 mcg PO DAILY@0630 lisinopril 20 mg PO BEDTIME metoprolol succinate ER 50 mg PO DAILY omeprazole 20 mg PO DAILY@0630 Ozempic (semaglutide) 2 mg (0.75 mL) subcut QWEEK NS pen needle, diabetic As directed pen needle, diabetic (BD Ultra-Fine Shobha Pen Needle) As directed four times a day pioglitazone 30 mg PO BEDTIME pregabalin (Lyrica) 100 mg PO BID rosuvastatin 20 mg PO DAILY HPI Comments Details: Kristopher returns for follow-up. In the past, he was seen regarding preoperative risk stratification for back surgery. Reported history of cardiac catheterization/PCI almost 2 decades ago but unknown findings. Multiple cardiovascular risk factors including obesity, diabetes, hypertension, dyslipidemia, SHAWN. He states he is modified his diet and has lost almost 50 lb in weight. Overall, main concern is still back pain but he does not have any cardiac symptoms like angina or anything along those lines. He states he is doing okay. [facility] Medical History Personal history of nicotine dependence Back pain Hx of radiation therapy Lumbago On anticoagulant therapy On beta truman at home Insulin dependent diabetes Pulmonary embolus Popliteal DVT (deep venous thrombosis) Chronic kidney disease (CKD), stage II (mild) Sleep apnea Peripheral neuropathy History of skin cancer Type 2 diabetes mellitus with unspecified complications Atherosclerotic cardiovascular disease Obesity due to excess calories Tubular adenoma of colon Graves disease CAD (coronary artery disease) Proteinuria Essential hypertension Hyperlipidemia LDL goal <70 Renal stones GERD (gastroesophageal reflux disease) Gout Surgical History History of ERCP History of back surgery History of esophagogastroduodenoscopy (EGD) Hx laparoscopic cholecystectomy Hx of elbow surgery Hx of hand surgery Hx of carpal tunnel repair Hx of colonoscopy H/O cystoscopy History of coronary artery stent placement History of hemorrhoidectomy Family History Father Colon cancer Mother Lung cancer Social History Household Members: Spouse Housing: House Are you a primary rn coronary care unit to a significant other at home: No Do you presently have visiting nurse or other home services: No Alcohol intake: current Alcohol intake frequency: a few times a month Patient Tobacco Use Status: Former Tobacco user Tobacco use type: Cigarette Years Smoked: 35 +/- Second Hand Smoke Exposure: No Substance Use Type: Marijuana service: No Current occupational status: retired 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 Cognitive needs: No Hearing needs: No Vision needs: Yes (rx glasses) Review of Systems Const Denies chills, Denies fatigue, Denies fever(s), Denies frequent falls, Denies weakness, Denies weight gain and Denies weight loss ENT Denies dizziness Card Denies chest pain, Denies leg edema, Denies lightheadedness, Denies palpitations, Denies dyspnea, Denies dyspnea on exertion, Denies orthopnea and Denies other (loss of consciousness) Resp Denies cough, Denies dyspnea and Denies dyspnea on exertion GI Denies hematochezia and Denies change in stool character Musc Denies abnormal gait, Denies muscle weakness, Denies numbness, Denies radiating pain into limb and Denies tingling Neuro Denies abnormal gait, Denies dizziness, Denies frequent falls, Denies numbness, Denies tingling and Denies weakness Endo Denies fatigue and Denies palpitations Physical Exam Vital Signs: Last Vital Signs Pulse 86 08/07/24 09:57 BP 116/70 08/07/24 09:57 BMI result Body Mass Index 38.6 Const General: comfortable and no acute distress Orientation/consciousness: patient oriented x3 HEENT Other: Unremarkable Head: Yes normal to inspection Neck Neck: Yes normal visual inspection Chest Chest palpation & inspection: normal inspection of the chest Resp Auscultation: clear to auscultation bilaterally Cardio Palpation: normal PMI Heart sounds: S1 normal heart sound present, S2 normal heart sound present, no gallops, no murmurs and no rubs GI Palpation (GI): Soft to palpation Back/Spine/Pelvis Other: unremarkable Skin General skin exam: no rashes or lesions noted Neuro General: patient oriented x3 Extrem General: Yes normal to inspection Psych Mental Status: mental status grossly normal Office Procedures EKG Details: EKG with underlying sinus rhythm at 86/Min; leftward axis; no ischemic findings; MO prolongation to 264 milliseconds; [place]. [id number], Complete Assessment & Plan Assessment & Plan (1) Atherosclerotic cardiovascular disease: Code(s): I25.10 - Atherosclerotic heart disease of [place] coronary artery without angina pectoris Category: Medical (2) Type 2 diabetes mellitus with unspecified complications: Comment: (IDDM2, with kidney disease, polyneuropathy) Code(s): E11.8 - Type 2 diabetes mellitus with unspecified complications Category: Medical (3) Essential hypertension: Code(s): I10 - Essential (primary) hypertension Category: Medical (4) Other and unspecified hyperlipidemia: Code(s): E78.5 - Hyperlipidemia, unspecified Category: Medical (5) First degree heart block by electrocardiogram: Code(s): I44.0 - Atrioventricular block, first degree Category: Medical (6) Morbid obesity: Code(s): E66.01 - Morbid (severe) obesity due to excess calories Category: Medical Plan Cardiac studies reviewed. EKG shows MO prolongation but otherwise unremarkable. [id number] quality suboptimal. LVEF 65-70%. Normal diastolic function. No significant valvular issues. Myocardial perfusion imaging -2020- likely normal perfusion without any definitive evidence of ischemia or infarction. On gated chest CT scan shows coronary and aortic calcification. Overall, he has got a lot of cardiovascular risk factors and remote history of PCI, but no new cardiovascular symptoms or other concerns. If he can lose any further weight that will be good but not clear if he will be able to do so. Otherwise, optimal management of diabetes, hypertension dyslipidemia. His hemoglobin A1c is 7.3%. Reasonable but could be better. Blood pressure seems stable. LDL is 75 mg/dL and triglycerides 191 mg/dL. With regard to prolonged MO, seems stable. We have cut back on the beta-truman dosing in the past. Can follow on EKGs. It seems he is taking Eliquis for DVT. In that case, does not need to take any concurrent aspirin. Follow-up in one year. Discussion Notes During the visit, we discussed the interaction between Eliquis and aspirin, emphasizing the necessity of a single anticoagulant therapy. The plan to stop aspirin was agreed upon to prevent excessive bleeding risk associated with dual anticoagulation. Metoprolol dosage has been adjusted to accommodate concerns regarding slow conduction and bradycardia. We reviewed the effectiveness of his current cardiovascular treatment plan, noting stable angina status. Patient was informed and verbally consented to the use of an ambient scribe for clinic note documentation during this visit. Patient Instructions: - Stop taking aspirin. If Eliquis is stopped in the future, then resume aspirin. - Monitor for any new chest pain or signs of bleeding and report immediately. - Reassess Eliquis treatment in one year. - Be mindful of mobility and avoid activities worsening back pain. Coding Level of Care Code Est Pt Level 4 (00835) Complex EM visit Add On G2211 Diagnoses Atherosclerotic cardiovascular disease I25.10 Type 2 diabetes mellitus with unspecified complications E11.8 Essential hypertension I10 Other and unspecified hyperlipidemia E78.5 First degree heart block by electrocardiogram I44.0 Morbid obesity E66.01 CPT Codes EKG - CPT: 45369-[id number], Complete ([id number])
== END 2024-08-07 10:20 | disposition home or self-care (01) ==
LOC: HO.HCS 09:49
PROVIDERS: PCP Internal Medicine; Visit Provider Internal Medicine
DX: I25.10 Atherosclerotic heart disease of native coronary artery without angina pectoris (principal); E11.8 Type 2 diabetes mellitus with unspecified complications; I10 Essential (primary) hypertension; E78.5 Hyperlipidemia, unspecified; I44.0 Atrioventricular block, first degree; E66.01 Morbid (severe) obesity due to excess calories
CPT/HCPCS: 93010; 99214; G2211

== ENCOUNTER → 2024-08-07 09:49 | Outpatient (BNVA) | payer MEDICARE, OTHER, SELFPAY | PROVIDERS: PCP Internal Medicine; Visit Provider Internal Medicine | DX: I25.10 Atherosclerotic heart disease of native coronary artery without angina pectoris (principal); I10 Essential (primary) hypertension; I44.0 Atrioventricular block, first degree; E11.8 Type 2 diabetes mellitus with unspecified complications; E66.01 Morbid (severe) obesity due to excess calories; E78.5 Hyperlipidemia, unspecified; Z68.38 Body mass index [BMI] 38.0-38.9, adult; Z79.4 Long term (current) use of insulin | CPT/HCPCS: 93005; 99212 ==

== ENCOUNTER 2024-10-03 09:45 | Outpatient (AMB) | payer MEDICARE, OTHER, SELFPAY ==
[2024-10-03 09:55] VITALS: BP 132/60; PULSE 88; RESP 16; O2SAT 96; BMI 37.8
--- NOTE | 2024-10-03 09:55 | A.OFFVIS_ITS ---
Vital Signs 10/03/24 09:55 Height 6 ft Weight 279 lb BMI 37.8 BP 132/60 Blood Pressure Location Rt brachial Position Sitting Respiration 16 Pulse 88 Pulse Source Pulse Oximeter Pulse Oximetry (%) 96 Oxygen Delivery Method Room Air Intake Visit Reasons: Spinal stenosis, lumbar region Batch Mixer Required: No Accompanied by: Self / Same As Patient Allergies No Known Allergies (No Known Allergies*) Allergy (Verified 10/03/24 09:59) HPI Comments Details: The patient is a 69-year-old male presenting with chronic low back pain. The back pain has been persistent for several years, initially exacerbated by physical activities. Despite undergoing back surgery in 2022, the patient reports no improvement in symptoms postoperatively. Status post left L3-4 L4-5 hemilaminectomy, he followed up with neurosurgeon and underwent repeat MRI. Was told no further surgery warranted. The patient has attempted various interventions, including physical therapy, epidural steroid injections and medial branch blocks, without relief. Acupuncture and medications like gabapentin have also been ineffective in managing the pain. The pain is primarily localized to the lower back and does not typically radiate to the legs, although occasional sciatica is noted. The patient experiences increased pain with prolonged standing, necessitating frequent sitting or reclining. He does endorse fatigue in his legs with walking that improves with rest. Denies burning, numbness, tingling, weakness of his lower extremities. A 2022 MRI indicated thickening of a ligament causing lumbar spinal stenosis, which may contribute to the patient's symptoms. Denies red flag symptoms including new loss of bowel, bladder or saddle anesthesia. - Onset: Pain has been present for several years, initially related to physical activities. - Quality: Persistent and severe, not relieved by previous interventions. - Location: Primarily in the lower back, occasionally radiating as sciatica. - Exacerbating factors: Prolonged standing increases pain. - Relieving factors: Sitting or reclining provides relief. - Affect: Pain significantly limits daily activities, requiring frequent sitting or reclining. - Analgesia: Current medications, including gabapentin, are ineffective. - Adverse Effects: No specific adverse effects from medications reported. - Activities of Daily Living: Pain restricts movement, limiting activities to short walks between chairs. - Aberrant Drug Related Behaviors: No aberrant behaviors reported. [facility] Medical History (Updated 10/03/24 @ 12:41 by Sleena García APRN, SOFTWARE [employer]) Personal history of nicotine dependence Back pain Hx of radiation therapy Lumbago On anticoagulant therapy On beta truman at home Insulin dependent diabetes Pulmonary embolus Popliteal DVT (deep venous thrombosis) Chronic kidney disease (CKD), stage II (mild) Sleep apnea Peripheral neuropathy History of skin cancer Type 2 diabetes mellitus with unspecified complications Atherosclerotic cardiovascular disease Obesity due to excess calories Tubular adenoma of colon Graves disease CAD (coronary artery disease) Proteinuria Essential hypertension Hyperlipidemia LDL goal <70 Renal stones GERD (gastroesophageal reflux disease) Gout Surgical History (Updated 10/01/24 @ 16:33 by Keyanna Doan) History of ERCP History of back surgery History of esophagogastroduodenoscopy (EGD) Hx laparoscopic cholecystectomy Hx of elbow surgery Hx of hand surgery Hx of carpal tunnel repair Hx of colonoscopy (~09/26/23) H/O cystoscopy History of coronary artery stent placement History of hemorrhoidectomy Family History Father Colon cancer Mother Lung cancer Social History Household Members: Spouse Housing: House Are you a primary reservoir caretaker to a significant other at home: No Do you presently have visiting nurse or other home services: No Alcohol intake: current Alcohol intake frequency: a few times a month Patient Tobacco Use Status: Former Tobacco user Tobacco use type: Cigarette Years Smoked: 35 +/- Second Hand Smoke Exposure: No Substance Use Type: Marijuana service: No Current occupational status: retired 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 - Neurological: Denies weakness, numbness, or tingling in legs. - Gastrointestinal: Reports irregular bowel habits, including constipation and diarrhea. Physical Exam Exam Exam: General: awake, alert, oriented. Answers questions appropriately. Fully engaged in examination. Skin: warm, dry, intact HEENT: Normocephalic. Hearing intact. Cardiac: External chest normal in appearance. Respiratory: No cough, audible wheezing or stridor. Abdomen: without gross distension. MS: No obvious swelling or deformities. Able to transition from sit to stand unassisted. Ambulates with bilaterally normal heel strike and toe off Tenderness over midline lumbar vertebrae and lumbar paraspinal muscles Well-healed surgical scar over lumbar area SLR negative bilaterally Nontender over bilateral PSIS Bilateral lower extremity strength 5/5 Neurological: Oriented to person, place, time and situation. Thought process intact. Ambulates with the use of a cane, antalgic gait with slight forward flexion. Psychiatric: Appropriate mood and affect. Good judgment and insight. Vital Signs: Last Vital Signs Pulse 88 10/03/24 09:55 Resp 16 10/03/24 09:55 BP 132/60 10/03/24 09:55 Pulse Ox 96 10/03/24 09:55 Oxygen Delivery Method Room Air 10/03/24 09:55 BMI result Body Mass Index 37.8 Results Reviewed Results Reviewed: 12/30/2022 PROCEDURE: MR SPINE LUMBAR w + wo CONTRAST INDICATION: Lumbar region spinal stenosis with neurogenic claudication. Other specified postprocedural state. Lower middle back pain for ten years. History of diabetes. TECHNIQUE: Unenhanced and enhanced multiplanar, multisequence MR imaging of the lumbar spine. 20 mL of Dotarem was administered intravenously. No contrast waste documented. COMPARISON: MRI lumbar spine 07/07/2022, MRI lumbar spine 04/27/2021. FINDINGS: Since the previous examination, the patient appears to have undergone left L3-4 and L4-5 hemilaminectomy. Normal lumbar alignment is demonstrated. Vertebral heights are well maintained. Bone marrow signal is within normal limits, and no suspicious osseous lesion is identified. Conus medullaris is unremarkable. No area of abnormal enhancement is identified. Paraspinal soft tissues and visualized portions of the abdomen and pelvis are unremarkable. At L1-2 there is no significant disc herniation or protrusion. No central canal or neural foraminal stenosis is demonstrated. At L2-3 there is a small broad-based disc bulge and bilateral facet hypertrophy with thickening of the ligamentum flavum. This causes mild central canal stenosis, but no neuroforaminal narrowing. This is unchanged. At L3-4 there is no significant disc herniation or protrusion. There is bilateral facet hypertrophy and thickening of the ligamentum flavum. This causes moderate central canal stenosis, but no neuroforaminal narrowing. At L4-5 there is no significant disc herniation or protrusion. There is bilateral facet hypertrophy and thickening of the ligamentum flavum. This causes severe central canal stenosis and mild left neuroforaminal narrowing. At L5-S1 there is no significant disc herniation or protrusion. There is bilateral facet hypertrophy. There is no central canal stenosis, but there is mild bilateral neuroforaminal narrowing IMPRESSION: 1. Since the previous examination, the patient appears to have undergone left L3-4 and L4-5 hemilaminectomy. 2. There is multilevel degenerative disc and bony disease causing central canal and neuroforaminal stenosis as described. This is most severe at L4-5 and L3-4. Assessment & Plan Assessment & Plan (1) Status post lumbar spine surgery for decompression of spinal cord: Code(s): Z98.890 - Other specified postprocedural states Category: Surgical (2) Lumbar stenosis with neurogenic claudication: Code(s): M48.062 - Spinal stenosis, lumbar region with neurogenic claudication Category: Medical (3) Chronic pain syndrome: Code(s): G89.4 - Chronic pain syndrome Category: Medical (4) Degenerative disc disease, lumbar: Code(s): M51.369 - Other intervertebral disc degeneration, lumbar region without mention of lumbar back pain or lower extremity pain Category: Medical (5) Post laminectomy syndrome: Code(s): M96.1 - Postlaminectomy syndrome, not elsewhere classified Category: Medical Plan The plan involves obtaining a new MRI to assess the current state of the lumbar spine, particularly spinal stenosis. Based on the MRI findings, potential interventions include considering a spinal cord stimulator trial. The patient is advised to follow up after the MRI to discuss the results and finalize the treatment plan. Patient was informed and verbally consented to the use of an ambient scribe for clinic note documentation during this visit. Orders: Orders MR lumbar spine wo/w con Today G89.4 - Chronic pain syndrome, M48.062 - Spinal stenosis, lumbar region with neurogenic claudication, M51.369 - Other intervertebral disc degeneration, lumbar region without mention of lumbar back pain or lower extremity pain, Z98.890 - Other specified postprocedural states Patient Instructions: - Schedule and complete the MRI as soon as possible. - Follow up with the clinic after the MRI to discuss results and treatment options. - Maintain current pain management strategies until further evaluation. Coding Level of Care Code New Pt Level 4 (73808) Complex EM visit Add On G2211 Diagnoses Status post lumbar spine surgery for decompression of spinal cord Z98.890 Lumbar stenosis with neurogenic claudication M48.062 Chronic pain syndrome G89.4 Degenerative disc disease, lumbar M51.369 Post laminectomy syndrome M96.1
--- OUTSIDE RECORDS SUMMARY | 2024-10-03 10:21 | XMS_ITS | Data Portability ---
Author Organization [facility], [facility] Address [address] [place] [address] Care Team Providers Care Clay Processing Labourer Name Role Phone GRZEGORZ DORSEY Referring Provider [phone] GRZEGORZ DORSEY Primary Care Provider [phone] Assessment Encounter Date Assessment Date Assessment LastModified by Organization Details LastModified Time 11/15/2023 11/15/2023 XR Hip Left Hip: Two views of the hip were obtained including AP pelvis and groin lateral views. Severe DJD present. Changes consistent with osteoarthritis including joint space narrowing, subchondral sclerosis, and osteophyte formation. Arthrosis primarily affects the [superior] compartment. [email or web address] Not available 04/13/2024 12:22:13 12/08/2023 12/08/2023 Assessment: [...] stair mechanics, and mobility for functional ADL's. [email or web address] Not available 12/15/2023 12:57:43 01/10/2024 01/10/2024 Imaging: Imaging ordered, independently reviewed and interpreted by Gregorio Ya MD reveals the following findings: XR Hip Left hip: Two views of the hip were obtained including AP pelvis and groin lateral views. Status post hip surgery: Status post MELODY with no evidence of complication, well fixed, well aligned, and located. There is good uatsdin of leg length and offset without loosening [...] for a possible hip replacement in May [email or web address] Not available 01/10/2024 15:43:36 Plan of Treatment Reminders Order Date Submit Date Provider Last Modified By Organization Details Last Modified Time Details Appointments None recorded . Lab None recorded . Referral None recorded . Procedures None recorded . Surgeries None recorded . Imaging XR, hip + pelvis, unilater al, 2 or 3 view - 202 2v 2nd po LTHR 2023 024 [email or web address] [facility], [address], [place], [id number], 4 10:44:34 XR, hip + pelvis, unilater al, 2 or 3 view - room 202 1 p/o alth (ab) pelvis only 2023 024 [email or web address] [facility], [address], [place], [address], 4 12:19:42 XR, hip + pelvis, unilater al, 2 or 3 view - ROOM 223 LEFT HIP 2V WITH MARKER AB 2023 024 [email or web address] [facility], [address], [place], [address], 4 09:11:44 Medication Orders None recorded . Patient Targets Encounter Date Encounter Id Patient Goals Patient Target Last Modified By Organization Details Last Modified Time 12/08/2023 [id number] 3 weeks of Left Hip AROM (normal) motion: abduction: active motion, left (40 deg.) Not available Not available Not available 3 weeks of Left Hip AROM (normal) motion: flexion: active motion, left (100 deg.) Not available Not available Not available 3 weeks of Left Hip AROM (normal) motion: external rotation: active motion, left (25 deg.) Not available Not available Not available retirement goal of Left Hip AROM (normal) motion: abduction: active motion, left (45 deg.) Not available Not available Not available retirement goal of Left Hip AROM (normal) motion: flexion: active motion, left (110 deg.) Not available Not available Not available retirement goal of Left Hip AROM (normal) motion: [...] (0-5) Not available Not available Not available retirement goal of Left Hip Strength (normal) strength: hips: external rotation: left 5 (0-5) Not available Not available Not available retirement goal of Left Hip Strength (normal) strength: hips: abduction: left 5 (0-5) Not available Not available Not available superintendent 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 of Left Hip Strength (normal) strength: hips: flexion: left 5 (0-5) Not available Not available Not available retirement goal of Squatting performs without symptoms Not available Not available Not available 3 weeks of Gait and Stance: equal base of support Not available Not available Not available retirement goal of Gait and Stance: gait WNL Not available Not available Not available 3 weeks of Sitting to standing transfers (ability to move from sitting to a standing position without symptoms) Mild difficulty: mild symptoms reported with moving from a sitting to a standing position Not available Not available Not available superintendent 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 of Sitting to standing transfers (ability [...] aYqtaq 0bqfl% 2Fg9IQ a4ajBk vP9nXo QUaueC m3YtLR FvZl JJ8mAn HZtai3 4v2921 AC0KrY 3SGUKK jKiQtr MwF INTERFACE [facility] [address], [place], [address], 11/15/2023 13:25:56 11/15/19 24 11/15/2023 XR, hip + pelvi s, unila teral , 2 or 3 view http:/ [email or web address] ?Encry pted=s hAaTro YD8dLq bEUv6g %2BXZw aYqtaq 0bqfl% 2Fg9IQ a4ajBk vP9nXo QUaueC m3YtLR FvZl JJ8mAn HZtai3 6i0452 AC0KrY 3SGUKK jKiQtr MwF INTERFACE [facility] [address], [place], [address], 11/15/2023 13:25:58 11/25/19 24 11/15/2023 XR, hip + pelvi s, unila teral , 2 or 3 view http:/ [email or web address] ?Encry pted=s hAaTro YD8dLq bEUv6g %2BXZw aYqtaq 0bqfl% 2Fg9IQ a4ajBk vP9nXo QUaueC m3YtLR FvZlgJ JJ8mAn HZtai3 0i5978 AC0KrY 3SGUKK jKiQtr MwF INTERFACE [facility] [address], [place], [address], 11/25/2023 12:03:06 11/25/19 24 11/15/2023 XR, hip + pelvi s, unila teral , 2 or 3 view http:/ [email or web address] ?Encry pted=s hAaTro YD8dLq bEUv6g %2BXZw aYqtaq 0bqfl% 2Fg9IQ a4ajBk vP9nXo QUaueC m3YtLR FvZlgJ JJ8mAn HZtai3 6j0989 AC0KrY 3SGUKK jKiQtr Mw INTERFACE [facility] [address] [address], [place], [address], 11/25/2023 12:03:08 11/28/19 24 11/28/2023 XR, hip + pelvi s, unila teral , 2 or 3 view No observ ation record ed. [address], [address], 11/28/2023 14:26:11 11/28/19 24 11/28/2023 XR, hip + pelvi s, unila teral , 2 or 3 view No observ ation record ed. [address], [address], 12/02/2023 14:44:16 11/28/19 24 11/28/2023 XR, hip + pelvi s, unila teral , 2 or 3 view No observ ation record ed. [address], [address], 12/01/2023 17:52:43 12/12/19 24 12/12/2023 XR, hip + pelvi s, unila teral , 2 or 3 view http:/ [email or web address] ?Encry pted=s hAaTro YD8dLq bEUv6g %2BXZw aYqtaq 0bqfl% 2Fg9IQ a4ajBk vP9nXo QUaueC m3YtLR FvZlgJ JJ8mAn HZtai3 2e3082 AC0Kqa 32EVqW vKiQtr MwF INTERFACE [facility] [address], [place], [address], 12/12/2023 08:54:19 12/12/19 24 12/12/2023 XR, hip + pelvi s, unila teral , 2 or 3 view http:/ [email or web address] ?Encry pted=s hAaTro YD8dLq bEUv6g %2BXZw aYqtaq 0bqfl% 2Fg9IQ a4ajBk vP9nXo QUaueC m3YtLR FvZlgJ JJ8mAn HZtai3 4j2395 AC0Kqa 32EVqW vKiQtr MwF INTERFACE [facility] [address], [place], [address], 12/12/2023 08:54:21 01/10/20 24 01/10/2024 XR, hip + pelvi s, unila teral , 2 or 3 view http:/ [email or web address] ?Encry pted=s hAaTro YD8dLq bEUv6g %2BXZw aYqtaq 0bqfl% 2Fg9IQ a4ajBk vP9nXo QUaueC m3YtLR FvZlgJ JJ8mAn HZtai3 1u2112 AC0Kqa H%2BMU qCiKiQ trMwF INTERFACE [facility] [address], [place], [address], 01/10/2024 15:09:24 01/10/20 24 01/10/2024 XR, hip + pelvi s, unila teral , 2 or 3 view http:/ [email or web address] ?Encry pted=s hAaTro YD8dLq bEUv6g %2BXZw aYqtaq 0bqfl% 2Fg9IQ a4ajBk vP9nXo QUaueC m3YtLR FvZlgJ JJ8mAn HZtai3 9z8508 AC0Kqa H%2BMU qCiKiQ trMwF INTERFACE [facility] [address] [facility], [place], [address], 01/10/2024 15:09:26 Result Notes Documentation Provider Name and Address Organization Details Recorded Time Xr, Hip + Pelvis, Unilateral, 2 Or 3 View : [email or web address] Encrypted=kzZsSumDL9tFyuJ Uv6g%9WHJswNarxs0squo%2Fg 0ZPr2ggIuhD3kSpZYofqSe9Zi SQOqJceRFX1qAgTSufy34t390 7FP6SyV7STJVYdNlMrjQdE Not Available [facility] 11/15/2023 13:25: 57 Xr, Hip + Pelvis, Unilateral, 2 Or 3 View : [email or web address]? Encrypted=laPlOrkEF4vKooA Uv6g%8HOVjlHxzrw6nsaj%2Fg 7JMk9tvEnmP5tNnGEwnzNn5If PUVrCbtMCY8sFuGEeiz58o882 1CQ1JrR7SOPITdLsVthAdW Not Available [facility] 11/15/2023 13:25: 59 Xr, Hip + Pelvis, Unilateral, 2 Or 3 View : [email or web address] Encrypted=hnFaGsnHY7eIfrJ Uv6g%9HCDpwRucsl7nkfs%2Fg 1FUq2qsBuhD7dIkUMztjRl7Dw LTVtJnuPTS4wGkEPcmg54e418 4HM9JgA6TBICRoDqPbyIlL Not Available [facility] 11/25/2023 12:03: 07 Xr, Hip + Pelvis, Unilateral, 2 Or 3 View : [email or web address] Encrypted=mmZiUisOF3yVraN Uv6g%5QCWcwVxiiy3pocj%2Fg 9SFt6ttEdoM9mAqOZjfrAp7Mx FQYpGjnINL0rTqOFowi37s181 6IV3LgU3CGLTEbXzVwhNmO Not Available [facility] 11/25/2023 12:03: 09 Xr, Hip + Pelvis, Unilateral, 2 Or 3 View : [email or web address] Encrypted=xfIrGidET3gEspF Uv6g%4HDJgqBdsob8ayrg%2Fg 7CGn2rlFdgO7gKuHKumpOk8Ud EZBsTgfKPI3oPuGMupi36d342 3ED5Fmf95DBzHrJnZuyQzJ Not Available [facility] 12/12/2023 08:54: 20 Xr, Hip + Pelvis, Unilateral, 2 Or 3 View : [email or web address]? Encrypted=izTeMpaWC3eAzpC Uv6g%4IAVjfXuglq5idfa%2Fg 1SNe2hzOikB8vDxDDnlkFl8Xc ENMaAjaEWN6wKnCUwun56m817 0VD9Qpk68PNyIoUsRgtCiU Not Available [facility] 12/12/2023 08:54: 22 Xr, Hip + Pelvis, Unilateral, 2 Or 3 View : [email or web address] Encrypted=ekQdEzvNN1fByeE Uv6g%6WGFuhWofrt7ujrr%2Fg 7LEl7gcCzxV7zHrSIwliCg5Ea LFPsGhxSHP2yNrHZsza03q408 1EG4FmlB%2BMUqCiKiQtrMwF Not Available [facility] 01/10/2024 15:0 9:24 Xr, Hip + Pelvis, Unilateral, 2 Or 3 View : [email or web address] 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 Procedures Surgical History Date Name Laterality Status Provider Name and Address Organization Details Recorded Time 4 43749 Therapeutic Exercise (1:1) cancelled Sade Tsai PTA [address], [place], [address], [facility] 12/29/2023 11:23:26 4 37299: Manual therapy cancelled Sade Tsai PTA [address], [place], [address], [facility] 12/29/2023 11:23:26 4 92343 Therapeutic Exercise (1:1) completed Sade Tsai PTA [address], [place], [address], [facility] 12/15/2023 12:44:45 4 63789: Manual therapy completed Sade Tsai PTA [address], [place], [address], [facility] 12/15/2023 12:44:47 4 97984 Therapeutic Exercise (1:1) completed Larry Florek, PT [address], [place], [address], [facility] 12/08/2023 06:40:39 4 54054: Low complexity PT Eval completed Larry Hubercony, PT [address], [place], [address], [facility] 12/08/2023 06:40:42 4 G8417 BMI Above Upper Parameters, F/U Documented completed Larrymarii Hubercony, PT [address], [place], [address], [facility] 12/08/2023 08:40:23 4 G8427 Current Medication Documented completed Larry Hubercony, PT [address], [place], [address], [facility] 12/08/2023 08:40:16 4 Hip Kenalog Injection, Bilateral w/US completed Freddy Galindo PA-C [address], [place], [address], [facility] 08/01/2023 08:29:32 Imaging Results None recorded. Procedure Notes None recorded. Medical Equipment None [...] Updated DateTime 11/15/2023 181.61 cm 37 kg/m2 606858.35 g DENIZ LABOY [facility] 11/15/2023 12:58:31 Date Recorded Body height Body mass index (BMI) Body weight Provider Name and Address Organization Details Last Updated DateTime 12/12/2023 181.61 cm 37.8 kg/m2 775569.9 g yelitza orona [facility] 12/12/2023 08:43:12 Date Recorded Body height Provider Name an d Address Organization Details Last Updated DateTime 01/10/2024 181.61 cm Danuta Garnett MA [facility] 01/10/2024 14:33:43 Social History None recorded. Functional Status None recorded. Mental Status None recorded. Family History Nothing Reported. Medical History No medical history recorded. Past Encounters Encounter ID Performer Location Encounter Start Date Encounter Closed Date Diagnosis/Indication Diagnosis SNOMED-CT Code Diagnosis ICD10 Code Diagnosis Note [id number] MD Alana Newman [address] [place], [place] [id number] 07/26/2023 14:18:49 08/19/2023 12:04:05 Pain of bilateral hip joints 4062215002 3252288 M25.551 M25.663 [id number] RENEE Holliday [address] [place], [place] [id number] 08/01/2023 08:50:44 08/23/2023 11:54:45 Osteoarthritis of bilateral hip joints 1419730801 65370 M16.0 [id number] MD Alana Newman [address] [place], [place] [id number] 09/02/2023 09:19:46 09/29/2023 14:15:41 Osteoarthritis of left hip joint 7179077938 44099 M16.12 [id number] MORIAH Queen 2[address] [place], [place] [id number] 11/15/2023 12:54:36 11/29/2023 14:47:07 Osteoarthritis of left hip joint 8355575723 54719 M16.12 [id number] MD Alana Newman 2[address] [place] [id number] 11/15/2023 13:16:12 11/29/2023 14:46:58 Osteoarthritis of left hip joint 0250567310 97193 M16.12 [id number] Larry Hicks, PT [facility] [address] [place], [place] [id number] 12/08/2023 07:47:51 12/08/2023 09:48:53 Aftercare 967009118 Z47.1 Z96.051 [id number] RENEE Gates [address] [place] [id number] 12/12/2023 08:39:16 01/04/2024 12:19:42 History of total replacement of left hip joint 5099741659 994218 Z96.642 Postoperative visit 1836 07963 Z48.89 [id number] EBONY Singh PT [address] [place] [id number] 12/15/2023 11:20:20 12/15/2023 12:06:34 Aftercare 720058548 Z47.1 Z96.730 [id number] MD Alana Newman 2[address] [place] [id number] 01/10/2024 14:30:37 01/30/2024 10:44:33 History of total replacement of left hip joint 1803871449 877624 Z96.642 Health Concerns Section Related Observation LastModified by Organization Detai ls LastModified Time None Recorded Concern Status LastModified by Organization Details LastModified Time None Recorded Advance Directives Directive None Recorded Payers Insurance Date Sequence Insurance Name Policy Number Policy Meade Covered Member ID Meade Member ID Guarantor Name 01/31/2024 2 [facility] (MEDICARE SUPPLEMENT) Kristopher Adhikari Jr [id number] Kristopher Adhikari Jr 01/30/2024 1 MEDICARE B-ID: [facility] Kristopher Adhikari Jr [id number] Kristopher Adhikari Jr Notes Date Note Type Note Provider Name [...] walk without pain. Larry Hicks, PT [address], [place], [address], [facility] 12/08/2023 08:42:25 12/12/2023 text/html [...] reviewed, updated, and is located in the patient s chart. Examination: The patient is well appearing and in no apparent distress. Alert and oriented x3. Gait is antalgic on operative side. Examination of the left hip reveals a healing surgical incision. Appropriate postoperative edema. No erythema or drainage. Supple pain-free range of motion. Calf is soft and nontender bilaterally. 4+/5 strength of hip flexion and extension. X-rays performed today at [facility] have been reviewed. Images include an AP [...] stretching and strengthening exercises. Patient is on Eliquis for DVT prophylaxis. Pain is controlled. We reviewed the signs/symptoms of infection. Follow up as scheduled, sooner if there are any complications. All questions have been answered. Est[employer] speech recognition tile erector software was used to create portions of this document. An attempt at proofreading has been made to minimize errors. Please call for corrections. Jania Gasca PA-C [address], [place], [address], [facility] 12/12/2023 09:17:29 12/15/2023 text/html Pt reports naggi ng aching pain in hip. Amb with SC with some discomfort at nighttime. Sade Tsai, BIT SHARPENER [address], [place], [address], [facility] 12/15/2023 12:58:44 01/10/2024 text/html [...] and updated, and is located in the patient s chart. Gregorio Ya MD [address] [place], [place] [address] [address], [place], [address], [facility] 01/10/2024 15:43:46
--- OUTSIDE RECORDS SUMMARY | 2024-10-03 10:21 | XMS_ITS | Clinical Summary ---
Author Organization [facility] Address [address] [place] [address] Phone Care Team Providers Care Software Quality Engineer Name Role Phone Unavailable Primary Care Provider [...] Diabetes: Visual Foot Exam 04/14/2020 Influenza Vaccine (#1) 2024 Hepatitis B Vaccine Aged Out No longe r eligible based on patient's age to complete this topic Insurance Medicare [facility] [place] [address] Medicare [facility] [place] [address]
== END 2024-10-03 10:47 | disposition home or self-care (01) ==
LOC: HO.PMC 09:46
PROVIDERS: PCP Internal Medicine; Referring Provider Internal Medicine; Visit Provider Registered Nurse Emergency
DX: Z98.890 Other specified postprocedural states (principal); M48.062 Spinal stenosis, lumbar region with neurogenic claudication; G89.4 Chronic pain syndrome; M51.369 Other intervertebral disc degeneration, lumbar region without mention of lumbar back pain or lower extremity pain; M96.1 Postlaminectomy syndrome, not elsewhere classified
CPT/HCPCS: 99204; G2211

== ENCOUNTER → 2024-10-03 09:45 | Outpatient (BNVA) | payer MEDICARE, OTHER, SELFPAY | PROVIDERS: PCP Internal Medicine; Referring Provider Internal Medicine; Visit Provider Registered Nurse Emergency | DX: M48.062 Spinal stenosis, lumbar region with neurogenic claudication (principal); M51.369 Other intervertebral disc degeneration, lumbar region without mention of lumbar back pain or lower extremity pain; M96.1 Postlaminectomy syndrome, not elsewhere classified; G89.4 Chronic pain syndrome | CPT/HCPCS: 99202 ==

== ENCOUNTER 2024-10-04 12:59 | Outpatient (AMB) | payer MEDICARE, OTHER, SELFPAY ==
--- NOTE | 2024-10-04 10:02 | MHC.PC.OV ---
Vital Signs 10/04/24 13:16 Height 6 ft Weight 288 lb BMI 39.1 BP 122/70 Blood Pressure Location Lt brachial Position Sitting Pulse 76 Pulse Source Pulse Oximeter Temp 97.2 F Temp Source Axillary Pulse Oximetry (%) 96 Oxygen Delivery Method Room Air Intake Visit Reasons: 4 Month F/U Wardrobe Supervisor Required: No Accompanied by: Self / Same As Patient Allergies No Known Allergies (No Known Allergies*) Allergy (Verified 10/04/24 10:03) Tobacco use date assessed: 10/04/24 Fall risk assessment: No Falls in past year Last assessed Fall Risk: 10/04/24 Dental Screening Dental Screen Date: 10/04/24 Did you have a dental visit in the last 12 months?: Yes Did you have a dental problem in the last 6 months where you did not have access to dental care?: No HPI HPI Comments History of Present Illness Details Kristopher is a 69 year old male with past medical history of CAD s/p cardiac catheterization/PCI, obesity, diabetes, hypertension, dyslipidemia, SHAW[place] presenting for follow up. CV: Follows with cardiology at [facility]. On eliquis, lisionpril, toprol, crestor. Denies chest pain, shortnesss of breath Diabetes: on ozempic 2mg weekly, actos 30mg daily, tresiba 74 units daily, novolog. Last A1C 7.3%. CGM shows improved control Hypothyroid-On levothyroxine MSK: history of lumbar decompression [facility] 2022 Last visit-Reports worsening memory loss over the past year. Has seen neurology in the past. Referral placed for memory/dementia. He has an appt in January [facility] 09/2023-repeat 5 yr ROS CONSTITUTIONAL: Denies weight loss, fever and chills. HEENT: Denies changes in vision and hearing. RESPIRATORY: Denies SOB and cough. CV: Denies palpitations and CP GI: Denies abdominal pain, nausea, vomiting and diarrhea. : Denies dysuria and urinary frequency. MSK: Denies new myalgia and joint pain. SKIN: Denies rash and pruritus. NEUROLOGICAL: Denies headache PSYCHIATRIC: Denies recent changes in mood. PHYSICAL EXAM: GENERAL: Alert and oriented x 3. NAD EYES: EOMI. Anicteric. HENT: Moist mucous membranes. No scleral icterus. No cervical lymphadenopathy. LUNGS: Clear to auscultation bilaterally. CARDIOVASCULAR: Regular rate and rhythm. No murmur. No JVD. ABDOMEN: Soft, non-tender +bs EXTREMITIES: No edema. Non-tender. SKIN: No rashes or lesions. Warm. NEUROLOGIC: No focal neurological deficits. CN II-XII grossly intact PSYCHIATRIC: Cooperative. Appropriate mood and affect [facility] Medical History Personal history of nicotine dependence Back pain Hx of radiation therapy Lumbago On anticoagulant therapy On beta truman at home Insulin dependent diabetes Pulmonary embolus Popliteal DVT (deep venous thrombosis) Chronic kidney disease (CKD), stage II (mild) Sleep apnea Peripheral neuropathy History of skin cancer Type 2 diabetes mellitus with unspecified complications Atherosclerotic cardiovascular disease Obesity due to excess calories Tubular adenoma of colon Graves disease CAD (coronary artery disease) Proteinuria Essential hypertension Hyperlipidemia LDL goal <70 Renal stones GERD (gastroesophageal reflux disease) Gout Surgical History History of ERCP History of back surgery History of esophagogastroduodenoscopy (EGD) Hx laparoscopic cholecystectomy Hx of elbow surgery Hx of hand surgery Hx of carpal tunnel repair Hx of colonoscopy (~09/26/23) H/O cystoscopy History of coronary artery stent placement History of hemorrhoidectomy Family History Father Colon cancer Mother Lung cancer Social History Household Members: Spouse Housing: House Are you a primary eye care professional to a significant other at home: No Do you presently have visiting nurse or other home services: No Alcohol intake: current Alcohol intake frequency: a few times a month Patient Tobacco Use Status: Former Tobacco user Tobacco use type: Cigarette Years Smoked: 35 +/- e-Cigarette/Vaping Use: Former Use Second Hand Smoke Exposure: No Substance Use Type: Marijuana service: No Current occupational status: retired 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 [employer] [facility] [employer] on the [employer] Cognitive needs: No Hearing needs: No Vision needs: Yes (rx glasses) Questionnaire PHQ-9 Over the last 2 weeks, how often have you been bothered by any of the following problems? 1. Little interest or pleasure in doing things: not at all 2. Feeling down, depressed, or hopeless: not at all 3. Trouble falling or staying asleep, or sleeping too much: not at all 4. Feeling tired or having little energy: not at all 5. Poor appetite or overeating: not at all 6. Feeling bad about yourself - or that you are a failure or have let yourself or your family down: not at all 7. Trouble concentrating on things, such as reading the newspaper or watching television: not at all 8. Moving or speaking so slowly that other people could have noticed. Or the opposite - being so fidgety or restless that you have been moving around a lot more than usual: not at all 9. Thoughts that you would be better off or of hurting yourself in some way: not at all Total score: 0 Depression Screening Interpretation: Negative Depression Screening Done: Yes 37318 - PHQ-9 Billing: Yes Source: Developed by Drs. Scottie Vallejo, Evelyne Zhou, Mani Michael and colleagues, with an educational madison from [employer]. Thrive Questionnaire Date Thrive assessed: 10/04/24 I am a: Patient Within the past 12 months, did the food you bought not last and you didn't have the money to get more?: Never true Within the past 12 months, did you worry whether your food would run out before you got money to buy more?: Never true Do you have trouble paying for medicines?: No Do you have trouble getting transportation to medical appointments?: No Do you have trouble paying your heating and electricity bill?: No Do you have trouble taking care of your child, family member or friend?: No Do you have trouble with day-to-day activities such as bathing, preparing meals, shopping, managing finances, etc.?: No Are you currently unemployed and looking for a job?: No Are you interested in more education?: No THRIVE Score: 0 AUDIT C Alcohol Use Questionnaire (AUDIT-C) 1. How often do you have a drink containing alcohol?: Monthly or less 2. How many drinks containing alcohol do you have on a typical day when you are drinking?: 1 or 2 3. How often do you have six or more drinks on one occasion?: Less than monthly Total Score: 2 RAYSA-7 AMB Questionnaire RAYSA-7 Date RAYSA - 7 assessed: 10/04/24 Feeling nervous, anxious, or on edge: 0 = Not at all Not being able to stop or control worryin = Not at all Worrying too much about different things: 0 = Not at all Trouble relaxin = Not at all Being so restless that it is hard to sit still: 0 = Not at all Becoming easily annoyed or irritable: 0 = Not at all Feeling afraid as if something awful might happen: 0 = Not at all Total RAYSA-7 score (0-4 normal; 5-9 mild; 10-14 moderate; 15-21 severe): 0 Source: Developed by Drs. Scottie Vallejo, Evelyne Zhou, Mani Michael and colleagues, with an educational madison from [facility]. Physical exam (Primary Care) Vital Signs: Last Vital Signs Temp 97.2 F 10/04/24 13:16 Pulse 76 10/04/24 13:16 BP 122/70 10/04/24 13:16 Pulse Ox 96 10/04/24 13:16 Oxygen Delivery Method Room Air 10/04/24 13:16 BMI result Body Mass Index 39.1 Tobacco/Smoking Status: Tobacco use Status Tobacco use date assessed 10/04/24 10/04/24 10:04 Patient Tobacco Use Status Former Tobacco user 10/04/24 10:04 Tobacco use type Cigarette 10/04/24 10:04 e-Cigarette/Vaping Use Former Use 10/04/24 10:04 PHQ-9: PHQ-9 Score PHQ-9: Total score 0 10/04/24 13:24 Depression Screening Interpretation: Negative Thrive Assessment: Date of Thrive Assessment Date Thrive assessed 10/04/24 10/04/24 13:21 Coding Level of Care Code Est Pt Level 4 (47513) Diagnoses Essential hypertension I10 Atherosclerotic cardiovascular disease I25.10 Type 2 diabetes mellitus with unspecified complications E11.8 Additional Codes PHQ-9 - 90771 - PHQ-9 Billing: Yes ([id number]) Assessment & Plan Assessment & Plan (1) Essential hypertension: Code(s): I10 - Essential (primary) hypertension Category: Medical (2) Atherosclerotic cardiovascular disease: Code(s): I25.10 - Atherosclerotic heart disease of [place] coronary artery without angina pectoris Category: Medical (3) Type 2 diabetes mellitus with unspecified complications: Comment: (IDDM2, with kidney disease, polyneuropathy) Code(s): E11.8 - Type 2 diabetes mellitus with unspecified complications Category: Medical Plan 69 year old for follow up DM-improving glycemic control HTN-controlled on current medications Memory visit pending Orders: Orders Hemoglobin A1c 10/04/24 E11.8 - Type 2 diabetes mellitus with unspecified complications Comprehensive Met. Panel 10/04/24 E11.8 - Type 2 diabetes mellitus with unspecified complications Medications: Changed From insulin degludec (Tresiba FlexTouch U-200 insulin) 70 units (0.35 mL) subcut BEDTIME 90 days 31.5 mL 3RF To insulin degludec (Tresiba FlexTouch U-200 insulin) 74 units (0.37 mL) subcut BEDTIME 33.3 mL 3RF 90 days
--- OUTSIDE RECORDS SUMMARY | 2024-10-04 13:11 | XMS_ITS | Data Portability ---
Author Organization [facility], [facility] Address [address] [place] [address] Care Team Providers Care Ruby Software Developer Name Role Phone GRZEGORZ DORSEY Referring Provider [phone] GRZEGORZ DORSEY Primary Care Provider Assessment Encounter Date Assessment Date Assessment LastModified by Organization Details LastModified Time 11/15/2023 11/15/2023 XR Hip Left Hip: Two views of the hip were obtained including AP pelvis and groin lateral views. Severe DJD present. Changes consistent with osteoarthritis including joint space narrowing, subchondral sclerosis, and osteophyte formation. Arthrosis primarily affects the [superior] compartment. [email or web address] Not available 04/13/2024 12:22:13 12/08/2023 12/08/2023 Assessment: [...] stair mechanics, and mobility for functional ADL's. Not available 12/15/2023 12:57:43 01/10/2024 01/10/2024 Imaging: Imaging ordered, independently reviewed and interpreted by Gregorio Ya MD reveals the following findings: XR Hip Left hip: Two views of the hip were obtained including AP pelvis and groin lateral views. Status post hip surgery: Status post MELODY with no evidence of complication, well fixed, well aligned, and located. There is good voodoo of leg length and offset without loosening [...] for a possible hip replacement in May Not available 01/10/2024 15:43:36 Plan of Treatment [...] [facility], [address], [place], [address], 4 10:44:34 XR, hip + pelvis, unilater al, 2 or 3 view - room 202 1 p/o alth (ab) pelvis only 2023 024 [email or web address] [facility], [address], [place], [address], 4 12:19:42 XR, hip + pelvis, unilater al, 2 or 3 view - ROOM 223 LEFT HIP 2V WITH MARKER AB 2023 024 [email or web address] [facility], [address], [place], [address], 4 09:11:44 Medication Orders None recorded . Patient Targets Encounter Date Encounter Id Patient Goals Patient Target Last Modified By Organization Details Last Modified Time 12/08/2023 [id number] 3 weeks of Left Hip AROM (normal) motion: abduction: active motion, left (40 deg.) Not available Not available Not available 3 weeks of Left Hip AROM (normal) motion: flexion: active motion, left (100 deg.) Not available Not available Not available 3 weeks of Left Hip AROM (normal) motion: external rotation: active motion, left (25 deg.) Not available Not available Not available care home goal of Left Hip AROM (normal) motion: abduction: active motion, left (45 deg.) Not available Not available Not available care home goal of Left Hip AROM (normal) motion: flexion: active motion, left (110 deg.) Not available Not available Not available care home goal of Left Hip AROM (normal) motion: [...] (0-5) Not available Not available Not available care home goal of Left Hip Strength (normal) strength: hips: external rotation: left 5 (0-5) Not available Not available Not available care home goal of Left Hip Strength (normal) strength: hips: abduction: left 5 (0-5) Not available Not available Not available superintendent terminal goal of Left Hip Strength (normal) strength: hips: flexion: left 5 (0-5) Not available Not available Not available care home goal of Squatting performs without symptoms Not available Not available Not available 3 weeks of Gait and Stance: equal base of support Not available Not available Not available care home goal of Gait and Stance: gait WNL Not available Not available Not available 3 weeks of Sitting to standing transfers (ability to move from sitting to a standing position without symptoms) Mild difficulty: mild symptoms reported with moving from a sitting to a standing position Not available Not available Not available superintendent terminal goal of Sitting to standing transfers [...] a4ajBk vP9nXo QUaueC m3YtLR FvZl JJ8mAn HZtai3 1j4786 AC0KrY 3SGUKK jKiQtr MwF INTERFACE [facility] [address], [place], [address], 11/15/2023 13:25:56 11/15/19 24 11/15/2023 XR, hip + pelvi s, unila teral , 2 or 3 view http:/ [email or web address] ?Encry pted=s hAaTro YD8dLq bEUv6g %2BXZw aYqtaq 0bqfl% 2Fg9IQ a4ajBk vP9nXo QUaueC m3YtLR FvZl JJ8mAn HZtai3 0u9624 AC0KrY 3SGUKK jKiQtr MwF INTERFACE [facility] [address], [place], [address], 11/15/2023 13:25:58 11/25/19 24 11/15/2023 XR, hip + pelvi s, unila teral , 2 or 3 view http:/ [email or web address] ?Encry pted=s hAaTro YD8dLq bEUv6g %2BXZw aYqtaq 0bqfl% 2Fg9IQ a4ajBk vP9nXo QUaueC m3YtLR FvZlgJ JJ8mAn HZtai3 6h0059 AC0KrY 3SGUKK jKiQtr MwF INTERFACE [facility] [address], [place], [address], 11/25/2023 12:03:06 11/25/19 24 11/15/2023 XR, hip + pelvi s, unila teral , 2 or 3 view http:/ [email or web address] ?Encry pted=s hAaTro YD8dLq bEUv6g %2BXZw aYqtaq 0bqfl% 2Fg9IQ a4ajBk vP9nXo QUaueC m3YtLR FvZlgJ JJ8mAn HZtai3 3s1774 AC0KrY 3SGUKK jKiQtr Mw INTERFACE [facility] [address] [address], [place], [address], 11/25/2023 12:03:08 11/28/19 24 11/28/2023 XR, hip + pelvi s, unila teral , 2 or 3 view No observ ation record ed. [address], [address], 11/28/2023 14:26:11 11/28/19 24 11/28/2023 XR, hip + pelvi s, unila teral , 2 or 3 view No observ ation record ed. [address], [address], 12/02/2023 14:44:16 11/28/19 24 11/28/2023 XR, hip + pelvi s, unila teral , 2 or 3 view No observ ation record ed. [address], [address], 12/01/2023 17:52:43 12/12/19 24 12/12/2023 XR, hip + pelvi s, unila teral , 2 or 3 view http:/ [email or web address] ?Encry pted=s hAaTro YD8dLq bEUv6g %2BXZw aYqtaq 0bqfl% 2Fg9IQ a4ajBk vP9nXo QUaueC m3YtLR FvZlgJ JJ8mAn HZtai3 7z8623 AC0Kqa 32EVqW vKiQtr MwF INTERFACE [facility] [address], [place], [address], 12/12/2023 08:54:19 12/12/19 24 12/12/2023 XR, hip + pelvi s, unila teral , 2 or 3 view http:/ [email or web address] ?Encry pted=s hAaTro YD8dLq bEUv6g %2BXZw aYqtaq 0bqfl% 2Fg9IQ a4ajBk vP9nXo QUaueC m3YtLR FvZlgJ JJ8mAn HZtai3 3h5636 AC0Kqa 32EVqW vKiQtr MwF INTERFACE [facility] [address], [place], [address], 12/12/2023 08:54:21 01/10/20 24 01/10/2024 XR, hip + pelvi s, unila teral , 2 or 3 view http:/ [email or web address] ?Encry pted=s hAaTro YD8dLq bEUv6g %2BXZw aYqtaq 0bqfl% 2Fg9IQ a4ajBk vP9nXo QUaueC m3YtLR FvZlgJ JJ8mAn HZtai3 6d6728 AC0Kqa H%2BMU qCiKiQ trMwF INTERFACE [facility] [address], [place], [address], 01/10/2024 15:09:24 01/10/20 24 01/10/2024 XR, hip + pelvi s, unila teral , 2 or 3 view http:/ [email or web address] ?Encry pted=s hAaTro YD8dLq bEUv6g %2BXZw aYqtaq 0bqfl% 2Fg9IQ a4ajBk vP9nXo QUaueC m3YtLR FvZlgJ JJ8mAn HZtai3 2p3251 AC0Kqa H%2BMU qCiKiQ trMwF INTERFACE [facility] [address] [facility] [address], [place], [address], 01/10/2024 15:09:26 Result Notes Documentation Provider Name and Address Organization Details Recorded Time Xr, Hip + Pelvis, Unilateral, 2 Or 3 View : [email or web address] Encrypted=ngYpQxzKY7gIicL Uv6g%4NHUyvSfrll4rccu%2Fg 0GSt1jpUhzB3nSwPBzqsKp9Rw NYChMxmIHG0jXpMPobn50f436 1TG9OoT8VSVIGlKrYqlDiD Not Available [facility] 11/15/2023 13:25: 57 Xr, Hip + Pelvis, Unilateral, 2 Or 3 View : [email or web address] Encrypted=rdAsYfdMJ1yLzoR Uv6g%8EUArfEbzri5bpus%2Fg 9HOp7zzUfeX6bXfOSiqzKq2Vc BISfBlxRFM2rQbZApmp19r547 6XZ3PwP1TSEHRxHsGkpTnU Not Available [facility] 11/15/2023 13:25: 59 Xr, Hip + Pelvis, Unilateral, 2 Or 3 View : [email or web address] Encrypted=rvDnOczFW8rLikV Uv6g%2KVUkdUbqnr7ffaa%2Fg 2OAe9ytKmqS4wUhDQjjqEh7Wg DWUhLxtZSY5iCeLSmty93c421 7OG3IyS1EEHFKgCrEvuJkR Not Available [facility] 11/25/2023 12:03: 07 Xr, Hip + Pelvis, Unilateral, 2 Or 3 View : [email or web address] Encrypted=udZdIzoFK9eNnmV Uv6g%2QAMwaUtxdn5qzae%2Fg 3NUg7amOyyW8tTaNBsenLl1Xu ANIwQazMJP3jRxXFwyb45p764 0EL5EzL4AMMPSnVmRthVtF Not Available [facility] 11/25/2023 12:03: 09 Xr, Hip + Pelvis, Unilateral, 2 Or 3 View : [email or web address] Encrypted=vqOqDytCZ0dRmgQ Uv6g%7HJAczIeumn3sfxq%2Fg 1NHi4xpSmdR5oHyCSnztNe0Zx BZLyAwxEDN1dJcGPzca97q803 2AX3Zfc44TFzZjJrVzgAiU Not Available [facility] 12/12/2023 08:54: 20 Xr, Hip + Pelvis, Unilateral, 2 Or 3 View : [email or web address] Encrypted=tjRmHoaJI1xEosA Uv6g%3GPDfnVkwpl1gyni%2Fg 1GCj0giOehP6iVvRHmjkJy7Tk CFDjRgaEOE2gZhXJwga18o040 3UG7Jrp06CBfDhUdYcgQcW Not Available [facility] 12/12/2023 08:54: 22 Xr, Hip + Pelvis, Unilateral, 2 Or 3 View : [email or web address] Encrypted=snXuDlaCW7yWwnG Uv6g%1ZQRtnXvqzx8tmgy%2Fg 3MWv4ooMxxA5cSqDXajxMz8Rq CDCfRaeURN2fTqXPdvl23z248 4FX6VdpX%2BMUqCiKiQtrMwF Not Available [facility] 01/10/2024 15:0 9:24 Xr, Hip + Pelvis, Unilateral, 2 Or 3 View : [email or web address] 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 Procedures Surgical History Date Name Laterality Status Provider Name and Address Organization Details Recorded Time 4 20873 Therapeutic Exercise (1:1) cancelled Sade Tsai PTA [address], [place], [address], [facility] 12/29/2023 11:23:26 4 51524: Manual therapy cancelled Sade Tsai PTA [address], [place], [address], [facility] 12/29/2023 11:23:26 4 55312 Therapeutic Exercise (1:1) completed Sade Tsai PTA [address], [place], [address], [facility] 12/15/2023 12:44:45 4 10253: Manual therapy completed Sade Tsai PTA [address], [place], [address], [facility] 12/15/2023 12:44:47 4 89342 Therapeutic Exercise (1:1) completed Larry Florek, PT [address], [place], [address], [facility] 12/08/2023 06:40:39 4 85973: Low complexity PT Eval completed Larry Hubercony, PT [address], [place], [address], [facility] 12/08/2023 06:40:42 4 G8417 BMI Above Upper Parameters, F/U Documented completed Larrymarii Hubercony, PT [address], [place], [address], [facility] 12/08/2023 08:40:23 4 G8427 Current Medication Documented completed Larry Hubercony, PT [address], [place], [address], [facility] 12/08/2023 08:40:16 4 Hip Kenalog Injection, Bilateral w/US completed Freddy Galindo PA-C [address], [place], [address], [facility] 08/01/2023 08:29:32 Imaging Results [...] Updated DateTime 11/15/2023 181.61 cm 37 kg/m2 486658.35 g DENIZ LABOY [facility] 11/15/2023 12:58:31 Date Recorded Body height Body mass index (BMI) Body weight Provider Name and Address Organization Details Last Updated DateTime 12/12/2023 181.61 cm 37.8 kg/m2 389516.9 g yelitza orona [facility] 12/12/2023 08:43:12 Date Recorded Body height Provider Name an d Address Organization Details Last Updated DateTime 01/10/2024 181.61 cm Danuta Garnett [place] [facility] 01/10/2024 14:33:43 Social History None recorded. Functional Status None recorded. Mental Status None recorded. Family History Nothing Reported. Medical History No medical history recorded. Past Encounters Encounter ID Performer Location Encounter Start Date Encounter Closed Date Diagnosis/Indication Diagnosis SNOMED-CT Code Diagnosis ICD10 Code Diagnosis Note [id number] MD Alana Newman [address] [place], [place] [id number] 07/26/2023 14:18:49 08/19/2023 12:04:05 Pain of bilateral hip joints 3662700183 8740154 M25.551 M25.496 [id number] RENEE Holliday [address] [place], [place] [id number] 08/01/2023 08:50:44 08/23/2023 11:54:45 Osteoarthritis of bilateral hip joints 4875271343 67436 M16.0 [id number] MD Alana Newman [address] [place] [id number] 09/02/2023 09:19:46 09/29/2023 14:15:41 Osteoarthritis of left hip joint 2755795482 53527 M16.12 [id number] MORIAH Queen [address] [place] [id number] 11/15/2023 12:54:36 11/29/2023 14:47:07 Osteoarthritis of left hip joint 4121607807 62822 M16.12 [id number] MD Alana Newman 2[address] [place] [id number] 11/15/2023 13:16:12 11/29/2023 14:46:58 Osteoarthritis of left hip joint 7433284640 07678 M16.12 [id number] Larry Hicks, PT [facility] [address] [place] [id number] 12/08/2023 07:47:51 12/08/2023 09:48:53 Aftercare 181555694 Z47.1 Z96.811 [id number] RENEE Gates [address] [place] [address] 12/12/2023 08:39:16 01/04/2024 12:19:42 History of total replacement of left hip joint 3335514636 070651 Z96.642 Postoperative visit 1836 44406 Z48.89 [id number] EBONY Singh PT [address] [place] [address] 12/15/2023 11:20:20 12/15/2023 12:06:34 Aftercare 677669120 Z47.1 Z96.859 [id number] MD Alana Newman 2[address] [place] [address] 01/10/2024 14:30:37 01/30/2024 10:44:33 History of total replacement of left hip joint 5570055780 426371 Z96.642 Health Concerns Section Related Observation LastModified by Organization Detai ls LastModified Time None Recorded Concern Status LastModified by Organization Details LastModified Time None Recorded Advance Directives Directive None Recorded Payers Insurance Date Sequence Insurance Name Policy Number Policy Meade Covered Member ID Meade Member ID Guarantor Name 01/31/2024 2 [facility] (MEDICARE SUPPLEMENT) Kristopher Adhikari Jr [id number] Kristopher Adhikari Jr 01/30/2024 1 MEDICARE B-RI: [facility] Kristopher Adhikari Jr [id number] Kristopher Adhikari Jr Notes Date Note Type Note Provider Name and Address Organization Details Recorded Time 12/08/2023 text/html Patient is 68 year old male, with chronic history of hip [...] Hicks, PT [address], [place], [address], [facility] 12/08/2023 08:42:25 12/12/2023 text/html I am seeing the patient today under the supervision of Dr. Wheleer who was available but who did not [...] flexion and extension. X-rays performed today at [facility] have been reviewed. Images include an AP [...] any complications. All questions have been answered. [employer] speech recognition racing secretary and handicapper software was used to create portions of this document. An attempt at proofreading has been made to minimize errors. Please call for corrections. Jania Gasca PA-C [address], [place], [address], [facility] 12/12/2023 09:17:29 12/15/2023 text/html Pt reports nagging aching pain in hip. Amb with SC with some discomfort at nighttime. Sade Tsai, PLAYGROUND DIRECTOR [address], [place], [address], [facility] 12/15/2023 12:58:44 01/10/2024 text/html ROS as noted in the HPI History of present illness: This patient follows up today and [...] the patient s chart. Gregorio Ya MD [address] [place], [place] [address] [address], [place], [address], [facility] [place] [facility] 01/10/2024 15:43:46
--- OUTSIDE RECORDS SUMMARY | 2024-10-04 13:11 | XMS_ITS | Clinical Summary ---
Author Organization [facility] Address [address] [place] [address] Phone Care Team Providers Care Passenger Car Cleaning Supervisor Name Role Phone Unavailable Primary Care Provider [...] age to complete this topic Insurance Medicare [facility] [place] [address] [place] [facility] [place] [address]
[2024-10-04 13:16] VITALS: BP 122/70; PULSE 76; TEMP 36.2; O2SAT 96; BMI 39.1
== END 2024-10-04 13:50 | disposition home or self-care (01) ==
LOC: HO.HMCHD 13:00
PROVIDERS: PCP Internal Medicine; Visit Provider Internal Medicine
DX: I10 Essential (primary) hypertension (principal); I25.10 Atherosclerotic heart disease of native coronary artery without angina pectoris; E11.8 Type 2 diabetes mellitus with unspecified complications

== ENCOUNTER → 2024-10-04 12:59 | Outpatient (BNVA) | payer MEDICARE, OTHER, SELFPAY | PROVIDERS: PCP Internal Medicine; Visit Provider Internal Medicine | DX: I10 Essential (primary) hypertension (principal); I25.10 Atherosclerotic heart disease of native coronary artery without angina pectoris; E11.8 Type 2 diabetes mellitus with unspecified complications; Z79.01 Long term (current) use of anticoagulants; Z79.4 Long term (current) use of insulin; Z79.85 Long-term (current) use of injectable non-insulin antidiabetic drugs; Z79.899 Other long term (current) drug therapy; Z13.31 Encounter for screening for depression; Z13.39 Encounter for screening examination for other mental health and behavioral disorders | CPT/HCPCS: 96127; 99212 ==

== ENCOUNTER 2024-10-26 09:54 | Outpatient (AMB) | payer MEDICARE, OTHER, SELFPAY ==
[2024-10-26 10:10] VITALS: BP 138/68; PULSE 77; RESP 16; O2SAT 94; BMI 38.1
--- NOTE | 2024-10-26 10:10 | MHC.OFFVIS ---
Vital Signs 10/26/24 10:10 Height 6 ft Weight 281 lb BMI 38.1 BP 138/68 Blood Pressure Location Rt brachial Position Sitting Respiration 16 Pulse 77 Pulse Source Pulse Oximeter Pulse Oximetry (%) 94 Oxygen Delivery Method Room Air Intake Visit Reasons: MRI Review Fiction And Nonfiction Author Required: No Accompanied by: Life Partner Allergies No Known Allergies (No Known Allergies*) Allergy (Verified 10/26/24 10:12) HPI Comments Details: The patient is a 69-year-old male presenting with chronic back pain and limited mobility due to lumbar spinal stenosis and a synovial cyst at the L4-5 facet joint. Recent MRI reviewed, results as per below. The synovial cyst at the L4-5 facet joint was identified on a recent MRI and is causing compression, contributing to the patient's chronic pain. The patient reports that the pain has been persistent over the years, with no significant change in intensity or character. The patient has a history of lumbar spinal stenosis, which is exacerbated by ligamentum flavum hypertrophy and facet joint arthritis. These conditions have led to symptoms such as fatigue in the legs with walking, which improves with rest, and a tendency to walk with a forward lean to alleviate discomfort. Previous interventions, including steroid injections, medial branch blocks, acupuncture, and surgery, have not provided relief. The patient has tried various treatments without success, indicating a complex pain management history. - Onset: Chronic, persistent over several years - Quality: Persistent, unchanged in intensity - Location: Lower middle back, both sides around the spine - Exacerbating factors: Walking, standing for prolonged periods - Relieving factors: Rest, leaning forward - Interference: Limits mobility, affects daily activities - Affect: Pain limits mobility and daily activities, causing frustration - Analgesia: Previous treatments include steroid injections, medial branch blocks, acupuncture, and surgery, none providing relief - Activities of Daily Living: Pain significantly limits ability to perform daily tasks [facility] Medical History Personal history of nicotine dependence Back pain Hx of radiation therapy Lumbago On anticoagulant therapy On beta truman at home Insulin dependent diabetes Pulmonary embolus Popliteal DVT (deep venous thrombosis) Chronic kidney disease (CKD), stage II (mild) Sleep apnea Peripheral neuropathy History of skin cancer Type 2 diabetes mellitus with unspecified complications Atherosclerotic cardiovascular disease Obesity due to excess calories Tubular adenoma of colon Graves disease CAD (coronary artery disease) Proteinuria Essential hypertension Hyperlipidemia LDL goal <70 Renal stones GERD (gastroesophageal reflux disease) Gout Surgical History History of ERCP History of back surgery History of esophagogastroduodenoscopy (EGD) Hx laparoscopic cholecystectomy Hx of elbow surgery Hx of hand surgery Hx of carpal tunnel repair Hx of colonoscopy (~09/26/23) H/O cystoscopy History of coronary artery stent placement History of hemorrhoidectomy Family History Father Colon cancer Mother Lung cancer Social History Household Members: Spouse Housing: House Are you a primary plant health care technician to a significant other at home: No Do you presently have visiting nurse or other home services: No Alcohol intake: current Alcohol intake frequency: a few times a month Patient Tobacco Use Status: Former Tobacco user Tobacco use type: Cigarette Years Smoked: 35 +/- e-Cigarette/Vaping Use: Former Use Second Hand Smoke Exposure: No Substance Use Type: Marijuana service: No Current occupational status: retired 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 [employer] [place] [employer] on the [place] Cognitive needs: No Hearing needs: No Vision needs: Yes (rx glasses) Review of Systems Const Details: - Musculoskeletal: Reports chronic back pain, fatigue in legs with walking; denies radiation of pain to legs - Neurological: Reports fatigue in legs with walking, improves with rest Physical Exam Exam Exam: General: awake, alert, oriented. Answers questions appropriately. Fully engaged in examination. Skin: warm, dry, intact HEENT: Normocephalic. Hearing intact. Cardiac: External chest normal in appearance. Respiratory: No cough, audible wheezing or stridor. Abdomen: without gross distension. MS: No obvious swelling or deformities. Able to transition from sit to stand unassisted. Ambulates with bilaterally normal heel strike and toe off Neurological: Oriented to person, place, time and situation. Thought process intact. Ambulates with the use of a cane, antalgic gait with slight forward flexion. Psychiatric: Appropriate mood and affect. Good judgment and insight. Vital Signs: Last Vital Signs Pulse 77 10/26/24 10:10 Resp 16 10/26/24 10:10 BP 138/68 10/26/24 10:10 Pulse Ox 94 10/26/24 10:10 Oxygen Delivery Method Room Air 10/26/24 10:10 BMI result Body Mass Index 38.1 Results Reviewed Results Reviewed: 10/2024 MR LS W & WO FINDINGS: The conus is in its normal position at the level of L1. Throughout the lumbar spine, diffuse degenerative disc changes are present with varying degrees of disc desiccation. T12-L2: The central canal and neural foramen are patent. L2-3: Broad-based disc bulging is present. Moderate there is hypertrophy and redundancy of both ligamentum flavum with moderate to severe central canal and bilateral lateral recess stenosis. There is moderate to severe right and moderate left foraminal stenosis present. This is unchanged. L3-4: There are postsurgical changes present from a left partial hemilaminectomy. Moderate facet osteoarthritic changes are present. There is moderate narrowing of the lateral recesses. There is severe right foraminal stenosis present. There is moderate to severe left foraminal stenosis present. There is mild central canal stenosis present. L4-5: Degenerative spondylolisthesis is present. Moderate facet osteoarthritic changes are present. There have been interval postsurgical changes from a central laminectomy. There has been interval development of a large left facet synovial cyst that severely narrows the left lateral recess. There is severe left greater than right lateral recess stenosis present. There is moderate right foraminal stenosis present. There is moderate to severe left foraminal stenosis present. L5-S1: Moderate facet osteoarthritic changes are present. There is severe bilateral foraminal stenosis present. The central canal is patent. This level is unchanged compared to the prior examination. Following gadolinium administration there is no pathologic intrathecal enhancement. IMPRESSION: 1. At L4-5, there has been interval development of a large left facet synovial cyst. There is severe left greater than right lateral recess stenosis present at this level. 2. Diffuse spondylotic findings as described. 12/30/2022 PROCEDURE: MR SPINE LUMBAR w + wo CONTRAST INDICATION: Lumbar region spinal stenosis with neurogenic claudication. Other specified postprocedural state. Lower middle back pain for ten years. History of diabetes. TECHNIQUE: Unenhanced and enhanced multiplanar, multisequence MR imaging of the lumbar spine. 20 mL of Dotarem was administered intravenously. No contrast waste documented. COMPARISON: MRI lumbar spine 07/07/2022, MRI lumbar spine 04/27/2021. FINDINGS: Since the previous examination, the patient appears to have undergone left L3-4 and L4-5 hemilaminectomy. Normal lumbar alignment is demonstrated. Vertebral heights are well maintained. Bone marrow signal is within normal limits, and no suspicious osseous lesion is identified. Conus medullaris is unremarkable. No area of abnormal enhancement is identified. Paraspinal soft tissues and visualized portions of the abdomen and pelvis are unremarkable. At L1-2 there is no significant disc herniation or protrusion. No central canal or neural foraminal stenosis is demonstrated. At L2-3 there is a small broad-based disc bulge and bilateral facet hypertrophy with thickening of the ligamentum flavum. This causes mild central canal stenosis, but no neuroforaminal narrowing. This is unchanged. At L3-4 there is no significant disc herniation or protrusion. There is bilateral facet hypertrophy and thickening of the ligamentum flavum. This causes moderate central canal stenosis, but no neuroforaminal narrowing. At L4-5 there is no significant disc herniation or protrusion. There is bilateral facet hypertrophy and thickening of the ligamentum flavum. This causes severe central canal stenosis and mild left neuroforaminal narrowing. At L5-S1 there is no significant disc herniation or protrusion. There is bilateral facet hypertrophy. There is no central canal stenosis, but there is mild bilateral neuroforaminal narrowing IMPRESSION: 1. Since the previous examination, the patient appears to have undergone left L3-4 and L4-5 hemilaminectomy. 2. There is multilevel degenerative disc and bony disease causing central canal and neuroforaminal stenosis as described. This is most severe at L4-5 and L3-4. Assessment & Plan Assessment & Plan (1) Status post lumbar spine surgery for decompression of spinal cord: Code(s): Z98.890 - Other specified postprocedural states Category: Surgical (2) Lumbar stenosis with neurogenic claudication: Code(s): M48.062 - Spinal stenosis, lumbar region with neurogenic claudication Category: Medical (3) Chronic pain syndrome: Code(s): G89.4 - Chronic pain syndrome Category: Medical (4) Degenerative disc disease, lumbar: Code(s): M51.369 - Other intervertebral disc degeneration, lumbar region without mention of lumbar back pain or lower extremity pain Category: Medical (5) Post laminectomy syndrome: Code(s): M96.1 - Postlaminectomy syndrome, not elsewhere classified Category: Medical Plan The plan involves addressing the synovial cyst at the L4-5 facet joint through aspiration during diagnostic bilateral MBBs to relieve compression and associated symptoms. If the aspiration does not provide relief, a spinal cord stimulator trial will be considered to manage chronic pain. The patient will undergo a mental health evaluation as required for the spinal cord stimulator trial, and insurance approval will be sought for the procedures. Patient aware he will need to complete mental health eval for implantable device clearance prior to SCS trial. We did discuss MILD procedure in regards to ligamentum flavum hypertrophy at L2-3 however review of MRI shows mild-moderate central stenosis where official radiology report noted moderate to severe. Given lesser degree of stenosis MILD procedure would likely not provide relief of his symptoms. Will schedule for Fluoroscopy guided bilateral diagnostic L3 L4 L5 MBBs with synovial cyst aspiration. Patient was informed and verbally consented to the use of an ambient scribe for clinic note documentation during this visit. Patient Instructions: - Schedule the cyst aspiration procedure as discussed. - Complete the mental health evaluation required for the spinal cord stimulator trial. - Follow up with the office after the procedure to discuss results and next steps. Coding Level of Care Code Est Pt Level 3 (10016) Complex EM visit Add On G2211 Diagnoses Status post lumbar spine surgery for decompression of spinal cord Z98.890 Lumbar stenosis with neurogenic claudication M48.062 Chronic pain syndrome G89.4 Degenerative disc disease, lumbar M51.369 Post laminectomy syndrome M96.1
--- OUTSIDE RECORDS SUMMARY | 2024-10-26 10:10 | XMS_ITS | Clinical Summary ---
Author Organization [facility] Address [address] [place] [address] Phone Care Team Providers Care Back Digger Operator Name Role Phone Unavailable Primary Care Provider [...] age to complete this topic Insurance Medicare [facility] [address] Medicare [facility] [place] [address]
== END 2024-10-26 11:01 | disposition home or self-care (01) ==
LOC: HO.PMC 09:55
PROVIDERS: PCP Internal Medicine; Visit Provider Registered Nurse Emergency
DX: Z98.890 Other specified postprocedural states (principal); M48.062 Spinal stenosis, lumbar region with neurogenic claudication; G89.4 Chronic pain syndrome; M51.369 Other intervertebral disc degeneration, lumbar region without mention of lumbar back pain or lower extremity pain; M96.1 Postlaminectomy syndrome, not elsewhere classified
CPT/HCPCS: 99213; G2211

== ENCOUNTER → 2024-10-26 09:54 | Outpatient (BNVA) | payer MEDICARE, OTHER, SELFPAY | PROVIDERS: PCP Internal Medicine; Visit Provider Registered Nurse Emergency | DX: M48.062 Spinal stenosis, lumbar region with neurogenic claudication (principal); M51.369 Other intervertebral disc degeneration, lumbar region without mention of lumbar back pain or lower extremity pain; M96.1 Postlaminectomy syndrome, not elsewhere classified; G89.4 Chronic pain syndrome; Z98.890 Other specified postprocedural states | CPT/HCPCS: 99212 ==

== ENCOUNTER 2024-11-22 12:29 | Outpatient (REF) | payer MEDICARE, OTHER, SELFPAY ==
[2024-11-22 13:53] LABS: Hemoglobin A1C 224.5485 umol/L; Total Hemoglobin (HGBA1C) 3657.5431 umol/L
[2024-11-22 14:15] LABS: Alanine Aminotransferase 29 U/L (0-40); Albumin Level 4.5 g/dL (3.5-5.0); Alkaline Phosphatase 90 U/L (39-117); Anion Gap 13 (12-20); Aspartate Amino Transferase 39 U/L (5-37); Blood Urea Nitrogen 15 mg/dL (9-16); Calcium 9.4 mg/dL (8.4-10.2); Carbon Dioxide 25 mmol/L (22-29); Chloride 103 mmol/L (96-108); Estimated Glomerular Filt Rate > 60; Potassium 4.3 mmol/L (3.3-5.1); Sodium 137 mmol/L (135-145); Total Protein 7.5 g/dL (6.5-8.0)
--- OUTSIDE RECORDS SUMMARY | 2024-11-22 16:45 | XMS_ITS | Clinical Summary ---
Author Organization [facility] Address [address] [place] [address] Phone Care Team Providers Care Trace Clerk Name Role Phone Unavailable Primary Care Provider [...] age to complete this topic Insurance Medicare [facility] [place] [id number] [place] [facility] [place] [phone]
== END 2024-11-22 12:30 | disposition home or self-care (01) ==
LOC: HO.LAB 12:29
PROVIDERS: PCP Internal Medicine; Visit Provider Internal Medicine
DX: E11.8 Type 2 diabetes mellitus with unspecified complications (principal)
CPT/HCPCS: 36415; 80053; 83036

== ENCOUNTER 2025-02-20 12:06 | Inpatient (IN) | payer MEDICARE, OTHER, SELFPAY ==
--- NOTE | ~2025-02-20 | XR_ITS ---
EXAMINATION: XR CHEST CLINICAL INFORMATION: chest pain COMPARISON: Chest x-ray 11/18/2021. CT chest 01/25/2024. TECHNIQUE: 2 views of the chest were obtained. FINDINGS: The cardiac, hilar, and mediastinal contours are normal. Right-sided coronary stent noted. The lungs are clear bilaterally. There is no pneumothorax or pleural effusion. There is no focal osseous or soft tissue abnormality. There are spinal degenerative changes. XR/XR chest 2V IMPRESSION: No active pulmonary disease. Electronically signed by: Ramana Quintero MD 02/20/2025 01:42 PM EST
[2025-02-20 12:24] VITALS: BP 120/78; BP 153/76; PULSE 74; PULSE 80; RESP 18; TEMP 36.8; O2SAT 98; O2SAT 99; BMI 38.9
--- NOTE | 2025-02-20 12:27 | ECG_ITS ---
Test Reason : CP Blood Pressure : */* mmHG Vent. Rate : 73 BPM Atrial Rate : 73 BPM P-R Int : 316 ms QRS Dur : 90 ms QT Int : 380 ms P-R-T Axes : 12 -32 31 degrees QTcB Int : 418 ms Sinus rhythm with 1st degree A-V block Left axis deviation Abnormal ECG When compared with ECG of 20-Nov-2021 09:58, No significant change was found Referred By: Generic ED Physician Electronically Signed By: BREA LOZOYA MD
[2025-02-20 13:06] LABS: MANUAL DIFF FLAG NO
[2025-02-20 13:11] LABS: Hematocrit 42.5 % (42.0-52.0); Hemoglobin 13.7 g/dl (14.0-18.0); Imm Gran Abs Auto 0.03 X10*3/uL (0.00-0.03); Imm Gran Pct Auto 0.4 % (0.0-0.4); Lymphocytes Absolute Auto 2.4 X10*3/uL (1.2-4.9); Mean Corpuscular HGB Conc 32.2 g/dl (31.0-36.0); Mean Corpuscular Hemoglobin 29.4 pg (27.0-33.0); Mean Corpuscular Volume 91.2 fL (80.0-98.0); NRBC Abs Auto 0.000 X10*3/uL (0.0-0.012); NRBC Pct Auto 0.0 /100WBC (0.0-0.2); Platelet Count 221 X10*3/uL (160-400); Red Blood Count 4.66 X10*6/uL (4.60-5.80); White Blood Count 8.3 X10*3/uL (4.8-10.8)
--- NOTE | 2025-02-20 13:11 | ED.CHESTPAIN ---
HPI - Chest Pain General Chief Complaint: Chest Pain Stated Complaint: WOKE UP W/ CHEST PRESSURE PER EMS Time Seen by Provider: 02/20/25 12:32 History of Present Illness ED Provider: yosi HPI narrative: 69 M history of overweight, coronary disease with remote stent, on apixaban though has not taken in 2 days due to elective lumbar injections planned for tomorrow who presents after he awoke with central chest pressure, 08/21 no radiation to the back neck or jaw. No exertional or pleuritic component no recent illness denies nausea vomiting. Related Data Home Medications ?Medication ?Instructions ?Recorded ?Confirmed blood sugar diagnostic #10 ea 02/13/20 08/03/22 pen needle, diabetic 32 gauge x #50 ea 02/13/20 08/03/22 cholecalciferol (vitamin D3) 25 25 mcg PO DAILY 02/20/25 02/20/25 mcg (1,000 unit) tablet insulin aspart U-100 100 unit/mL See Protocol subcut TIDAC 02/20/25 02/20/25 (3 mL) subcutaneous pen (Novolog FlexPen U-100 Insulin aspart) lisinopril 20 mg tablet 20 mg PO DAILY 02/20/25 02/20/25 xccucsraipdp-axh-laiuu acid-vit 1 tab PO DAILY 02/20/25 02/20/25 K-lycop 400 mcg-20 mcg-370 mcg tablet (Men's 50 Plus Multivitamin) omeprazole 20 mg capsule,delayed 20 mg PO DAILY@0630 02/20/25 02/20/25 release pioglitazone 30 mg tablet 30 mg PO DAILY 02/20/25 02/20/25 semaglutide 2 mg/dose (8 mg/3 mL) 2 mg subcut SA@0900 02/20/25 02/20/25 subcutaneous pen injector (Ozempic) Previous Rx's ?Medication ?Instructions ?Recorded flash glucose scanning reader #1 ea 10/07/20 (FreeStyle Flavio 2 [place]) flash glucose sensor (FreeStyle #6 ea 07/30/21 Flavio 2 Sensor kit) pen needle, diabetic 32 gauge x #400 ea 07/30/21 (BD Ultra-Fine Shobha Pen Needle) FreeStyle Flavio 2 Plus Sensor #6 ea 06/07/24 (blood-glucose sensor) apixaban 5 mg tablet (Eliquis) 5 mg PO BID #180 tabs 07/06/24 levothyroxine 50 mcg tablet 50 mcg PO DAILY@0630 #90 tabs 07/06/24 (Synthroid) pregabalin 100 mg capsule (Lyrica) 100 mg PO BID #180 caps 07/06/24 rosuvastatin 20 mg tablet 20 mg PO DAILY 90 days #90 tabs 12/24/24 allopurinol 300 mg tablet 300 mg PO DAILY #90 tabs 12/28/24 metoprolol succinate 50 mg 50 mg PO DAILY #90 tabs 12/28/24 tablet,extended release 24 hr insulin degludec 100 unit/mL (3 80 unit (0.8 mL) subcut BEDTIME 30 02/06/25 mL) subcutaneous pen days #24 mL tamsulosin 0.4 mg capsule 0.4 mg PO BEDTIME #90 caps 02/06/25 Allergies Allergy/AdvReac Type Severity Reaction Status Date / Time No Known Allergies (No Known Allergy Verified 02/20/25 12:26 Allergies*) [facility] Past Medical History Medical History Hyperlipidemia Hypothyroidism BPH (benign prostatic hyperplasia) Personal history of nicotine dependence Back pain Hx of radiation therapy Lumbago On anticoagulant therapy On beta truman at home Insulin dependent diabetes Pulmonary embolus Popliteal DVT (deep venous thrombosis) Chronic kidney disease (CKD), stage II (mild) Sleep apnea Peripheral neuropathy History of skin cancer Type 2 diabetes mellitus with unspecified complications Atherosclerotic cardiovascular disease Obesity due to excess calories Tubular adenoma of colon Graves disease CAD (coronary artery disease) Proteinuria Essential hypertension Hyperlipidemia LDL goal <70 Renal stones GERD (gastroesophageal reflux disease) Gout Surgical History History of ERCP History of back surgery History of esophagogastroduodenoscopy (EGD) Hx laparoscopic cholecystectomy Hx of elbow surgery Hx of hand surgery Hx of carpal tunnel repair Hx of colonoscopy (~09/26/23) H/O cystoscopy History of coronary artery stent placement History of hemorrhoidectomy Family History Family History Father Colon cancer Mother Lung cancer Social History Social History Household Members: Spouse Housing: House Are you a primary care advocate to a significant other at home: No Do you presently have visiting nurse or other home services: No Alcohol intake: current Alcohol intake frequency: a few times a month Patient Tobacco Use Status: Former Tobacco user Tobacco use type: Cigarette Years Smoked: 35 +/- e-Cigarette/Vaping Use: Former Use Second Hand Smoke Exposure: No Substance Use Type: Marijuana service: No Current occupational status: retired 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 [employer] [place] [employer] on the [employer] Cognitive needs: No Hearing needs: No Vision needs: Yes (rx glasses) Physical Exam Exam: Exam: EXAM: Gen: Alert, awake, well appearing, well hydrated. Head: Atraumatic Eyes: Anicteric, Normal conjunctiva. ENT: Moist mucosa, no pallor. ? Neck: Supple. Skin: ?No observable rash or bruising on exposed or examined skin Respiratory: Breathing comfortably, No distress.Clear to auscultation bilaterally, symmetric chest expansion, No wheeze, rales, ronchi. Cardiovascular: Regular rate and rhythm. No murmurs or rub. Well perfused periphery, warm extremities. No edema. ? Abdominal: No focal tenderness. Soft, no objective distension. No palpable masses or obvious organomegaly. ?No guarding, no rebound tenderness or other peritoneal findings. : No flank tenderness. Neuro: Alert. Gross movement of all extremities intact. ? Psych: Calm. Cooperative. MSK: No grossly visible deformity. Vital signs: See flowsheet Vital Signs: Vital Signs: Last Vital Signs Temp 97.8 F 02/21/25 12:00 Pulse 65 02/21/25 12:00 Resp 23 H 02/21/25 12:00 BP 129/63 02/21/25 12:00 Pulse Ox 96 02/21/25 12:00 O2 Del Method Room Air 02/21/25 12:00 BMI result Body Mass Index 38.9 Medications Administered Generic Name Dose Route Start Last Admin Trade Name Yuanq PRN Reason Stop Dose Admin Allopurinol 300 mg 02/21/25 09:00 02/21/25 08:59 Allopurinol 300 Mg Tablet PO 300 mg DAILY MILLICENT Administration Aspirin 81 mg 02/21/25 09:00 02/21/25 08:09 Aspirin Enteric Coated 81 Mg Tablet.Dr PO 81 mg DAILY MILLICENT Administration Atorvastatin Calcium 80 mg 02/20/25 21:00 02/20/25 21:51 Atorvastatin Calcium 80 Mg Tablet PO 80 mg BEDTIME MILLICENT Administration Atorvastatin Calcium 80 mg 02/21/25 09:00 02/21/25 08:10 Atorvastatin Calcium 80 Mg Tablet PO 80 mg DAILY MILLICENT Administration Heparin Sodium (Porcine) 5,200 unit 02/20/25 16:40 02/21/25 00:29 Heparin Sodium,Porcine 5,000 Unit/Ml Vial 40 unit/kg (5200 unit) 5,200 unit IVPUSH Administration PROTOCOL BOLUS PRN 40 unit/kg - Heparin Protocol Protocol Heparin Sodium/Sodium Chloride 25,000 unit in 250 mls @ 0 mls/hr 02/20/25 16:45 02/21/25 08:23 Heparin Sodium,Porcine/1/2ns IVCONT 6.69 units/kg/hr .Q0M MILLICENT 8.7 mls/hr Protocol Titration Per Protocol Insulin Human Lispro 0 unit 02/20/25 21:00 02/21/25 12:07 Insulin Lispro 100 Unit/Ml 3 Ml Vial SUBCUT Not Given QIDACHS [facility] Protocol Levothyroxine Sodium 50 mcg 02/21/25 08:00 02/21/25 08:10 Levothyroxine Sodium 50 Mcg Tablet PO 50 mcg DAILY@0630 MILLICENT Administration Lisinopril 20 mg 02/21/25 09:00 02/21/25 08:10 Lisinopril 20 Mg Tablet PO 20 mg DAILY MILLICENT Administration Protocol Melatonin 6 mg 02/20/25 17:26 02/21/25 01:30 Melatonin 3 Mg Tablet PO 6 mg BEDTIME PRN Administration Insomnia Metoprolol Succinate 50 mg 02/21/25 09:00 02/21/25 08:09 Metoprolol Succinate Er 50 Mg Tab.Er.24h PO 50 mg DAILY MILLICENT Administration Protocol Multivitamins/Vitamin C 1 tab 02/21/25 09:00 02/21/25 08:09 Multivitamin Tablet PO 1 tab DAILY MILLICENT Administration Omeprazole 20 mg 02/21/25 08:00 02/21/25 08:09 Omeprazole 20 Mg Capsule.Dr PO 20 mg DAILY@0630 MILLICENT Administration Pioglitazone HCl 30 mg 02/21/25 09:00 02/21/25 08:59 Pioglitazone Hcl 30 Mg Tablet PO 30 mg DAILY MILLICENT Administration Pregabalin 100 mg 02/21/25 09:00 02/21/25 08:10 Pregabalin 100 Mg Capsule PO 100 mg BID MILLICENT Administration Vitamin D 25 mcg 02/21/25 09:00 02/21/25 08:09 Cholecalciferol (Vitamin D3) 25 Mcg Tablet PO 25 mcg DAILY MILLICENT Administration Discontinued Medications Generic Name Dose Route Start Last Admin Trade Name Freq PRN Reason Stop Dose Admin Heparin Sodium (Porcine) 4,000 unit 02/20/25 16:40 02/20/25 17:38 Heparin Sodium,Porcine 5,000 Unit/Ml Vial IVPUSH 02/20/25 16:41 4,000 unit ONCE ONE Administration Medical Decision Making Medical Decision Making MDM Narrative: Medical Decision Makin-year-old male with central chest heaviness nonexertional but sounds quite typical he has got a history of coronary disease. See ECGs sinus rhythm with prolonged ID [id number] he has previously had prolonged ID this is favored over less likely AV dissociation though the P waves did not appear to March out. Stable hemodynamics awake alert oriented and looks well. Reassuring cardiovascular exam appears euvolemic. Apparently history of PE this is why he is on apixaban. Took a full-dose aspirin prior to arrival Preliminary Favored Differential Diagnosis: ACS, less likely PE recurrence or progression, less likely aortic dissection though considered among additional considered etiologies Testing Interpreted Independently: ?ECG with sinus rhythm prolonged ID [id number], known chronic first-degree heart block Radiology or Lab testing Results Reviewed: ?See below for details Consults: Given the elevating troponin concern for NSTEMI case was discussed with our glaze maker on-call Dr. Braga he recommends heparinization admission here at [facility] as I do not see an indication for emergency left heart catheterization without ECG changes or active chest pain hospitalist who is agreeable to this. Independent Historians/External Chart Reviews: ?See below for details Social Determinants of Health Impacting MDM/Planning: ?See below for details Lab Data 02/21/25 03:26 02/21/25 03:26 Labs: Lab Results 02/20/25 02/20/25 02/20/25 Range/Units 13:01 15:48 17:22 WBC 8.3 9.7 (4.8-10.8) X10*3/uL RBC 4.66 4.95 (4.60-5.80) X10*6/uL Hgb 13.7 L 14.6 (14.0-18.0) g/dl Hct 42.5 44.9 (42.0-52.0) % MCV 91.2 90.7 (80.0-98.0) fL MCH 29.4 29.5 (27.0-33.0) pg MCHC 32.2 32.5 (31.0-36.0) g/dl RDW 14.2 14.3 (11.0-16.0) % Plt Count 221 D 233 (160-400) X10*3/uL MPV 9.2 L 8.9 L (9.4-12.4) fL Immature Gran % (Auto) 0.4 (0.0-0.4) % Neut % (Auto) 59.9 (45-73) % Lymph % (Auto) 29.1 (20-40) % Caroline % (Auto) 7.7 (2-11) % Eos % (Auto) 2.3 (0-4) % Baso % (Auto) 0.6 (0-2) % Lymph # (Auto) 2.4 (1.2-4.9) X10*3/uL [place] # (Auto) 0.6 (0.1-1.2) X10*3/uL Eos # (Auto) 0.2 (0.0-0.4) X10*3/uL Baso # (Auto) 0.1 (0.0-0.2) X10*3/uL Abs Immat Gran (auto) 0.03 (0.00-0.03) X10*3/uL Absolute Neuts (auto) 5.0 (2.0-8.3) x10*3/uL Absolute Nucleated RBC 0.000 0.000 (0.0-0.012) X10*3/uL Nucleated RBC % (auto) 0.0 0.0 (0.0-0.2) /100WBC PT 12.1 (11.2-13.5) SEC INR 1.0 (0.9-1.1) aPTT Heparin Protocol 29.6 L D (53-77.9) SEC Sodium 141 (135-145) mmol/L Potassium 4.4 (3.3-5.1) mmol/L Chloride 107 (96-108) mmol/L Carbon Dioxide 29 (22-29) mmol/L Anion Gap 9 L (12-20) BUN 15 (9-16) mg/dL Creatinine 0.91 (0.5-1.4) mg/dL Estim Creat Clear Calc 105.3 Estimated GFR > 60 Random Glucose 108 (60-115) mg/dL Calcium 9.1 (8.4-10.2) mg/dL Magnesium 1.8 (1.6-2.6) mg/dL Total Bilirubin 0.5 (0.0-1.0) mg/dL AST 34 (5-37) U/L ALT 23 (0-40) U/L Alkaline Phosphatase 74 (39-117) U/L Troponin I High Sens 53.4 H 1207.6 H* D 6576.7 H* D (<3.5-35.0) ng/L NT-Pro-B Natriuret Pep 149.6 (<300) pg/mL Total Protein 6.9 (6.5-8.0) g/dL Albumin 4.1 (3.5-5.0) g/dL Influenza Type A (PCR) NEGATIVE (Negative) Influenza Type B (PCR) NEGATIVE (Negative) RSV RNA Qual (PCR) NEGATIVE (Negative) SARS-CoV-2 RNA (RT-PCR) NEGATIVE (Negative) Critical Care Time Critical Care Time Critical Care Time: Yes Total Critical Care Time: 30 Attestation: ED Critical Care: Authorized and Performed by: Gómez Martell MD Total critical care time: Approximately 30 min Due to a high probability of clinically significant, life threatening deterioration, the patient required my highest level of preparedness to intervene emergently and I personally spent this critical care time directly and personally managing the patient. This critical care time included obtaining a history; examining the patient; pulse oximetry; ordering and review of studies; arranging urgent treatment with development of a management plan; evaluation of patient's response to treatment; frequent reassessment; and, discussions with other providers. This critical care time was performed to assess and manage the high probability of imminent, life-threatening deterioration that could result in multi-organ failure. It was exclusive of separately billable procedures and treating other patients and teaching time. Discharge Plan Discharge Clinical Impression: Chest pain Patient Disposition: [facility]
[2025-02-20 13:31] LABS: Alanine Aminotransferase 23 U/L (0-40); Albumin Level 4.1 g/dL (3.5-5.0); Alkaline Phosphatase 74 U/L (39-117); Anion Gap 9 (12-20); Aspartate Amino Transferase 34 U/L (5-37); Blood Urea Nitrogen 15 mg/dL (9-16); Calcium 9.1 mg/dL (8.4-10.2); Carbon Dioxide 29 mmol/L (22-29); Chloride 107 mmol/L (96-108); Creatinine Clr Calc Pharmacy 105.3; Estimated Glomerular Filt Rate > 60; Magnesium 1.8 mg/dL (1.6-2.6); Potassium 4.4 mmol/L (3.3-5.1); Sodium 141 mmol/L (135-145); Total Protein 6.9 g/dL (6.5-8.0)
[2025-02-20 13:37] LABS: NT Pro B Type Natriuretic Pept 149.6 pg/mL (<300); Troponin-I High Sensitivity 53.4 ng/L (<3.5-35.0)
[2025-02-20 14:32] LABS: Resp Syncy Virus RNA Qual PCR NEGATIVE (Negative); SARS COV2 PCR INHOUSE NEGATIVE (Negative)
[2025-02-20 16:33] LABS: Troponin-I High Sensitivity 1207.6 ng/L (<3.5-35.0)
[2025-02-20 17:28] LABS: Hematocrit 44.9 % (42.0-52.0); Hemoglobin 14.6 g/dl (14.0-18.0); Mean Corpuscular HGB Conc 32.5 g/dl (31.0-36.0); Mean Corpuscular Hemoglobin 29.5 pg (27.0-33.0); Mean Corpuscular Volume 90.7 fL (80.0-98.0); NRBC Abs Auto 0.000 X10*3/uL (0.0-0.012); NRBC Pct Auto 0.0 /100WBC (0.0-0.2); Platelet Count 233 X10*3/uL (160-400); Red Blood Count 4.95 X10*6/uL (4.60-5.80); White Blood Count 9.7 X10*3/uL (4.8-10.8)
--- NOTE | 2025-02-20 17:29 | PC.NURSE ---
Labs drawn at 17:22. Results pending. Plan to initiate Heparin drip.
--- NOTE | 2025-02-20 17:31 | PM.IMHP ---
History of Present Illness Date of Service: 02/20/25 Chief Complaint: Chest pain 69 years old male with PMH of CAD post PCI over 20 year ago, h/o blood clots in lungs and legs on eliquis (hasn't taking in 4 days for a planned procedure of back injection), type 2 diabetes, HLD, HTN, morbid obesity on Ozempic (not taking due upcoming back procedure tomorrow), hypothyroidism, ex-smoker, DJD of back with chronic back pain (was planned to have back injection tomorrow). He presents with chest pain that has been ongoing since this morning, intermittent across the chest with no sob, no diaphoresis, no dizziness. ECG show first degree AVB, no ischemic changes, he's hemodynamically stable. First trop 53 next one 1207. Heparin drip is initiated. He took metoprolol at home. He is chest pain Review of Systems Review of Systems: Gen: no fever Resp: no sob, no cough CV: + chest pain, no PAINTING, no leg edema GI: No n/v, no abd pain Neuro: No confusion Yes all other systems are reviewed and are negative [facility] Medical History Hyperlipidemia Hypothyroidism BPH (benign prostatic hyperplasia) Personal history of nicotine dependence Back pain Hx of radiation therapy Lumbago On anticoagulant therapy On beta truman at home Insulin dependent diabetes Pulmonary embolus Popliteal DVT (deep venous thrombosis) Chronic kidney disease (CKD), stage II (mild) Sleep apnea Peripheral neuropathy History of skin cancer Type 2 diabetes mellitus with unspecified complications Atherosclerotic cardiovascular disease Obesity due to excess calories Tubular adenoma of colon Graves disease CAD (coronary artery disease) Proteinuria Essential hypertension Hyperlipidemia LDL goal <70 Renal stones GERD (gastroesophageal reflux disease) Gout Family History Father Colon cancer Mother Lung cancer Surgical History History of ERCP History of back surgery History of esophagogastroduodenoscopy (EGD) Hx laparoscopic cholecystectomy Hx of elbow surgery Hx of hand surgery Hx of carpal tunnel repair Hx of colonoscopy (~09/26/23) H/O cystoscopy History of coronary artery stent placement History of hemorrhoidectomy Social History Household Members: Spouse Housing: House Are you a primary medicare specialist to a significant other at home: No Do you presently have visiting nurse or other home services: No Alcohol intake: current Alcohol intake frequency: a few times a month Patient Tobacco Use Status: Former Tobacco user Tobacco use type: Cigarette Years Smoked: 35 +/- e-Cigarette/Vaping Use: Former Use Second Hand Smoke Exposure: No Substance Use Type: Marijuana service: No Current occupational status: retired 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 [employer] on [employer] Cognitive needs: No Hearing needs: No Vision needs: Yes (rx glasses) Meds Allergies Allergy/AdvReac Type Severity Reaction Status Date / Time No Known Allergies (No Known Allergy Verified 02/20/25 12:26 Allergies*) Active Medications: Current Medications Acetaminophen (Acetaminophen 325 Mg Tablet) 650 mg PO Q6H PRN PRN Reason: Pain, Mild 1-3,fever,headache Al Hydroxide/Mg Hydroxide (Magnesium Hydrox/Alum Hydrox 30 Ml Oral.Susp) 30 ml PO Q4H PRN PRN Reason: Heartburn Aspirin (Aspirin Enteric Coated 81 Mg Tablet.Dr) 81 mg PO DAILY MILLICENT Atorvastatin Calcium (Atorvastatin Calcium 80 Mg Tablet) 80 mg PO BEDTIME [facility] Dextrose (Dextrose 50 % 25 Gm/50 Ml Syringe) 25 gm IVPUSH Q15M PRN; Protocol PRN Reason: per Hypoglycemia Standing Ord. Glucose (Glucose Gel 15 Gm Gel..Gram.) 15 gm PO Q15M PRN; Protocol PRN Reason: per Hypoglycemia Standing Ord. Heparin Sodium (Porcine) (Heparin Sodium,Porcine 5,000 Unit/Ml Vial) 5,200 unit 40 unit/kg (5200 unit) IVPUSH PROTOCOL BOLUS PRN; Protocol PRN Reason: 40 unit/kg - Heparin Protocol Heparin Sodium (Porcine) (Heparin Sodium,Porcine 5,000 Unit/Ml Vial) 10,000 unit IVPUSH PROTOCOL BOLUS PRN; Protocol PRN Reason: 80 unit/kg - Heparin Protocol Heparin Sodium/Sodium Chloride (Heparin Sodium,Porcine/1/2ns) 25,000 unit in 250 mls @ 0 mls/hr IVCONT .Q0M MILLICENT; Protocol Insulin Human Lispro (Insulin Lispro 100 Unit/Ml 3 Ml Vial) 0 unit SUBCUT QIDACHS MILLICENT; Protocol Magnesium Hydroxide (Milk Of Magnesia 30 Ml Oral.Susp) 30 ml PO DAILY PRN PRN Reason: Constipation Melatonin (Melatonin 3 Mg Tablet) 6 mg PO BEDTIME PRN PRN Reason: Insomnia Ondansetron HCl (Ondansetron Hcl 4 Mg/2 Ml Vial) 4 mg IVPUSH Q8H PRN PRN Reason: Nausea and Vomiting Home Medications ?Medication ?Instructions ?Recorded ?Confirmed ?Last Taken ?Type blood sugar diagnostic #10 ea 02/13/20 08/03/22 Unknown History pen needle, diabetic 32 gauge x #50 ea 02/13/20 08/03/22 01/08/22 History cholecalciferol (vitamin D3) 25 25 mcg PO DAILY 02/20/25 02/20/25 02/20/25 History mcg (1,000 unit) tablet insulin aspart U-100 100 unit/mL See Protocol subcut TIDAC 02/20/25 02/20/25 Unknown History (3 mL) subcutaneous pen (Novolog FlexPen U-100 Insulin aspart) lisinopril 20 mg tablet 20 mg PO DAILY 02/20/25 02/20/25 02/20/25 History laucxekimovs-uro-scuxv acid-vit 1 tab PO DAILY 02/20/25 02/20/25 02/20/25 History K-lycop 400 mcg-20 mcg-370 mcg tablet (Men's 50 Plus Multivitamin) omeprazole 20 mg capsule,delayed 20 mg PO DAILY@0630 02/20/25 02/20/25 02/20/25 History release pioglitazone 30 mg tablet 30 mg PO DAILY 02/20/25 02/20/25 02/20/25 History semaglutide 2 mg/dose (8 mg/3 mL) 2 mg subcut SA@0900 02/20/25 02/20/25 02/09/25 History subcutaneous pen injector (Ozempic) Physical Exam Vital Signs and Narrative: Vital Signs: Last Vital Signs Temp 98.3 F 02/20/25 12:24 Pulse 74 02/20/25 12:24 Resp 18 02/20/25 12:24 BP 153/76 H 02/20/25 12:24 Pulse Ox 99 02/20/25 12:24 O2 Del Method Room Air 02/20/25 12:24 BMI result Body Mass Index 38.9 Const: Other: General: AO X 3, no acute distress Resp: CTA bilateral CVS: S1,S2,RRR GI: +BS, NT, no distention Skin: No rash Neuro: motor grossly intact Psych: appropriate affect Results Labs 02/21/25 03:26 02/21/25 03:26 Labs: Laboratory Results - last 24 hr 02/20/25 02/20/25 02/20/25 13:01 15:48 17:22 MCV 91.2 90.7 MCH 29.4 29.5 MCHC 32.2 32.5 RDW 14.2 14.3 Plt Count 221 D 233 MPV 9.2 L 8.9 L Immature Gran % (Auto) 0.4 Neut % (Auto) 59.9 Lymph % (Auto) 29.1 [place] % (Auto) 7.7 Eos % (Auto) 2.3 Baso % (Auto) 0.6 Lymph # (Auto) 2.4 [place] # (Auto) 0.6 Eos # (Auto) 0.2 Baso # (Auto) 0.1 Abs Immat Gran (auto) 0.03 Absolute Neuts (auto) 5.0 Absolute Nucleated RBC 0.000 0.000 Nucleated RBC % (auto) 0.0 0.0 Anion Gap 9 L Estim Creat Clear Calc 105.3 Estimated GFR > 60 Random Glucose 108 Calcium 9.1 Magnesium 1.8 Total Bilirubin 0.5 AST 34 ALT 23 Alkaline Phosphatase 74 Troponin I High Sens 53.4 H 1207.6 H* D NT-Pro-B Natriuret Pep 149.6 Total Protein 6.9 Albumin 4.1 Influenza Type A (PCR) NEGATIVE Influenza Type B (PCR) NEGATIVE RSV RNA Qual (PCR) NEGATIVE SARS-CoV-2 RNA (RT-PCR) NEGATIVE Imaging Radiologist's Impressions: Impressions Chest X-Ray 02/20/25 13:27 IMPRESSION: No active pulmonary disease. Electronically signed by: Ramana Quintero MD 02/20/2025 01:42 PM [facility] Assessment and Plan (1) ACS (acute coronary syndrome): Status: Acute (2) Essential hypertension: Status: Acute (3) Hyperlipidemia: Qualifiers: Hyperlipidemia type: unspecified Qualified Code(s): E78.5 - Hyperlipidemia, unspecified Status: Acute (4) Type 2 diabetes mellitus with unspecified complications: Status: Acute (5) Hypothyroidism: Qualifiers: Hypothyroidism type: other Qualified Code(s): E03.8 - Other specified hypothyroidism Status: Acute Plan A 69 years old male with PMH of CAD post PCI over 20 year ago, h/o blood clots in lungs and legs on eliquis (hasn't taking in 4 days for a planned procedure of back injection), type 2 diabetes, HLD, HTN, morbid obesity on Ozempic (not taking due upcoming back procedure tomorrow), hypothyroidism, ex-smoker among, chronic back pain. He presents with chest pain and has ACS Acute ACS, pain free and hemodynamically stable ECG in AM IV heparin, ASA, metoprolol and Lipitor 80 Echo in the morning check Lipidis Cardiology consultation for assessment for cath HTN, BP on highser resume home meds add Nitro past HLD Lipitor as above DM, check A1C Lantus 80 at home, sliding scale, resume tomorrow at around 50 units Hypothyroidsim Levothryoxine Obesity Can resume ozempic after discharge history of DVTs, PE Eliquis on hold for a planned back injection tomorrow, obviously won't be happening but can resume elquis at discharge Gout Allopurinol DVT prophylaxis: Heparin drip Full code admit for at least 2 midnights for Acute ACS, on iV heparin and need for further testing and intervention Quality Stroke Does the patient have a stroke diagnosis?: No VTE Prior VTE?: Yes VTE Risk Level:: Medical - moderate - high VTE Device Contraindication: Treatment Not Indicated VTE Drug Contraindication: N/A - Med Ordered
[2025-02-20 17:37] LABS: INTERNATIONAL NORM RATIO 1.0 (0.9-1.1); Prothrombin Time 12.1 SEC (11.2-13.5)
[2025-02-20 17:39] LABS: PTT Heparin Drip 29.6 SEC (53-77.9)
[2025-02-20] MEDS: Heparin Sodium,Porcine/1/2NS 25,000 UNIT/250 ML IV.SOLN 10 UNIT IVCONT (17:40)
--- NOTE | 2025-02-20 18:21 | PHA.MEDREC ---
Pharmacy Consult ? Medication Reconciliation Pharmacy has completed the medication reconciliation. Spoke with patient in the ED who had a list of his medications. ozempic was last taken on 02/09 and Eliquis stopped on Tuesday for procedure scheduled for 02/21.
[2025-02-20 19:18] VITALS: BP 123/61; PULSE 68; RESP 15; TEMP 36.4; O2SAT 98
[2025-02-20 21:51] LABS: Glucose, Whole Blood 103 mg/dL (60-115)
[2025-02-20 22:01] VITALS: BP 128/62; PULSE 69; RESP 17; TEMP 36.4; O2SAT 99
--- NOTE | 2025-02-20 23:37 | PC.NURSE ---
Report given to Autumn Ny RN. PTT-HD drawn by lab staff, results pending. Heparin drip to be titrated per policy based on PTT-HD results.
--- NOTE | 2025-02-20 23:45 | PC.NURSE ---
Assumed care of patient at this time, patient has no c/o of pain at this time.
[2025-02-20 23:59] LABS: PTT Heparin Drip 50.4 SEC (53-77.9)
[2025-02-21] VITALS (9 sets, daily range): BP systolic 101–153; BP diastolic 48–75; PULSE 65–72; RESP 16–23; TEMP 36.1–36.6; O2SAT 94–98; BMI 38.1
--- NOTE | 2025-02-21 | ECG_ITS ---
Test Reason : CHEST PAIN, ELEVATED TROPONIN Blood Pressure : */* mmHG Vent. Rate : 68 BPM Atrial Rate : 68 BPM P-R Int : 304 ms QRS Dur : 90 ms QT Int : 396 ms P-R-T Axes : -5 -41 12 degrees QTcB Int : 421 ms Sinus rhythm with 1st degree A-V block Left axis deviation Abnormal ECG When compared with ECG of 20-Feb-2025 12:31, No significant change was found Referred By: Fiona Hutchins Electronically Signed By: BREA LOZOYA MD
--- NOTE | 2025-02-21 | ECG_ITS ---
Test Reason : ELAVATED TROP Blood Pressure : */* mmHG Vent. Rate : 67 BPM Atrial Rate : 67 BPM P-R Int : 360 ms QRS Dur : 72 ms QT Int : 388 ms P-R-T Axes : 36 -49 -13 degrees QTcB Int : 409 ms Sinus rhythm with 1st degree A-V block Left axis deviation Low voltage QRS Inferior infarct (cited on or before 21-Feb-2025) Anterolateral infarct , age undetermined Abnormal ECG When compared with ECG of 21-Feb-2025 03:15, Anterior infarct is now Present Anterolateral infarct is now Present Nonspecific T wave abnormality now evident in Anterolateral leads Referred By: Fiona Hutchins Electronically Signed By: BREA LOZOYA MD
--- NOTE | 2025-02-21 00:26 | PC.NURSE ---
Heparin PTT came back at 50.4, bolus given and heparin increased to 9.67, repeat labs ordered for 0620.
--- NOTE | 2025-02-21 03:15 | ECG_ITS ---
Test Reason : TROP Blood Pressure : */* mmHG Vent. Rate : 69 BPM Atrial Rate : 69 BPM P-R Int : 354 ms QRS Dur : 88 ms QT Int : 404 ms P-R-T Axes : 45 -49 -12 degrees QTcB Int : 432 ms Sinus rhythm with 1st degree A-V block Left anterior fascicular block Cannot rule out Inferior infarct (masked by fascicular block?) , age undetermined Abnormal ECG When compared with ECG of 20-Feb-2025 16:42, No significant change was found Referred By: Fiona Hutchins Electronically Signed By: BREA LOZOYA MD
[2025-02-21 03:32] LABS: Hematocrit 38.7 % (42.0-52.0); Hemoglobin 12.9 g/dl (14.0-18.0); Mean Corpuscular HGB Conc 33.3 g/dl (31.0-36.0); Mean Corpuscular Hemoglobin 29.9 pg (27.0-33.0); Mean Corpuscular Volume 89.6 fL (80.0-98.0); NRBC Abs Auto 0.000 X10*3/uL (0.0-0.012); NRBC Pct Auto 0.0 /100WBC (0.0-0.2); Platelet Count 189 X10*3/uL (160-400); Red Blood Count 4.32 X10*6/uL (4.60-5.80); White Blood Count 10.5 X10*3/uL (4.8-10.8)
[2025-02-21 03:49] LABS: Alanine Aminotransferase 22 U/L (0-40); Albumin Level 3.9 g/dL (3.5-5.0); Alkaline Phosphatase 71 U/L (39-117); Anion Gap 12 (12-20); Aspartate Amino Transferase 81 U/L (5-37); Blood Urea Nitrogen 16 mg/dL (9-16); Calcium 8.8 mg/dL (8.4-10.2); Carbon Dioxide 26 mmol/L (22-29); Chloride 107 mmol/L (96-108); Cholesterol 121 mg/dL (<200); Creatinine Clr Calc Pharmacy 118.3; Estimated Glomerular Filt Rate > 60; HDL Cholesterol 34 mg/dL (>40); Potassium 3.6 mmol/L (3.3-5.1); Sodium 141 mmol/L (135-145); Total Protein 6.6 g/dL (6.5-8.0); Triglycerides 222 mg/dL (<150)
--- NOTE | 2025-02-21 05:17 | PM.EVENT ---
Event Note Date of Service: 02/21/25 Event Note: 0310 AM notified by nursing Troponin 17502/20 was 6576. Nurse reporting that she had started taking care of pt after 11PM. Pt currently asymptomatic and ECG requested. Repeat troponin also requested and found to be 8971. Pt is on heparin, ECG change noted in V2. Posterior ecg requested and no obvious ST changes noted. Hospitalist attending updated. Pt is on RA and hemodynamics remain stable. WIll sign out to day provider/ QB. Cardiology also consulted. Time Spent With Patient Time: Total time managing care of this patient today ____ minutes.
--- NOTE | 2025-02-21 06:23 | HO.NURTONUR ---
Addendum entered by Marina Peña RN 02/21/25 14:09: patient is currently on heparin gtt 6.69units/kg/hr, redraw ptt is at 1420. Original Note: Pt is 69 A&Ox4 IND male coming in with reports of chest pain x1 day, Trops remarkable /6576.09/8970.9. Heparin started at 1740, increased at 0026. During the morning TW noticed patient had only 1 EKG after 3rd elevated troponin reached out to hospitalist to obtain additional EKG and troponin. Patient remains asymptomatic with no reports of chest pain, after 4th troponin EKG obtained. 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
[2025-02-21 06:33] LABS: INTERNATIONAL NORM RATIO 1.1 (0.9-1.1); Prothrombin Time 13.1 SEC (11.2-13.5)
[2025-02-21 06:35] LABS: PTT Heparin Drip 103.7 SEC (53-77.9)
--- NOTE | 2025-02-21 07:00 | CA_ITS ---
Transthoracic Echocardiogram Patient (Last, First, Middle): Kristopher Adhikari E Gender: Male Date of : 1955 Age: 69 Procedure Date: 02/21/2025 Procedure Type: Transthoracic Echocardiogram Location: ER Height: 182.88 cm Weight: 129.73 kg BSA: 2.48 m2 Heart Rate: 70 bpm BP: 122 / 71 mmHg Rope Tow Operator: YAMILE Referring MD: Cheikh Paredes MD Life Care Planner: Adalid Braga MD Symptoms: Acute ACS Study Quality: Technically Difficult w/Contrast ECG Rhythm: Sinus Conclusions: - 1. Technically difficult study despite use of contrast agent 2. Normal LV ejection fraction of 60-65% with impaired relaxation filling pattern 3. Limited visualization of cardiac valves with cardiac valvular Dopplers within normal limits Findings Procedure Information Contrast agent, definity, is being given per protocol without apparent complications. Left Ventricle Normal left ventricular size, thickness, and systolic function. The visually estimated ejection fraction is between 60-65%. Spectral Doppler is indicative of an impaired relaxation filling pattern. E/E prime ratio is between 8 and 15 consistent with indeterminate filling pressures. Right Ventricle The right ventricle was not well visualized. Atria The left atrium was not well visualized. Interatrial shunt cannot be excluded. The right atrium was not well visualized. Aortic Valve The aortic valve structure and function is likely normal. There is no aortic valve stenosis. There is no aortic valve regurgitation. Mitral Valve The mitral valve was not well visualized. There is trace mitral valve regurgitation. There is no mitral valve stenosis. Pulmonic Valve The pulmonic valve was not well visualized. Tricuspid Valve The tricuspid valve was not well visualized. Tricuspid regurgitation envelope is inadequate for calculation of right ventricular systolic pressure. Indeterminate right atrial pressure. Great Vessels The aorta was not well visualized. The pulmonary artery was not well visualized. Venous The inferior vena cava was not well visualized. Pericardium/Pleural The pericardium was not well visualized. Measurements 2D Linear Measurements IVSd: 0.96 0.6-0.9/0.6-1.0 cm LVIDd: 4.95 3.9-5.3/4.2-5.9 cm LVIDd Index: 2.00 2.4-3.2/2.2-3.1 cm/m2 LVIDs: 3.17 2.0-3.6 cm LVPWd: 0.80 0.7-1.1 cm LA Diam: 4.00 2.7-3.8/3.0-4.0 cm LAIDs Index: 1.61 1.5-2.3 cm/m2 LV Mass: 187.92 67-162/88-224 g LV Mass Index: 75.77 43-95/49-115 g/m2 LVOT Diam: 2.30 3.0+(-)1.3 cm 2D Systolic Function EF 4C: 56.70 >55% EF 2C: 71.80 >55% EF BiP: 65.50 >55% Mitral Valve MV Pk E: 0.74 MV PK A: 0.85 MV Decel Time: 169.00 E/A: 0.90 E'Lateral: 8.38 E'Medial: 5.66 E/E' Med: 13.10 E/E' Lat: 8.80 PHT: 50.00 MVA PHT: 4.40 Decel [place]: 4.39 Aortic Valve AoV Pk Joseph: 0.80 AoV Pk Grad: 3.00 JEREL: 3.44 LVOT LVOT Pk Joseph: 0.72 LVOT Mn Joseph: 0.50 LVOT VTI: 0.15 LVOT Pk Grad: 2.00 LVOT Mn Grad: 1.00 LVOT Diam: 2.30 LVOT Area: 4.15 Diastolic Function MV Pk E: 0.74 MV Pk A: 0.85 E/A: 0.90 E'Medial: 5.66 E/E' Med: 13.10 E' Laterial: 8.38 E/E' Lat: 8.80 Right Ventricle TAPSE (mm): 11.30 TVS' Joseph: 8.05 Tricuspid Valve TR Pk Joseph: 2.21 TR Pk Grad: 20.00 Great Vessels Aorta Sinus of Valsalva: 3.30 2.0-3.5 cm Ao Asc: 3.30 2.1-3.4 cm Ao Arch: 3.20 Pulmonary Valve PV Pk Joseph: 0.68 Peak PV Grad: 2.00 Updated in Other Vendor System with Status of Final Adalid Braga MD electronically signed on 02/21/2025 1:18:39 PM with status of Final
[2025-02-21 07:18] LABS: Glucose, Whole Blood 109 mg/dL (60-115)
--- NOTE | 2025-02-21 07:48 | PC.NURSE ---
Assumed care of patient at 0645. PTT came back as 103.7. Heparin gtt paused at 0719 for one hour. Patient denying any chest pain at the moment. Patient on monitor. Cardiology provider at bedside.
--- NOTE | 2025-02-21 07:50 | P.CONCA_ITS ---
History of Present Illness History of Present Illness Date of Service: 02/21/25 Chief complaint: Acute ACS Narrative: I was consulted to see Kristopher in cardiology consultation today for NSTEMI. He is a pleasant 69-year-old male follows with Dr. Louise for his coronary artery disease. Patient with prior CAD about 20 years ago he had stenting done question to RCA for symptoms of chest pain syndrome. Does not recall his symptoms adequately. However over the last couple of decades he has been doing well and active. He has multiple risk factors including diabetes, hypertension, hyperlipidemia and has been compliant with his medications. he has risk factors has been generally well controlled. Said about for a month he has been having intermittent symptoms of lightheadedness he was not sure as to what was going on. However yesterday morning he developed retrosternal across the chest chest pressure which then gradually got worse with severe chest pressure-like elephant sitting on his chest. Subsequently came to the emergency room in his symptoms by the time he was treated completely resolved. His 1st troponin was 1200 and subsequent troponin in at last checked was 8700. Patient is currently been chest pain-free. He was started on IV heparin and treatment for NSTEMI. Patient's presenting EKGs showed normal sinus rhythm with left axis deviation without any significant ST-T wave changes. The most recent EKGs shows loss of R-waves in anterior lead with T-wave inversions suggestive of possible LAD territory ischemia. Patient is currently hemodynamically stable with no shortness of breath or signs of congestive heart failure. Review of Systems 2 Constitutional: Constitutional: Reports no additional constitutional complaints Eyes: Eyes: Reports no additional eye complaints Cardiovascular: Cardiovascular: Reports chest pain at rest, Denies rapid heart rate, Denies leg edema, Denies lightheadedness, Denies Loss of Consciousness, Denies palpitations and Reports dyspnea Respiratory: Respiratory: Reports no additional respiratory complaints and Reports dyspnea Gastrointestinal: Gastrointestinal: Reports no additional gastrointestinal complaints Genitourinary: Genitourinary: Reports no additional male genitourinary complaints Musculoskeletal: Musculoskeletal: Reports no additional musculoskeletal complaints Integumentary/Breasts: Skin/Breast: Reports system reviewed and no additional complaints, except as docu Neurologic: Reports system reviewed and no additional complaints, except as documented Psychiatric: Psychiatric: Reports no additional psychiatric complaints Endocrine: Endocrine: Reports no additional endocrine complaints and Denies palpitations [facility] Past Medical History Medical History Hyperlipidemia Hypothyroidism BPH (benign prostatic hyperplasia) Personal history of nicotine dependence Back pain Hx of radiation therapy Lumbago On anticoagulant therapy On beta truman at home Insulin dependent diabetes Pulmonary embolus Popliteal DVT (deep venous thrombosis) Chronic kidney disease (CKD), stage II (mild) Sleep apnea Peripheral neuropathy History of skin cancer Type 2 diabetes mellitus with unspecified complications Atherosclerotic cardiovascular disease Obesity due to excess calories Tubular adenoma of colon Graves disease CAD (coronary artery disease) Proteinuria Essential hypertension Hyperlipidemia LDL goal <70 Renal stones GERD (gastroesophageal reflux disease) Gout Family History Family History Father Colon cancer Mother Lung cancer Surgical History Surgical History History of ERCP History of back surgery History of esophagogastroduodenoscopy (EGD) Hx laparoscopic cholecystectomy Hx of elbow surgery Hx of hand surgery Hx of carpal tunnel repair Hx of colonoscopy (~09/26/23) H/O cystoscopy History of coronary artery stent placement History of hemorrhoidectomy Social History Social History Household Members: Spouse Housing: House Are you a primary client care representative to a significant other at home: No Do you presently have visiting nurse or other home services: No Alcohol intake: current Alcohol intake frequency: a few times a month Patient Tobacco Use Status: Former Tobacco user Tobacco use type: Cigarette Years Smoked: 35 +/- e-Cigarette/Vaping Use: Former Use Second Hand Smoke Exposure: No Substance Use Type: Marijuana service: No Current occupational status: retired 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 [employer] [place] Cognitive needs: No Hearing needs: No Vision needs: Yes (rx glasses) Meds Allergies Allergy/AdvReac Type Severity Reaction Status Date / Time No Known Allergies (No Known Allergy Verified 02/20/25 12:26 Allergies*) Active Medications: Current Medications Acetaminophen (Acetaminophen 325 Mg Tablet) 650 mg PO Q6H PRN PRN Reason: Pain, Mild 1-3,fever,headache Al Hydroxide/Mg Hydroxide (Magnesium Hydrox/Alum Hydrox 30 Ml Oral.Susp) 30 ml PO Q4H PRN PRN Reason: Heartburn Aspirin (Aspirin Enteric Coated 81 Mg Tablet.) 81 mg PO DAILY [facility] Atorvastatin Calcium (Atorvastatin Calcium 80 Mg Tablet) 80 mg PO BEDTIME [facility] Last Admin: 02/20/25 21:51 Dose: 80 mg Dextrose (Dextrose 50 % 25 Gm/50 Ml Syringe) 25 gm IVPUSH Q15M PRN; Protocol PRN Reason: per Hypoglycemia Standing Ord. Glucose (Glucose Gel 15 Gm Gel..Gram.) 15 gm PO Q15M PRN; Protocol PRN Reason: per Hypoglycemia Standing Ord. Heparin Sodium (Porcine) (Heparin Sodium,Porcine 5,000 Unit/Ml Vial) 5,200 unit 40 unit/kg (5200 unit) IVPUSH PROTOCOL BOLUS PRN; Protocol PRN Reason: 40 unit/kg - Heparin Protocol Last Admin: 02/21/25 00:29 Dose: 5,200 unit Heparin Sodium (Porcine) (Heparin Sodium,Porcine 5,000 Unit/Ml Vial) 10,000 unit IVPUSH PROTOCOL BOLUS PRN; Protocol PRN Reason: 80 unit/kg - Heparin Protocol Heparin Sodium/Sodium Chloride (Heparin Sodium,Porcine/1/2ns) 25,000 unit in 250 mls @ 0 mls/hr IVCONT .Q0M [facility]; Protocol Last Titration: 02/21/25 07:19 Dose: 0 units/kg/hr, 0 mls/hr Insulin Human Lispro (Insulin Lispro 100 Unit/Ml 3 Ml Vial) 0 unit SUBCUT QIDACHS [facility]; Protocol Last Admin: 02/21/25 07:22 Dose: Not Given Magnesium Hydroxide (Milk Of Magnesia 30 Ml Oral.Susp) 30 ml PO DAILY PRN PRN Reason: Constipation Melatonin (Melatonin 3 Mg Tablet) 6 mg PO BEDTIME PRN PRN Reason: Insomnia Last Admin: 02/21/25 01:30 Dose: 6 mg Ondansetron HCl (Ondansetron Hcl 4 Mg/2 Ml Vial) 4 mg IVPUSH Q8H PRN PRN Reason: Nausea and Vomiting Home Medications ?Medication ?Instructions ?Recorded ?Confirmed ?Last Taken ?Type blood sugar diagnostic #10 ea 02/13/20 08/03/22 Unk nown History pen needle, diabetic 32 gauge x #50 ea 02/13/2001/08/22 History cholecalciferol (vitamin D3) 25 25 mcg PO DAILY 1202/20/25 02/20/25 History mcg (1,000 unit) tablet insulin aspart U-100 100 unit/mL See Protocol subcut T IDAC 02/20/25 02/20/25 Unknown History (3 mL) subcutaneous pen (Novolog FlexPen U-100 Insulin aspart) lisinopril 20 mg tablet 20 mg PO DAILY 02/20/2502/1102/20/25 History dbthdyfqvyxx-cuc-cnqgf acid-vit 1 tab PO DAILY 5 02/20/25 02/20/25 History K-lycop 400 mcg-20 mcg-370 mcg tablet (Men's 50 Plus Multivitamin) omeprazole 20 mg capsule,delayed 20 mg PO DAILY@0630 1 04/23/24 02/20/25 02/20/25 History release pioglitazone 30 mg tablet 30 mg PO DAILY 02/20/2502/1102/20/25 History semaglutide 2 mg/dose (8 mg/3 mL) 2 mg subcut SA@0900 02/20/25 02/20/25 02/09/25 History subcutaneous pen injector (Ozempic) Physical Exam 2 Vital Signs: Vital Signs: Last Vital Signs Temp 97.5 F 02/21/25 00:21 Pulse 65 02/21/25 03:32 Resp 19 02/21/25 03:32 BP 131/75 02/21/25 03:32 Pulse Ox 97 02/21/25 03:32 O2 Del Method Room Air 02/21/25 03:32 BMI result Body Mass Index 38.9 Const: General: cooperative, comfortable, no acute distress, alert and awake Nutritional Appearance: obese Orientation/consciousness: patient oriented x3 Limitations: no limitations HEENT: Head: Yes normocephalic and Yes atraumatic Neck: Neck: Yes trachea midline, Yes supple and Yes no JVD Resp: Effort & Inspection: normal respiratory effort Auscultation: clear to auscultation bilaterally Cardio: Jugular venous distension: no JVD Rate: regular rate Rhythm: r egular rhythm Heart sounds: S1 normal heart sound present, S2 normal heart sound present, no click, no gallops, no murmurs and no rubs GI: Auscultation: normal bowel sounds Skin: General skin exam: no rashes or lesions noted Neuro: General: patient oriented x3 and no focal motor deficits Extrem: General: Yes no clubbing, cyanosis or edema Psych: Appearance: grossly normal Objective Labs and Meds 02/21/25 03:26 02/21/25 03:26 Lab results: Laboratory Results - last 24 hr 02/20/25 02/20/25 02/20/25 13:01 15:48 17:22 WBC 8.3 9.7 RBC 4.66 4.95 Hgb 13.7 L 14.6 Hct 42.5 44.9 MCV 91.2 90.7 MCH 29.4 29.5 MCHC 32.2 32.5 RDW 14.2 14.3 Plt Count 221 D 233 MPV 9.2 L 8.9 L Immature Gran % (Auto) 0.4 Neut % (Auto) 59.9 Lymph % (Auto) 29.1 Island % (Auto) 7.7 Eos % (Auto) 2.3 Baso % (Auto) 0.6 Lymph # (Auto) 2.4 Island # (Auto) 0.6 Eos # (Auto) 0.2 Baso # (Auto) 0.1 Abs Immat Gran (auto) 0.03 Absolute Neuts (auto) 5.0 Absolute Nucleated RBC 0.000 0.000 Nucleated RBC % (auto) 0.0 0.0 PT 12.1 INR 1.0 aPTT Heparin Protocol 29.6 L D Sodium 141 Potassium 4.4 Chloride 107 Carbon Dioxide 29 Anion Gap 9 L BUN 15 Creatinine 0.91 Estim Creat Clear Calc 105.3 Estimated GFR > 60 POC Glucose Random Glucose 108 Calcium 9.1 Magnesium 1.8 Total Bilirubin 0.5 AST 34 ALT 23 Alkaline Phosphatase 74 Troponin I High Sens 53.4 H 1207.6 H* D 6576.7 H* D NT-Pro-B Natriuret Pep 149.6 Total Protein 6.9 Albumin 4.1 Triglycerides Cholesterol LDL Cholesterol, Calc HDL Cholesterol Influenza Type A (PCR) NEGATIVE Influenza Type B (PCR) NEGATIVE RSV RNA Qual (PCR) NEGATIVE SARS-CoV-2 RNA (RT-PCR) NEGATIVE 02/20/25 02/20/25 02/21/25 21:47 23:27 03:26 WBC 10.5 RBC 4.32 L Hgb 12.9 L Hct 38.7 L MCV 89.6 MCH 29.9 MCHC 33.3 RDW 14.1 Plt Count 189 MPV 9.2 L Immature Gran % (Auto) Neut % (Auto) Lymph % (Auto) Island % (Auto) Eos % (Auto) Baso % (Auto) Lymph # (Auto) Island # (Auto) Eos # (Auto) Baso # (Auto) Abs Immat Gran (auto) Absolute Neuts (auto) Absolute Nucleated RBC 0.000 Nucleated RBC % (auto) 0.0 PT INR aPTT Heparin Protocol 50.4 L D Sodium 141 Potassium 3.6 Chloride 107 Carbon Dioxide 26 Anion Gap 12 BUN 16 Creatinine 0.81 Estim Creat Clear Calc 118.3 Estimated GFR > 60 POC Glucose 103 Random Glucose 124 H Calcium 8.8 Magnesium Total Bilirubin 0.7 AST 81 H ALT 22 Alkaline Phosphatase 71 Troponin I High Sens 8971.9 H* NT-Pro-B Natriuret Pep Total Protein 6.6 Albumin 3.9 Triglycerides 222 H Cholesterol 121 LDL Cholesterol, Calc 43 HDL Cholesterol 34 L Influenza Type A (PCR) Influenza Type B (PCR) RSV RNA Qual (PCR) SARS-CoV-2 RNA (RT-PCR) 02/21/25 02/21/25 06:23 07:14 WBC RBC Hgb Hct MCV MCH MCHC RDW Plt Count MPV Immature Gran % (Auto) Neut % (Auto) Lymph % (Auto) Island % (Auto) Eos % (Auto) Baso % (Auto) Lymph # (Auto) Island # (Auto) Eos # (Auto) Baso # (Auto) Abs Immat Gran (auto) Absolute Neuts (auto) Absolute Nucleated RBC Nucleated RBC % (auto) PT 13.1 INR 1.1 aPTT Heparin Protocol 103.7 H D Sodium Potassium Chloride Carbon Dioxide Anion Gap BUN Creatinine Estim Creat Clear Calc Estimated GFR POC Glucose 109 Random Glucose Calcium Magnesium Total Bilirubin AST ALT Alkaline Phosphatase Troponin I High Sens NT-Pro-B Natriuret Pep Total Protein Albumin Triglycerides Cholesterol LDL Cholesterol, Calc HDL Cholesterol Influenza Type A (PCR) Influenza Type B (PCR) RSV RNA Qual (PCR) SARS-CoV-2 RNA (RT-PCR) Imaging Radiologist's impression: Impressions Chest X-Ray 02/20/25 13:27 IMPRESSION: No active pulmonary disease. Electronically signed by: Ramana Quintero MD 02/20/2025 01:42 PM [facility] Assessment and Plan (1) ACS (acute coronary syndrome): Status: Acute Acute coronary syndrome with typical symptoms and not EKGs changes with significantly elevated troponins suggestive of high risk acute coronary syndrome with possibly LAD territory ischemia. Patient is currently appropriately treated in his currently hemodynamically stable without any chest pain or signs of heart failure ventricular arrhythmias. Management and best approach will require invasive approach and possible interventional therapy. This was discussed with him. He had this procedure done more than 20 years ago and we discussed about recent improvement in technology. We discussed about the need for cardiac catheterization including the need for it including the risks, benefits, alternatives. He understands and agrees. Arrangement has been made for him to be transferred to [facility]. He is also amenable to the same suggestion at this point time. I would continue with aspirin, high- intensity statin therapy as well as IV heparin. Would add metoprolol to his regimen. Will continue to follow with him as outpatient. Greater than 30 minutes was spent in managing in coordinating his care. Thank you for allowing me to partake in his care Procedures Date of Service Date of Service: 02/21/25
[2025-02-21] MEDS: Aspirin Enteric Coated 81 MG TABLET.DR PO (08:09)
[2025-02-21] MEDS: Metoprolol Succinate ER 50 MG TAB.ER.24H PO (08:09)
[2025-02-21 11:49] LABS: Glucose, Whole Blood 116 mg/dL (60-115)
--- NOTE | 2025-02-21 12:04 | HO.PM.IMPN ---
Subjective Subjective Date of Service: 02/21/25 Interval History: f/u acute ACS has been having intermittent chest tightness no arrythmia, no heart failure, trops up to 8K Physical Exam Vital Signs: Vital Signs: Last Vital Signs Temp 97.5 F 02/21/25 07:51 Pulse 70 02/21/25 08:09 Resp 18 02/21/25 07:51 BP 122/71 02/21/25 08:10 Pulse Ox 94 02/21/25 07:51 O2 Del Method Room Air 02/21/25 07:51 BMI result Body Mass Index 38.9 Const: Other: General: AO X 3, no acute distress Resp: CTA bilateral CVS: S1,S2,RRR GI: +BS, NT, no distention Skin: No rash Neuro: motor grossly intact Psych: appropriate affect Objective Data Active Medications Acetaminophen (Acetaminophen 325 Mg Tablet) 650 mg PO Q6H PRN PRN Reason: Pain, Mild 1-3,fever,headache Al Hydroxide/Mg Hydroxide (Magnesium Hydrox/Alum Hydrox 30 Ml Oral.Susp) 30 ml PO Q4H PRN PRN Reason: Heartburn Allopurinol (Allopurinol 300 Mg Tablet) 300 mg PO DAILY [facility] Last Admin: 02/21/25 08:59 Dose: 300 mg Documented By: SUMIT Aspirin (Aspirin Enteric Coated 81 Mg Tablet.) 81 mg PO DAILY [facility] Last Admin: 02/21/25 08:09 Dose: 81 mg Documented By: SUMIT Atorvastatin Calcium (Atorvastatin Calcium 80 Mg Tablet) 80 mg PO BEDTIME [facility] Last Admin: 02/20/25 21:51 Dose: 80 mg Documented By: WALI Atorvastatin Calcium (Atorvastatin Calcium 80 Mg Tablet) 80 mg PO DAILY [facility] Last Admin: 02/21/25 08:10 Dose: 80 mg Documented By: SUMIT Dextrose (Dextrose 50 % 25 Gm/50 Ml Syringe) 25 gm IVPUSH Q15M PRN; Protocol PRN Reason: per Hypoglycemia Standing Ord. Glucose (Glucose Gel 15 Gm Gel..Gram.) 15 gm PO Q15M PRN; Protocol PRN Reason: per Hypoglycemia Standing Ord. Heparin Sodium (Porcine) (Heparin Sodium,Porcine 5,000 Unit/Ml Vial) 5,200 unit 40 unit/kg (5200 unit) IVPUSH PROTOCOL BOLUS PRN; Protocol PRN Reason: 40 unit/kg - Heparin Protocol Last Admin: 02/21/25 00:29 Dose: 5,200 unit Documented By: COLUMBA Heparin Sodium (Porcine) (Heparin Sodium,Porcine 5,000 Unit/Ml Vial) 10,000 unit IVPUSH PROTOCOL BOLUS PRN; Protocol PRN Reason: 80 unit/kg - Heparin Protocol Heparin Sodium/Sodium Chloride (Heparin Sodium,Porcine/1/2ns) 25,000 unit in 250 mls @ 0 mls/hr IVCONT .Q0M [facility]; Protocol Last Titration: 02/21/25 08:23 Dose: 6.69 units/kg/hr, 8.7 mls/hr Documented By: MAIKEL Co-signed By: SUMIT Insulin Human Lispro (Insulin Lispro 100 Unit/Ml 3 Ml Vial) 0 unit SUBCUT QIDACHS [facility]; Protocol Last Admin: 02/21/25 07:22 Dose: Not Given Documented By: SUMIT Non-Admin Reason: No Insulin Coverage Levothyroxine Sodium (Levothyroxine Sodium 50 Mcg Tablet) 50 mcg PO DAILY@0630 [facility] Last Admin: 02/21/25 08:10 Dose: 50 mcg Documented By: SUMIT Lisinopril (Lisinopril 20 Mg Tablet) 20 mg PO DAILY [facility]; Protocol Last Admin: 02/21/25 08:10 Dose: 20 mg Documented By: SUMIT Magnesium Hydroxide (Milk Of Magnesia 30 Ml Oral.Susp) 30 ml PO DAILY PRN PRN Reason: Constipation Melatonin (Melatonin 3 Mg Tablet) 6 mg PO BEDTIME PRN PRN Reason: Insomnia Last Admin: 02/21/25 01:30 Dose: 6 mg Documented By: COLUMBA Metoprolol Succinate (Metoprolol Succinate Er 50 Mg Tab.Er.24h) 50 mg PO DAILY [facility]; Protocol Last Admin: 02/21/25 08:09 Dose: 50 mg Documented By: SUMIT Multivitamins/Vitamin C (Multivitamin Tablet) 1 tab PO DAILY [facility] Last Admin: 02/21/25 08:09 Dose: 1 tab Documented By: SUMIT Omeprazole (Omeprazole 20 Mg Capsule.Dr) 20 mg PO DAILY@0630 [facility] Last Admin: 02/21/25 08:09 Dose: 20 mg Documented By: SUMIT Ondansetron HCl (Ondansetron Hcl 4 Mg/2 Ml Vial) 4 mg IVPUSH Q8H PRN PRN Reason: Nausea and Vomiting Pioglitazone HCl (Pioglitazone Hcl 30 Mg Tablet) 30 mg PO DAILY [facility] Last Admin: 02/21/25 08:59 Dose: 30 mg Documented By: SUMIT Pregabalin (Pregabalin 100 Mg Capsule) 100 mg PO BID [facility] Last Admin: 02/21/25 08:10 Dose: 100 mg Documented By: SUMIT Tamsulosin HCl (Tamsulosin Hcl 0.4 Mg Capsule) 0.4 mg PO BEDTIME [facility] Vitamin D (Cholecalciferol (Vitamin D3) 25 Mcg Tablet) 25 mcg PO DAILY [facility] Last Admin: 02/21/25 08:09 Dose: 25 mcg Documented By: SUMIT Labs 02/21/25 03:26 02/21/25 03:26 Labs: Laboratory Results - last 24 hr 02/20/25 02/20/25 02/20/25 13:01 15:48 17:22 MCV 91.2 90.7 MCH 29.4 29.5 MCHC 32.2 32.5 RDW 14.2 14.3 Plt Count 221 D 233 MPV 9.2 L 8.9 L Immature Gran % (Auto) 0.4 Neut % (Auto) 59.9 Lymph % (Auto) 29.1 [place] % (Auto) 7.7 Eos % (Auto) 2.3 Baso % (Auto) 0.6 Lymph # (Auto) 2.4 [place] # (Auto) 0.6 Eos # (Auto) 0.2 Baso # (Auto) 0.1 Abs Immat Gran (auto) 0.03 Absolute Neuts (auto) 5.0 Absolute Nucleated RBC 0.000 0.000 Nucleated RBC % (auto) 0.0 0.0 Hold Purple Top PT 12.1 INR 1.0 aPTT Heparin Protocol 29.6 L D Anion Gap 9 L Estim Creat Clear Calc 105.3 Estimated GFR > 60 POC Glucose Random Glucose 108 Estimat Average Glucose Hemoglobin A1c % Calcium 9.1 Magnesium 1.8 Total Bilirubin 0.5 AST 34 ALT 23 Alkaline Phosphatase 74 Troponin I High Sens 53.4 H 1207.6 H* D 6576.7 H* D NT-Pro-B Natriuret Pep 149.6 Total Protein 6.9 Albumin 4.1 Triglycerides Cholesterol LDL Cholesterol, Calc HDL Cholesterol Influenza Type A (PCR) NEGATIVE Influenza Type B (PCR) NEGATIVE RSV RNA Qual (PCR) NEGATIVE SARS-CoV-2 RNA (RT-PCR) NEGATIVE 02/20/25 02/20/25 02/21/25 21:47 23:27 03:26 MCV 89.6 MCH 29.9 MCHC 33.3 RDW 14.1 Plt Count 189 MPV 9.2 L Immature Gran % (Auto) Neut % (Auto) Lymph % (Auto) [place] % (Auto) Eos % (Auto) Baso % (Auto) Lymph # (Auto) [place] # (Auto) Eos # (Auto) Baso # (Auto) Abs Immat Gran (auto) Absolute Neuts (auto) Absolute Nucleated RBC 0.000 Nucleated RBC % (auto) 0.0 Hold Purple Top PT INR aPTT Heparin Protocol 50.4 L D Anion Gap 12 Estim Creat Clear Calc 118.3 Estimated GFR > 60 POC Glucose 103 Random Glucose 124 H Estimat Average Glucose 171 Hemoglobin A1c % 7.6 H Calcium 8.8 Magnesium Total Bilirubin 0.7 AST 81 H ALT 22 Alkaline Phosphatase 71 Troponin I High Sens 8971.9 H* NT-Pro-B Natriuret Pep Total Protein 6.6 Albumin 3.9 Triglycerides 222 H Cholesterol 121 LDL Cholesterol, Calc 43 HDL Cholesterol 34 L Influenza Type A (PCR) Influenza Type B (PCR) RSV RNA Qual (PCR) SARS-CoV-2 RNA (RT-PCR) 02/21/25 02/21/25 02/21/25 06:23 07:14 10:03 MCV MCH MCHC RDW Plt Count MPV Immature Gran % (Auto) Neut % (Auto) Lymph % (Auto) [place] % (Auto) Eos % (Auto) Baso % (Auto) Lymph # (Auto) [place] # (Auto) Eos # (Auto) Baso # (Auto) Abs Immat Gran (auto) Absolute Neuts (auto) Absolute Nucleated RBC Nucleated RBC % (auto) Hold Purple Top SEE NOTE PT 13.1 INR 1.1 aPTT Heparin Protocol 103.7 H D Anion Gap Estim Creat Clear Calc Estimated GFR POC Glucose 109 Random Glucose Estimat Average Glucose Hemoglobin A1c % Calcium Magnesium Total Bilirubin AST ALT Alkaline Phosphatase Troponin I High Sens NT-Pro-B Natriuret Pep Total Protein Albumin Triglycerides Cholesterol LDL Cholesterol, Calc HDL Cholesterol Influenza Type A (PCR) Influenza Type B (PCR) RSV RNA Qual (PCR) SARS-CoV-2 RNA (RT-PCR) 02/21/25 11:45 MCV MCH MCHC RDW Plt Count MPV Immature Gran % (Auto) Neut % (Auto) Lymph % (Auto) [place] % (Auto) Eos % (Auto) Baso % (Auto) Lymph # (Auto) [place] # (Auto) Eos # (Auto) Baso # (Auto) Abs Immat Gran (auto) Absolute Neuts (auto) Absolute Nucleated RBC Nucleated RBC % (auto) Hold Purple Top PT INR aPTT Heparin Protocol Anion Gap Estim Creat Clear Calc Estimated GFR POC Glucose 116 H Random Glucose Estimat Average Glucose Hemoglobin A1c % Calcium Magnesium Total Bilirubin AST ALT Alkaline Phosphatase Troponin I High Sens NT-Pro-B Natriuret Pep Total Protein Albumin Triglycerides Cholesterol LDL Cholesterol, Calc HDL Cholesterol Influenza Type A (PCR) Influenza Type B (PCR) RSV RNA Qual (PCR) SARS-CoV-2 RNA (RT-PCR) Assessment and Plan (1) ACS (acute coronary syndrome): Status: Acute (2) Essential hypertension: Status: Acute (3) Type 2 diabetes mellitus with unspecified complications: Status: Acute Plan A 69 years old male with PMH of CAD post PCI over 20 year ago, h/o blood clots in lungs and legs on eliquis (hasn't taking in 4 days for a planned procedure of back injection), type 2 diabetes, HLD, HTN, morbid obesity on Ozempic (not taking due upcoming back procedure tomorrow), hypothyroidism, ex-smoker among, chronic back pain. He presents with chest pain and has ACS based on elevated troponins. Initial troponin I was 53 then 1207, then 6576 and now 8971. ECG show no acute ischemic changed. Mnagement has consisted of IV heparin, ASA, metoprolol, Lipitor (Rosuvostatin at home). He has been hemodynamically stable and presently chest pain free, with no sings of heart failure or arythmia. Cardiology Dr. Braga is advising transfering to [facility] for cardiac cath, will continue heparin for now and ultimately transition back to Eliquis for history of PE/DVTs Probelms Acute ACS, pain free and hemodynamically stable ECG no acute ischemic changes continue IV heparin, ASA, metoprolol and Lipitor 80 Transfer to [facility] for cath Lipids (TG 222, Cholesterol 121, HDL 34, LDL 43) Cardiology consultation for assessment for cath HTN continue lisinopril 20, Toprol 50 HLD Lipitor as above (Rosuvostatin at home) DM, check A1C Lantus 80 at home, sliding scale, proposing 50 at night while in hospital Hypothyroidsim Levothryoxine Obesity Can resume ozempic after discharge history of DVTs, PE Eliquis on hold for a planned back injection tomorrow, obviously won't be happening but can resume elquis at discharge Gout Allopurinol DVT prophylaxis need for inpt: Acute [place] on heparin, awaiting transfer to [facility] for cath Quality Stroke Does the patient have a stroke diagnosis?: No VTE Prior VTE?: Yes VTE Risk Level:: Medical - moderate - high VTE Device Contraindication: Treatment Not Indicated VTE Drug Contraindication: N/A - Med Ordered
[2025-02-21 15:21] LABS: Glucose, Whole Blood 136 mg/dL (60-115)
[2025-02-21 15:22] LABS: PTT Heparin Drip 44.3 SEC (53-77.9)
--- NOTE | 2025-02-21 16:35 | MHC.CM.PN ---
CM MET WITH PT AND AT BEDSIDE PT LIVES AT HOME AND IS INDEPENDENT WITH CARE HE HAS NO SERVICES OR DME HCP ON FILE AND VERIFIED PCP: OSMAR AGUILERA IMM DELIVERED DCP: HOME VIA PRIVATE TRANSPORT
[2025-02-21] MEDS: Heparin Sodium,Porcine/1/2NS 25,000 UNIT/250 ML IV.SOLN 11.31 UNIT IVCONT (18:38)
[2025-02-21 20:12] LABS: Glucose, Whole Blood 155 mg/dL (60-115)
[2025-02-21 22:40] LABS: PTT Heparin Drip 65.7 SEC (53-77.9)
[2025-02-22 03:56] VITALS: BP 113/58; PULSE 72; RESP 18; TEMP 36.9; O2SAT 94
[2025-02-22 05:20] LABS: PTT Heparin Drip 51.9 SEC (53-77.9)
[2025-02-22 07:15] LABS: Glucose, Whole Blood 170 mg/dL (60-115)
[2025-02-22 07:25] VITALS: BP 111/60; PULSE 69; RESP 18; TEMP 36.4; O2SAT 96
[2025-02-22] MEDS: Aspirin Enteric Coated 81 MG TABLET.DR PO (08:24)
[2025-02-22] MEDS: Metoprolol Succinate ER 50 MG TAB.ER.24H PO (08:24)
--- NOTE | 2025-02-22 11:46 | PM.PNCARD ---
Subjective Subjective Date of Service: 02/22/25 Principal diagnosis: NSTEMI Interval history: Known chest pain. Hemodynamically stable. No shortness of breath. No arrhythmias noted Review of Systems Review of Systems Yes all other systems are reviewed and are negative Physical Exam Vital Signs: Last Vital Signs Temp 97.6 F 02/22/25 07:25 Pulse 69 02/22/25 07:25 Resp 18 02/22/25 07:25 BP 111/60 02/22/25 07:25 Pulse Ox 96 02/22/25 07:25 O2 Del Method Room Air 02/22/25 07:25 BMI result Body Mass Index 38.1 Const General: cooperative, comfortable, no acute distress, alert and awake Nutritional Appearance: obese Orientation/consciousness: patient oriented x3 Limitations: no limitations HEENT Head: Yes normocephalic and Yes atraumatic Neck Neck: Yes trachea midline, Yes supple and Yes no JVD Resp Effort & Inspection: normal respiratory effort Auscultation: clear to auscultation bilaterally Cardio Jugular venous distension: no JVD Rate: regular rate Rhythm: regular rhythm Heart sounds: S1 normal heart sound present, S2 normal heart sound present, no click, no gallops, no murmurs and no rubs GI Auscultation: normal bowel sounds Skin General skin exam: no rashes or lesions noted Neuro General: patient oriented x3 and no focal motor deficits Extrem General: Yes no clubbing, cyanosis or edema Psych Appearance: grossly normal Objective Labs and Meds 02/21/25 03:26 02/21/25 03:26 Lab results: Laboratory Results - last 24 hr 02/21/25 02/21/25 02/21/25 11:45 14:48 15:07 aPTT Heparin Protocol 44.3 L D POC Glucose 116 H 136 H 02/21/25 02/21/25 02/22/25 19:45 22:24 04:37 aPTT Heparin Protocol 65.7 D 51.9 L D POC Glucose 155 H 02/22/25 07:10 aPTT Heparin Protocol POC Glucose 170 H Conclusions: - 1. Technically difficult study despite use of contrast agent 2. Normal LV ejection fraction of 60-65% with impaired relaxation filling pattern 3. Limited visualization of cardiac valves with cardiac valvular Dopplers within normal limits Progress Note: A&P Assessment and plan (1) ACS (acute coronary syndrome): Status: Acute Assessment and Plan: NSTEMI with high-risk acute coronary syndrome. Currently stable with no heart failure symptoms with no recurrent angina. Currently on IV heparin. Continue the same. Continue aspirin, statins, beta-blockers. Needs cardiac catheterization and transferred [facility] for [facility] same. Discussed with him about the same he is agreeable. Rating for bed. Discussed the risks, benefits, alternatives to procedure. Understands agrees. Further treatment based on the findings of cardiac catheterization. Will follow up as outpatient Time Spent With Patient Time: Total time managing care of this patient today ____ minutes. Progress Note: Quality Stroke Does the patient have a stroke diagnosis?: No Procedures Date of Service Date of Service: 02/22/25
--- NOTE | 2025-02-22 11:54 | P.DS_ITS ---
DS: Providers Provider Date of Service: 02/21/25 Date of admission: 02/20/25 17:26 Date of discharge: 02/21/25 Primary care physician: Chema Maya MD Consults: 02/20/25 17:26 Consult to Cardiology Routine Consulting Provider: [facility] Reason for consultation: ACS Has provider been notified: Yes DS: Diagnosis Discharge Diagnosis (1) ACS (acute coronary syndrome): Status: Acute (2) Essential hypertension: Status: Acute (3) Hyperlipidemia: Status: Acute (4) Type 2 diabetes mellitus with unspecified complications: Status: Acute (5) Hypothyroidism: Status: Acute DS: Summary Hospital Course Hospital Course: Admission hpi Chief Complaint: Chest pain 69 years old male with PMH of CAD post PCI over 20 year ago, h/o blood clots in lungs and legs on eliquis (hasn't taking in 4 days for a planned procedure of back injection), type 2 diabetes, HLD, HTN, morbid obesity on Ozempic (not taking due upcoming back procedure tomorrow), hypothyroidism, ex-smoker, DJD of back with chronic back pain (was planned to have back injection tomorrow). He presents with chest pain that has been ongoing since this morning, intermittent across the chest with no sob, no diaphoresis, no dizziness. ECG show first degree AVB, no ischemic changes, he's hemodynamically stable. First trop 53 next one 1207. Heparin drip is initiated. He took metoprolol at home. He is chest pain Hospital course: A 69 years old male with PMH of CAD post PCI over 20 year ago, h/o blood clots in lungs and legs on eliquis (hasn't taking in 4 days for a planned procedure of back injection), type 2 diabetes, HLD, HTN, morbid obesity on Ozempic (not taking due upcoming back procedure tomorrow), hypothyroidism, ex-smoker among, chronic back pain. He presents with chest pain and has ACS based on elevated troponins. Initial troponin I was 53 then 1207, then 6576 and now 8971. ECG show no acute ischemic changed. Mnagement has consisted of IV heparin, ASA, metoprolol, Lipitor (Rosuvostatin at home). He has been hemodynamically stable and presently chest pain free, with no sings of heart failure or arythmia. Cardiology Dr. Braga is advising transfering to [facility] for cardiac cath, will continue heparin for now and ultimately transition back to [facility] for history of PE/DVTs Probelms Acute ACS, pain free and hemodynamically stable ECG no acute ischemic changes continue IV heparin, ASA, metoprolol and Lipitor 80 Transfer to [facility] for cath Lipids (TG 222, Cholesterol 121, HDL 34, LDL 43) Cardiology consultation for assessment for cath HTN continue lisinopril 20, Toprol 50 HLD Lipitor as above (Rosuvostatin at home) DM, check A1C Lantus 80 at home, sliding scale, proposing 50 at night while in hospital Hypothyroidsim Levothryoxine Obesity Can resume ozempic after discharge history of DVTs, PE Eliquis on hold for a planned back injection tomorrow, obviously won't be happening but can resume elquis at discharge Gout Allopurinol Dispo: To [facility] for cath Time Attestation Discharge Coordination Time (in mins): 45 Quality: Safe Use of Opioids Does Pt have an Active Cancer Diagnosis on the Problem List?: No Quality: Stroke Does the patient have a stroke diagnosis?: No Physical Exam Vital Signs: Vital Signs: Selected Entries 02/22/25 07:25 Temperature 97.6 F Pulse Rate 69 Respiratory Rate 18 Blood Pressure 111/60 Pulse Oximetry 96 Oxygen Delivery Me thod Room Air General: AO X 3, no acute distress Resp: CTA bilateral CVS: S1,S2,RRR GI: +BS, NT, no distention Skin: No rash Neuro: motor grossly intact Psych: appropriate affect DS: Data Data Completed and Pending Labs on day of discharge: Laboratory Results - last 24 hr 02/20/25 02/20/25 02/20/25 13:01 15:48 17:22 WBC 8.3 9.7 RBC 4.66 4.95 Hgb 13.7 L 14.6 Hct 42.5 44.9 MCV 91.2 90.7 MCH 29.4 29.5 MCHC 32.2 32.5 RDW 14.2 14.3 Plt Count 221 D 233 MPV 9.2 L 8.9 L Immature Gran % (Auto) 0.4 Neut % (Auto) 59.9 Lymph % (Auto) 29.1 [place] % (Auto) 7.7 Eos % (Auto) 2.3 Baso % (Auto) 0.6 Lymph # (Auto) 2.4 [place] # (Auto) 0.6 Eos # (Auto) 0.2 Baso # (Auto) 0.1 Abs Immat Gran (auto) 0.03 Absolute Neuts (auto) 5.0 Absolute Nucleated RBC 0.000 0.000 Nucleated RBC % (auto) 0.0 0.0 PT 12.1 INR 1.0 aPTT Heparin Protocol 29.6 L D Sodium 141 Potassium 4.4 Chloride 107 Carbon Dioxide 29 Anion Gap 9 L BUN 15 Creatinine 0.91 Estim Creat Clear Calc 105.3 Estimated GFR > 60 POC Glucose Random Glucose 108 Calcium 9.1 Magnesium 1.8 Total Bilirubin 0.5 AST 34 ALT 23 Alkaline Phosphatase 74 Troponin I High Sens 53.4 H 1207.6 H* D 6576.7 H* D NT-Pro-B Natriuret Pep 149.6 Total Protein 6.9 Albumin 4.1 Triglycerides Cholesterol LDL Cholesterol, Calc HDL Cholesterol Influenza Type A (PCR) NEGATIVE Influenza Type B (PCR) NEGATIVE RSV RNA Qual (PCR) NEGATIVE SARS-CoV-2 RNA (RT-PCR) NEGATIVE 02/20/25 02/20/25 02/21/25 21:47 23:27 03:26 WBC 10.5 RBC 4.32 L Hgb 12.9 L Hct 38.7 L MCV 89.6 MCH 29.9 MCHC 33.3 RDW 14.1 Plt Count 189 MPV 9.2 L Immature Gran % (Auto) Neut % (Auto) Lymph % (Auto) [place] % (Auto) Eos % (Auto) Baso % (Auto) Lymph # (Auto) [place] # (Auto) Eos # (Auto) Baso # (Auto) Abs Immat Gran (auto) Absolute Neuts (auto) Absolute Nucleated RBC 0.000 Nucleated RBC % (auto) 0.0 PT INR aPTT Heparin Protocol 50.4 L D Sodium 141 Potassium 3.6 Chloride 107 Carbon Dioxide 26 Anion Gap 12 BUN 16 Creatinine 0.81 Estim Creat Clear Calc 118.3 Estimated GFR > 60 POC Glucose 103 Random Glucose 124 H Calcium 8.8 Magnesium Total Bilirubin 0.7 AST 81 H ALT 22 Alkaline Phosphatase 71 Troponin I High Sens 8971.9 H* NT-Pro-B Natriuret Pep Total Protein 6.6 Albumin 3.9 Triglycerides 222 H Cholesterol 121 LDL Cholesterol, Calc 43 HDL Cholesterol 34 L Influenza Type A (PCR) Influenza Type B (PCR) RSV RNA Qual (PCR) SARS-CoV-2 RNA (RT-PCR) 02/21/25 02/21/25 06:23 07:14 WBC RBC Hgb Hct MCV MCH MCHC RDW Plt Count MPV Immature Gran % (Auto) Neut % (Auto) Lymph % (Auto) [place] % (Auto) Eos % (Auto) Baso % (Auto) Lymph # (Auto) [place] # (Auto) Eos # (Auto) Baso # (Auto) Abs Immat Gran (auto) Absolute Neuts (auto) Absolute Nucleated RBC Nucleated RBC % (auto) PT 13.1 INR 1.1 aPTT Heparin Protocol 103.7 H D Sodium Potassium Chloride Carbon Dioxide Anion Gap BUN Creatinine Estim Creat Clear Calc Estimated GFR POC Glucose 109 Random Glucose Calcium Magnesium Total Bilirubin AST ALT Alkaline Phosphatase Troponin I High Sens NT-Pro-B Natriuret Pep Total Protein Albumin Triglycerides Cholesterol LDL Cholesterol, Calc HDL Cholesterol Influenza Type A (PCR) Influenza Type B (PCR) RSV RNA Qual (PCR) SARS-CoV-2 RNA (RT-PCR) Discharge Plan Discharge Anticipated Discharge Date/Time: 02/22/25 11:53 Patient Disposition: Xfer Acute [facility] Discharge Diagnosis: Acute ACS (Heart attack) Referrals: Chema Maya MD [Primary Care Provider, Internal Medicine] - 1 Week Discharge Medications: New atorvastatin 80 mg Tablet 80 mg PO DAILY Qty: 60 0RF heparin(porcine) in 0.45% NaCl 25,000 unit/250 mL Parenteral Solution 25,000 unit continuous IV infusion .Q0M Qty: 6000 0RF Rx Instructions: Infuse per your institution protocol atorvastatin 80 mg Tablet 80 mg PO BEDTIME Qty: 30 0RF aspirin 81 mg Tablet,Delayed Release (Dr/Ec) 81 mg PO DAILY Qty: 30 0RF Continued levothyroxine [Synthroid] 50 mcg tablet 50 mcg PO DAILY@0630 Qty: 90 1RF pregabalin [Lyrica] 100 mg capsule 100 mg PO BID Qty: 180 1RF metoprolol succinate 50 mg tablet extended release 24 hr 50 mg PO DAILY Qty: 90 1RF allopurinol 300 mg tablet 300 mg PO DAILY Qty: 90 1RF omeprazole 20 mg capsule,delayed release(DR/EC) 20 mg PO DAILY@0630 lisinopril 20 mg tablet 20 mg PO DAILY pioglitazone 30 mg tablet 30 mg PO DAILY insulin aspart U-100 [Novolog FlexPen U-100 Insulin] 100 unit/mL (3 mL) insulin pen See Protocol subcut TIDAC Protocol: Insulin Correction Scale Less than or equal to 110 ---- Give (units): 0 111 to 150 Give (units): 0 151 to 200 Give (units): 2 201 to 250 Give (units): 4 251 to 300 Give (units): 6 301 to 350 Give (units): 8 Greater than 350 Give (units): 10 Call MD if Blood Glucose > : 350 Ozempic 2 mg/dose (8 mg/3 mL) pen injector 2 mg subcut SA@0900 cholecalciferol (vitamin D3) 25 mcg (1,000 unit) Tablet 25 mcg PO DAILY Men's 50 Plus Multivitamin 400-20-370 mcg Tablet 1 tab PO DAILY (DME) pen needle, diabetic 32 gauge x 5/32 needle See Rx Instructions subcut BID Qty: 50 Rx Instructions: As directed (DME) blood sugar diagnostic Strip See Rx Instructions .ROUTE .MEDSUPPLY Qty: 10 Rx Instructions: As directed (DME) FreeStyle Flavio 2 [place] Misc See Rx Instructions .ROUTE .MEDSUPPLY Qty: 1 0RF Rx Instructions: As directed (DME) FreeStyle Flavio 2 Sensor Kit See Rx Instructions .ROUTE .MEDSUPPLY Qty: 6 4RF Rx Instructions: As directed every 2 weeks (DME) pen needle, diabetic [BD Ultra-Fine Shobha Pen Needle] 32 gauge x 5/32 needle See Rx Instructions .ROUTE .MEDSUPPLY Qty: 400 3RF Rx Instructions: As directed four times a day insulin degludec 100 unit/mL (3 mL) insulin pen 80 unit subcut BEDTIME 30 Days Qty: 24 9RF tamsulosin 0.4 mg capsule 0.4 mg PO BEDTIME Qty: 90 0RF (DME) FreeStyle Flavio 2 Plus Sensor Device See Rx Instructions .Route Qty: 6 3RF Rx Instructions: every 15 days Held Eliquis 5 mg tablet 5 mg PO BID Qty: 180 1RF Hold Instructions: Resume on 02/24/25. Or Hold until after he's off heparin Discontinued rosuvastatin 20 mg tablet 20 mg PO DAILY 90 Days Qty: 90 0RF Discharge Orders: Discharge Order (Routine); Ordered 02/22/25 Ordered By: Cheikh Paredes Diet: Advance to usual diet Activity on Discharge: As tolerated Stand Alone Forms: Patient Portal Discharge page Print Language: [place] Care Plan Goals: recovery from acute ACS (heart attack), and transfer to [facility] for cardiac cath Health Concerns: Acute ACS, Plan of Treatment: Heparin drip, Aspirin, Lipitor, metoprolol Assessment: See above
[2025-02-22 11:56] VITALS: BP 115/59; PULSE 74; RESP 16; TEMP 36.3; O2SAT 93
--- NOTE | 2025-02-22 12:11 | MHC.CM.PN ---
PATIENT WILL TRANSFER TO [facility] FOR A CARDIAC CATH.
[2025-02-22 12:13] LABS: Glucose, Whole Blood 184 mg/dL (60-115)
[2025-02-22 12:30] LABS: PTT Heparin Drip 108.3 SEC (53-77.9)
[2025-02-22 13:54] LABS: PTT Heparin Drip 55.0 SEC (53-77.9)
== END 2025-02-22 15:05 | disposition short-term general hospital (02) | DRG 311 ==
LOC: HO.ED 16:42 → HO.EDOVER 17:32 → HO.IMC 02-21 14:08
PROVIDERS: Internal Medicine; Nurse Practitioner Family; Physician Assistant Medical; Admitting Provider Internal Medicine; Emergency Provider Emergency Medicine; PCP Student in an Organized Health Care Education/Training Program; Visit Provider Internal Medicine
DX: I24.9 Acute ischemic heart disease, unspecified (principal); I10 Essential (primary) hypertension; I25.10 Atherosclerotic heart disease of native coronary artery without angina pectoris; T45.516A Underdosing of anticoagulants, initial encounter; Z91.128 Patient's intentional underdosing of medication regimen for other reason; Z20.822 Contact with and (suspected) exposure to COVID-19; Z95.5 Presence of coronary angioplasty implant and graft; E11.9 Type 2 diabetes mellitus without complications; E03.9 Hypothyroidism, unspecified; E66.01 Morbid (severe) obesity due to excess calories; E78.5 Hyperlipidemia, unspecified; Z68.38 Body mass index [BMI] 38.0-38.9, adult; M10.9 Gout, unspecified; Z86.718 Personal history of other venous thrombosis and embolism; Z86.711 Personal history of pulmonary embolism; Z87.891 Personal history of nicotine dependence; Z79.4 Long term (current) use of insulin; Z79.01 Long term (current) use of anticoagulants; Z79.890 Hormone replacement therapy; Z79.899 Other long term (current) drug therapy
CPT/HCPCS: 36415; 71046; 80053; 80061; 82947; 83036; 83735; 83880; 84484; 85025; 85027; 85610; 85730; 87637; 93005; 93306; 99285; J1644; Q9957

== ENCOUNTER → 2025-02-20 12:27 | Outpatient (BNV) | payer MEDICARE, OTHER, SELFPAY | PROVIDERS: Emergency Provider Emergency Medicine; PCP Student in an Organized Health Care Education/Training Program; Visit Provider Internal Medicine Cardiovascular Disease | DX: I44.0 Atrioventricular block, first degree (principal) | CPT/HCPCS: 93010 ==

== ENCOUNTER → 2025-02-20 12:33 | Outpatient (BNV) | payer MEDICARE, OTHER, SELFPAY | PROVIDERS: Emergency Provider Emergency Medicine; PCP Student in an Organized Health Care Education/Training Program; Visit Provider Radiology Diagnostic Radiology | DX: R07.9 Chest pain, unspecified (principal) | CPT/HCPCS: 71046 ==

== ENCOUNTER 2025-02-20 17:26 | Outpatient (BNV) | payer MEDICARE, OTHER, SELFPAY | END 2025-02-21 04:22 | PROVIDERS: Admitting Provider Internal Medicine; Emergency Provider Emergency Medicine; PCP Student in an Organized Health Care Education/Training Program; Visit Provider Internal Medicine Cardiovascular Disease | DX: I24.9 Acute ischemic heart disease, unspecified (principal); I44.0 Atrioventricular block, first degree; I21.19 ST elevation (STEMI) myocardial infarction involving other coronary artery of inferior wall; I44.4 Left anterior fascicular block | CPT/HCPCS: 93010; 93306 ==

== ENCOUNTER → 2025-02-20 17:26 | Outpatient (BNV) | payer MEDICARE, OTHER, SELFPAY | PROVIDERS: Admitting Provider Internal Medicine; Emergency Provider Emergency Medicine; PCP Student in an Organized Health Care Education/Training Program; Visit Provider Internal Medicine Cardiovascular Disease | DX: I24.9 Acute ischemic heart disease, unspecified (principal) | CPT/HCPCS: 99233 ==

== ENCOUNTER → 2025-02-20 17:26 | Outpatient (BNV) | payer MEDICARE, OTHER, SELFPAY | PROVIDERS: Admitting Provider Internal Medicine; Emergency Provider Emergency Medicine; PCP Student in an Organized Health Care Education/Training Program; Visit Provider Nurse Practitioner Family | DX: I24.9 Acute ischemic heart disease, unspecified (principal); I10 Essential (primary) hypertension; E11.8 Type 2 diabetes mellitus with unspecified complications; E78.5 Hyperlipidemia, unspecified; E03.8 Other specified hypothyroidism | CPT/HCPCS: 99222; 99232; 99499 ==

== ENCOUNTER → 2025-02-22 23:59 | Outpatient (BNV) | payer MEDICARE, OTHER, SELFPAY | PROVIDERS: PCP Student in an Organized Health Care Education/Training Program; Visit Provider Internal Medicine Cardiovascular Disease | DX: I21.4 Non-ST elevation (NSTEMI) myocardial infarction (principal) | CPT/HCPCS: 93458; 93571; 99152 ==